=== PATIENT | male | born 1960 | race Caucasian/White ===

== ENCOUNTER 2019-05-31 09:12 | Outpatient (CLI) | payer BC, SELFPAY ==
--- NOTE | ~2019-05-31 | US_ITS ---
EXAMINATION: US renal BI DATE: 05/31/2019 10:48 INDICATION: Abnormal results of renal function study TECHNIQUE: Multiple ultrasound grayscale images of the kidneys were obtained. COMPARISON: CT dated 03/29/2016 and ultrasound dated 03/21/2016 FINDINGS: The right kidney measures 14.6 x 5.4 x 6.8 cm. The left kidney measures 14.5 x 6.1 x 6.2 cm. The kidn eys demonstrate normal echogenicity. Small bilateral anechoic renal cysts measuring up to 1.5 cm at t he right kidney and 1.3 cm the left kidney. There is no hydronephrosis in either kidney. No stones i dentified. The bladder is normal. Prostatomegaly measuring at least 5.4 x 4.2 x 4.2 cm. IMPRESSION: 1. Normal kidneys without hydronephrosis. 2. Prostatomegaly. Reviewed, dictated and finalized at location A. 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
== END 2019-05-31 09:13 | disposition home or self-care (01) ==
PROVIDERS: PCP Internal Medicine; Visit Provider Internal Medicine Nephrology
DX: R94.4 Abnormal results of kidney function studies (principal); N40.0 Benign prostatic hyperplasia without lower urinary tract symptoms
CPT/HCPCS: 76775

== ENCOUNTER 2019-08-01 08:52 | Outpatient (CLI) | payer BC, SELFPAY ==
--- NOTE | ~2019-08-01 | CT_ITS ---
EXAMINATION: CT abdomen pelvis wo/w con DATE: 08/01/2019 10:03 INDICATION: Gross hematuria. TECHNIQUE: Computed tomography (CT) of the abdomen and pelvis was performed without and with intraven ous contrast using a total of 130 mL Omnipaque-350 intravenous contrast with a double-bolus technique for simultaneous opacification of the renal parenchyma and renal collecting system. Automated exposu re control and iterative reconstruction technique were employed. The dose-length product was 2922.35 mGy-cm. COMPARISON: CT abdomen and pelvis 03/29/2016 FINDINGS: The visualized portions of the lung bases demonstrate minimal atelectasis. No pleural effusion. The h eart size is normal. There are coronary artery calcifications. No pericardial effusion. Calcified rig ht hilar lymph nodes are consistent with old granulomatous disease. Calcifications in the liver and s pleen are consistent with old granulomatous disease. There is a gallstone in the gallbladder, which i s normal in size. The pancreas and adrenal glands are normal. There are simple cysts in the kidneys m easuring up to 1.8 cm on the left. There are hemorrhagic cysts in the kidneys measuring up to 2.8 cm on the left. There is no urolithiasis. The bladder is not well-distended. There is diffuse bladder wa ll thickening. The prostate is moderately enlarged. There is diverticulosis of the colon without evid ence of diverticulitis. There are no dilated loops of bowel. The appendix is normal. There are no pat hologically enlarged lymph nodes. There is no free intraperitoneal fluid. There is moderate thoracic spondylosis and severe lumbar spondylosis. IMPRESSION: 1. Chronic diffuse bladder wall thickening, which may secondary to chronic outlet obstruction from th e moderately enlarged prostate. Reviewed, dictated and finalized at location A. IMPRESSION: 1. Chronic diffuse bladder wall thickening, which may secondary to chronic outl et obstruction from the moderately enlarged prostate.
[2019-08-01 09:35] LABS: Estimated Glomerular Filt Rate 48
== END 2019-08-01 08:53 | disposition home or self-care (01) ==
LOC: ANHIMG 09:00
PROVIDERS: PCP Internal Medicine; Visit Provider Urology
DX: R31.0 Gross hematuria (principal); N32.9 Bladder disorder, unspecified
CPT/HCPCS: 36415; 74178; Q9967

== ENCOUNTER 2020-12-30 15:17 | Outpatient (CLI) | payer BC, SELFPAY ==
--- NOTE | ~2020-12-30 | US_ITS ---
EXAMINATION: US soft tissue UE RT DATE: 12/30/2020 15:50 INDICATION: Localized swelling, mass or lump at the palmar aspect of the right second digit TECHNIQUE: Multiple grayscale and Doppler ultrasound images of the region of concern at the palmar as pect of the right second digit were obtained. COMPARISON: None FINDINGS: At the region of concern is a subcutaneous 5 x 5 x 3 mm anechoic fluid collection without evident int ernal flow or surrounding hyperemia on color Doppler. This located superficial to the flexor tendon a nd tendon sheath. On the cine images there appears to be a possible thin neck extending deeper to the underlying proximal interphalangeal joint space. IMPRESSION: 1. Region of concern corresponds to a 5 x 5 x 3 mm ganglion cyst which appears to arise from the righ t second proximal interphalangeal joint. Reviewed, dictated and finalized at location A. IMPRESSION: 1. Region of concern corresponds to a 5 x 5 x 3 mm ganglion cyst which appears to arise from the right second proximal interphalangeal joint.
== END 2020-12-30 15:18 | disposition home or self-care (01) ==
LOC: ANHIMG 15:23
PROVIDERS: PCP Internal Medicine; Visit Provider Nurse Practitioner
DX: R22.9 Localized swelling, mass and lump, unspecified (principal)
CPT/HCPCS: 76882

== ENCOUNTER → 2021-05-26 11:28 | Outpatient (CLI) | payer BC, SELFPAY ==
--- NOTE | ~2021-05-26 | US_ITS ---
EXAMINATION: US renal BI EXAM DATE: 05/26/2021 12:01 INDICATION: Essential primary hypertension. Chronic kidney disease stage III. TECHNIQUE: Multiple grayscale and Doppler images of the kidneys were obtained (by a technologist who performed the scan) and subsequently reviewed. Comparison is made to prior examination from 05/31/2019 . FINDINGS: Right kidney: There is normal contour and echogenicity. It measures 12.9 x 6.1 x 6.6 centimeters. Se veral small hypoechoic regions probably cysts measuring up to 1.6 cm. There is no hydronephrosis. Left kidney: There is normal contour and echogenicity. It measures 14.5 x 5.0 x 5.6 centimeters. Sev eral small cystic areas likely cysts measuring up to 1.8 cm. There is no hydronephrosis. Bladder unremarkable. IMPRESSION: 1. Small liver lesions likely cysts. Reviewed, dictated and finalized at location B. ONARY PHYSICIAN
== END ==
PROVIDERS: PCP Internal Medicine; Visit Provider Internal Medicine Nephrology
DX: E78.5 Hyperlipidemia, unspecified (principal); E55.9 Vitamin D deficiency, unspecified; D63.1 Anemia in chronic kidney disease; I12.9 Hypertensive chronic kidney disease with stage 1 through stage 4 chronic kidney disease, or unspecified chronic kidney disease; N18.31 Chronic kidney disease, stage 3a; K76.89 Other specified diseases of liver
CPT/HCPCS: 76775

== ENCOUNTER 2023-02-28 08:42 | Outpatient (CLI) | payer OTHER, SELFPAY ==
[2023-02-28 09:00] LABS: Hematocrit 44.4 % (42.0-52.0); Hemoglobin 15.6 g/dL (14.0-18.0); Mean Corpuscular HGB Conc 35.1 g/dl (32-36); Mean Corpuscular Hemoglobin 31.2 pg (26-34); Mean Corpuscular Volume 88.8 fl (80-100); Mean Platelet Volume 10.3 fl (7.4-10.4); Platelet Count Result 315 k/mm3 (150-375); Red Cell Distribution Width 12.4 % (11.5-14.5)
[2023-02-28 09:05] LABS: Blood Urea Nitrogen 37 mg/dL (8-26); Carbon Dioxide 24 mmol/L (22-30); Chloride 105 mmol/L (98-109); Estimated Glomerular Filt Rate 56; Glucose 264 mg/dL (70-105); Ionized Calcium (POC) 1.29 mmol/L (1.11-1.31); Potassium 4.2 mmol/L (3.5-4.9); Sodium 140 mmol/L (138-146)
[2023-02-28 09:06] LABS: Band Neutrophils Percent 4 % (0-6); Eosinophils Percent Manual 2 % (0-4); Monocytes Percent Manual 4 % (3-9); Neutrophils Percent Manual 73 % (46-73); Platelet Estimate Adequate (Adequate); Schistocytes None Seen (NORMAL); Total Cells Counted 100
[2023-02-28 11:30] LABS: Appearance Urine Turbid (Clear); Bacteria Urine None Seen /hpf; Bilirubin Urine Negative (Negative); Blood Urine 3+ (Negative); Color Urine Dark Yellow (Yellow); Glucose Urine UA 3+ mg/dL (Negative); Ketones Urine Negative (Negative); Leukocyte Esterase Ur 2+ LEU/UL (NEGATIVE); Nitrate Urine Negative (Negative); Non Pathogenic Casts 0-2; Protein Urine 2+ mg/dL (Negative); RBC Urine >100 /hpf (0-2); Squamous Epithelial Cell Urine Occasional /hpf (Few); Urobilinogen Urine 0.2 mg/dL (<2.0); WBC Urine >100 /hpf (0-3); pH Urine 5.5 (5.0-9.0)
[2023-02-28 11:33] LABS: Alanine Aminotransferase 28 U/L (6-50); Albumin Level 4.8 g/dL (3.5-5.1); Alkaline Phosphatase 86 U/L (38-126); Anion Gap 14 mmol/L (8-16); Aspartate Amino Transferase 26 U/L (17-59); Bilirubin,Total 0.6 mg/dL (0.2-1.3); Blood Urea Nitrogen 36 mg/dL (9-20); CRP 0.8 mg/dL (<1.0); Calcium 10.6 mg/dL (8.4-10.2); Carbon Dioxide 22 mmol/L (22-30); Chloride 104 mmol/L (98-107); Estimated Glomerular Filt Rate > 60; Glucose 261 mg/dL (65-110); Potassium 4.3 mmol/L (3.4-5.0); Sodium 140 mmol/L (137-145)
[2023-02-28 11:42] LABS: Add Urine Microscopic? YES
[2023-02-28 11:52] LABS: Erythrocyte Sedimentation Rate 11 mm/hr (0-20)
== END 2023-02-28 08:43 | disposition home or self-care (01) ==
PROVIDERS: Visit Provider Internal Medicine Hematology & Oncology
DX: N18.31 Chronic kidney disease, stage 3a (principal); D63.1 Anemia in chronic kidney disease; R31.9 Hematuria, unspecified; D72.829 Elevated white blood cell count, unspecified
CPT/HCPCS: 36415; 80047; 80053; 81001; 85025; 85652; 86140; 87086; 88184

== ENCOUNTER 2024-06-05 09:36 | Emergency (ER) | payer OTHER, MEDICARE, SELFPAY ==
--- NOTE | ~2024-06-05 | XR_ITS ---
Right Hand Technique: PA, oblique, and lateral views were obtained. Clinical History: Pain Findings: No acute fracture or dislocation is seen. Osseous alignment is anatomic. Joint spaces are p reserved. Soft tissues are unremarkable. Impression: Unremarkable right hand. Reviewed, dictated and finalized at location M. DING MAINTENANCE ENGINEER Impression: Unremarkable right hand.
--- NOTE | ~2024-06-05 | XR_ITS ---
[XR ribs RT 2V w CXR 2V ] INDICATION: Right rib pain after fall TECHNIQUE: Frontal projection of the upper right ribs, frontal projection of the lower right ribs, ob lique projection of all the right ribs, frontal inspiratory chest x-ray for interpretation. FINDINGS: Comparison to right rib series dated 10/04/2007 There are no displaced rib fractures identif ied. There are no soft tissue abnormality seen. The lungs are clear. There are calcified granuloma s in the lung parenchyma. IMPRESSION: 1:No acute displaced rib fractures. Reviewed, dictated and finalized at location B. RECRUITER
[2024-06-05 09:41] VITALS: BP 173/68; PULSE 67; RESP 16; TEMP 36.6; O2SAT 97
--- OUTSIDE RECORDS SUMMARY | 2024-06-05 09:43 | XMS_ITS | Clinical Summary ---
Author Organization [facility] Address [address] [place] [address] Care Team Providers Care Story Reader Name Role Phone Baldo Fischer MD Primary Care Provider Source Comments [facility],non-owned Affiliates and Associated Physician Practices is amultiple site organization consisting of ambulatory clinics and hospital sitesin [place], [place], [place] and [place]. This disclosure is being madepursuant to the Care Everywhere program and may not contain all information available regarding this patient. Last updated 18.[facility] Allergies No known active allergies Medications * Be aware that medications may not be up to date on this document. Alwaysverify current medications with the patient. Medication Sig Dispensed Refills Start Date End Date Status amLODIPine (Norvasc) 10 MG tablet amlodipine 10 mg tablet 04/27/2021 Active carvedilol (Coreg) 25 MG tablet Take 1 (one) tablet by mouth every 12 hours 07/10/2022 Active Continuous Blood Gluc Sensor (FreeStyle Juve 2 Sensor Systm) MISC USE DIRECTED AND CHANGE SENSOR EVERY 14 DAYS 06/26/2022 Active Farxiga 10 MG tablet Take 1 (one) tablet by mouth every morning 07/09/2022 Active dilTIAZem coated beads 24hr (Cardizem CD) 300 MG capsule 06/19/2022 Active fenofibrate micronized (Lofibra) 134 MG capsule 02/22/2021 Active ferrous sulfate 325 (65 FE) MG tablet every 24 hours Active finasteride (Proscar) 5 MG tablet Take 1 (one) tablet by mouth once daily 04/14/2022 Active glimepiride (Amaryl) 2 MG tablet Take 1 (one) tablet by mouth 2 times daily with morning and evening meal 06/05/2022 Active Basaglar KwikPen (Basaglar) pen ADMINISTER 35 UNITS UNDER THE SKIN IN THE MORNING AND AT BEDTIME 03/26/2022 Active B-D ULTRAFINE III SHORT PEN 31G X 8 MM needle USE TWICE DAILY DIRECTED 07/21/2021 Active losartan (Cozaar) 100 MG tablet 05/31/2022 Active nitroGLYCERIN (Nitrostat) 0.4 MG tablet nitroglycerin 0.4 mg tablet, sublingual 04/12/2021 Active omeprazole (PriLOSEC) 40 MG capsule TAKE 1 CAPSULE BY MOUTH EVERY DAY NEEDED 06/26/2022 Active rosuvastatin (Crestor) 20 MG tablet 04/27/2021 Active Ozempic, 0.25 or 0.5 MG/DOSE, 2 MG/1.5ML pen 1 (one) mg Take saturdays11/01/2021 Active aspirin EC (Ecotrin) 81 MG tablet Take 1 (one) tablet by mouth once daily Active qrmno-4-zwje ethyl esters (Lovaza) 1 g capsule Take 1 (one) capsule by mouth once daily Active Turmeric (QC TUMERIC COMPLEX PO) Active vitamin D3 (Cholecalciferol) 25 MCG (1000 UNITS) tablet Take 2 (two) tablets by mouth once daily Active ascorbic acid (Vitamin C) 500 MG tablet Take 1 (one) tablet by mouth once daily Active NATURAL PSYLLIUM FIBER PO Active HYDROcodone-acetam inophen ([place]) 5-325 MG tabletIndications: Renal mass, left Take 1 (one) tablet by mouth every 6 hours as needed for Pain 3 tablet 10/23/2022 Active Additional Information Patient not taking.Reported on 11/01/2023 nitrofurantoin monohyd macro crystals (Macrobid) 100 MG capsule 02/19/2023 Active metFORMIN ER 24hr (Glucophage XR) 500 MG tablet Take 1 (one) tablet by mouth 2 times daily 09/07/2023 Active vitamin D, ergocalciferol, (Drisdol) 1.25 MG (18981 UT) capsule Take 1 (one) capsule by mouth every 7 days Active Active Problems Problem Noted Date Diagnosed Date Renal mass, left 10/10/2022 Social History Tobacco Use Types Packs/Day Years Used Date Smoking Tobacco: Former Cigarettes Q uit: 1991 Smokeless Tobacco: Never Tobacco Cessation:Counseling Given: Not Answered Alcohol Use Standard Drinks/Week Comments Yes 0 (1 standard drink = 0.6 oz pur e alcohol) socially AUDIT-C Answer Date Recorded Q1: How often do you have a drink containing alc ohol? 2-4 times a month 10/10/2022 Average Number of Drinks Not on file 023 Frequency of Binge Drinking Not on file 09/15 Sex and Gender Information Value Date Recorded Sex Assigned at Not on file Gender Identity Not on file Sexual Orientation Not on file Last Filed Vital Signs Vital Sign Reading Time Taken Comments Blood Pressure 164/80 11/01/2023 11:07 AM CDT Pulse 71 11/01/2023 11:07 AM CDT Temperature 37.2 C (99 F) 11/01/2023 11:07 AM CDT Respiratory Rate 19 11/01/2023 11:07 AM CDT Oxygen Saturation 96% 11/01/2023 11:07 AM CDT Inhaled Oxygen Concentration - - Weight 103.4 kg (228 lb) 11/01/2023 11:07 AM CDT Height 185.4 cm (6' 1 ) 11/01/2023 11:07 AM CDT Body Mass Index 30.08 11/01/2023 11:07 AM CDT Plan of Treatment Upcoming Encounters Date Type Department Care Team (Late st Contact Info) Description 10/30/2024 9:30 AM CDT Appointment [facility] Health Imaging Services - CT Scan [address], [address] [place] [address] 10/30/2024 11:00 AM CDT Office Visit [facility] - Urology [address] [place] [address] Ruby Birch M, DO [address] [place] [address] Health Maintenance Due Date Last Done Comments COLOGUARD (AGES 45-75) - COLON CA SCREENING 1958 COLON MONITORING 1958 COLONOSCOPY - COLON CA SCREENING 1958 CT COLONOGRAPHY - COLON CA SCREENING 1960 Colorectal Cancer Screening 1958 FIT - COLON CA SCREENING 1958 FLEX SIG - COLON CA SCREENING 1958 MEDICARE AWV 12 MONTHS 1958 HIV SCREENING 1973 HEPATITIS C SCREENING 10/03/1976 DTAP/TDAP/TD VACCINES (1 - Tdap) 1977 PNEUMOCOCCAL VACCINE 50+ (1 of 1 - PCV) 2008 ZOSTER VACCINE (1 of 2) 2008 Respiratory Syncytial Virus (RSV) Vaccine Pt: or over 60 yrs (1 - Risk 60-74 years 1-dose series) 2018 AAA SCREENING 10/09/2023 COVID-19 VACCINE (3 - season) 2023 07/25/2020, 06/29/2020 INFLUENZA VACCINE (#1) 2023 1, 01/14/2021, 01/31/2020, Additional history exists DEPRESSION SCREENING 04/16/2024 SCREENING FOR DIABETES 10/31/2026 4, 02/28/2023, 10/11/2022, Additional history exists HEPATITIS B VACCINE Aged Out No longe r eligible based on patient's age to complete this topic HIB VACCINE Aged Out No longer eligi ble based on patient's age to complete this topic HPV VACCINE Aged Out No longer eligi ble based on patient's age to complete this topic MENINGOCOCCAL (Group B) VACCINE Aged Out No longer eligible based on patient's age to complete this topic MENINGOCOCCAL VACCINE Aged Out No elo isabella eligible based on patient's age to complete this topic Procedures Procedure Name Priority Date/Time Associated Diagnosis Comments BASIC METABOLIC PANEL (CALCIUM TOTAL) Routine 11/01/2023 8:50 AM CDT Renal mass, left from Last 3 Months or Most Recently Relevant to Health Maintenance Results * (ABNORMAL) BASIC METABOLIC PANEL (CALCIUM TOTAL) (11/01/2023 8:50 AM CDT) Glucose 203(H) 70 - 105 mg/dL 11/01/2023 9:52 AM CDT [facility] Sodium 139 136 - 145 mmol/L 11/01/2023 9:52 AM CDT [facility] Potassium 4.2 3.5 - 5.1 mmol/L 11/01/2023 9:52 AM CDT [facility] Chloride 108(H) 98 - 107 mmol/L 11/01/2023 9:52 AM CDT [facility] CO2 24 22 - 29 mmol/L 11/01/2023 9:52 AM CDT [facility] Calcium 10.3 8.4 - 10.4 mg/dL 11/01/2023 9:52 AM CDT [facility] Anion Gap 7 6 - 16 mmol/L 11/01/2023 9:52 AM CDT [facility] BUN 29(H) 7 - 26 mg/dL 11/01/2023 9:52 AM CDT [facility] Creatinine 1.17 0.72 - 1.25 mg/dL 11/01/2023 9:52 AM CDT [facility] eGFR by CKD-EPI 69(L) >=90 mL/min/1.7 3 m2 11/01/2023 9:52 AM CDT [facility] Blood BLOOD SPECIMEN / Unknown Lab Venipuncture / Unknown 11/01/2023 8:50 AM CDT 11/01/2023 8:50 AM CDT Ruby Birch DO LAB - CHEMISTRY OR DERABLES Performing Organization Address City/State/[facility] Co de Phone Number [facility] [address] [place] [address] from Last 3 Months or Most Recently Relevant to Health Maintenance Advance Directives * Full Code (Latest Code Status on File) Date Activated Date Inactivated Comments 10/10/2022 6:53 PM 10/11/2022 2:11 PM Care Teams Story Reader Relationship Specialty Start Date End Date Baldo Fischer MD [address] [place] [address] PCP - General 07/04/22
--- OUTSIDE RECORDS SUMMARY | 2024-06-05 09:43 | XMS_ITS | Patient Health Summary ---
Author Organization [facility] Address [address] [place] [address] Care Team Providers Care Wad Lubricator Name Role Phone Baldo Fischer MD Primary Care Provider Note from [facility],non-owned Affiliates and Associated Physician Practices is amultiple site organization consisting of ambulatory clinics and hospital sitesin [place], [place], [place] and [place]. This disclosure is being madepursuant to the Care Everywhere program and may not contain all information available regarding this patient. Last updated 18.[facility] Allergies No known active allergies Medications * Be aware that medications may not be up to date on this document. Alwaysverify current medications with the patient. * amLODIPine (Norvasc) 10 MG tablet(Started 04/27/2021) amlodipine 10 mg tablet * carvedilol (Coreg) 25 MG tablet(Started 07/10/2022) Take 1 (one) tablet by mouth every 12 hours * Continuous Blood Gluc Sensor (FreeStyle Juve 2 Sensor Systm) MIS(Started 06/26/2022) USE DIRECTED AND CHANGE SENSOR EVERY 14 DAYS * Farxiga 10 MG tablet(Started 07/09/2022) Take 1 (one) tablet by mouth every morning * dilTIAZem coated beads 24hr (Cardizem CD) 300 MG capsule(Started 06/19/2022) * fenofibrate micronized (Lofibra) 134 MG capsule(Started 02/22/2021) * ferrous sulfate 325 (65 FE) MG tablet every 24 hours * finasteride (Proscar) 5 MG tablet(Started 04/14/2022) Take 1 (one) tablet by mouth once daily * glimepiride (Amaryl) 2 MG tablet(Started 06/05/2022) Take 1 (one) tablet by mouth 2 times daily with morning and evening meal * Basaglar KwikPen (Basaglar) pen(Started 03/26/2022) ADMINISTER 35 UNITS UNDER THE SKIN IN THE MORNING AND AT BEDTIME * B-D ULTRAFINE III SHORT PEN 31G X 8 MM needle(Started 07/21/2021) USE TWICE DAILY DIRECTED * losartan (Cozaar) 100 MG tablet(Started 05/31/2022) * nitroGLYCERIN (Nitrostat) 0.4 MG tablet(Started 04/12/2021) nitroglycerin 0.4 mg tablet, sublingual * omeprazole (PriLOSEC) 40 MG capsule(Started 06/26/2022) TAKE 1 CAPSULE BY MOUTH EVERY DAY NEEDED * rosuvastatin (Crestor) 20 MG tablet(Started 04/27/2021) * Ozempic, 0.25 or 0.5 MG/DOSE, 2 MG/1.5ML pen(Started 11/01/2021) 1 (one) mg Take son saturdays * aspirin EC (Ecotrin) 81 MG tablet Take 1 (one) tablet by mouth once daily * yfwck-3-hmpd ethyl esters (Lovaza) 1 g capsule Take 1 (one) capsule by mouth once daily * Turmeric (QC TUMERIC COMPLEX PO) * vitamin D3 (Cholecalciferol) 25 MCG (1000 UNITS) tablet Take 2 (two) tablets by mouth once daily * ascorbic acid (Vitamin C) 500 MG tablet Take 1 (one) tablet by mouth once daily * NATURAL PSYLLIUM FIBER PO * HYDROcodone-acetaminophen (Brighton) 5-325 MG tablet(Started 10/23/2022) Take 1 (one) tablet by mouth every 6 hours as needed for Pain * nitrofurantoin monohyd macro crystals (Macrobid) 100 MG capsule(Started 02/19/2023) * metFORMIN ER 24hr (Glucophage XR) 500 MG tablet(Started 09/07/2023) Take 1 (one) tablet by mouth 2 times daily * vitamin D, ergocalciferol, (Drisdol) 1.25 MG (52468 UT) capsule Take 1 (one) capsule by mouth every 7 days Active Problems Problem Noted Date Diagnosed Date [...] Mass Index 30.08 11/01/2023 11:07 AM CDT Procedures * BASIC METABOLIC PANEL (CALCIUM TOTAL)(Performed 11/01/2023) Performed for Renal mass, left * XR CHEST 2VW(Performed 11/01/2023) Performed for Renal cell carcinoma of left kidney (HCC), H/O partial nephrectomy * CT ABDOMEN WWO CONTRAST(Performed 11/01/2023) Performed for Renal cell carcinoma of left kidney (HCC), H/O partial nephrectomy * CREATININE - POCT INTERFACED(Performed 11/01/2023) * CULTURE BLOOD(Performed 02/28/2023) * CULTURE BLOOD(Performed 02/28/2023) * CT ABDOMEN PELVIS WO CONTRAST(Performed 02/28/2023) Performed for Hematuria, unspecified type * LACTIC ACID BLOOD REFLEX TO REPEAT(Performed 02/28/2023) * URINE MICROSCOPIC ONLY REFLEX TO CULTURE(Performed 02/28/2023) * URINALYSIS REFLEX MICROSCOPIC REFLEX CULTURE(Performed 02/28/2023) * CULTURE URINE(Performed 02/28/2023) * COMPREHENSIVE METABOLIC PANEL(Performed 02/28/2023) * CBC W AUTO DIFFERENTIAL(Performed 02/28/2023) * URINALYSIS AUTO - POINT OF CARE (AMB) [facility](Performed 11/24/2022) Performed for Left renal mass * URINALYSIS AUTO - POINT OF CARE (AMB) [facility](Performed 10/26/2022) Performed for Left renal mass * CARDIAC EKG ORDER(Performed 10/13/2022) * GLUCOSE - POINT OF CARE(Performed 10/11/2022) * GLUCOSE - POINT OF CARE(Performed 10/11/2022) * CBC W AUTO DIFFERENTIAL(Performed 10/11/2022) Performed for Renal mass, left * BASIC METABOLIC PANEL (CALCIUM TOTAL)(Performed 10/11/2022) Performed for Renal mass, left * BASIC METABOLIC PANEL (CALCIUM TOTAL)(Performed 10/10/2022) Performed for Renal mass, left * CBC W AUTO DIFFERENTIAL(Performed 10/10/2022) Performed for Renal mass, left * GLUCOSE - POINT OF CARE(Performed 10/10/2022) * GLUCOSE - POINT OF CARE(Performed 10/10/2022) * PATHOLOGY TISSUE(Performed 10/10/2022) Performed for Renal mass * CARDIAC EKG ORDER(Performed 10/10/2022) * ARTERIAL LINE NOTE(Performed 10/10/2022) * ENDOTRACHEAL TUBE NOTE(Performed 10/10/2022) * BLOOD GAS+COOX+LYTES+METAB ARTERIAL POCT(Performed 10/10/2022) * BLOOD GAS ART+LYTES+METAB+COOX POC NOTIF(Performed 10/10/2022) Performed for Renal mass, left * ROBOTIC ASSISTED PARTIAL NEPHRECTOMY(Performed 10/10/2022) Performed for Renal mass * GLUCOSE - POINT OF CARE(Performed 10/10/2022) * TYPE + SCREEN PANEL(Performed 10/10/2022) Performed for Pre-op exam * TYPE + SCREEN PANEL(Performed 09/25/2022) Performed for Pre-op exam * BASIC METABOLIC PANEL (CALCIUM TOTAL)(Performed 09/25/2022) Performed for Left renal mass, Pre-op testing * CBC W AUTO DIFFERENTIAL(Performed 09/25/2022) Performed for Left renal mass, Pre-op testing * CULTURE URINE(Performed 09/25/2022) Performed for Left renal mass, Pre-op testing * EKG 12-LEAD(Performed 09/25/2022) Performed for Pre-op exam * CULTURE URINE(Performed 07/20/2022) Performed for Renal mass * URINALYSIS AUTO - POINT OF CARE (AMB) [facility](Performed 07/20/2022) Performed for Renal mass Results * (ABNORMAL) BASIC METABOLIC PANEL (CALCIUM TOTAL) (11/01/2023 8:50 AM CDT) Only the most recent of4 resultswithin the time period is included. Glucose 203(H) 70 - 105 mg/dL 11/01/2023 9:[address] [facility] Sodium 139 136 - 145 mmol/L 11/01/2023 9:[address] [facility] Potassium 4.2 3.5 - 5.1 mmol/L 11/01/2023 9:[address] [facility] Chloride 108(H) 98 - 107 mmol/L 11/01/2023 9:[address] [facility] CO2 24 22 - 29 mmol/L 11/01/2023 9:[address] [facility] Calcium 10.3 8.4 - 10.4 mg/dL 11/01/2023 9:[address] [facility] Anion Gap 7 6 - 16 mmol/L 11/01/2023 9:[address] [facility] BUN 29(H) 7 - 26 mg/dL 11/01/2023 9:[address] [facility] Creatinine 1.17 0.72 - 1.25 mg/dL 11/01/2023 9:[address] [facility] eGFR by CKD-EPI 69(L) >=90 mL/min/1.7 3 m2 11/01/2023 9:[address] [facility] Blood BLOOD SPECIMEN / Unknown Lab Venipuncture / Unknown 11/01/2023 8:50 AM CDT 11/01/2023 8:50 AM CDT Ruby Birch DO LAB - CHEMISTRY OR DERABLES [facility] [address] [place] [address] * XR CHEST 2VW (11/01/2023 8:34 AM CDT) Anatomical Region Laterality Modality Chest Radiographic Inessa ging 11/01/2023 9:26 AM CDT Impressions 11/01/2023 9:27 AM CDT IMPRESSION: No significant findings > Interpreting Provider: Kari Bartlett MD on 11/01/2023 9:27 AM Narrative 11/01/2023 9:27 AM CDT PROCEDURE: XR CHEST 2VW DATE/TIME OF EXAM: 11/01/2023 8:34 AM CLINICAL INFORMATION: None relevant/not provided if blank. Indication: C64.2: Malignant neoplasm of left kidney, except renal pelvis (HCC) Z90.5: Acquired absence of kidney Additional History: COMPARISON: None. FINDINGS: The lungs are clear and free of effusion. Incidental calcified granuloma in the right upper lobe. The heart size remains normal. There appeared to be either calcified plaques are stents in the coronary arteries. The mediastinum and bony thorax are unremarkable. Procedure Note Kari Bartlett MD - 11/01/2023 PROCEDURE: XR CHEST 2VW DATE/TIME OF EXAM: 11/01/2023 8:34 AM CLINICAL INFORMATION: None relevant/not provided if blank. Indication: C64.2: Malignant neoplasm of left kidney, except renalpelvis (HCC) Z90.5: Acquired absence of kidney Additional History: COMPARISON: None. FINDINGS: The lungs are clear and free of effusion. Incidental calcifiedgranuloma in the right upper lobe. The heart size remains normal. There appearedto be either calcified plaques are stents in the coronary arteries. The mediastinum and bony thorax are unremarkable. IMPRESSION: No significant findings > Interpreting Provider: Kari Bartlett MD on 11/01/2023 9:27 AM Ruby Birch DO DIAGNOSTIC IMAGING ORDERABLES * CT ABDOMEN WWO CONTRAST (11/01/2023 8:02 AM CDT) Anatomical Region Laterality Modality Abdomen Computed Tomogra phy 11/01/2023 9:21 AM CDT Impressions 11/01/2023 9:35 AM CDT IMPRESSION: No recurrent disease or metastatic lesions. There is no acute process. > Interpreting Provider: Marcello Gleason MD on 11/01/2023 9:35 AM Narrative 11/01/2023 9:35 AM CDT PROCEDURE: CT ABDOMEN WWO CONTRAST DATE/TIME OF EXAM: 11/01/2023 8:03 AM CLINICAL INFORMATION: None relevant/not provided if blank. Indication: C64.2: Malignant neoplasm of left kidney, except renal pelvis (HCC) Z90.5: Acquired absence of kidney CONTRAST: IOPAMIDOL 76 % IV SOLN:[address] ABDOMEN WITHOUT AND WITH CONTRAST. HISTORY: Follow-up renal cell carcinoma of left kidney status post partial nephrectomy. COMPARISON: CT abdomen and pelvis without contrast, 02/28/2023. TECHNIQUE: Spiral axial scanning and reconstructed coronal and sagittal imaging of the abdomen are performed before and also in early and delayed phases after intravenous contrast administration following the renal mass protocol. Oral contrast was not used. Total of 100 mL of Isovue-370 contrast was used, intravenously. FINDINGS: The surgical suture line of the nephrectomy is seen in the ventral aspect of the left kidney. There is no evidence of the local recurrence of the mass. There are bilateral well-circumscribed hypoattenuating renal lesions in both kidneys. The exophytic lesions of lateral aspect of the right kidney measuring 21 mm (series 4, image 74 and 68) does not enhance and represent simple cysts. The partially exophytic right renal lesion measuring 2 cm (series 4, image 54) does not enhance and represents a simple cyst. The adjacent cortical similar cystic lesion measuring 11 mm (series 4, image 56) does not enhance and also is a simple cyst. The 2.8 cm simple cyst of the left kidney (series 4, image 64) does not enhance. The exophytic simple cyst of the inferior pole of left kidney (series 4, image 85) measuring 2.5 cm does not enhance. The remaining subcentimeter bilateral cortical renal lesions do not enhance and although they're too small to characterize, apparently represent simple cysts as well. An enhancing solid renal mass is not present on either side. The precontrast images do not demonstrate a calcified urinary stone. The early postcontrast images demonstrate symmetric nephrograms. The delayed images demonstrate symmetric excretion of contrast into normal appearing renal calyces, renal pelves and the imaged portion of the ureters. There is no perirenal fat stranding. The liver, spleen with a few calcified granulomata, adrenal glands, and pancreas are within normal limits, in the 3 phases of this examination The gallbladder contains a single calcified gallstone and otherwise is unremarkable. No biliary or pancreatic ductal dilatation is identified. The aorta appears normal with a scattered atherosclerotic calcifications. There is no evidence of thrombosis in inferior vena cava, the iliac veins, hepatic veins or portal vein. The stomach, duodenum and the imaged portion of the remainder of the small bowel are within normal limits. The appendix is long containing air and is normal. The imaged large bowel is normal in caliber and wall thickness. The volume of stool is average. There is no diverticulosis No ascites, abscess, lymphadenopathy or free air is identified. The imaged body wall is unremarkable. In the imaged portion of the chest, the gastroesophageal junction is normal and the imaged lung bases are aerated and clear. The heart is not enlarged and no pleural effusion is seen. The bone window images demonstrate age-related degenerative changes and straightening of lumbar spine. Procedure Note Marcello Gleason MD - 11/01/2023 PROCEDURE: CT ABDOMEN WWO CONTRAST DATE/TIME OF EXAM: 11/01/2023 8:03 AM CLINICAL INFORMATION: None relevant/not provided if blank. Indication: C64.2: Malignant neoplasm of left kidney, except renalpelvis (HCC) Z90.5: Acquired absence of kidney CONTRAST: IOPAMIDOL 76 % IV SOLN:[address] ABDOMEN WITHOUT AND WITH CONTRAST. HISTORY: Follow-up renal cell carcinoma of left kidney status postpartial nephrectomy. COMPARISON: CT abdomen and pelvis without contrast, 02/28/2023. TECHNIQUE: Spiral axial scanning and reconstructed coronal and sagittal imaging of the abdomen are performed before and also in early anddelayed phases after intravenous contrast administration following the renalmass protocol. Oral contrast was not used. Total of 100 mL of Isovue-370 contrast was used, intravenously. FINDINGS: The surgical suture line of the nephrectomy is seen in the ventralaspect of the left kidney. There is no evidence of the local recurrence of the mass. There are bilateral well-circumscribed hypoattenuating renallesions in both kidneys. The exophytic lesions of lateral aspect of the right kidney measuring 21 mm (series 4, image 74 and 68) does not enhance and represent simple cysts. The partially exophytic right renal lesion measuring 2 cm (series 4, image 54) does not enhance and represents a simple cyst. The adjacent cortical similar cystic lesion measuring 11 mm (series 4, image 56) does not enhance and also is a simple cyst. The 2.8cm simple cyst of the left kidney (series 4, image 64) does not enhance.The exophytic simple cyst of the inferior pole of left kidney (series 4,image 85) measuring 2.5 cm does not enhance. The remaining subcentimeter bilateral cortical renal lesions do not enhance and although they're too small to characterize, apparently represent simple cysts as well. An enhancing solid renal mass is not present on either side. The precontrast images do not demonstrate a calcified urinary stone. The early postcontrast images demonstrate symmetric nephrograms. The delayed images demonstrate symmetric excretion of contrast into normal appearing renal calyces, renal pelves and the imaged portion of the ureters. Thereis no perirenal fat stranding. The liver, spleen with a few calcified granulomata, adrenal glands, and pancreas are within normal limits, in the 3 phases of this examinationThe gallbladder contains a single calcified gallstone and otherwise is unremarkable. No biliary or pancreatic ductal dilatation is identified. The aorta appears normal with a scattered atheroscleroticcalcifications. There is no evidence of thrombosis in inferior vena cava, the iliacveins, hepatic veins or portal vein. The stomach, duodenum and the imaged portion of the remainder of thesmall bowel are within normal limits. The appendix is long containing air andis normal. The imaged large bowel is normal in caliber and wall thickness.The volume of stool is average. There is no diverticulosis No ascites, abscess, lymphadenopathy or free air is identified. The imaged body wall is unremarkable. In the imaged portion of the chest, the gastroesophageal junction isnormal and the imaged lung bases are aerated and clear. The heart is notenlarged and no pleural effusion is seen. The bone window images demonstrate age-related degenerative changes and straightening of lumbar spine. IMPRESSION: No recurrent disease or metastatic lesions. There is no acute process. > Interpreting Provider: Marcello Gleason MD on 11/01/2023 9:35 AM Ruby Velazquez Queta DO CT ORDERABLES * CREATININE - POCT INTERFACED (11/01/2023 7:46 AM CDT) Creatinine POCT 0.80 0.70 - 1.20 mg/dL 11/01/2023 7:[address] [facility] eGFR >90 >=90 mL/min/1.7 3 m2 11/01/2023 7:[address] [facility] Blood BLOOD SPECIMEN / Unknown 11/01/2023 7:46 AM CDT 11/01/2023 7:57 AM CDT [facility]INT OF CAR E ORDERABLES [facility] [address] [place] [address] * CULTURE BLOOD (02/28/2023 5:11 PM COAT CUTTER) Only the most recent of2 resultswithin the time period is included. Culture No growth day 5 DIANE 03/05/2023 9:39 PM COAT CUTTER [facility] Blood PERIPHERAL BLOOD / Unknown Venipuncture / Unknown 02/28/2023 5:11 PM COAT CUTTER 02/28/2023 5:26 PM COAT CUTTER Christine Pelayo ORDER [facility] - MICROBIOLOG Y ORDERABLES [facility] [address] [place] [address], [facility] [phone] * CT ABDOMEN PELVIS WO CONTRAST (02/28/2023 4:18 PM COAT CUTTER) Anatomical Region Laterality Modality Abdomen, Pelvis Computed Tomogra phy 02/28/2023 4:50 PM COAT CUTTER Impressions 02/28/2023 4:59 PM COAT CUTTER Impression: 1.Cholelithiasis without evidence of acute cholecystitis. 2.Multiple exophytic lesions in the kidneys bilaterally measuring greater than simple fluid density. Further evaluation with dedicated renal CT or MRI is recommended. 3.Constipation. 4.Prostatomegaly. > Interpreting Provider: Chris Torres MD on 02/28/2023 4:59 PM Narrative 02/28/2023 4:59 PM COAT CUTTER PROCEDURE: CT ABDOMEN PELVIS WO CONTRAST, DATE/TIME OF EXAM: 02/28/2023 4:19 PM, LOCATION [facility] INDICATION: R31.9: Hematuria, unspecified COMPARISON: None. TECHNIQUE: CT of the abdomen and pelvis was performed without intravenous contrast according to standard protocol. Sagittal and coronal reformats were submitted. Findings: Lower Chest: Normal. Liver: Calcified granulomas are seen in the hepatic parenchyma. Gallbladder and Bile Ducts: Multiple gallstones are seen. No wall thickening or pericholecystic fluid. Spleen: Multiple calcified granulomas are noted in the spleen, likely sequelae of prior granulomatous disease. Pancreas: Normal. Adrenals: Normal. Kidneys: Multiple bilateral exophytic lesions demonstrating greater than simple fluid density are incompletely evaluated on this exam, measuring up to 2.5 cm in the superior pole the right kidney. Postoperative changes of the left kidney are noted. Gastrointestinal: Retained stool in the colon suggesting constipation. The appendix is not seen; however, no inflammatory changes are seen in the right lower quadrant. Bladder: The bladder wall is diffusely thickened, likely due to decompressed state. Reproductive Organs: The prostate is enlarged. Vasculature: Atherosclerotic calcification of the aorta and its branch vessels. Bones: Bone windows demonstrate no suspicious lytic or blastic lesions. The visible osseous structures are intact. Degenerative changes are seen in the spine. Soft tissues: Normal. Procedure Note Chris Torres MD - 02/28/2023 PROCEDURE: CT ABDOMEN PELVIS WO CONTRAST, DATE/TIME OF EXAM:02/28/2023 4:19 PM, LOCATION [facility] INDICATION: R31.9: Hematuria, unspecified COMPARISON: None. TECHNIQUE: CT of the abdomen and pelvis was performed withoutintravenous contrast according to standard protocol. Sagittal and coronal reformats were submitted. Findings: Lower Chest: Normal. Liver: Calcified granulomas are seen in the hepatic parenchyma. Gallbladder and Bile Ducts: Multiple gallstones are seen. No wall thickening or pericholecystic fluid. Spleen: Multiple calcified granulomas are noted in the spleen, likely sequelaeof prior granulomatous disease. Pancreas: Normal. Adrenals: Normal. Kidneys: Multiple bilateral exophytic lesions demonstrating greater than simple fluid density are incompletely evaluated on this exam, measuring up to2.5 cm in the superior pole the right kidney. Postoperative changes of the left kidney are noted. Gastrointestinal: Retained stool in the colon suggesting constipation. The appendix is not seen; however, no inflammatory changes are seen in the right lower quadrant. Bladder: The bladder wall is diffusely thickened, likely due to decompressedstate. Reproductive Organs: The prostate is enlarged. Vasculature: Atherosclerotic calcification of the aorta and its branch vessels. Bones: Bone windows demonstrate no suspicious lytic or blastic lesions. The visible osseous structures are intact. Degenerative changes are seen inthe spine. Soft tissues: Normal. Impression: 1.Cholelithiasis without evidence of acute cholecystitis. 2.Multiple exophytic lesions in the kidneys bilaterally measuringgreater than simple fluid density. Further evaluation with dedicated renal CT or MRI is recommended. 3.Constipation. 4.Prostatomegaly. > Interpreting Provider: Chris Torres MD on 02/28/2023 4:59 PM [facility] ORDER[facility]LES * LACTIC ACID BLOOD REFLEX TO REPEAT (02/28/2023 4:16 PM COAT CUTTER) Lactic Acid 0.8 <=2 mmol/L 02/28/2023 4:39 PM COAT CUTTER [facility] Blood BLOOD SPECIMEN / Unknown Venipuncture / Unknown 02/28/2023 4:16 PM COAT CUTTER 02/28/2023 4:16 PM COAT CUTTER Christine Pelayo [facility] - CHEMISTRY O RDERABLES [facility] [address] [place] [address] * (ABNORMAL) URINE MICROSCOPIC ONLY REFLEX TO CULTURE (02/28/2023 4:10 PM COAT CUTTER) Reflex Status Culture to follow 02/28/2023 4:30 PM COAT CUTTER [facility] RBC UA 11-20(A) 0 - 5 # /hpf 02/28/2023 4:30 PM COAT CUTTER [facility] WBC UA 51-100(A) 0 - 5 # /hpf 02/28/2023 4:30 PM COAT CUTTER [facility] Bacteria UA None Seen None Seen 02/28/2023 4:30 PM COAT CUTTER [facility] Squamous Epithelial Cells 0-2 0 - 5 /hpf 02/28/2023 4:30 PM COAT CUTTER [facility] Budding Yeast Many(A) None seen /hpf 02/28/2023 4:30 PM COAT CUTTER [facility] Urine URINE SPECIMEN OBTAINED BY CLEAN CATCH PROCEDURE / Unknown Collection / Unknown 02/28/2023 4:10 PM COAT CUTTER 02/28/2023 4:16 PM COAT CUTTER Narrative [facility] - 02/28/2023 4:30 PM COAT CUTTER Christine Pelayo [facility] - URINALYSIS ORDERABLES [facility] [address] [place] [address] * (ABNORMAL) URINALYSIS REFLEX MICROSCOPIC REFLEX CULTURE (02/28/2023 4:10 PM COAT CUTTER) Color UA Yellow Straw, Yellow 02/28/2023 4:27 PM COAT CUTTER [facility] Clarity UA Slt Cloudy(A) Clear 02/28/2023 4:27 PM COAT CUTTER [facility] Glucose UA 3+(A) Negative 02/28/2023 4:27 PM COAT CUTTER [facility] Bilirubin UA Negative Negative 02/28/2023 4:27 PM COAT CUTTER [facility] Ketone UA Negative Negative 02/28/2023 4:27 PM COAT CUTTER [facility] Specific [place] UA 1.018 1.005 - 1.030 02/28/2023 4:27 PM COAT CUTTER [facility] Blood UA 1+(A) Negative 02/28/2023 4:27 PM COAT CUTTER [facility] pH UA 6.0 5.0 - 8.0 pH 02/28/2023 4:27 PM COAT CUTTER [facility] Protein UA Negative Negative 02/28/2023 4:27 PM COAT CUTTER [facility] Urobilinogen UA Negative Negative mg/dL 02/28/2023 4:27 PM COAT CUTTER [facility] Nitrite UA Negative Negative 02/28/2023 4:27 PM COAT CUTTER [facility] Leukocyte UA 2+(A) Negative 02/28/2023 4:27 PM COAT CUTTER [facility] Urine Microscopy Urine microscopy to follow 02/28/2023 4:27 PM COAT CUTTER [facility] Reflex Status Culture to follow 02/28/2023 4:27 PM COAT CUTTER [facility] Urine URINE SPECIMEN OBTAINED BY CLEAN CATCH PROCEDURE / Unknown Collection / Unknown 02/28/2023 4:10 PM COAT CUTTER 02/28/2023 4:16 PM COAT CUTTER Narrative [facility] - 02/28/2023 4:27 PM COAT CUTTER Christine Pelayo [facility] - URINALYSIS ORDERABLES Performing Organization Address City/[facility]/ZIP Co de Phone Number [facility] [address] [place] [address] * CULTURE URINE (02/28/2023 4:10 PM COAT CUTTER) Only the most recent of3 resultswithin the time period is included. Culture Urine <10,000 CFU/mL urogenital juan a DIANE 03/02/2023 12:29 AM COAT CUTTER [facility] Urine URINE SPECIMEN OBTAINED BY CLEAN CATCH PROCEDURE / Unknown Collection / Unknown 02/28/2023 4:10 PM COAT CUTTER 02/28/2023 4:16 PM COAT CUTTER Christine Pelayo [facility] - MICROBIOLOG Y ORDERABLES Performing Organization Address City/[facility]/ZIP Co de Phone Number [facility] [address] [place] [address], [facility] [phone] * (ABNORMAL) CBC W AUTO DIFFERENTIAL (02/28/2023 4:06 PM COAT CUTTER) Only the most recent of4 resultswithin the time period is included. WBC 14.4(H) 4.4 - 10.7 x10E9/L 02/28/2023 4:23 PM COAT CUTTER [facility] WBC Corrected 02/28/2023 4:23 PM COAT CUTTER [facility] RBC 4.59 3.80 - 5.40 x10E12/L 02/28/2023 4:23 PM COAT CUTTER [facility] Hemoglobin 14.0 12.0 - 17.6 gm/dL 02/28/2023 4:23 PM COAT CUTTER [facility] Hematocrit 41.2 35.2 - 51.7 % 02/28/2023 4:23 PM COAT CUTTER [facility] MCV 89.8 80.7 - 98.3 fl 02/28/2023 4:23 PM COAT CUTTER [facility] MCH 30.5 26.7 - 34.0 pg 02/28/2023 4:23 PM COAT CUTTER [facility] MCHC 34.0 30.8 - 35.9 gm/dL 02/28/2023 4:23 PM COAT CUTTER [facility] Platelet Count 284 153 - 416 x10E9/L 02/28/2023 4:23 PM COAT CUTTER [facility] RDW-CV 12.5 12.1 - 14.9 % 02/28/2023 4:23 PM COAT CUTTER [facility] MPV 10.3 9.4 - 12.9 fl 02/28/2023 4:23 PM [facility] Neutrophils % 70.5 44.0 - 73.0 % 02/28/2023 4:23 PM COAT CUTTER [facility] Lymphocytes % 19.1(L) 20.0 - 43.0 % 02/28/2023 4:23 PM [facility] Monocytes % 5.9 5.0 - 13.0 % 02/28/2023 4:23 PM COAT CUTTER [facility] Eosinophils % 3.1 0.0 - 6.0 % 02/28/2023 4:23 PM [facility] Basophils % 0.8 0.0 - 2.0 % 02/28/2023 4:23 PM COAT CUTTER [facility] Immature Granulocytes 0.6 0 - 1 % 02/28/2023 4:23 PM COAT CUTTER [facility] Neutrophil Absolute 10.16(H) 2.01 - 7.14 x10E9/L 02/28/2023 4:23 PM COAT CUTTER [facility] Lymphocytes Absolute 2.75 1.07 - 3.94 x10E9/L 02/28/2023 4:23 PM COAT CUTTER [facility] Monocytes Absolute 0.85 0.26 - 1.07 x10E9/L 02/28/2023 4:23 PM [facility] Eosinophils Absolute 0.44 0 - 0.47 x10E9/L 02/28/2023 4:23 PM [facility] Basophils Absolute 0.11(H) 0 - 0.08 x10E9/L 02/28/2023 4:23 PM [facility] Immature Granulocytes Absolute 0.08(H) 0.00 - 0.06 x10E9/L 02/28/2023 4:23 PM [facility] nRBC Auto 0 /100 WBC 02/28/2023 4:23 PM [facility] Blood BLOOD SPECIMEN / Unknown Venipuncture / Unknown 02/28/2023 4:06 PM COAT CUTTER 02/28/2023 4:16 PM [facility] Christine Pelayo ORDER [facility] - HEMATOLOGY ORDERABLES [facility] [address] [place] [address] * (ABNORMAL) COMPREHENSIVE METABOLIC PANEL (02/28/2023 4:06 PM COAT CUTTER) Glucose 278(H) 70 - 105 mg/dL 02/28/2023 4:42 PM [facility] Sodium 140 136 - 145 mmol/L 02/28/2023 4:42 PM [facility] Potassium 4.2 3.5 - 5.1 mmol/L 02/28/2023 4:42 PM [facility] Chloride 106 98 - 107 mmol/L 02/28/2023 4:42 PM [facility] CO2 23 22 - 29 mmol/L 02/28/2023 4:42 PM [facility] Calcium 10.3 8.4 - 10.4 mg/dL 02/28/2023 4:42 PM [facility] Anion Gap 11 6 - 16 mmol/L 02/28/2023 4:42 PM [facility] BUN 36(H) 7 - 26 mg/dL 02/28/2023 4:42 PM [facility] Creatinine 1.38(H) 0.72 - 1.25 mg/dL 02/28/2023 4:42 PM [facility] Alkaline Phosphatase 73 40 - 150 U/L 02/28/2023 4:42 PM [facility] ALT 19 0 - 55 U/L 02/28/2023 4:42 PM [facility] AST 16 5 - 34 U/L 02/28/2023 4:42 PM COAT CUTTER [facility] Protein Total 7.2 6.4 - 8.3 gm/dL 02/28/2023 4:42 PM COAT CUTTER [facility] Albumin 4.0 3.4 - 5.0 gm/dL 02/28/2023 4:42 PM COAT CUTTER [facility] Bilirubin Total 0.5 0.2 - 1.2 mg/dL 02/28/2023 4:42 PM COAT CUTTER [facility] eGFR by CKD-EPI 57(L) >=90 mL/min/1.7 3 m2 02/28/2023 4:42 PM COAT CUTTER [facility] Blood BLOOD SPECIMEN / Unknown Venipuncture / Unknown 02/28/2023 4:06 PM COAT CUTTER 02/28/2023 4:16 PM COAT CUTTER Christine Pelayo [facility] LAB - CHEMISTRY O RDERABLES [facility] [address] [place] [address] * URINALYSIS AUTO - POINT OF CARE (AMB) [facility] (11/24/2022 10:38 AM CDT) Only the most recent of3 resultswithin the time period is included. Glucose UA 60mmol/L [facility] [address] Bilirubin UA POCT neg [facility] [address] Ketones UA POCT neg [facility] [address] Specific [place] UA 1.[address] [facility] [address] Blood Urine POCT neg [facility] [address] pH UA 6.0 [facility] [address] Protein UA neg [facility] [address] Urobilinogen UA 3.5umol/L [facility] [address] Nitrite UA neg [facility] [address] WBC UA neg [facility] [address] Urine URINE / Unknown 11/24/2022 1 0:38 AM CDT Ruby Birch DO LAB - POINT OF CAR E ORDERABLES [facility] [address] [place] [address], [facility] [phone] * CARDIAC EKG ORDER (10/13/2022 4:14 PM CDT) Only the most recent of2 resultswithin the time period is included. Narrative 10/13/2022 4:14 PM CDT Ordered by an unspecified provider. Scanned Document CARDIAC SERVICES ORD ERABLES * (ABNORMAL) GLUCOSE - POINT OF CARE (10/11/2022 11:13 AM CDT) Only the most recent of5 resultswithin the time period is included. Glucose WB/POC 232(H) 70 - 115 mg/dL 10/11/2022 11:17 AM CDT [facility] Specimen Type Cap Fingerstick 2022 11:17 AM CDT [facility] Blood BLOOD SPECIMEN / Unknown 10/11/2022 11:13 AM CDT 10/11/2022 11:17 AM CDT Ruby Birch DO LAB - POINT OF CAR E ORDERABLES [address] [address], [facility] [phone] * PATHOLOGY TISSUE (10/10/2022 3:30 PM CDT) Case Report Surgical Pathology Report Case: [id number] Authorizing Provider: Ruby Birch DO Collected: 10/10/2022 03:30 PM Ordering Location: [facility] OP Received: 10/11/2022 07:17 AM Pathologist: Arcenio Valentin MD Specimen: Kidney Nephrec Part, left renal mass 10/12/2022 2:57 PM CDT [facility] Final Diagnosis Kidney, left mass, partial nephrectomy (A): - Renal cell carcinoma, clear cell type (See synoptic report) 10/12/2022 2:57 PM CDT [facility] Microscopic Description and Comment Microscopic examination substantiates the final diagnosis. 10/12/2022 2:57 PM [facility] Clinical History The patient is a 62 year old male with imaging showing a 16mm partially endophytic left renal mass at that superior to mid pole location where the mass was seen on U/S. 10/12/2022 2:57 PM [facility] Gross Description The requisition and specimen(s) are identified with the patient's name Jared Barrios. Received in formalin, specimen A , is a 2.1 x 2.0 cm renal wedge excised up to 1.3 cm with a bulging capsule. The parenchymal margin is inked blue, the capsule is inked orange, and the specimen is sectioned to reveal a faulkner parenchyma and well-circumscribed 1.5 x 1.4 x 1.4 cm orange-red lesion approaching multiple margins. The specimen is entirely submitted in 4 cassettes. /ml 10/12/2022 2:57 PM [facility] Pathologist Location at [facility] 10/12/2022 2:57 PM [facility] Disclaimer The performance characteristics of all immunohistochemical and indirect immunofluorescence stains (if any) cited in this report were determined by the Histopathology Laboratory of [facility]. Some of these tests were developed by our own laboratory and have not been cleared or approved by the US Food and Drug Administration. The FDA does not require this test to go through premarket FDA review. These tests are used for clinical purposes. They should not be regarded as investigational or for research. This laboratory is certified under the Clinical Laboratory Improvement Amendments (CLIA) as qualified to perform high complexity clinical laboratory testing. This case has been personally reviewed and interpreted by the attending (teaching) pathologist. 10/12/2022 2:57 PM [facility] Synoptic Report KIDNEY: Nephrectomy KIDNEY: NEPHRECTOMY, PARTIAL OR RADICAL - All Specimens 8th Edition - Protocol posted: 10/13/2020 SPECIMEN Procedure: Partial nephrectomy Specimen Laterality: Left TUMOR Tumor Focality: Unifocal Tumor Site: superior to mid pole Tumor Size: Greatest Dimension (Centimeters): 1.5 cm Histologic Type: Clear cell renal cell carcinoma Histologic Grade (WHO / ISUP): G2 (nucleoli conspicuous and eosinophilic at 400x magnification, visible but not prominent at 100x magnification) Tumor Extent: Limited to kidney Sarcomatoid Features: Not identified Rhabdoid Features: Not identified Tumor Necrosis: Not identified Lymphovascular Invasion: Not identified MARGINS Margin Status: All margins negative for invasive carcinoma REGIONAL LYMPH NODES Regional Lymph Node Status: Not applicable (no regional lymph nodes submitted or found) PATHOLOGIC STAGE CLASSIFICATION (pTNM, AJCC 8th Edition) Reporting of pT, pN, and (when applicable) pM categories is based on information available to the pathologist at the time the report is issued. As per the AJCC (Chapter 1, 8th Ed.) it is the managing physician s responsibility to establish the final pathologic stage based upon all pertinent information, including but potentially not limited to this pathology report. Primary Tumor (pT): pT1a Regional Lymph Nodes (pN): pN not assigned (no nodes submitted or found) ADDITIONAL FINDINGS Additional Findings in Nonneoplastic Kidney: None identified 10/12/2022 2:57 PM CDT [facility] Embedded Images 10/12/2022 2:57 PM CDT [facility] Biopsy, Excision EXCISION OF LESION OF KIDNEY WITH PARTIAL NEPHRECTOMY / Unknown 10/10/2022 3:30 PM CDT 10/11/2022 7:17 AM CDT Comment:Pre-op diagnosis: renal mass Ruby Caroline Birch LAB - PATHOLOGY/SAM FELIZ ORDERABLES Performing Organization Address City/State/[facility] Co de Phone Number [facility] [address] [phone] * ARTERIAL LINE PERFORMABLE (10/10/2022 12:49 PM CDT) Narrative Lizzeth Weber Anes Asst - 10/10/2022 12:49 PM CDT Lizzeth Weber Anes Asst 10/10/2022 12:51 PM Arterial Line Placement Procedure Note Patient Location: OR. Procedure: Arterial Line ([id number]). Procedure Section Indications: continuous blood pressure monitoring and blood sampling needed. Skin Prep: Chloraprep. Orientation: Left. Site: radial. Sterile Technique: small sterile fenestrated drape, sterile gloves, mask and cap. Gauge: 20. Number of Attempts: 1. Procedure Tolerance: tolerated well. Events: none. Procedure Start Time: 10/10/2022 11:45 PM. Staff Section Anesthesia Provider: Bart Glass II, MD, Performed the procedure Bart Glass II, MD GENERAL ANESTHESIA ORDERABLES * ETT LINE PERFORMABLE (10/10/2022 12:48 PM CDT) Narrative Lizzeth Weber Anes Asst - 10/10/2022 12:48 PM CDT Lizzeth Weber Anes Asst 10/10/2022 12:49 PM Endotracheal Tube Placement: Patient Location: OR. Intubation Event Date/Time: 10/10/2022 11:36 AM Procedure: intubation ([id number]). Procedure Section: Induction: standard IV Patient Position: sniffing Mask Ventilation: easy with oral airway. Blade Type: Loja Blade Size: 2 Laryngoscopy View: grade 1 (full cords) Intubation Adjuncts: stylet Tube: endotracheal tube Placement: oral Tube type: cuff - inflated Tube Size (MM): 8 Depth of Insertion (CM): 23 Measured From: teeth Cuff Inflated With: air Number of Attempts: 1. Placement Verified By: direct visualization, CO2 detector, bilateral breath sounds and CO2 monitor CXR Findings: ETT in proper place. Tube secured with: adhesive tape. Dentition unchanged? Yes Difficult Airway? No. Procedure Start Time: 10/10/2022 11:36 AM. Staff Section Anesthesia Provider: Lizzeth Weber Anes Asst, Performed the procedure Bart Glass II, MD GENERAL ANESTHESIA ORDERABLES * (ABNORMAL) BLOOD GAS+COOX+LYTES+METAB ARTERIAL POCT (10/10/2022 12:43 PM CDT) pH Arterial 7.36 7.35 - 7.45 pH 10/10/2022 12:43 PM T [facility] pO2 Arterial 146(H) 80 - 100 mmHg 10/10/2022 12:43 PM CDT [facility] pCO2 Arterial 41 35 - 45 mmHg 12:43 PM [facility] HCO3 Arterial 23.2 20.0 - 30.0 mmol/L 10/10/2022 12:43 PM [facility] BE Arterial -2.2(L) -2.0 - 2.0 mmol/L 10/10/2022 12:43 PM [facility] Oxyhemoglobin Arterial 97.0 % 10/10/2022 12:43 PM [facility] Dexoyhemoglobin (HHB) % 2.1 % 10/10/2022 12:43 PM [facility] Methemoglobin <0.8 0.0 - 2.0 % 10/10/2022 12:43 PM [facility] Carboxyhemoglobin 0.6 0.0 - 2.0 % 2022 12:43 PM [facility] Comment:Carboxyhemoglobin No rmal Concentration: Non-smokers: 0-2%; Smokers: 0- 9%; Toxic: >20% O2 Content Arterial 17.2 Interpret within clinical context ml/dL 10/10/2022 12:43 PM [facility] Hemoglobin by COOX 12.4 12.0 - 17.6 g/dL 10/10/2022 12:43 PM [facility] O2 Saturation Arterial 98 90 - 100 % 10/10/2022 12:43 PM [facility] Sodium Whole Blood 137 135 - 145 mmol/L 10/10/2022 12:43 PM [facility] Potassium Whole Blood 3.5 3.5 - 5.5 mmol/L 10/10/2022 12:43 PM [facility] Chloride WB 107 78 - 107 mmol/L 10/10/2022 12:43 PM [facility] Calcium Ionized 1.21 mmol/L 12:43 PM [facility] Ionized Calcium pH Adjusted 1.19 1.19 - 1.34 mmol/L 10/10/2022 12:43 PM [facility] Anion Gap (AG) Arterial 10 8 - 18 mmol/L 10/10/2022 12:43 PM [facility] Glucose WB 120(H) 70 - 115 mg/dL 10/10/2022 12:43 PM [facility] Lactic Acid Whole Blood 0.7 <=2.0 mmol/L 10/10/2022 12:43 PM [facility] Blood, arterial ARTERIAL BLOOD SPECIMEN / Unknown 10/10/2022 12:43 PM CDT 10/10/2022 12:44 PM T Ruby M Queta DO LAB - POINT OF CAR E ORDERABLES Performing Organization Address [facility]/ZIP Co de Phone Number [facility] [address] [place] [address], [place] [phone] * BLOOD GAS ART+LYTES+METAB+COOX POC NOTIF (10/10/2022 12:41 PM CDT) Pathologist [facility] Comment Notification Label Only - See Separate Report 10/10/2022 2:00 PM CDT [facility] Other MISCELLANEOUS SAMPLES / Unknown 10/10/2022 12:41 PM CDT 10/10/2022 12:42 PM CDT Bart Glass II, MD LAB - BLOOD GASES O RDERABLES Performing Organization Address [facility] Co de Phone Number [facility] [address] [place] [phone], [facility] [phone] * TYPE + SCREEN PANEL (10/10/2022 10:10 AM CDT) Only the most recent of2 resultswithin the time period is included. [facility] Antibody Screen NEG 11:07 AM CDT [facility] ABO Rh O POS 10/10/2022 11:07 AM CDT [facility] Blood Bank BLOOD SPECIMEN / Unknown Venipuncture / Unknown 10/10/2022 10:10 AM CDT 10/10/2022 10:12 AM CDT Katie Henry ORDER [facility] [facility] LAB - BLOOD BANK ORDERABLES Performing Organization Address [facility] Co de Phone Number [facility] [address] [place] [address], [place] [phone] * EKG 12-LEAD (09/25/2022 1:51 PM CDT) Pathologist [facility] Ventricular Rate 66 BPM [facility] MUSE Atrial Rate 66 BPM [facility] P-R Interval 168 ms [facility] QRS Duration ms 166 ms [facility] MUSE Q-T Interval ms 446 ms [facility] MUSE QTC Calculation (Bezet) 467 ms [facility] MUSE Calculated P [place] 8 degrees [facility] MUSE Calculated R [place] -55 degrees [facility] MUSE Calculated T [place] 36 degrees [facility] M[facility] Interpretation EKG NORMAL SINUS RHYTHM RIGHT BUNDLE BRANCH BLOCK LEFT ANTERIOR FASCICULAR BLOCK BIFASCICULAR BLOCK MINIMAL VOLTAGE CRITERIA FOR LVH, MAY BE NORMAL VARIANT ( R in aVL ) ABNORMAL ECG NO PREVIOUS ECGS AVAILABLE Confirmed by JYOTSNA DAY, ROBERTO ([id number]) on 09/25/2022 10:31:33 PM [facility] 09/25/2022 1:51 PM CDT 09/25/2022 10:31 PM CDT Katie Henry ORDER [employer] ECG ORDERABLES [facility] Care Teams Wad Lubricator Relationship Specialty Start Date End Date Baldo Fischer MD [address] [address] PCP - General 07/04/22
--- OUTSIDE RECORDS SUMMARY | 2024-06-05 09:43 | XMS_ITS | Clinical Summary ---
Author Organization [facility] Address [address] [place] [id number] Care Team Providers Care Overhead Distribution Engineer Name Role Phone Lorenzo Fischer MD Primary Care Provide r Allergies No known active allergies Medications insulin lispro (HumaLOG, ADMELOG) 100 unit/mL vial for injection Inject 10 Units under the skin 3 (three) times a day before meals Active carvediloL (COREG) 25 mg tablet Take 1 tablet (25 mg total) by mouth 2 (two) times a day with meals Active aspirin 81 mg chewable tablet Take 1 tablet (81 mg total) by mouth daily Active rosuvastatin (CRESTOR) 40 mg tablet Take 1 tablet (40 mg total) by mouth nightly Active fenofibrate micronized (LOFIBRA) 134 mg capsule Take 1 capsule (134 mg total) by mouth daily before breakfast Active dapagliflozin propanediol (FARXIGA) 10 mg tablet Take 1 tablet (10 mg total) by mouth every morning Active terbinafine (LamiSIL) 250 mg tablet Take 1 tablet (250 mg total) by mouth daily Active finasteride (PROSCAR) 5 mg tablet Take 1 tablet (5 mg total) by mouth every morning Active dilTIAZem CD (CARDIZEM CD) 300 mg 24 hr capsule Take 1 capsule (300 mg total) by mouth every morning Active omeprazole (PriLOSEC) 40 mg capsule Take 1 capsule (40 mg total) by mouth nightly Active omega-3 fatty acids-fish oil 300-1,000 mg capsule Take 2 capsules (2 g total) by mouth 2 (two) times a day Active ergocalciferol (VITAMIN D) 50,000 unit capsule Take 1 capsule (50,000 Units total) by mouth once a week Q sunday Active losartan (COZAAR) 100 mg tablet Take 1 tablet (100 mg total) by mouth nightly Active nitroglycerin (NITROSTAT) 0.[address] 1 tablet (0.4 mg total) under the tongue every 5 (five) minutes as needed for chest pain Active insulin glargine 100 unit/mL (3 mL) pen for injection Inject 40 Units under the skin 2 (two) times a day Active Active Problems Problem Noted Date Diagnosed Date CAD (coronary artery disease) 02/07/2024 Stenosis of intervertebral foramina 02/03/2015 Arthropathy of cervical facet joint 02/03/2015 Lesion of ulnar nerve 02/03/2015 Cervicalgia 01/12/2015 Surgical History Surgery Date Site/Laterality Comments SHOULDER SURGERY Shoulder Surgery - (Added by TW Conv) CARDIAC STENT PLACEMENT x7, last one was 2022 KIDNEY SURGERY Left cancerous tumor removed TESTICLE SURGERY Left removed due to cancer - 1995 Medical History Medical History Date Comments Personal history of other en docrine, nutritional and metabolic disease History of diabetes mellitus - (Added by TW Conv) Personal history of other di seases of the circulatory system History of hypertension - (A dded by TW Conv) Hypertension Cancer (CMS/HCC) (HCC) kidney an d testicle Type 2 diabetes mellitus (HCC) Chronic kidney disease history k idney cancer and tumor removal Chronic pain disorder CAD (coronary artery disease) Family History Medical History Relation Name Comments Heart disease Brother Family history of cardiac disorder - (Added by TW Conv) Heart disease Father Family history of cardiac disorder - (Added by TW Conv) Hypertension Father Family history of hypertension - (Added by TW Conv) Heart disease Mother Family history of cardiac disorder - (Added by TW Conv) Coronary artery disease Other Fami ly history of coronary artery disease - (Added by TW Conv) Diabetes Other Family history of diabetes mellitus - (Added by TW Conv) Hypertension Other Family history of hypertension - (Added by TW Conv) Relation Name Status Comments Brother Father Mother Other Social History Tobacco Use Types Packs/Day Years Used Date Smoking Tobacco: Former Smokeless Tobacco: Never Tobacco Cessation:Counseling Given: Not Answered AUDIT-C Answer Date Recorded Q1: How often do you have a drink containing alc ohol? Monthly or less 02/15/2024 Q2: How many drinks containi ng alcohol do you have on a typical day when you are drinking? 1 or 2 02/15/2024 Q3: How often do you have si x or more drinks on one occasion? Never 02/15/2024 Personal Safety Answer Date Recorded Have you ever been in or are you currently in a harmful physical or emotional relationship or is someone making you feel afraid or unsafe? Denies 02/15/2024 Sex and Gender Information Value Date Recorded Sex Assigned at Not on file Legal Sex Male 11:38 AM DIETARY AID Gender Identity Not on file Sexual Orientation Not on file Obstetrics History Last Filed Vital Signs Vital Sign Reading Time Taken Comments Blood Pressure 129/65 02/15/2024 2:20 PM CDT Pulse 63 02/15/2024 2:25 PM CDT Temperature 36.9 C (98.5 F) 02/15/2024 8:24 AM CDT Respiratory Rate 18 02/15/2024 8:24 AM CDT Oxygen Saturation 96% 02/15/2024 2:25 PM CDT Inhaled Oxygen Concentration - - Weight 103.4 kg (228 lb) 02/15/2024 8:24 AM CDT Height 185.4 cm (6' 1 ) 02/15/2024 8:24 AM CDT Body Mass Index 30.08 02/15/2024 8:24 AM CDT Plan of Treatment Health Maintenance Due Date Last Done Comments Colon Cancer Screening-Colonoscopy 1960 Depression Screening 1960 Hepatitis C Screening 1960 Prostate Cancer Screening-PSA 1958 Hepatitis B Screening 1976 Zoster Vaccine (1 of 2) 2008 Pneumococcal vaccine 65+ (2 of 2 - PPSV23 or PCV20) 10/09/2023 05/16/2019 Well Visit 65+ 10/09/2023 Covid-19 Vaccine (4 - 2023-2 5 season) 2023 09/10/2021, 07/25/2020, 06/29/2020 Influenza Vaccine (#1) 2023 , 01/20/2022, 01/28/2021, Additional history exists Fall Risk Assessment 02/14/2025 02/15/2024 DTaP/Tdap/Td Vaccine (2 - Td or Tdap) 06/11/2031 06/11/2021, 12/30/2001 Abdominal Aortic Aneurysm (A AA) Screen Completed 11/01/2023, 02/28/2023, 07/29/2022 Medical Devices Implanted Type Area Principal Administrative Clerk Device Identifier Shelf Expiration Date Model / Serial / Lot [employer] Angio-Seal Vip 6fr Closere Device [id number] - [id number] Implanted:Qty: 1 on 02/15/2024 by Kermit Gonzalez MD at [facility] [employer] [id number] / / Procedures Procedure Name Priority Date/Time Associated Diagnosis Comments CT ABDOMEN PELVIS W CONTRAST ED 07/29/2022 4:04 PM CDT from Last 3 Months or Most Recently Relevant to Health Maintenance Results * CT Abdomen Pelvis W Contrast (07/29/2022 4:04 PM CDT) Anatomical Region Laterality Modality Body N/A Computed Tomogra phy 07/29/2022 3:53 PM CDT Impressions 07/29/2022 11:46 PM CDT 1. No acute abdominal process. 2. Indeterminate 1.4 cm left kidney upper pole renal mass. This may be a small renal cell carcinoma. Consider further evaluation with an abdominal MR without and with contrast. Preliminary results by teleradiologist enterprise integration developer. Electronically signed by: Jeremiah Ayala M.D. Narrative 07/29/2022 11:46 PM CDT EXAMINATION: Computed tomography of the abdomen and pelvis with intravenous contrast HISTORY: Abdominal pain TECHNIQUE: Transaxial computed tomographic images of the abdomen and pelvis were obtained with intravenous contrast according to the standard protocol after the uneventful administration of intravenous contrast. FINDINGS: No comparison Mild atelectasis in the visualized lung bases. No suspicious findings in the liver, adrenals or spleen. Pancreatic tail is dysmorphic with some heterotopic or exophytic pancreatic tissue arising off the tail. In the gastrosplenic ligament. Small gallstone in otherwise normal gallbladder. An upper pole left renal mass measures 1.4 cm. There are cystic renal lesions which have the appearance of indolent simple cysts. No hydronephrosis. Area bladder is thick-walled which is probably chronic remodeling from mild prostate enlargement and chronic outlet obstruction. No colonic inflammation. Normal appendix. No bowel obstruction. Moderate atherosclerosis abdominal aorta extending to its branches. No suspicious osseous lesion Procedure Note Jeremiah Ayala MD - 07/29/2022 EXAMINATION: Computed tomography of the abdomen and pelvis with intravenous contrast HISTORY: Abdominal pain TECHNIQUE: Transaxial computed tomographic images of the abdomen and pelvis were obtained with intravenous contrast according to the standard protocol after the uneventful administration of intravenous contrast. FINDINGS: No comparison Mild atelectasis in the visualized lung bases. No suspicious findings in the liver, adrenals or spleen. Pancreatic tail is dysmorphic with some heterotopic or exophytic pancreatic tissue arising off the tail. In the gastrosplenic ligament. Small gallstone in otherwise normal gallbladder. An upper pole left renal mass measures 1.4 cm. There are cystic renal lesions which have the appearance of indolent simple cysts. No hydronephrosis. Area bladder is thick-walled which is probably chronic remodeling from mild prostate enlargement and chronic outlet obstruction. No colonic inflammation. Normal appendix. No bowel obstruction. Moderate atherosclerosis abdominal aorta extending to its branches. No suspicious osseous lesion IMPRESSION: 1. No acute abdominal process. 2. Indeterminate 1.4 cm left kidney upper pole renal mass. This may be a small renal cell carcinoma. Consider further evaluation with an abdominal MR without and with contrast. Preliminary results by teleradiologist enterprise integration developer. Electronically signed by: Jeremiah Ayala M.D. Joie HAN IMG CT PROCEDURES Final Resul t from Last 3 Months or Most Recently Relevant to Health Maintenance Insurance MEDICARE [employer] [facility] Address: [facility] [address] [place] [address] [facility]/PPO Address: [facility] [address] [place] [address] Care Teams Overhead Distribution Engineer Relationship Specialty Start Date End Date Lorenzo Fischer MD [address] [facility] [address] [place] [address] PCP - General Internal Medicine 07/29/22
--- OUTSIDE RECORDS SUMMARY | 2024-06-05 09:43 | XMS_ITS | Clinical Summary ---
Author Organization [facility] Facility Address [address] [place] [address] Care Team Providers Care Operator Name Role Phone Baldo Fischer MD Primary Care Provider [phone] Medications amLODIPine (NORVASC) 5 MG tablet Take 1 tablet (5 mg total) by mouth every night 90 tablet 1 2 Active Semaglutide, 2 MG/DOSE, (Ozempic, 2 MG/DOSE,) 8 MG/3ML solution pen-injector Inject 2 mg under the skin per week 12 mL 1 4 Active ergocalciferol 1.25 MG (65210 UT) capsule TAKE 1 CAPSULE BY MOUTH 1 TIME EVERY WEEK 12 capsule 1 4 Active metFORMIN (GLUCOPHAGE) 500 MG tablet TAKE 1 TABLET(500 MG) BY MOUTH 1 TIME EACH DAY IN THE MORNING 90 tablet 1 4 Active losartan (COZAAR) 100 MG tablet TAKE 1 TABLET(100 MG) BY MOUTH EVERY NIGHT 90 tablet 1 4 Active ciprofloxacin (CIPRO) 500 MG tablet Take 1 tablet (500 mg total) by mouth 1 (one) time each day 5 tablet 5 Active ciprofloxacin (CIPRO) 500 MG tablet Take 500 mg by mouth in the morning and 500 mg in the evening. 06/03/19 25 Discontinu ed(Reorder (does not appear on AVS)) Encounters Date Type Department Care Team Description 06/03/2024 3:15 PM SHIPS OR BARGES LOADER Office Visit [place] [facility], [facility] [address] [facility] [address] [place] [address] Kan Ball DO Chronic kidney disease, stage 2 (mild) (Primary Dx); Persistent proteinuria; Coronary artery disease due to calcified coronary lesion; Hypertensive chronic kidney disease; Type 2 diabetes mellitus with diabetic chronic kidney disease (HCC); Pure hypercholesterolemi a, not otherwise specified; 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 [address] [place] [address] Kan Ball DO 05/20/[address] [facility] [address] [facility] [address] [place] [address] Kan Ball DO from Last 3 Months Social History Tobacco Use Types Packs/Day Years Used Date Smoking Tobacco: Never Assessed Sex and Gender Information Value Date Recorded Sex Assigned at Not on file Legal Sex Male 9:35 AM EST Gender Identity Not on file Sexual Orientation Not on file Last Filed Vital Signs Vital Sign Reading Time Taken Comments Blood Pressure 130/70 06/03/2024 3:14 PM SHIPS OR BARGES LOADER Pulse 68 06/03/2024 3:14 PM SHIPS OR BARGES LOADER Temperature 36.1 C (97 F) 06/03/2024 3:14 PM SHIPS OR BARGES LOADER Respiratory Rate 18 06/03/2024 3:14 PM SHIPS OR BARGES LOADER Oxygen Saturation 99% 06/03/2024 3:14 PM SHIPS OR BARGES LOADER Inhaled Oxygen Concentration - - Weight 112 kg (247 lb) 06/03/2024 3:14 PM SHIPS OR BARGES LOADER Height 185.4 cm (6' 1 ) 05/30/2022 4:01 PM SHIPS OR BARGES LOADER Body Mass Index 32.59 05/30/2022 4:01 PM SHIPS OR BARGES LOADER Plan of Treatment Upcoming Encounters Date Type Department Care Team (Late st Contact Info) Description 11/04/2024 3:15 PM CDT Office Visit [facility] [address] [facility] [address] [place] [address] Kan Ball DO [address] [facility] [place] [address] Health Maintenance Due Date Last Done Comments Pneumococcal Vaccine: 65+ Years (1 of 2 - PCV) 1966 05/16/2019 Pneumococcal Vaccine: Pediatrics (0 to 5 Years) and At-Risk Patients (6 to 64 Years) (1 of 2 - PCV) 1966 05/16/2019 Colorectal Cancer Screening: Annual FOBT 10/09/2007 Colorectal Cancer Screening: Colonoscopy 10/09/2007 Colorectal Cancer Screening: Sigmoidoscopy 10/09/2007 Diabetes: Ophthalmology Exam 07/29/2021 Diabetes: Pedal Pulse Checked 07/29/2021 Diabetes: Sensory Foot Exam 07/29/2021 Diabetes: Visual Foot Exam 07/29/2021 Influenza Vaccine (#1) 2023 , 01/20/2022, 01/28/2021, Additional history exists Diabetes: Hemoglobin A1C 08/28/2024 05/31/2024, 08/0 08/2023 Hepatitis B Vaccine Aged Out No longe r eligible based on patient's age to complete this topic Procedures Procedure Name Priority Date/Time Associated Diagnosis Comments HEMOGLOBIN A1C Routine 05/31/2024 6:22 AM SHIPS OR BARGES LOADER PROTEIN / CREATININE RATIO, URINE Routine 05/31/2024 6:22 AM SHIPS OR BARGES LOADER VITAMIN D 25 HYDROXY Routine 05/31/2024 6:22 AM SHIPS OR BARGES LOADER CBC AND DIFFERENTIAL Routine 05/31/2024 6:22 AM SHIPS OR BARGES LOADER URINALYSIS WITH MICROSCOPIC Routine 05/31/2024 6:22 AM SHIPS OR BARGES LOADER URINE ALBUMIN / CREATININE RATIO Routine 05/31/2024 6:22 AM SHIPS OR BARGES LOADER RENAL FUNCTION PANEL Routine 05/31/2024 6:22 AM SHIPS OR BARGES LOADER MAGNESIUM Routine 05/31/2024 6:22 AM SHIPS OR BARGES LOADER from Last 3 Months Results * (ABNORMAL) Protein, Total, Random Urine w/Creatinine (Protein/Creat Ratio) (05/31/2024 6:22 AM SHIPS OR BARGES LOADER) Creatinine, Ur 58 20 - 320 mg/dL See order comments Urine Protein/Creati nine Ratio 190(H) 25 - 148 mg/g creat See order comments Protein/Creati nine Ratio, Urine 0.190(H) 0.025 - 0.148 mg/mg creat See order comments Protein Urine Random 11 5 - 25 mg/dL See order comments 05/31/2024 6:22 AM SHIPS OR BARGES LOADER 05/31/2024 6:23 AM SHIPS OR BARGES LOADER Narrative [facility] - 06/03/2024 1:19 AM SHIPS OR BARGES LOADER FASTING:YES FASTING: YES Resulting Agency Comment Performing Organization Information: Site ID: [id number] Name: [facility] Address: [address] [place] [id number] Director: Mark Buchanan MD Kan Ball DO LAB URINE ORDERABLES Final R esult [facility] See order comments [place] [address] * (ABNORMAL) Urine Albumin / Creatinine Ratio (05/31/2024 6:22 AM SHIPS OR BARGES LOADER) Creatinine, Ur 58 20 - 320 mg/dL See order comments Urine Microalbumin 2.2 See Note: mg/dL See order comments Comment: Reference Range: Reference Range Not established Microalb/Creat Ratio 38(H) <30 mg/g creat See order comments Comment: The ADA defines abnormalities in albumin excretion as follows: Albuminuria Category Result (mg/g creatinine) Normal to Mildly increased <30 Moderately increased 30-299 Severely increased > OR = 300 The ADA recommends that at least two of three specimens collected within a 3-6 month period be abnormal before considering a patient to be within a diagnostic category. 05/31/2024 6:22 AM SHIPS OR BARGES LOADER 05/31/2024 6:23 AM SHIPS OR BARGES LOADER Narrative [facility] - 06/03/2024 1:19 AM SHIPS OR BARGES LOADER FASTING:YES FASTING: YES Resulting Agency Comment Performing Organization Information: Site ID: [facility] Name: [facility] Address: [address] [place] [id number] Director: Mark Buchanan MD Kan Ball DO LAB URINE ORDERABLES Final R esult [facility] See order comments [place] [address] * Vitamin D 25 Hydroxy (05/31/2024 6:22 AM SHIPS OR BARGES LOADER) Vitamin D, 25-OH, Total, IA 51 30 - 100 ng/mL See order comments Comment: Vitamin D Status 25-OH Vitamin D: Deficiency: <20 ng/mL Insufficiency: 20 - 29 ng/mL Optimal: > or = 30 ng/mL For 25-OH Vitamin D testing on patients on D2-supplementation and patients for whom quantitation of D2 and D3 fractions is required, the QuestAssureD(TM) 25-OH VIT D, (D2,D3), LC/MS/MS is recommended: order code 66113 (patients >2yrs). See Note 1 Note 1 For additional information, please refer to http://education.dondeEsta™/faq/ABM191 (This link is being provided for informational/ educational purposes only.) 05/31/2024 6:22 AM SHIPS OR BARGES LOADER 05/31/2024 6:23 AM SHIPS OR BARGES LOADER Narrative [facility] - 06/03/2024 1:19 AM SHIPS OR BARGES LOADER FASTING:YES FASTING: YES Resulting Agency Comment Performing Organization Information: Site ID: ID Name: [facility] Address: [address] [place] [address] [place] [address] Director: Mark Buchanan MD Kan Ball DO LAB BLOOD ORDERABLES Final R esult [facility] See order comments [place] [address] * (ABNORMAL) Urinalysis with microscopic (05/31/2024 6:22 AM SHIPS OR BARGES LOADER) Color, Urine YELLOW YELLOW See ord er comments Appearance Urine CLEAR CLEAR See order comments Specific Moyers, UA 1.020 1.001 - 1.035 See order comments pH Urine 6.0 5.0 - 8.0 See order comments Glucose, Ur 3+(A) NEGATIVE See orde r comments Bilirubin, Urine NEGATIVE NEGATIVE See order comments Ketones, Urine NEGATIVE NEGATIVE See o rder comments Hemoglobin Ur Ql Strip TRACE(A) NEGATIVE See order comments Protein, Ur NEGATIVE NEGATIVE See orde r comments Nitrite, Urine POSITIVE(A) NEGATIVE See order comments WBC Esterase Urine 2+(A) NEGATIVE See order comments WBC, Urine > OR = 60(A) < OR = 5 /HPF See order comments RBC, Urine NONE SEEN < OR = 2 /HPF See order comments Epithelial Cells in Urine 0-5 < OR = 5 /HPF See order comments Trans Epithelial, Urine CANCELED < OR = 5 /HPF See order comments Comment:Result canceled by t he ancillary. Renal Epithelial Cells, Urine CANCELED < OR = 3 /HPF See order comments Comment:Result canceled by t he ancillary. Bacteria MANY(A) NONE SEEN /HPF See order comments Calcium Oxalate Crystals, Urine CANCELED NONE OR FEW /HPF See order comments Comment:Result canceled by t he ancillary. Triple Phosphate Crystals, Urine CANCELED NONE OR FEW /HPF See order comments Comment:Result canceled by t he ancillary. Uric Acid Crystals, Urine CANCELED NONE OR FEW /HPF See order comments Comment:Result canceled by t he ancillary. Amorphous Sediments CANCELED NONE OR FEW /HPF See order comments Comment:Result canceled by t he ancillary. Crystals CANCELED NONE SEEN /HPF See order comments Comment:Result canceled by t he ancillary. Hyaline Casts, Urine 0-5(A) NONE SEEN /LPF See order comments Granular Casts, Urine CANCELED NONE SEEN /LPF See order comments Comment:Result canceled by t he ancillary. Casts CANCELED NONE SEEN /LPF See order comments Comment:Result canceled by t he ancillary. Yeast, UA CANCELED NONE SEEN /HPF See order comments Comment:Result canceled by t he ancillary. Comments CANCELED See order comments Comment:Result canceled by t he ancillary. Note: CANCELED See order comments Comment:Result canceled by t he ancillary. 05/31/2024 6:22 AM SHIPS OR BARGES LOADER 05/31/2024 6:23 AM SHIPS OR BARGES LOADER Narrative [facility] - 06/03/2024 1:19 AM SHIPS OR BARGES LOADER FASTING:YES FASTING: YES Resulting Agency Comment Performing Organization Information: Site ID: ID Name: [facility] Address: [address] [address] Director: Mark Buchanan MD us Kan Ball DO LAB URINE ORDERABLES Final R esult [facility] See order comments [place] [address] * CBC and Differential (05/31/2024 6:22 AM SHIPS OR BARGES LOADER) WBC 6.2 3.8 - 10.8 Thousand/ uL See order comments RBC 4.34 4.20 - 5.80 Million/u L See order comments Hemoglobin 13.3 13.2 - 17.1 g/dL See order comments Hematocrit 41.1 38.5 - 50.0 % See order comments MCV 94.7 80.0 - 100.0 fL See order comments MCH 30.6 27.0 - 33.0 pg See order comments MCHC 32.4 32.0 - 36.0 g/dL See order comments Comment: For adults, a slight decrease in the calculated MCHC value (in the range of 30 to 32 g/dL) is most likely not clinically significant; however, it should be interpreted with caution in correlation with other red cell parameters and the patient's clinical condition. RDW 12.5 11.0 - 15.0 % See order comments Platelets 219 140 - 400 Thousand/ uL See order comments MPV 11.0 7.5 - 12.5 fL See order comments Neutrophils Absolute 2,753 1,500 - 7,800 cells/uL See order comments Band Neutrophils Absolute, Manual Count CANCELED 0 - 750 cells/uL See order comments Comment:Result canceled by t he ancillary. Metamyelocytes Absolute CANCELED 0 cells/uL See order comments Comment:Result canceled by t he ancillary. Absolute Myelocytes CANCELED 0 cells/uL See order comments Comment:Result canceled by t he ancillary. Absolute Promyelocytes CANCELED 0 cells/uL See order comments Comment:Result canceled by t he ancillary. Lymphocytes Absolute 2,251 850 - 3,900 cells/uL See order comments Monocytes Absolute 620 200 - 950 cells/uL See order comments Eosinophils Absolute 477 15 - 500 cells/uL See order comments Basophils Absolute 99 0 - 200 cells/uL See order comments Blasts Absolute CANCELED 0 cells/uL See order comments Comment:Result canceled by t he ancillary. NRBC Absolute CANCELED 0 cells/uL See order comments Comment:Result canceled by t he ancillary. Neutrophils Relative 44.4 % See order comments Bands Absolute CANCELED % See o rder comments Comment:Result canceled by t he ancillary. Metamyelocytes Percent CANCELED % See order comments Comment:Result canceled by t he ancillary. Myelocytes Relative CANCELED % See order comments Comment:Result canceled by t he ancillary. Promyelocytes Relative CANCELED % See order comments Comment:Result canceled by t he ancillary. Lymphocytes 36.3 % See orde r comments Variant lymphocytes/100 WBC (Bld) CANCELED 0 - 10 % See order comments Comment:Result canceled by t he ancillary. Monocytes 10.0 % See order comments Eosinophils 7.7 % See orde r comments Basophils Relative 1.6 % S ee order comments Blasts CANCELED % See order comments Comment:Result canceled by t he ancillary. nRBC CANCELED 0 /100 WBC See order comments Comment:Result canceled by t he ancillary. Comment(s) CANCELED See order comments Comment:Result canceled by t he ancillary. 05/31/2024 6:22 AM SHIPS OR BARGES LOADER 05/31/2024 6:23 AM SHIPS OR BARGES LOADER Narrative [facility] - 06/03/2024 1:19 AM SHIPS OR BARGES LOADER FASTING:YES FASTING: YES Resulting Agency Comment Performing Organization Information: Site ID: ID Name: [facility] Address: [address] [address] Director: Mark Buchanan MD us Kan Ball DO LAB BLOOD ORDERABLES Final R esult [facility] See order comments [place] [address] * Magnesium (05/31/2024 6:22 AM SHIPS OR BARGES LOADER) Magnesium 2.0 1.5 - 2.5 mg/dL See order comments 05/31/2024 6:22 AM SHIPS OR BARGES LOADER 05/31/2024 6:23 AM SHIPS OR BARGES LOADER Narrative [facility] - 06/03/2024 1:19 AM SHIPS OR BARGES LOADER FASTING:YES FASTING: YES Resulting Agency Comment Performing Organization Information: Site ID: [id number] Name: [facility] Address: [address] [place] [id number] Director: Mark Buchanan MD us Kan Ball DO LAB BLOOD ORDERABLES Final R esult Performing Organization Address [facility] Co de Phone Number [facility] See order comments [place] [address] * (ABNORMAL) Hemoglobin A1c (05/31/2024 6:22 AM SHIPS OR BARGES LOADER) Hemoglobin A1C 8.1(H) <5.7 % of total Hgb See order comments Comment: For someone without known diabetes, a hemoglobin A1c value of 6.5% or greater indicates that they may have diabetes and this should be confirmed with a follow-up test. For someone with known diabetes, a value <7% indicates that their diabetes is well controlled and a value greater than or equal to 7% indicates suboptimal control. A1c targets should be individualized based on duration of diabetes, age, comorbid conditions, and other considerations. Currently, no consensus exists regarding use of hemoglobin A1c for diagnosis of diabetes for children. 05/31/2024 6:22 AM SHIPS OR BARGES LOADER 05/31/2024 6:23 AM SHIPS OR BARGES LOADER Narrative [facility] - 06/03/2024 1:19 AM SHIPS OR BARGES LOADER FASTING:YES FASTING: YES Resulting Agency Comment Performing Organization Information: Site ID: [id number] Name: [facility] Address: [id number] [place] [address] [place] [address] Director: Mark Buchanan MD us Kan Ball DO LAB BLOOD ORDERABLES Final R esult Performing Organization Address [facility] Co de Phone Number [facility] See order comments [place] [address] * (ABNORMAL) Renal Function Panel (05/31/2024 6:22 AM SHIPS OR BARGES LOADER) Glucose 138(H) 65 - 99 mg/dL See order comments Comment: Fasting reference interval For someone without known diabetes, a glucose value >125 mg/dL indicates that they may have diabetes and this should be confirmed with a follow-up test. BUN 27(H) 7 - 25 mg/dL See order comments Creatinine 1.17 0.70 - 1.35 mg/dL See order comments eGFR CKD-EPI CR 2020 69 > OR = 60 mL/min/1.7 3m2 See order comments BUN/Creatinine Ratio 23(H) 6 - 22 (calc) See order comments Sodium 140 135 - 146 mmol/L See order comments Potassium 4.2 3.5 - 5.3 mmol/L See order comments Chloride 107 98 - 110 mmol/L See order comments Bicarbonate (CO2) 26 20 - 32 mmol/L See order comments Calcium 9.7 8.6 - 10.3 mg/dL See order comments Phosphorus 3.1 2.1 - 4.3 mg/dL See order comments Albumin 4.4 3.6 - 5.1 g/dL See order comments 05/31/2024 6:22 AM SHIPS OR BARGES LOADER 05/31/2024 6:23 AM SHIPS OR BARGES LOADER Narrative [facility] - 06/03/2024 1:19 AM SHIPS OR BARGES LOADER FASTING:YES FASTING: YES Resulting Agency Comment Performing Organization Information: Site ID: [facility] Name: [facility] Address: [address] [address] Director: Mark Buchanan MD us Kan Ball DO LAB BLOOD ORDERABLES Final R esult [facility] See order comments [place] [address] from Last 3 Months Insurance [facility] MEDICARE Care Teams Operator Relationship Specialty Start Date End Date Baldo Fischer MD [address] [facility] [place] [address] PCP - General Internal Medicine 07/25/21
--- OUTSIDE RECORDS SUMMARY | 2024-06-05 09:43 | XMS_ITS | Clinical Summary ---
Author Organization [facility] Address [address] [place] [id number] Phone Care Team Providers Care Employment Clerk Name Role Phone Baldo Fischer MD Primary Care Provider [phone] Allergies No known active allergies Medications Medication Sig Dispensed Refills Start Date End Date Status aspirin (ASPIR) 81 MG EC tablet 1 daily 0 02/14/2016 Active omeprazole (PriLOSEC) [address] capsule 1 capsule (40 mg) orally daily 30 minutes before morning meal 0 02/14/2016 Active fenofibrate micronized (LOFIBRA) 134 MG capsule fenofibrate micronized 134 mg capsule Active dilTIAZem CD (CARDIZEM CD) 300 MG 24 hr capsule TK 1 C PO D 04/13/2019 Active insulin glargine (BASAGLAR KWIKPEN) 100 UNIT/ML injection Basaglar KwikPen U-100 Insulin 100 unit/mL (3 mL) subcutaneous Active nitroglycerin (NITROSTAT) 0.4 MG SL tablet nitroglycerin 0.4 mg sublingual tablet DIS 1 T UNT Q 5 MINUTES FOR 3 TOTAL DOSES PRF CHEST PAIN. IF NO RELIEF AFTER 3RD DOSE GO TO ER. Active triamcinolone (KENALOG) 0.1 % lotion KAREN EXT AA BID PRF RASH 04/04/2019 Active carvedilol (COREG) 25 MG tablet Take 25 mg by mouth 2 (two) times a day with meals Active CONTOUR NEXT TEST test strip TEST TID BEFORE MEALS. 05/13/2019 Active JARDIANCE 25 MG tablet TK 1 T PO QD IN THE MORNING 06/12/2019 Active Lancets Micro Thin 33G misc U TO TEST BS QID 12/17/2019 Active finasteride (PROSCAR) 5 MG tablet TK 1 T PO D 01/27/2020 Active B-D ULTRAFINE III SHORT PEN 31G X 8 MM misc 2 (two) times a day as directed 04/22/2020 Active Ozempic, 1 MG/DOSE, 4 MG/3ML solution pen-injector INJECT 1 MG UNDER THE SKIN IN THE MORNING ONCE WEEKLY 10/14/2020 Active glimepiride (AMARYL) 2 MG tablet Take 4 mg by mouth 1 (one) time each day 10/10/2020 Active Blood Glucose Monitoring Suppl (ONE TOUCH ULTRA 2) w/Device kit USE TO TEST BLOOD SUGAR TWICE DAILY BEFORE MEALS 04/19/2021 Active Icosapent Ethyl (Vascepa) 1 g capsule Vascepa 1 gram capsule Active isosorbide mononitrate (IMDUR) 60 MG 24 hr tablet Take 60 mg by mouth 1 (one) time each day in the evening 04/27/2021 Active rosuvastatin (CRESTOR) 20 MG tablet Take 20 mg by mouth every night 04/27/2021 Active amLODIPine (NORVASC) 10 MG tablet Take 10 mg by mouth 1 (one) time each day Active Active Problems Problem Noted Date Diagnosed Date Anemia 04/26/2021 Stage 3a chronic kidney disease 05/15/2020 Vitamin D deficiency 05/08/2019 Type 2 diabetes mellitus without complication Acquired cyst of kidney 10/22/2014 Overview (06/29/2018): Converted unresolved ICD9, potential mismatch. Essential (primary) hypertension 10/22/2014 Coronary atherosclerosis due to lipid rich plaqu e 10/22/2014 Other and unspecified hyperlipidemia 10/22/2014 Overview (06/29/2018): Converted unresolved ICD9, potential mismatch. Resolved Problems Problem Noted Date Diagnosed Date Resolved Date Nonspecific abnormal results of function study of kidney 05/08/2019 11/12/2020 Immunizations Name Administration Dates Next Due Influenza TIV (IM) 01/28/2021,01/31/2020, 019 Influenza, Injectable, Quadrivalent 01/14/2021 Pfizer Sars-cov-2 Vaccination 07/25/2020, 021 Pneumococcal Conjugate 05/16/2019 Tdap 06/11/2021 Family History Medical History Relation Comments Coronary arteriosclerosis Father Diabetes mellitus Father Coronary arteriosclerosis Mother Diabetes mellitus Mother Kidney disease Relative Relation Status Comments Father Mother Relative Social History Tobacco Use Types Packs/Day Years Used Date Smoking Tobacco: Former Smokeless Tobacco: Never Alcohol Use Standard Drinks/Week Comments Not Currently 0 (1 standard drink = 0.6 oz pur e alcohol) Sex and Gender Information Value Date Recorded Sex Assigned at Not on file Gender Identity Not on file Sexual Orientation Not on file Last Filed Vital Signs Vital Sign Reading Time Taken Comments Blood Pressure 124/70 05/23/2021 9:24 AM BONE GLUE MAKER Pulse 72 05/23/2021 9:24 AM BONE GLUE MAKER Temperature 36.4 C (97.6 F) 05/23/2021 9:24 AM BONE GLUE MAKER Respiratory Rate - - Oxygen Saturation - - Inhaled Oxygen Concentration - - Weight 104 kg (230 lb) 05/23/2021 9:24 AM BONE GLUE MAKER Height 182.9 cm (6') 05/23/2021 9:24 AM BONE GLUE MAKER Body Mass Index 31.19 05/23/2021 9:24 AM BONE GLUE MAKER Plan of Treatment Health Maintenance Due Date Last Done Comments Pneumococcal PPSV23/PCV13 65 + Years / Low and Medium Risk (1 of 4 - PCV) 10/09/2023 COVID-19 Vaccine ( season) 12/16/202302/2021, 06/29/2020 Influenza Vaccine (#1) 2023 , 01/31/2020, 02/28/2019 Care Teams Employment Clerk Relationship Specialty Start Date End Date Baldo Fischer MD [address] [place] [address] [place] [address] PCP - General Family Medicine 2/10/22
--- OUTSIDE RECORDS SUMMARY | 2024-06-05 09:43 | XMS_ITS | Referral Summary ---
Author Organization [facility] Address [address] [place] [address] Care Team Providers Care Heating Equipment Repairer Name Role Phone Baldo Fischer MD Primary Care Provider Source Comments [facility],non-owned Affiliates and Associated Physician Practices is amultiple site organization consisting of ambulatory clinics and hospital sitesin [place], [place], [place] and [place]. This disclosure is being madepursuant to the Care Everywhere program and may not contain all information available regarding this patient. Last updated 18.[facility] [employer] Allergies No known active allergies Medications * [...] (one) tablet by mouth once daily Active xcuna-3-okpl ethyl esters (Lovaza) 1 g capsule Take 1 (one) capsule by mouth once daily Active Turmeric (QC TUMERIC COMPLEX PO) Active vitamin D3 (Cholecalciferol) 25 MCG (1000 UNITS) tablet Take 2 (two) tablets by mouth once daily Active ascorbic acid (Vitamin C) 500 MG tablet Take 1 (one) tablet by mouth once daily Active NATURAL PSYLLIUM FIBER PO Active HYDROcodone-acetam inophen (Cofield) 5-325 MG tabletIndications: Renal mass, left Take [...] Active vitamin D, ergocalciferol, (Drisdol) 1.25 MG (53677 UT) capsule Take 1 (one) capsule by [...] Info) Description 10/30/2024 9:30 AM CDT Appointment [facility] Health Imaging Services - CT Scan [address], [address] [place] [address] 10/30/2024 11:00 AM CDT Office Visit [facility] - Urology [address] [place] [address] Ruby Birch M, DO [address] [place] [address] Procedures Procedure Name Priority Date/Time Associated Diagnosis Comments BASIC METABOLIC PANEL (CALCIUM TOTAL) Routine 11/01/2023 8:50 AM CDT Renal mass, left from Last 3 Months or Most Recently Relevant to Health Maintenance Results * (ABNORMAL) BASIC METABOLIC PANEL (CALCIUM TOTAL) (11/01/2023 8:50 AM CDT) Glucose 203(H) 70 - 105 mg/dL 11/01/2023 9:52 AM CDT [facility] Sodium 139 136 - 145 mmol/L 11/01/2023 9:52 AM CDT [facility] Potassium 4.2 3.5 - 5.1 mmol/L 11/01/2023 9:52 AM CDT [facility] Chloride 108(H) 98 - 107 mmol/L 11/01/2023 9:52 AM CDT [facility] CO2 24 22 - 29 mmol/L 11/01/2023 9:52 AM CDT [facility] Calcium 10.3 8.4 - 10.4 mg/dL 11/01/2023 9:52 AM CDT [facility] Anion Gap 7 6 - 16 mmol/L 11/01/2023 9:52 AM CDT [facility] BUN 29(H) 7 - 26 mg/dL 11/01/2023 9:52 AM CDT [facility] Creatinine 1.17 0.72 - 1.25 mg/dL 11/01/2023 9:52 AM CDT [facility] eGFR by CKD-EPI 69(L) >=90 mL/min/1.7 3 m2 11/01/2023 9:52 AM CDT [facility] Blood BLOOD SPECIMEN / Unknown Lab Venipuncture / Unknown 11/01/2023 8:50 AM CDT 11/01/2023 8:50 AM CDT Ruby Birch DO LAB - CHEMISTRY OR DERABLES [facility] [address] [place] [address] from Last 3 Months or Most Recently Relevant to Health Maintenance Advance Directives * Full Code (Latest Code Status on File) Date Activated Date Inactivated Comments 10/10/2022 6:53 PM 10/11/2022 2:11 PM Care Teams Heating Equipment Repairer Relationship Specialty Start Date End Date Baldo Fischer MD [address] [place] [address] PCP - General 07/04/22
--- OUTSIDE RECORDS SUMMARY | 2024-06-05 09:43 | XMS_ITS | Clinical Summary ---
Author Organization [facility] Address [address] [place] [address] Care Team Providers Care Halal Meat Packer Name Role Phone Baldo Fischer MD Primary Care Provider Allergies No known active allergies Medications No known medications Immunizations Name Administration Dates Next Due Tdap (Adacel) 06/11/2021 Social History Tobacco Use Types Packs/Day Years Used Date Smoking Tobacco: Never Assessed Sex and Gender Information Value Date Recorded Sex Assigned at Not on file Legal Sex Male 7:55 PM CDT Gender Identity Not on file Sexual Orientation Not on file Last Filed Vital Signs Vital Sign Reading Time Taken Comments Blood Pressure 164/80 06/11/2021 3:49 PM SHAFT TENDER Pulse 95 06/11/2021 3:18 PM SHAFT TENDER Temperature 36.4 C (97.6 F) 06/11/2021 1:35 PM SHAFT TENDER Respiratory Rate 18 06/11/2021 3:18 PM SHAFT TENDER Oxygen Saturation 98% 06/11/2021 3:18 PM SHAFT TENDER Inhaled Oxygen Concentration - - Weight 99.8 kg (220 lb) 06/11/2021 1:35 PM SHAFT TENDER Height 185.4 cm (6' 1 ) 06/11/2021 1:35 PM SHAFT TENDER Body Mass Index 29.03 06/11/2021 1:35 PM SHAFT TENDER Plan of Treatment Health Maintenance Due Date Last Done Comments Colorectal Cancer Screening Colonoscopy (10 Years) 1958 Hepatitis C 1976 Zoster Vaccines (1 of 2) 2008 Pneumococcal Vaccine: 65+ Years (1 of 1 - PCV) 10/09/2023 05/16/2019 COVID-19 Vaccine ( season) 2023 07/25/2020, 06/29/2020 Influenza Adult (#1) 2024 01/28/2021, 01/14/2021, 12/31/2020, Additional history exists DTaP, Tdap and Td Vaccines (2 - Td or Tdap) 06/11/2031 06/11/2021, 12/30/2001 RSV Immunization or 60+ Years (1 - 1-dose 75+ series) 2033 Pneumococcal Vaccine: Pediatrics (0 to 5 Years) and At-Risk Patients (6 to 64 Years) Aged Out 05/16/2019 No longer eligible based on patient's age to complete this topic Meningococcal B Vaccine Aged Out No l onger eligible based on patient's age to complete this topic Meningococcal Vaccine Aged Out No elo isabella eligible based on patient's age to complete this topic RSV Immunizations Under 20 Months Aged Out No longer eligible based on patient's age to complete this topic Insurance [place] [address] Care Teams Halal Meat Packer Relationship Specialty Start Date End Date Baldo Fischer MD [address] [facility] [address] [place] [address] PCP - General INTERNAL MEDICINE 06/11/21
--- OUTSIDE RECORDS SUMMARY | 2024-06-05 09:43 | XMS_ITS | Referral Summary ---
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 Preliminary results by teleradiologist consulting systems engineer. Electronically signed by: Jeremiah Ayala M.D. Narrative [...] and with contrast. Preliminary results by teleradiologist consulting systems engineer. Electronically signed by: Jeremiah Ayala M.D. Joie [facility] CT PROCEDURES Final Resul t from Last 3 Months or Most Recently Relevant to Health Maintenance Insurance MEDICARE [facility] CHOICE PLUS Care Teams Temperature Inspector Relationship Specialty Start Date End Date Lorenzo Fischer MD [address] [facility] [address] [place] [address] PCP - General Internal Medicine 07/29/22
--- OUTSIDE RECORDS SUMMARY | 2024-06-05 09:44 | XMS_ITS | Clinical Summary ---
Author Organization [facility] Address [address] [place] [address] Care Team Providers Care Claim Clinician Name Role Phone Baldo Fischer MD Primary Care Provider Allergies No known active allergies Medications amLODIPine (NORVASC) 10 mg tablet amlodipine 10 mg tablet 2 Active aspirin 81 mg Capsule aspirin 81 mg capsule Take by oral route. Active glimepiride (AMARYL) 2 mg tablet glimepiride 2 mg tablet 1 Active empagliflozin (Jardiance) 25 mg tablet Jardiance 25 mg tablet TAKE 1 TABLET BY MOUTH EVERY DAY IN THE MORNING 0 Active omega-3 acid ethyl esters (LOVAZA) 1 gram Capsule TAKE 2 CAPSULES BY MOUTH TWICE DAILY WITH MEALS 2 Active finasteride (PROSCAR) 5 mg tablet finasteride 5 mg tablet TAKE 1 TABLET BY MOUTH DAILY 0 Active omeprazole (PriLOSEC) 40 mg Capsule, Delayed Release(E.C.) 2 Active fenofibrate micronized (LOFIBRA) 134 mg Capsule fenofibrate micronized 134 mg capsule TAKE 1 CAPSULE BY MOUTH EVERY DAY 1 Active isosorbide mononitrate (IMDUR) 60 mg Extended Release 24 hour tablet isosorbide mononitrate ER 60 mg tablet,extended release 24 hr 2 Active rosuvastatin (CRESTOR) 20 mg tablet rosuvastatin 20 mg tablet 2 Active Insulin Volga, Disposable, (BD Ultra-Fine Short Pen Needle) 31 gauge x 5/16 Needle BD Ultra-Fine Short Pen Needle 31 gauge x 5/16 USE TWICE DAILY DIRECTED Active carvediloL (COREG) 25 mg tablet Take 25 mg by mouth. Active diltiaZEM (TIAZAC) 300 mg Extended Release capsule diltiazem CD 300 mg capsule,extended release 24 hr TAKE 1 CAPSULE BY MOUTH DAILY 9 Active ferrous sulfate (FeosoL) 325 mg (65 mg iron) tablet every 24 hours. Acti ve lisinopriL (PRINIVIL) 20 mg tablet lisinopril 20 mg tablet Active losartan (COZAAR) 50 mg tablet Take 50 mg by mouth daily at bedtime. 2 Active nitroglycerin (NITROSTAT) 0.4 mg Tablet, Sublingual nitroglycerin 0.4 mg sublingual tablet DISSOLVE 1 TABLET UNDER THE TONGUE EVERY 5 MINUTES NEEDED FOR CHEST PAIN FOR A TOTAL OF 3 DOSES. GO TO E.RECTAL. IF NO RELIEF AFTER THIRD DOSE 1 Active phenazopyridine 200 mg tablet Take 1 Tablet (200 mg) by mouth 3 times daily. 21 Tablet 3 Active Active Problems Problem Noted Date Diagnosed Date Anemia of chronic renal failure, stage 3 (modera te) 07/28/2021 History of testicular cancer 07/28/2021 Family History Relation Name Status Comments Brother Daughter Alive Father Alive Mother Sister Alive Son Alive Social History Tobacco Use Types Packs/Day Years Used Date Smoking Tobacco: Never Smokeless Tobacco: Never Tobacco Cessation:Counseling Given: Not Answered Alcohol Use Standard Drinks/Week Comments Yes 0 (1 standard drink = 0.6 oz pur e alcohol) occasional Sex and Gender Information Value Date Recorded Sex Assigned at Not on file Legal Sex Male 10:03 AM CHORUS MASTER Gender Identity Not on file Sexual Orientation Not on file Last Filed Vital Signs Vital Sign Reading Time Taken Comments Blood Pressure 143/78 02/28/2023 9:20 AM CHORUS MASTER Pulse 68 02/28/2023 9:17 AM CHORUS MASTER Temperature 36.7 C (98.1 F) 02/28/2023 9:17 AM CHORUS MASTER Respiratory Rate 18 02/28/2023 9:17 AM CHORUS MASTER Oxygen Saturation 97% 02/28/2023 9:17 AM CHORUS MASTER Inhaled Oxygen Concentration - - Weight 102.7 kg (226 lb 6.4 oz) 02/28/2023 9:17 AM CHORUS MASTER Height 185.4 cm (6' 1 ) 08/22/2021 2:08 PM CDT Body Mass Index 29.87 08/22/2021 2:08 PM CDT Plan of Treatment Health Maintenance Due Date Last Done Comments DIABETES ANNUAL FOOT EXAM 1976 DIABETES ANNUAL RETINAL EXAM 1976 DIABETES MICROALBUMIN ANNUAL SCREEN 1976 LDL CHOLESTEROL ANNUAL 1976 PNEUMOCOCCAL VACCINE 65+ YEA RS (1 of 2 - PCV) 1977 05/16/2019 COLORECTAL SCREENING 10/09/2003 Colorectal Cancer Screening 10/09/2003 FIT-DNA Q 3 years 10/09/2003 FIT/FOBT Q 1 year 10/09/2003 Flex Sig/CT Colonography Q 5 years 10/09/2003 ZOSTER VACCINE (1 of 2) 2008 RSV VACCINE (60+ or ) (1 - Risk 60-74 years 1-dose series) 2018 INFLUENZA VACCINE (#1) 2023 , 01/28/2021, 01/14/2021, Additional history exists DIABETES HBA1C Q 6 MONTHS 11/28/2024 05/31/2024, 08/2023 DTAP/TDAP/TD VACCINES (2 - T d or Tdap) 06/11/2031 06/11/2021 Insurance [facility] CHOICE [id number] Care Teams Claim Clinician Relationship Specialty Start Date End Date Baldo Fischer MD PCP - General Internal Medicine 07/28/21
--- OUTSIDE RECORDS SUMMARY | 2024-06-05 09:44 | XMS_ITS | Data Portability ---
Author Organization [facility], Main Office Address [address] [place] [address] Care Team Providers Care High Voltage Electrician Name Role Phone KAN BARNHART [employer] Hrms Developer JOSE ANTONIO IRENE JR [employer] Functional Analyst RALPH FISCHER Primary Care Provider KERMIT GONZALEZ Non Destructive Testing Inspector Assessment Encounter Date Assessment Date Assessment LastModified by Organization Details LastModified Time 02/26/2023 02/26/2023 05/30/2022: A1C 9.7 TSH/FT4: WNL Urine micro alb 16.8 TG 218 CMP: Gluc 198 08/14/2022: A1C 8.3 Urine micro alb <6.0 CMP: Gluc 131, BUN 27, alb 4.7H, TP WNL 11/03/2022: PSA 1.67 A1C 8.4 TG 272 BUN 230, BUN 28 02/19/2023: A1C 8.9 TG 287 Urine micro alb 21.8 Not available 02/26/2023 10:54:45 07/02/2023 07/02/2023 05/30/2022: A1C 9.7 TSH/FT4: WNL Urine micro alb 16.8 TG 218 CMP: Gluc 198 08/14/2022: A1C 8.3 Urine micro alb <6.0 CMP: Gluc 131, BUN 27, alb 4.7H, TP WNL 11/03/2022: PSA 1.67 A1C 8.4 TG 272 BUN 230, BUN 28 02/19/2023: A1C 8.9 TG 287 Urine micro alb 21.8 06/18/2023: A1c 10.2 TSH 0.401L, FT4 1.10 Urine micro alb 47.7 Not available 07/02/2023 10:34:18 10/01/2023 10/01/2023 05/30/2022: A1C 9.7 TSH/FT4: WNL Urine micro alb 16.8 TG 218 CMP: Gluc 198 08/14/2022: A1C 8.3 Urine micro alb <6.0 CMP: Gluc 131, BUN 27, alb 4.7H, TP WNL 11/03/2022: PSA 1.67 A1C 8.4 TG 272 BUN 230, BUN 28 02/19/2023: A1C 8.9 TG 287 Urine micro alb 21.8 06/18/2023: A1c 10.2 TSH 0.401L, FT4 1.10 Urine micro alb 47.7 45 minutes spent with the patient, reviewed labs and his medications, discussed is diabetes care and counselled on diet [email or web address] Not available 10/01/2023 14:40:18 11/05/2023 11/05/2023 05/30/2022: A1C 9.7 TSH/FT4: WNL Urine micro alb 16.8 TG 218 CMP: Gluc 198 08/14/2022: A1C 8.3 Urine micro alb <6.0 CMP: Gluc 131, BUN 27, alb 4.7H, TP WNL 11/03/2022: PSA 1.67 A1C 8.4 TG 272 BUN 230, BUN 28 02/19/2023: A1C 8.9 TG 287 Urine micro alb 21.8 06/18/2023: A1c 10.2 TSH 0.401L, FT4 1.10 Urine micro alb 47.7 10/22/2023: A1C 8.1 TG 185 45 minutes spent with the patient, reviewed labs and his medications, discussed is diabetes care and counselled on diet Not available 11/05/2023 12:04:56 04/28/2024 04/28/2024 05/30/2022: A1C 9.7 TSH/FT4: WNL Urine micro alb 16.8 TG 218 CMP: Gluc 198 08/14/2022: A1C 8.3 Urine micro alb <6.0 CMP: Gluc 131, BUN 27, alb 4.7H, TP WNL 11/03/2022: PSA 1.67 A1C 8.4 TG 272 BUN 230, BUN 28 02/19/2023: A1C 8.9 TG 287 Urine micro alb 21.8 06/18/2023: A1c 10.2 TSH 0.401L, FT4 1.10 Urine micro alb 47.7 10/22/2023: A1C 8.1 TG 185 04/21/2024: A1C 7.9 TG 192 Urine micro alb 49.1 [email or web address] Not available 05/12/2024 14:10:39 Plan of Treatment Reminders Order Date Submit Date Provider Last Modified By Organization Details Last Modified Time Details Appointments Any 15 2024 08:45A Caroline conley MD Not available Not available Not available Lab glycohemo globin, total, blood [address] [place] [address] (Lab), [address] [place], [address], 04/28/2024 18:46:33 microalbu min, urine [address] [place] [address] (Lab), [address] [place], [address], 04/28/2024 18:46:34 lipid panel, serum - Please add to blood draw from 08/14/22[address] [place] [address] (Lab), [address] [place], [address], 04/28/2024 18:46:32 TSH, serum or plasma - Please add to blood draw from 08/14/22[address] [place] [address] (Lab), [address] [place], [address], 04/28/2024 18:46:33 CBC w/ auto diff - Please add to blood draw from 08/14/22[address] [place] [address] (Lab), [address] [place], [address], 04/28/2024 18:46:33 glycohemo globin, total, blood 2023 024 [facility] (Lab), [address] [place], [address], 04/21/2024 14:53:44 microalbu min, urine 2023 024 [facility] (Lab), [address] [place], [address], 04/21/2024 10:32:04 lipid panel, serum - Please add to blood draw from 08/14/222023 024 [facility] (Lab), [address] [place], [address], 04/21/2024 10:46:14 TSH, serum or plasma - Please add to blood draw from 08/14/222023 024 [facility] (Lab), [address] [place], [address], 04/21/2024 11:11:27 CBC w/ auto diff - Please add to blood draw from 08/14/222023 024 [facility] (Lab), [address] [place], [address], 02/12/2024 08:08:37 glycohemo globin, total, blood [address] (Lab), [address] [place], [address], 03/31/2024 10:00:13 microalbu min, urine [address] (Lab), [address] [place], [address], 03/31/2024 10:00:13 lipid panel, serum - Please add to blood draw from 08/14/222023 024 [facility] (Lab), [address] [place], [address], 10/23/2023 12:31:34 TSH, serum or plasma - Please add to blood draw from 08/14/22[address] (Lab), [address] [place], [address], 03/31/2024 10:00:12 CBC w/ auto diff - Please add to blood draw from 08/14/222023 024 [facility] (Lab), [address] [place], [address], 10/23/2023 12:24:16 glycohemo globin, total, blood [address] (Lab), [address] [place], [address], 12/31/2023 10:59:19 microalbu min, urine [address] (Lab), [address] [place], [address], 12/31/2023 10:59:20 lipid panel, serum - Please add to blood draw from 08/14/22[address] (Lab), [address] [place], [address], 12/31/2023 10:59:19 TSH, serum or plasma - Please add to blood draw from 08/14/22[address] (Lab), [address] [place], [address], 12/31/2023 10:59:19 CBC w/ auto diff - Please add to blood draw from 08/14/22[email or web address] [place] [address] (Lab), [address] [place], [address], 12/31/2023 10:59:19 glycohemo globin, total, blood 2022 023 [facility] (Lab), [address] [place], [address], 06/17/2023 14:18:16 microalbu min, urine 2022 023 [facility] (Lab), [address] [place], [address], 06/16/2023 10:56:48 lipid panel, serum - Please add to blood draw from 08/14/222022 023 [facility] (Lab), [address] [place], [address], 06/16/2023 10:43:50 TSH, serum or plasma - Please add to blood draw from 08/14/222022 023 [facility] (Lab), [address] [place], [address], 06/16/2023 11:03:47 CBC w/ auto diff - Please add to blood draw from 08/14/222022 023 [facility] (Lab), [address] [place], [address], 05/06/2023 09:54:54 Referral nephrolog ist referral 2024 025 [place], [address], [address], [place], [address], 04/29/2024 17:20:04 urologist referral 2024 025 Jayme Kay Arce, [address] [facility], [facility] [address], [place], [address], 06/04/2024 15:28:14 podiatris t referral 2024 025 [email or web address] David Munoz DPM, [address] [facility], [address], [place], [address], 04/29/2024 17:20:06 endocrino logy referral 2024 025 [email or web address] Abraham Mckeon MD, [address], [place], [address], 06/04/2024 15:28:14 hematolog ist referral 2024 025 [email or web address] London Person, [address], [place], [address], 06/04/2024 15:28:13 cardiolog ist referral 2024 025 [email or web address] [place], [address], [address], [place], [address], 04/29/2024 17:20:05 nephrolog ist referral 2023 024 [email or web address] [place], [address] [address], [address], [place], [address], 12/05/2023 08:48:25 urologist referral 2023 024 [email or web address] Ruby Birch DO, [address], [address], [place], [address], 12/05/2023 08:48:27 podiatris t referral 2023 024 [email or web address] David Munoz DPM, [address] [facility], [address], [place], [address], 05/05/2024 08:42:40 hematolog ist referral 2023 024 London Person, [address], [place], [address], 04/29/2024 17:20:37 cardiolog ist referral 2023 024 [email or web address] [place], [address], [address], [place], [address], 05/05/2024 08:42:40 nephrolog ist referral 2023 024 [email or web address] [place], [address], [address], [place], [address], 06/02/2024 09:13:57 urologist referral 2023 024 [email or web address] Rubyseymour Birch DO, [address], [address], [place], [address], 06/02/2024 09:13:58 podiatris t referral 2023 024 [email or web address] Jose Antonio Irene Jr DPM, [address], [address], [place], [address], 03/31/2024 12:09:55 endocrino logy referral 2023 024 [email or web address] Abraham Mckeon MD, [address], [place], [address], 03/31/2024 12:09:58 hematolog ist referral 2023 024 [email or web address] London Person, [address], [place], [address], 03/31/2024 12:09:56 cardiolog ist referral 2023 024 [place], [address], [address], [place], [address], 03/31/2024 12:09:54 nephrolog ist referral 2023 024 [email or web address] [place], [address], [address], [place], [address], 07/30/2023 10:24:18 podiatris t referral 2023 024 [email or web address] Jose Antonio Irene Jr DPM, [address], [address], [place], [address], 01/28/2024 09:58:16 endocrino logy referral 2023 024 [email or web address] Abraham Mckeon MD, [address], [place], [address], 12/31/2023 08:40:53 hematolog ist referral 2023 024 [email or web address] London Person, [address], [place], [address], 12/31/2023 08:40:52 cardiolog ist referral 2023 024 [email or web address] [place], [address], [address], [place], [address], 12/31/2023 08:40:35 nephrolog ist referral 2022 023 [email or web address] [place], [address], [address], [place], [address], 05/02/2023 10:09:05 podiatris t referral 2022 023 [email or web address] David Munoz DPM, [address] [facility], [address], [place], [address], 05/02/2023 10:10:53 endocrino logy referral 2022 023 [email or web address] Abraham Mckeon MD, [address], [place], [address], 11/20/2023 09:52:08 hematolog ist referral 2022 023 London Navarrod, [address], [place], [address], 11/01/2023 09:22:04 cardiolog ist referral 2022 023 [email or web address] [place], [address] [address], [address], [address], 11/01/2023 09:22:03 Procedures None recorded. Surgeries None recorded. Imaging None recorded. Medication Orders None recorded. Patient TargetsNo targets recorded. Patient Instructions Encounter Date Encounter Id Patient Instructions Last Modified By Organization Details Last Modified Time 02/26/2023 [id number] diabetic eye exam* [email or web address] Not available 08/27/2023 09:01:04 07/02/2023 [id number] diabetic eye exam* [email or web address] Not available 12/31/2023 10:58:48 04/28/2024 [id number] diabetic eye exam* [email or web address] Not available 04/28/2024 18:46:34 Reason for Referral [employer] Hr[employer] Developer Referral for Ch ronic kidney disease Referring Physician: Ralph [facility], Encounter Date: 02/26/2023 Non Destructive Testing Inspector Referral for Co ronary arteriosclerosis Referring Physician: Ralph Fischer [facility], Encounter Date: 02/26/2023 [employer] Functional Analyst Referral for Type 2 diabetes mellitus without complication Referring Physician: Ralph [facility], Encounter Date: 02/26/2023 Referring Physician: Ralph Fischer [facility], Encounter Date: 02/26/2023 Endocrinology Referral for T ype 2 diabetes mellitus without complication Referring Physician: Sung Tubbs Medicine, Encounter Date: 02/26/2023 Peoplesoft Hrms Developer Referral for Ch ronic kidney disease Referring Physician: Sung Tubbs, Encounter Date: 07/02/2023 Non Destructive Testing Inspector Referral for Co ronary arteriosclerosis Referring Physician: Sung Tubbs Medicine, Encounter Date: 07/02/2023 [employer]oplesoft Functional Analyst Referral for Type 2 diabetes mellitus without complication Referring Physician: Sung Tubbs, Encounter Date: 07/02/2023 Referring Physician: Sung Tubbs, Encounter Date: 07/02/2023 Endocrinology Referral for T ype 2 diabetes mellitus without complication Referring Physician: Sung Tubbs, Encounter Date: 07/02/2023 Peoplesoft Hrms Developer Referral for Ch ronic kidney disease Referring Physician: Sung Tubbs, Encounter Date: 10/01/2023 Non Destructive Testing Inspector Referral for Co ronary arteriosclerosis Referring Physician: Sung Tubbs, Encounter Date: 10/01/2023 [employer]oplesoft Functional Analyst Referral for Type 2 diabetes mellitus without complication Referring Physician: Sung Tubbs, Encounter Date: 10/01/2023 Referring Physician: Sung Tubbs, Encounter Date: 10/01/2023 Endocrinology Referral for T ype 2 diabetes mellitus without complication Referring Physician: Sung Tubbs, Encounter Date: 10/01/2023 Urologist Referral for Kidne y lesion Referring Physician: Sung Tubbs, Encounter Date: 10/01/2023 Peoplesoft Hrms Developer Referral for Ch ronic kidney disease Referring Physician: Ralph [facility], Encounter Date: 11/05/2023 Non Destructive Testing Inspector Referral for Co ronary arteriosclerosis Referring Physician: Ralph [facility], Encounter Date: 11/05/2023 [employer]oplesoft Functional Analyst Referral for Type 2 diabetes mellitus without complication Referring Physician: Ralph [facility], Encounter Date: 11/05/2023 Referring Physician: Ralph Fischer [facility], Encounter Date: 11/05/2023 Urologist Referral for Kidne y lesion Referring Physician: Ralph Fischer [facility], Encounter Date: 11/05/2023 Peoplesoft Hrms Developer Referral for Ch ronic kidney disease Referring Physician: Ralph Fischer [facility], Encounter Date: 04/28/2024 Non Destructive Testing Inspector Referral for Co ronary arteriosclerosis Referring Physician: Ralph [facility], Encounter Date: 04/28/2024 [employer]oplesoft Functional Analyst Referral for Type 2 diabetes mellitus without complication Referring Physician: Ralph [facility], Encounter Date: 04/28/2024 Referring Physician: Ralph [facility], Encounter Date: 04/28/2024 Urologist Referral for Kidne y lesion Referring Physician: Ralph [facility], Encounter Date: 04/28/2024 Endocrinology Referral for T ype 2 diabetes mellitus without complication Referring Physician: Ralph [facility], Encounter Date: 04/28/2024 Results Created Date Observation Date Name Description Value Unit Range Abnormal Flag Note LastModifiedBy Organization Detail LastModifiedTime 02/20/20 23 02/19/2023 CBC/C OMPLE TE BLD COUNT W/DIF F white blood cells 7.5 x10'3 /uL 4.2-10 .8 Not Available [facility] (Lab) [address] [place], [address], 02/19/2023 09:26:03 02/20/2002/19/2023 CBC/C OMPLE TE BLD COUNT W/DIF F red blood cells 4.55 x10'6 /uL 4.10-5 .80 Not Available [facility] (Lab) [address] [place], [address], 02/19/2023 09:26:03 02/20/20 23 02/19/2023 CBC/C OMPLE TE BLD COUNT W/DIF F hemoglobin 14.2 g/dL 13.2-1 7.0 Not Available [facility] (Lab) [address] [place], [address], 02/19/2023 09:26:03 02/20/20 23 02/19/2023 CBC/C OMPLE TE BLD COUNT W/DIF F hematocrit 41.5 % 39.3-5 0.0 Not Available [facility] (Lab) [address] [place], [address], 02/19/2023 09:26:03 02/20/2002/19/2023 CBC/C OMPLE TE BLD COUNT W/DIF F mean red cell volume 91.2 fL 80.0-9 7.0 Not Available [facility] (Lab) [address] [place], [address], 02/19/2023 09:26:03 02/20/20 23 02/19/2023 CBC/C OMPLE TE BLD COUNT W/DIF F mean red cell hemoglobin 31.2 pg 27.0-3 3.0 Not Available [facility] (Lab) [address] [place], [address], 02/19/2023 09:26:03 02/20/20 23 02/19/2023 CBC/C OMPLE TE BLD COUNT W/DIF F mean RBC HGB concentratio n 34.2 g/dL 31.0-3 6.0 Not Available [facility] (Lab) [address] [place], [address], 02/19/2023 09:26:03 02/20/20 23 02/19/2023 CBC/C OMPLE TE BLD COUNT W/DIF F red cell distribution width 12.2 % 11.8-1 5.5 Not Available [facility] (Lab) [address] [place], [address], 02/19/2023 09:26:03 02/20/2002/19/2023 CBC/C OMPLE TE BLD COUNT W/DIF F platelets 233 x10'3 /uL 150-40 0 Not Available [facility] (Lab) [address] [facility] [place], [address], 02/19/2023 09:26:03 02/20/20 23 02/19/2023 CBC/C OMPLE TE BLD COUNT W/DIF F mean platelet volume 10.5 fL 9.0-12 .4 Not Available [facility] (Lab) [address] [place], [address], 02/19/2023 09:26:03 02/20/20 23 02/19/2023 CBC/C OMPLE TE BLD COUNT W/DIF F neutrophils 60.9 % 39.0-7 2.0 Not Available [facility] (Lab) [address] [place], [address], 02/19/2023 09:26:03 02/20/20 23 02/19/2023 CBC/C OMPLE TE BLD COUNT W/DIF F lymphocytes 20.5 % 16.0-4 7.0 Not Available [facility] (Lab) [address] [place], [address], 02/19/2023 09:26:03 02/20/20 23 02/19/2023 CBC/C OMPLE TE BLD COUNT W/DIF F monocytes 10.9 % 5.0-12 .0 Not Available [facility] (Lab) [address] [place], [address], 02/19/2023 09:26:03 02/20/20 23 02/19/2023 CBC/C OMPLE TE BLD COUNT W/DIF F eosinophils 5.0 % 1.0-7. 0 Not Available [facility] (Lab) [address] [place], [address], 02/19/2023 09:26:03 02/20/2002/19/2023 CBC/C OMPLE TE BLD COUNT W/DIF F basophils 1.2 % 0.0-2. 0 Not Available [facility] (Lab) [address] [place], [address], 02/19/2023 09:26:03 02/20/2002/19/2023 CBC/C OMPLE TE BLD COUNT W/DIF F immature granulocytes 1.5 % 0.00-0 .50 high Not Available [facility] (Lab) [address] [place], [address], 02/19/2023 09:26:03 02/20/2002/19/2023 CBC/C OMPLE TE BLD COUNT W/DIF F neutrophils, absolute count 4.54 x10'3 /uL 1.5-8. 0 Not Available [facility] (Lab) [address] [place], [address], 02/19/2023 09:26:03 02/20/2002/19/2023 CBC/C OMPLE TE BLD COUNT W/DIF F lymphocytes, absolute count 1.53 x10'3 /uL 1.07-3 .43 Not Available [facility] (Lab) [address] [place], [address], 02/19/2023 09:26:03 02/20/2002/19/2023 CBC/C OMPLE TE BLD COUNT W/DIF F monocytes, absolute count 0.81 x10'3 /uL 0.29-0 .99 Not Available [facility] (Lab) [address] [place], [address], 02/19/2023 09:26:03 02/20/20 23 02/19/2023 CBC/C OMPLE TE BLD COUNT W/DIF F eosinophils, absolute count 0.37 x10'3 /uL 0.02-0 .53 Not Available [facility] (Lab) [address] [facility] [place], [address], 02/19/2023 09:26:03 02/20/20 23 02/19/2023 CBC/C OMPLE TE BLD COUNT W/DIF F basophils, absolute count 0.09 x10'3 /uL 0.01-0 .08 high Not Available [facility] (Lab) [address] [place], [address], 02/19/2023 09:26:03 02/20/20 23 02/19/2023 CBC/C OMPLE TE BLD COUNT W/DIF F immature granulocytes ,absolute 0.11 x10'3 /uL 0.00-0 .05 high Not Available [facility] (Lab) [address] [place], [address], 02/19/2023 09:26:03 02/20/20 23 02/19/2023 CBC/C OMPLE TE BLD COUNT W/DIF F nucleated red blood cells 0.0 % -0 Not Available [facility] (Lab) [address] [place], [address], 02/19/2023 09:26:03 02/20/20 23 02/19/2023 CBC/C OMPLE TE BLD COUNT W/DIF F NRBC# 0.00 x10'3 /uL Not Available [facility] (Lab) [address] [place], [address], 02/19/2023 09:26:03 02/20/20 23 02/19/2023 MICRO ALBUM IN RANDO M URINE microalbumin , urine 21.8 mg/L 0.0-16 .6 high Not Available [facility] (Lab) [address] [place] [address], [address], 02/19/2023 10:09:36 02/20/20 23 02/19/2023 LIPID PANEL cholesterol 162 mg/dL 140-19 9 NIH SREE NSUS RECOM MENDA TION FOR JACKI STERO L: ADULT CHILD LOW RISK: <200 <170 BORDE RLINE : <200- 239 ----- HIGH RISK: >240 >200 Not Available [facility] (Lab) [address] [place] [address], [address], 02/19/2023 10:34:21 02/20/20 23 02/19/2023 LIPID PANEL triglyceride s 287 mg/dL 0-150 high NIH SREE NSUS REPOR T RECOM MENDA TION FOR TRIGL YCERI VERONICA: ADULT CHILD LOW RISK: <150 ----- BODER LINE: 150-1 99 ----- HIGH RISK: >200 ----- Not Available [facility] (Lab) [address] [place] [address], [address], 02/19/2023 10:34:21 02/20/20 23 02/19/2023 LIPID PANEL HDL cholesterol 30 mg/dL 40- low Not Available [facility] (Lab) [address] [place] [address], [address], 02/19/2023 10:34:21 02/20/20 23 02/19/2023 LIPID PANEL LDL cholesterol, calculated 75 mg/dL 0-130 NIH SREE NSUS REPOR T RECOM MENDA TIONS FOR LDL: ADULT CHILD LOW RISK <130 <110 (OPTI MAL LDL) <100 ----- BORDE RLINE : 130-1 59 ----- HIGH RISK: >160 >130 A TRIGL YCERI DE RESUL T >400 INVAL IDATE S THE CALCU LATIO N FOR LDL FRACT IONAT ION - THE LDL RESUL T WILL NOT BE REPOR RADHA. Not Available [facility] (Lab) [address] [place], [address], 02/19/2023 10:34:21 02/20/20 23 02/19/2023 TSH W/REF DIANE FT4 TSH with reflex free T4 0.471 uIU/m L 0.465- 4.680 Not Available [facility] (Lab) [address] [place], [address], 02/19/2023 11:13:38 02/20/20 23 02/19/2023 HEMOG LOBIN A1C HA1C 8.9 % 4.0-6. 0 high Diabe kristopher Scree gavi Crite di: <5.7% Consi stent with absen ce of diabe kristopher 5.7-6 .4% Consi stent with incre ased risk for diabe kristopher (pred iabet es) >OR=6 .5% Consi stent with diabe kristopher REFER ENCE: Diabe kristopher Care 2016, 39(Matthew ppl.1 ):s13 -s22 Not Available [facility] (Lab) [address] [place], [address], 02/19/2023 14:00:37 06/16/19 24 06/16/2023 CBC/C OMPLE TE BLD COUNT W/DIF F white blood cells 8.7 x10'3 /uL 4.2-10 .8 Not Available [facility] (Lab) [address] [place], [address], 06/16/2023 09:49:42 06/16/19 24 06/16/2023 CBC/C OMPLE TE BLD COUNT W/DIF F red blood cells 4.65 x10'6 /uL 4.10-5 .80 Not Available [facility] (Lab) [address] [place], [address], 06/16/2023 09:49:42 06/16/19 24 06/16/2023 CBC/C OMPLE TE BLD COUNT W/DIF F hemoglobin 14.4 g/dL 13.2-1 7.0 Not Available [facility] (Lab) [address] [place], [address], 06/16/2023 09:49:42 06/16/19 24 06/16/2023 CBC/C OMPLE TE BLD COUNT W/DIF F hematocrit 42.4 % 39.3-[address] [facility] (Lab) [address] [place], [address], 06/16/2023 09:49:42 06/16/19 24 06/16/2023 CBC/C OMPLE TE BLD COUNT W/DIF F mean red cell volume 91.2 fL 80.0-9 7.0 Not Available [facility] (Lab) [address] [place], [address], 06/16/2023 09:49:42 06/16/19 24 06/16/2023 CBC/C OMPLE TE BLD COUNT W/DIF F mean red cell hemoglobin 31.0 pg 27.0-3 3.0 Not Available [facility] (Lab) [address] [place], [address], 06/16/2023 09:49:42 06/16/19 24 06/16/2023 CBC/C OMPLE TE BLD COUNT W/DIF F mean RBC HGB concentratio n 34.0 g/dL 31.0-3 6.0 Not Available [facility] (Lab) [address] [place], [address], 06/16/2023 09:49:42 06/16/19 24 06/16/2023 CBC/C OMPLE TE BLD COUNT W/DIF F red cell distribution width 12.2 % 11.8-1 5.5 Not Available [facility] (Lab) [address] [place], [address], 06/16/2023 09:49:42 06/16/19 24 06/16/2023 CBC/C OMPLE TE BLD COUNT W/DIF F platelets 206 x10'3 /uL 150-[address] [facility] (Lab) [address] [place], [address], 06/16/2023 09:49:42 06/16/19 24 06/16/2023 CBC/C OMPLE TE BLD COUNT W/DIF F mean platelet volume 10.8 fL 9.0-12 .4 Not Available [facility] (Lab) [address] [place], [address], 06/16/2023 09:49:42 06/16/19 24 06/16/2023 CBC/C OMPLE TE BLD COUNT W/DIF F neutrophils 48.0 % 39.0-7 2.0 Not Available [facility] (Lab) [address] [place], [address], 06/16/2023 09:49:42 06/16/19 24 06/16/2023 CBC/C OMPLE TE BLD COUNT W/DIF F lymphocytes 32.5 % 16.0-4 7.0 Not Available [facility] (Lab) [address] [place], [address], 06/16/2023 09:49:42 06/16/19 24 06/16/2023 CBC/C OMPLE TE BLD COUNT W/DIF F monocytes 10.0 % 5.0-12 .0 Not Available [facility] (Lab) [address] [place], [address], 06/16/2023 09:49:42 06/16/19 24 06/16/2023 CBC/C OMPLE TE BLD COUNT W/DIF F eosinophils 7.4 % 1.0-7. 0 high Not Available [facility] (Lab) [address] [place], [address], 06/16/2023 09:49:42 06/16/19 24 06/16/2023 CBC/C OMPLE TE BLD COUNT W/DIF F basophils 1.4 % 0.0-2. 0 Not Available [facility] (Lab) [address] [place], [address], 06/16/2023 09:49:42 06/16/19 24 06/16/2023 CBC/C OMPLE TE BLD COUNT W/DIF F immature granulocytes 0.7 % 0.00-0 .50 high Not Available [facility] (Lab) [address] [place], [address], 06/16/2023 09:49:42 06/16/19 24 06/16/2023 CBC/C OMPLE TE BLD COUNT W/DIF F neutrophils, absolute count 4.16 x10'3 /uL 1.5-8. 0 Not Available [facility] (Lab) [address] [place], [address], 06/16/2023 09:49:42 06/16/19 24 06/16/2023 CBC/C OMPLE TE BLD COUNT W/DIF F lymphocytes, absolute count 2.82 x10'3 /uL 1.07-3 .43 Not Available [facility] (Lab) [address] [place], [address], 06/16/2023 09:49:42 06/16/19 24 06/16/2023 CBC/C OMPLE TE BLD COUNT W/DIF F monocytes, absolute count 0.87 x10'3 /uL 0.29-0 .99 Not Available [facility] (Lab) [address] [place], [address], 06/16/2023 09:49:42 06/16/19 24 06/16/2023 CBC/C OMPLE TE BLD COUNT W/DIF F eosinophils, absolute count 0.64 x10'3 /uL 0.02-0 .53 high Not Available [facility] (Lab) [address] [place], [address], 06/16/2023 09:49:42 06/16/19 24 06/16/2023 CBC/C OMPLE TE BLD COUNT W/DIF F basophils, absolute count 0.12 x10'3 /uL 0.01-0 .08 high Not Available [facility] (Lab) [address] [place], [address], 06/16/2023 09:49:42 06/16/19 24 06/16/2023 CBC/C OMPLE TE BLD COUNT W/DIF F immature granulocytes ,absolute 0.06 x10'3 /uL 0.00-0 .05 high Not Available [facility] (Lab) [address] [place], [address], 06/16/2023 09:49:42 06/16/19 24 06/16/2023 CBC/C OMPLE TE BLD COUNT W/DIF F nucleated red blood cells 0.0 % -0 Not Available [facility] (Lab) [address] [place], [address], 06/16/2023 09:49:42 06/16/19 24 06/16/2023 CBC/C OMPLE TE BLD COUNT W/DIF F NRBC# 0.00 x10'3 /uL Not Available [facility] (Lab) [address] [place], [address], 06/16/2023 09:49:42 06/16/19 24 06/16/2023 LIPID PANEL cholesterol 127 mg/dL 140-19 9 low NIH SREE NSUS RECOM MENDA TION FOR JACKI STERO L: ADULT CHILD LOW RISK: <200 <170 BORDE RLINE : <200- 239 ----- HIGH RISK: >240 >200 Not Available [facility] (Lab) [address] [place], [address], 06/16/2023 10:43:50 06/16/19 24 06/16/2023 LIPID PANEL triglyceride s 144 mg/dL 0-150 NIH SREE NSUS REPOR T RECOM MENDA TION FOR TRIGL YCERI VERONICA: ADULT CHILD LOW RISK: <150 ----- BODER LINE: 150-1 99 ----- HIGH RISK: >200 ----- Not Available [facility] (Lab) [address] [place], [address], 06/16/2023 10:43:50 06/16/19 24 06/16/2023 LIPID PANEL HDL cholesterol 34 mg/dL 40- low Not Available [facility] (Lab) [address] [place], [address], 06/16/2023 10:43:50 06/16/19 24 06/16/2023 LIPID PANEL LDL cholesterol, calculated 64 mg/dL 0-130 NIH SREE NSUS REPOR T RECOM MENDA TIONS FOR LDL: ADULT CHILD LOW RISK <130 <110 (OPTI MAL LDL) <100 ----- JULIA RLINE : 130-1 59 ----- HIGH RISK: >160 >130 A TRIGL YCERI DE RESUL T >400 INVAL IDATE S THE CALCU LATIO N FOR LDL FRACT IONAT ION - THE LDL RESUL T WILL NOT BE REPOR RADHA. Not Available [facility] (Lab) [address] [place], [address], 06/16/2023 10:43:50 06/16/19 24 06/16/2023 MICRO ALBUM IN RANDO M URINE microalbumin , urine 47.7 mg/L 0.0-16 .6 high Not Available [facility] (Lab) [address] [place], [address], 06/16/2023 10:56:48 06/16/19 24 06/16/2023 TSH W/REF DIANE FT4 TSH with reflex free T4 0.401 uIU/m L 0.465- 4.680 low Not Available [facility] (Lab) [address] [place], [address], 06/16/2023 11:03:47 06/16/19 24 06/16/2023 T4 FREE free T4 1.10 NG/dL 0.78-2 .19 Not Available [facility] (Lab) [address] [place], [address], 06/16/2023 11:40:15 06/16/19 24 06/17/2023 HEMOG LOBIN A1C HA1C 10.2 % 4.0-6. 0 high Diabe kristopher Scree gavi Crite di: <5.7% Consi stent with absen ce of diabe kristopher 5.7-6 .4% Consi stent with incre ased risk for diabe kristopher (pred iabet es) >OR=6 .5% Consi stent with diabe kristopher REFER ENCE: Diabe kristopher Care 2016, 39( ppl.1 ):s13 -s22 Not Available [facility] (Lab) [address] [place], [address], 06/17/2023 14:18:16 04/21/19 25 04/21/2024 CBC/C OMPLE TE BLD COUNT W/DIF F white blood cells 9.0 x10'3 /uL 4.2-10 .8 Not Available [facility] (Lab) [address] [place], [address], 04/21/2024 09:48:42 04/21/19 25 04/21/2024 CBC/C OMPLE TE BLD COUNT W/DIF F red blood cells 4.70 x10'6 /uL 4.10-5 .80 Not Available [facility] (Lab) [address] [place], [address], 04/21/2024 09:48:42 04/21/19 25 04/21/2024 CBC/C OMPLE TE BLD COUNT W/DIF F hemoglobin 14.7 g/dL 13.2-1 7.0 Not Available [facility] (Lab) [address] [place], [address], 04/21/2024 09:48:42 04/21/19 25 04/21/2024 CBC/C OMPLE TE BLD COUNT W/DIF F hematocrit 44.1 % 39.3-5 0.0 Not Available [facility] (Lab) [address] [place], [address], 04/21/2024 09:48:42 04/21/19 25 04/21/2024 CBC/C OMPLE TE BLD COUNT W/DIF F mean red cell volume 93.8 fL 80.0-9 7.0 Not Available [facility] (Lab) [address] [place], [address], 04/21/2024 09:48:42 04/21/19 25 04/21/2024 CBC/C OMPLE TE BLD COUNT W/DIF F mean red cell hemoglobin 31.3 pg 27.0-3 3.0 Not Available [facility] (Lab) [address] [place], [address], 04/21/2024 09:48:42 04/21/19 25 04/21/2024 CBC/C OMPLE TE BLD COUNT W/DIF F mean RBC HGB concentratio n 33.3 g/dL 31.0-3 6.0 Not Available [facility] (Lab) [address] [place], [address], 04/21/2024 09:48:42 04/21/19 25 04/21/2024 CBC/C OMPLE TE BLD COUNT W/DIF F red cell distribution width 12.5 % 11.8-1 5.5 Not Available [facility] (Lab) [address] [place], [address], 04/21/2024 09:48:42 04/21/19 25 04/21/2024 CBC/C OMPLE TE BLD COUNT W/DIF F platelets 223 x10'3 /uL 150-40 0 Not Available [facility] (Lab) [address] [place], [address], 04/21/2024 09:48:42 04/21/1904/21/2024 CBC/C OMPLE TE BLD COUNT W/DIF F mean platelet volume 10.6 fL 9.0-12 .4 Not Available [facility] (Lab) [address] [place], [address], 04/21/2024 09:48:42 04/21/1904/21/2024 CBC/C OMPLE TE BLD COUNT W/DIF F neutrophils 54.7 % 39.0-7 2.0 Not Available [facility] (Lab) [address] [place], [address], 04/21/2024 09:48:42 04/21/1904/21/2024 CBC/C OMPLE TE BLD COUNT W/DIF F lymphocytes 26.6 % 16.0-[address] [facility] (Lab) [address] [place], [address], 04/21/2024 09:48:42 04/21/1904/21/2024 CBC/C OMPLE TE BLD COUNT W/DIF F monocytes 9.9 % 5.0-12 .0 Not Available [facility] (Lab) [address] [place], [address], 04/21/2024 09:48:42 04/21/1904/21/2024 CBC/C OMPLE TE BLD COUNT W/DIF F eosinophils 6.8 % 1.0-7. 0 Not Available [facility] (Lab) [address] [place], [address], 04/21/2024 09:48:42 04/21/19 25 04/21/2024 CBC/C OMPLE TE BLD COUNT W/DIF F basophils 1.3 % 0.0-2. 0 Not Available [facility] (Lab) [address] [place], [address], 04/21/2024 09:48:42 04/21/1904/21/2024 CBC/C OMPLE TE BLD COUNT W/DIF F immature granulocytes 0.7 % 0.00-0 .50 high Not Available [facility] (Lab) [address] [place], [address], 04/21/2024 09:48:42 04/21/1904/21/2024 CBC/C OMPLE TE BLD COUNT W/DIF F neutrophils, absolute count 4.90 x10'3 /uL 1.5-8. 0 Not Available [facility] (Lab) [address] [place], [address], 04/21/2024 09:48:42 04/21/1904/21/2024 CBC/C OMPLE TE BLD COUNT W/DIF F lymphocytes, absolute count 2.38 x10'3 /uL 1.07-3 .43 Not Available [facility] (Lab) [address] [place], [address], 04/21/2024 09:48:42 04/21/1904/21/2024 CBC/C OMPLE TE BLD COUNT W/DIF F monocytes, absolute count 0.89 x10'3 /uL 0.29-0 .99 Not Available [facility] (Lab) [address] [place], [address], 04/21/2024 09:48:42 04/21/19 25 04/21/2024 CBC/C OMPLE TE BLD COUNT W/DIF F eosinophils, absolute count 0.61 x10'3 /uL 0.02-0 .53 high Not Available [facility] (Lab) [address] [place], [address], 04/21/2024 09:48:42 04/21/19 25 04/21/2024 CBC/C OMPLE TE BLD COUNT W/DIF F basophils, absolute count 0.12 x10'3 /uL 0.01-0 .08 high Not Available [facility] (Lab) [address] [place], [address], 04/21/2024 09:48:42 04/21/19 25 04/21/2024 CBC/C OMPLE TE BLD COUNT W/DIF F immature granulocytes ,absolute 0.06 x10'3 /uL 0.00-0 .05 high Not Available [facility] (Lab) [address] [place], [address], 04/21/2024 09:48:42 04/21/1904/21/2024 CBC/C OMPLE TE BLD COUNT W/DIF F nucleated red blood cells 0.0 % -0 Not Available [facility] (Lab) [address] [place], [address], 04/21/2024 09:48:42 04/21/1904/21/2024 CBC/C OMPLE TE BLD COUNT W/DIF F NRBC# 0.00 x10'3 /uL Not Available [facility] (Lab) [address] [place], [address], 04/21/2024 09:48:42 04/21/1904/21/2024 MICRO ALBUM IN RANDO M URINE microalbumin , urine 49.1 mg/L 0.0-16 .6 high Not Available [facility] (Lab) [address] [place], [address], 04/21/2024 10:32:04 04/21/1904/21/2024 LIPID PANEL cholesterol 127 mg/dL 140-19 9 low NIH SREE NSUS RECOM MENDA TION FOR JACKI STERO L: ADULT CHILD LOW RISK: <200 <170 BORDE RLINE : <200- 239 ----- HIGH RISK: >240 >200 Not Available [facility] (Lab) [address] [place], [address], 04/21/2024 10:46:14 04/21/19 25 04/21/2024 LIPID PANEL triglyceride s 192 mg/dL 0-150 high NIH SREE NSUS REPOR T RECOM MENDA TION FOR TRIGL YCERI VERONICA: ADULT CHILD LOW RISK: <150 ----- BODER LINE: 150-1 99 ----- HIGH RISK: >200 ----- Not Available [facility] (Lab) [address] [place], [address], 04/21/2024 10:46:14 04/21/19 25 04/21/2024 LIPID PANEL HDL cholesterol 34 mg/dL 40- low Not Available [facility] (Lab) [address] [place], [address], 04/21/2024 10:46:14 04/21/19 25 04/21/2024 LIPID PANEL LDL cholesterol, calculated 55 mg/dL 0-130 NIH SREE NSUS REPOR T RECOM MENDA TIONS FOR LDL: ADULT CHILD LOW RISK <130 <110 (OPTI MAL LDL) <100 ----- BORDE RLINE : 130-1 59 ----- HIGH RISK: >160 >130 A TRIGL YCERI DE RESUL T >400 INVAL IDATE S THE CALCU LATIO N FOR LDL FRACT IONAT ION - THE LDL RESUL T WILL NOT BE REPOR RADHA. Not Available [facility] (Lab) [address] [place], [address], 04/21/2024 10:46:14 04/21/19 25 04/21/2024 TSH W/REF DIANE FT4 TSH with reflex free T4 1.080 uIU/m L 0.465- 4.680 Not Available [facility] (Lab) [address] [place], [address], 04/21/2024 11:11:27 04/21/19 25 04/21/2024 HEMOG LOBIN A1C HA1C 7.9 % 4.0-6. 0 high Diabe kristopher Scree gavi Crite di: <5.7% Consi stent with absen ce of diabe kristopher 5.7-6 .4% Consi stent with incre ased risk for diabe kristopher (pred iabet es) >OR=6 .5% Consi stent with diabe kristopher REFER ENCE: Diabe kristopher Care 2016, 39(Matthew ppl.1 ):s13 -s22 Not Available [facility] (Lab) [address] [place], [address], 04/21/2024 14:53:44 01/31/20 23 01/30/2023 elect rocar diogr am No observ ation record ed. [email or web address] [facility] [address], [place], [address], 02/01/2023 17:07:32 01/31/20 23 01/30/2023 cardi ac stres s test No observ ation record ed. [email or web address] [facility] [address], [place], [address], 04/05/2023 10:13:07 03/15/20 23 03/15/2023 XR, lumba r spine [facility] [address] [place] [address] [phone] Patien t Name: WHIT FAUST RD Access ion #: [id number] Sex: M : 1960 9 Dictat ed By: Jarrod Condon Attend ing Physic naren: JOSE DOW Orderi Physic naren: JOSE DOW Exam Date: Exam Name: XR L SPINE Admitt ing Diagno sis(es ): INDICA TION: Trauma . TECHNI QUE: Fronta l and latera l views of the lumbar spine were obtain ed. COMPAR DILCIA: None. FINDIN GS: . There are no fractu res or sublux ations . Verteb ral body height s and disc spaces are well mainta ined. Parave rtebra l soft tissue s are unrema rkable . IMPRES GEGE: 1. Of the visual ized spine, there is no eviden ce for fractu re or sublux ation. Electr onical ly Signed by: Jarrod Condon at 2022 11:53: 06 AM Page 1 [email or web address] [facility] (Imaging) [address] [place], [address], 03/19/2023 14:48:34 03/15/20 23 03/15/2023 XR, lumbo sacra l spine , 2 or 3 view No observ ation record ed. [email or web address] [facility] [address] [place], [address], 03/19/2023 14:48:34 03/15/20 23 03/15/2023 XR, hip + pelvi s, bilat eral, 3 or 4 view [facility] [address] [place] [address] Patien t Name: WHIT FAUST RD Access ion #: [id number] Sex: M : 1960 9 Dictat ed By: Benny Cerna Attend ing Physic naren: JOSE DOW Orderi Physic naren: JOSE DOW Exam Date: Exam Name: XR HIP/PE LVIS BILAT 3-4V Admitt ing Diagno sis(es ): [facility]INIC [facility] INDICA TION: Low back pain TECHNI QUE: 5 radiog raphic views of the pelvis and bilate ral hip were obtain ed. Compar dilcia: None FINDIN GS/ IMPRES GEGE: Mild degene rative change s of bilate ral hips. There is no eviden ce of acute fractu re or disloc ation. Electr onical ly Signed by: Benny Cerna at 2022 14:29: 34 PM Page 1 [email or web address] [facility] (Imaging) [address] [place], [address], 03/19/2023 14:48:35 04/30/19 24 04/30/2023 arter ial study , upper extre mity, multi ple level No observ ation record ed. [email or web address] [facility] [address], [place], [address], 05/23/2023 11:52:50 04/30/19 24 04/30/2023 arter ial study , upper extre mity, singl e level No observ ation record ed. [email or web address] [facility] [address], [place], [address], 07/18/2023 15:36:42 Result Notes None recorded. Problems Name Problem SNOMED Code Status Onset Date Resolution Date Notes Provider Name and Address Organization Details Recorded Time Acute sinusitis 91792441 Active 2021 Not Available [facility] 3 22:36:11 Mixed hyperlipid emia 217266924 Active 2021 Not Available [facility] 3 22:36:11 Hypertensi ve disorder 84411746 Active 2018 Not Available [facility] 3 22:36:12 Acute urinary tract infection 982849088 Active 2021 Not Available [facility] 3 22:36:12 Uncontroll ed type 2 diabetes mellitus 128061697 Active 2021 Not Available [facility] 3 22:36:12 Hyperlipid emia 32533842 Active 2018 Not Available [facility] 3 22:36:12 Essential hypertensi on 00179001 Active 2021 Not Available [facility] 3 22:36:12 Diabetes mellitus 87819844 Active 2018 Not Available [facility] 3 22:36:12 Hyperglyce azra 88042274 Active 2021 Not Available [facility] 3 22:36:12 COVID-19 623179369 Active 2021 Not Available [facility] 3 22:36:12 Onychomyco sis of toenails 090499560 Active 2022 Not Available [facility] 3 22:36:12 Tinea pedis 8587688 Active 2022 Not Available [facility] 3 22:36:12 Type 2 diabetes mellitus without complicati on 216397644 Active 2022 Not Available [facility] 3 22:36:12 Gastroesop hageal reflux disease without esophagiti s 526993110 Active 2022 Not Available [facility] 3 22:36:11 Malignant tumor of testis 439896889 Active 2022 Not Available [facility] 3 22:36:12 Chronic kidney disease 400981266 Active 2022 Not Available [facility] 3 22:36:12 Coronary arterioscl erosis 20115991 Active 2022 Not Available [facility] 3 22:36:12 Pain of right shoulder joint 2679721399135 9100 Active 2022 Not Available [facility] 3 22:36:11 Anemia 085636113 Active 2022 Not Available [facility] 3 22:36:12 Urinary incontinen ce 104238210 Active 2022 Not Available [facility] 3 22:36:11 Open wound of left lower leg 1306664897429 9106 Active 2022 Not Available [facility] 3 22:36:11 Kidney lesion 1371040479793 0 Active 2022 Not Available [facility] 3 22:36:12 Dyslipidem ia 633335970 Active 2022 Not Available [facility] 3 22:36:12 Open wound of lower leg 366009920 Active 2022 Not Available [facility] 3 22:36:11 Vitamin D deficiency 41222372 Active 2022 Ralph lopez MD [address] [place], [place] [address]rachel, [address], [address] , [facility] 16:46:02 Low back pain 790010446 Active 2022 Marimar purcell, [facility] 15:29:32 Arthritis 3546154 Active 2022 Marimar purclel, [facility] 14:50:08 Problem Notes None recorded. Procedures Surgical History Date Name Laterality Status Provider Name and Address Organization Details Recorded Time 11/09/19 excision of lesion of kidney completed AMINA Pena [facility] 11/16/2022 14:36:33 09/27/19 23 Wound Care-Podiatry completed Margareth Sharp RN [facility] 09/26/2022 17:25:47 09/13/19 23 Wound Care-Podiatry completed Herminia Mcleod RN [facility] 09/12/2022 16:52:31 09/06/19 23 Wound Care-Podiatry completed Margareth Sharp RN [facility] 09/05/2022 17:17:06 08/01/19 23 Nail Debridement completed David Munoz DPM [address], [facility] [address], [place], [address], [facility] 07/31/2022 10:48:11 04/11/20 21 cardiac catheterization completed Not Available [facility] 06/14/2022 09:13:48 Cardiac Stent Placement completed Linda Salomon Vianey [facility] 08/14/2022 16:43:59 Cataract Surgery completed Linda Salomon Vianey [facility] 10/01/2023 10:07:51 Imaging Results Imaging Date Name Status LastModified by Organization Details LastModified Time 01/30/2023 electrocardiogram completed [email or web address] [email or web address] [address], [place], [address], 02/01/2023 17:07:32 01/30/2023 cardiac stress test completed [email or web address] [facility] [address], [place], [address], 04/05/2023 10:13:07 03/15/2023 XR, lumbar spine completed [email or web address] [facility] (Imaging) [address] [place], [address], 03/19/2023 14:48:34 03/15/2023 XR, lumbosacral spine, 2 or 3 view completed [email or web address] [facility] [address] [place], [address], 03/19/2023 14:48:34 03/15/2023 XR, hip + pelvis, bilateral, 3 or 4 view completed [email or web address] [facility] ([facility]) [address] [place], [address], 03/19/2023 14:48:35 04/30/2023 arterial study, upper extremity, multiple level active [email or web address] [facility] [address], [place], [address], 05/23/2023 11:52:50 04/30/2023 arterial study, upper extremity, single level active [email or web address] [facility] [address], [place], [address], 07/18/2023 15:36:42 Procedure Notes None recorded. Medical Equipment None Reported. Allergies Allergen ID Allergen Name Allergen Category Reaction Reaction Severity Criticality Documentation Date Start Date Code Code System Note Provider Name and Address Organization Details Recorded Time 92652 adhesive environme nt,medica tion rash Not available Not available 02/26/2023 10719 AMINA Kinsey, [place] [facility] [place] [facility] 10:00:00 Medications Name Sig Start Date Stop Date Status Note LastModified by Organization Details LastModified Time losartan 50 mg tablet Take 1 tablet every day by oral route for 30 days. 06/05 completed Not Available Not Available Not Available metformin 500 mg tablet TAKE 1 TABLET BY MOUTH TWICE DAILY WITH MEALS active Not Available Not Available No t Available carvedilo l 25 mg tablet TAKE 1 TABLET BY MOUTH TWICE DAILY active Not Available Not Available No t Available carvedilo l 12.5 mg tablet 12/10 completed Not Available Not Available Not Available azithromy moe 250 mg tablet TK 2 TS PO ON DAY 1, THEN TK 1 T PO D FOR 4 DAYS 01/25 completed Not Available Not Available Not Available ibuprofen 800 mg tablet TAKE 1 TABLET BY MOUTH EVERY EIGHT HOURS 09/21 completed Not Available Not Available Not Available fluconazo le 150 mg tablet TAKE 1 TABLET BY MOUTH 1 TIME NOW FOR 1 DOSE AFTER COMPLETI ON OF BY MOUTH ANTIBIOT ICS 09/30 completed Not Available Not Available Not Available cephalexi n 250 mg capsule TAKE 1 CAPSULE BY MOUTH EVERY 6 HOURS FOR 7 DAYS 08/21 completed Not Available Not Available Not Available hydrocodo ne 5 mg-acetam inophen 325 mg tablet TAKE 1 TABLET BY MOUTH EVERY 6 HOURS NEEDED FOR PAIN 11/16 completed Not Available Not Available Not Available senna 8.6 mg tablet TAKE 1 TABLET BY MOUTH ONCE DAILY FOR 10 DAYS 11/16 completed Not Available Not Available Not Available phenazopy ridine 200 mg tablet TAKE 1 TABLET BY MOUTH THREE TIMES DAILY. 07/01 completed Not Available Not Available Not Available lisinopri l 20 mg tablet TAKE 1 TABLET BY MOUTH EVERY DAY 06/05 completed Not Available Not Available Not Available amlodipin e 5 mg tablet TAKE 1 TABLET BY MOUTH EVERY NIGHT 11/16 completed Not Available Not Available Not Available insulin syringe U-100 with needle 1 mL 29 gauge x 10/29 completed Not Available Not Available Not Available ciproflox acin 500 mg tablet Take 1 tablet every 12 hours by oral route for 7 days. active Not Available Not Available No t Available sulfameth oxazole 800 mg-trimet hoprim 160 mg tablet TAKE 1 TABLET BY MOUTH TWICE DAILY FOR 10 DAYS 07/01 completed Not Available Not Available Not Available omeprazol e 40 mg capsule,d elayed release TAKE 1 CAPSULE BY MOUTH DAILY active Not Available Not Available No t Available aspirin 81 mg tablet,de layed release Take 1 tablet every day by oral route. active Not Available Not Available No t Available glimepiri de 2 mg tablet TAKE 1 TABLET BY MOUTH TWICE DAILY WITH MEALS 09/30 completed Not Available Not Available Not Available fenofibra te micronize d 134 mg capsule TAKE 1 CAPSULE BY MOUTH EVERY DAY active Not Available Not Available No t Available glimepiri de 1 mg tablet TAKE 2 TABLETS BY MOUTH TWICE DAILY 09/30 completed Not Available Not Available Not Available isosorbid e mononitra te ER 60 mg tablet,ex tended release 24 hr TAKE 1 TABLET BY MOUTH ONCE DAILY IN THE EVENING active Not Available Not Available No t Available terbinafi ne HCl 250 mg tablet TAKE 1 TABLET BY MOUTH EVERY DAY active Not Available Not Available No t Available amoxicill in 875 mg tablet TAKE 1 TABLET BY MOUTH TWICE DAILY UNTIL ALL TAKEN 01/25 completed Not Available Not Available Not Available tamsulosi n 0.4 mg capsule TK ONE C PO D 01/20 completed Not Available Not Available Not Available OneTouch Ultra Test strips USE TWICE DAILY BEFORE MEALS active Not Available Not Available No t Available Kenalog 10 mg/mL suspensio n for injection In office injectio n administ ered by the provider 05/23 completed NDC: [id number] 4-20 Not Available Not Available Not Available diltiazem CD 300 mg capsule,e xtended release 24 hr TAKE 1 CAPSULE BY MOUTH DAILY active Not Available Not Available No t Available phenazopy ridine 100 mg tablet 10/15 completed Not Available Not Available Not Available amlodipin e 10 mg tablet TAKE 1 TABLET BY MOUTH EVERY DAY 09/30 completed Not Available Not Available Not Available cephalexi n 500 mg capsule TAKE 1 CAPSULE BY MOUTH 2 TIMES A DAY FOR 7 DAYS 08/14 completed Not Available Not Available Not Available simvastat in 20 mg tablet TAKE 1 TABLET BY MOUTH DAILY 01/30 completed Not Available Not Available Not Available metformin 1,000 mg tablet TK 1 T PO BID 10/15 completed Not Available Not Available Not Available glimepiri de 4 mg tablet active Not Available Not Available Not Available nitroglyc art 0.4 mg sublingua l tablet DISSOLVE 1 TABLET UNDER TONGUE EVERY 5 MINUTES NEEDED FOR CHEST PAIN. MAX TOTAL OF 3 DOSES IN 15 MINUTES active Not Available Not Available No t Available bisacodyl 5 mg tablet,de layed release TAKE AT 8AM ON 05/12 DIRECTED 09/21 completed Not Available Not Available Not Available ergocalci ferol (vitamin D2) 1,250 mcg (50,000 unit) capsule TAKE 1 CAPSULE BY MOUTH 1 TIME EVERY WEEK active Not Available Not Available No t Available Novolog U-100 Insulin aspart 100 unit/mL subcutane ous solution 01/20 completed Not Available Not Available Not Available triamcino lone acetonide 0.1 % lotion KAREN EXT AA BID PRF RASH active Not Available Not Available No t Available testoster one cypionate 200 mg/mL intramusc ular oil 05/02 completed Not Available Not Available Not Available ketoconaz ole 2 % topical cream APPLY TOPICALL Y TO AFFECTED TOENAIL EVERY DAY active Not Available Not Available No t Available lisinopri l 40 mg tablet 05/02 completed Not Available Not Available Not Available losartan 100 mg tablet tk one t po qhs active Not Available Not Available No t Available metformin ER 500 mg tablet,ex tended release 24 hr TAKE 1 TABLET BY MOUTH TWICE DAILY 04/28 completed Not Available Not Available Not Available finasteri de 5 mg tablet TAKE 1 TABLET BY MOUTH DAILY active Not Available Not Available No t Available Microlet Lancet USE TO TEST BLOOD GLUCOSE UP TO QID 01/20 completed Not Available Not Available Not Available amoxicill in 500 mg-potass ium clavulana te 125 mg tablet 10/15 completed Not Available Not Available Not Available Pneumovax -23 25 mcg/0.5 mL injection syringe 01/20 completed Not Available Not Available Not Available insulin lispro (U-100) 100 unit/mL subcutane ous pen INJECT 8 UNITS UNDER THE SKIN DIRECTED BEFORE MEALS. MAX 30 UNITS PER DAY active Not Available Not Available No t Available rosuvasta tin 20 mg tablet TAKE 1 TABLET BY MOUTH DAILY 04/28 completed Not Available Not Available Not Available rosuvasta tin 40 mg tablet TAKE 1 TABLET BY MOUTH EVERY DAY active Not Available Not Available No t Available nitrofura ntoin monohydra te/macroc rystals 100 mg capsule 02/26 completed Not Available Not Available Not Available omega-3 acid ethyl esters 1 gram capsule TAKE 2 CAPSULES BY MOUTH TWICE DAILY WITH MEALS 2024 active Not Available Not Available Not Avai lable Feosol 325 mg (65 mg iron) tablet Take 1 tablet every day by oral route. 2021 active Not Available Not Available Not Avai lable ranolazin e ER 500 mg tablet,ex tended release,1 2 hr TAKE 1 TABLET BY MOUTH TWICE DAILY FOR CHRONIC ANGINA active Not Available Not Available No t Available lidocaine (PF) 10 mg/mL (1 %) injection solution In office injectio n administ ered by the provider 05/23 completed [facility]: 0409-427 09-30 Not Available Not Available Not Available BD Ultra-Fin e Original Pen Needle 29 gauge x 1/2 USE UP TO 5 TIMES DAILY active Not Available Not Available No t Available Januvia 100 mg tablet TK 1 T PO QD 06/12 completed Not Available Not Available Not Available peg 3350-elec trolytes 236 gram-22.7 4 gram-6.74 gram-5.86 gram solution MIX AND DRINK 1/2 AT 5PM ON 05/12 AND 1/2 AT 5AM 05/13 DIRECTED 05/23 completed Not Available Not Available Not Available Brilinta 90 mg tablet TAKE 1 TABLET BY MOUTH TWICE DAILY 05/23 completed Not Available Not Available Not Available TRUEplus Lancets 33 gauge USE TO TEST BLOOD SUGAR FOUR TIMES DAILY 06/05 completed Not Available Not Available Not Available Vascepa 1 gram capsule TAKE 2 CAPSULES BY MOUTH TWICE DAILY BEFORE MEALS 01/30 completed Not Available Not Available Not Available aloglipti n 25 mg tablet TK 1 T PO QD 04/[address] Abrams stopped this and started Januvia 100 mg Not Available Not Available Not Available Farxiga 10 mg tablet TAKE 1 TABLET BY MOUTH ONCE DAILY active Not Available Not Available No t Available Jardiance 25 mg tablet Take 1 tablet every day by oral route. 11/16 completed Not Available Not Available Not Available Basaglar KwikPen U-100 Insulin 100 unit/mL (3 mL) subcutane ous ADMINIST ER 38 UNITS UNDER THE SKIN TWICE DAILY active 35 units bid Not Available Not Available Not Available Basaglar KwikPen U-100 Insulin 05/02 completed Not Available Not Available Not Available TRUEplus Pen Needle 31 gauge x 08/29 USE TO INJECT INSULIN DAILY. active Not Available Not Available No t Available TRUEplus Pen Needle 31 gauge x 3/16 01/20 completed Not Available Not Available Not Available Flucelvax Quad 9680-4738 (PF) 60 mcg (15 mcg x 4)/0.5 mL IM syringe ADM 0.5ML IM UTD 01/20 completed Not Available Not Available Not Available Ozempic 1 mg/dose (2 mg/1.5 mL) subcutane ous pen injector INJECT 1 MG UNDER THE SKIN IN THE MORNING ONCE WEEKLY 05/02 completed Not Available Not Available Not Available Ozempic 0.25 mg or 0.5 mg (2 mg/1.5 mL) subcutane ous pen injector INJECT 0.5 MG UNDER THE SKIN EVERY WEEK WITH MEALS 01/30 completed Not Available Not Available Not Available Afluria Quad 6132-0066 60 mcg (15 mcg x 4)/0.5 mL IM suspensio n 01/20 completed Not Available Not Available Not Available BD Heather 2nd Gen Pen Needle 32 gauge x 5/32 USE FIVE TIMES DAILY active Not Available Not Available No t Available OneTouch Ultra2 Meter USE TO TEST BLOOD SUGAR TWICE DAILY BEFORE MEALS 06/05 completed Not Available Not Available Not Available Afluria Qd 2018- (36 mos up)(PF)60 mcg (15 mcg x4)/0.5 mL IM syringe ADM 0.5ML IM UTD 01/20 completed Not Available Not Available Not Available Baqsimi 3 mg/actuat ion nasal spray USE 1 SPRAY IN ONE NOSTRIL ONCE active Not Available Not Available No t Available FreeStyle Juve 2 Sensor kit USE DIRECTED AND CHANGE SENSOR EVERY 14 DAYS active Not Available Not Available No t Available Fluzone Quad (PF) 60 mcg (15 mcg x 4)/0.5 mL IM syringe ADM 0.5ML IM UTD 01/20 completed Not Available Not Available Not Available Ozempic 1 mg/dose (4 mg/3 mL) subcutane ous pen injector active Not Available Not Available Not Available BinaxNOW COVID-19 Ag Self Test kit TEST DIRECTED TODAY 06/05 completed Not Available Not Available Not Available aspirin 81 mg capsule Take by oral route. 06/05 completed Not Available Not Available Not Available Paxlovid 300 mg (150 mg x 2)-100 mg tablets in a dose pack Take 3 tablets twice a day by oral route for 5 days. active Not Available Not Available No t Available Ozempic 2 mg/dose (8 mg/3 mL) subcutane ous pen injector INJECT 2 MG SUBCUTAN EOUS EVERY WEEK AT DINNER active Not Available Not Available No t Available FreeStyle Juve 3 Sensor device CHANGE EVERY 14 DAYS. active Not Available Not Available No t Available Vitals Date Recorded Body height Body mass index (BMI) Body weight Body temperature Heart rate Systolic blood pressure Diastolic blood pressure Provider Name and Address Organization Details Last Updated DateTime 3 185.42 cm 29.8 kg/m2 003137. 88 g 97.2 [degF] 60 /min 118 mm[Hg] 60 mm[Hg] Linda Salomon [facility] [employer] 3 10:07:42 Date Recorded Body height Body mass index (BMI) Body weight Oxygen saturation Oxygen saturation in Arterial blood by Pulse oximetry Heart rate Systolic blood pressure Diastolic blood pressure Provider Name and Address Organization Details Last Updated DateTime 4 185.42 cm 30.6 kg/m2 705255. 43 g 97 % 97 % 74 /min 140 mm[Hg] 80 mm[Hg] Yue Owens [facility] [employer] [facility] [employer] [facility] 4 10:27:54 Date Recorded Body height Body mass index (BMI) Body weight Body temperature Heart rate Systolic blood pressure Diastolic blood pressure Provider Name and Address Organization Details Last Updated DateTime 4 185.42 cm 29.9 kg/m2 105210. 47 g 97.7 [degF] 72 /min 120 mm[Hg] 64 mm[Hg] Linda Salomon [facility] [employer] [facility] [employer] 4 10:09:22 Date Recorded Body height Body mass index (BMI) Body weight Body temperature Heart rate Systolic blood pressure Diastolic blood pressure Provider Name and Address Organization Details Last Updated DateTime 4 185.42 cm 29.8 kg/m2 290314. 88 g 97.9 [degF] 72 /min 132 mm[Hg] 70 mm[Hg] Linda Salomon [facility] [employer] [facility] [employer] [facility] 4 11:45:21 Date Recorded Body height Body mass index (BMI) Body weight Body temperature Heart rate Systolic blood pressure Diastolic blood pressure Provider Name and Address Organization Details Last Updated DateTime 5 185.42 cm 31.1 kg/m2 333694. 8 g 97.7 [degF] 72 /min 136 mm[Hg] 70 mm[Hg] Linda Salomon [facility] [employer] [facility] 5 18:25:46 Social History Question Answer Notes LastModified by Organizat ion Details LastModified Time Tobacco Smoking Status Former Smoker Not Available [employer] 06/14/2022 09:13:31 Do You Have An Advance Directive? Yes [id number].[id number] [id number] Information not available 06/14/2022 What Is Your Level Of Alcohol Consumption? Occasional MIGRATION.87302 [id number] Information not available 06/14/2022 What Is Your Level Of Caffeine Consumption? Moderate MIGRATION.02831 60025 Information not available 06/14/2022 In The 14 Days Before Symptom Onset, Have You Had Close Contact With A Laboratory-confi rmed COVID-19 While That Case Was Ill? No MIGRATION.18718 20712 Information not available 06/14/2022 In The 14 Days Before Symptom Onset, Have You Had Close Contact With A Person Who Is Under Investigation For COVID-19 While That Person Was Ill? No MIGRATION.27286 [id number] Information not available 06/14/2022 Are You Currently Employed? Yes Information not available 08/14/2022 What Type Of Diet Are You Following? REGULAR MIGRATION.28437 77340 Information not available 06/14/2022 What Is The Highest Grade Or Level Of School You Have Completed Or The Highest Degree You Have Received? 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 No MIGRATION.55143 35240 Information not available 06/14/2022 What Is The Fluoride Status Of Your Home? Unknown MIGRATION.18501 30358 Information not available 06/14/2022 When Did You Quit Smoking? 14+yearssincelkiana frausto MIGRATION.85293 80589 Information not available 06/14/2022 Are There Any Guns Present In Your Home? Yes MIGRATION.05183 17806 Information not available 06/14/2022 Do You Use Insect Repellent Routinely? No MIGRATION.85111 34005 Information not available 06/14/2022 Where Do You Live? [place]House MIGRATION.35323 37633 Information not available 06/14/2022 Do You Have A Medical Power Of Reptile Farmer? Yes MIGRATION.28081 63633 Information not available 06/14/2022 What Was The Date Of Your Most Recent Tobacco Screening? 04/28/2024 Information not available 04/28/2024 Do You Have Any Pets? Yes MIGRATION.26587 66189 Information not available 06/14/2022 What Is Your Relationship Status? MIGRATION.33164 33865 Information not available 06/14/2022 Do You Use Your Seat Belt Or Car Seat Routinely? Yes MIGRATION.66256 44096 Information not available 06/14/2022 Do You Have Smoke And Carbon Monoxide Detectors In Your Home? Yes MIGRATION.80135 05120 Information not available 06/14/2022 Are You Passively Exposed To Smoke? No MIGRATION.44675 21850 Information not available 06/14/2022 Are There Any Smokers In Your House? No MIGRATION.71910 23678 Information not available 06/14/2022 Do You Feel Stressed (tense, Restless, Nervous, Or Anxious, Or Unable To Sleep At Night)? [id number] MIGRATION.73718 30059 Information not available 06/14/2022 Do You Use Any Illicit Or Recreational Drugs? No MIGRATION.17792 37891 Information not available 06/14/2022 Do You Use Sunscreen Routinely? Yes MIGRATION.38040 22990 Information not available 06/14/2022 How Many Years Have You Smoked Tobacco? 30 MIGRATION.39394 94439 Information not available 06/14/2022 Have You Recently Traveled Abroad? No MIGRATION.32867 43163 Information not available 06/14/2022 Do You Have Any Dietary Restrictions? No MIGRATION.09514 10924 Information not available 06/14/2022 Do You Or Have You Ever Used Any Other Forms Of Tobacco Or Nicotine? No Information not available 08/14/2022 Sex: Male Functional Status None recorded. Mental Status None recorded. Family History Relationship Description Onset Age of this Age Resolved Age Notes LastModified by Organization Details LastModified Time Father Diabetes mellitus [id number] Not available 06/14/2022 09:13:51 Father Hypertensive disorder MIGRATION.[id number] Not available 06/14/2022 09:13:51 Father Heart disease MIGRATION.[id number] Not available 06/14/2022 09:13:51 Medical History Condition Response BLINDNESS N RHEUMATIC FEVER N MRSA N INFECTIOUS DISEASE N HEART ARRHYTHMIA N LUNG DISEASE/DISORDER N HISTORY OF DRUG ABUSE N INSOMNIA N RADIATION / CHEMOTHERAPY N COPD N HIGH CHOLESTEROL / HYPERLIPIDEMIA Y EYE PROBLEMS N HYPERTHYROIDISM N BLOOD DISEASES N SURGERY N EDEMA N HYPOTHYROIDISM N SHINGLES N DEPRESSION (INCLUDING POST ) N STROKE/TIA N THYROID DISEASE N BENIGN PROSTATIC HYPERPLASIA N OBESITY N EXCESSIVE PERSPIRATION N GERD/NAUSEA N ANEURYSM N OSTEOPOROSIS N ARTHRITIS N USE OF BLOOD THINNERS Y SKIN PROBLEMS N DIABETES, TYPE Y PARATHYROID DISEASE N BLOOD CLOTS N HEPATITIS / LIVER DISEASE N GOUT N ALZHEIMER'S DISEASE N HERPES N RETINOPATHY N SEIZURES/EPILEPSY N HEADACHES/MIGRAINES N GI PROBLEMS N Low Testosterone Y DIZZINESS N KIDNEY DISEASE Y HEART DISEASE/HEART PROBLEMS Y AIDS/HIV N LIVER DISEASE N HYPERTENSION Y CANCER: SPECIFY Y TOURETTE'S N BLOOD TRANSFUSION N ANEMIA/BLOOD DISORDER N ATRIAL FIBRILLATION N AUTOIMMUNE DISEASE N TUBERCULOSIS N GLAUCOMA N Immunizations Vaccine Type Date Status Note Provider Nam e and Address Organization Details Recorded Time zoster recombinant 3 completed Linda Salomon RMVianey purcell, [employer] 02/26/2023 10:03:30 Pneumococcal conjugate PCV20, polysaccharide [id number] conjugate, adjuvant, PF 3 completed Linda Salomon RMVianey purcell, [employer] [facility] 02/26/2023 10:03:48 Influenza, split virus, quadrivalent, PF 3 completed Linda Salomon RMVianey purcell, [employer] 02/26/2023 10:05:08 Tdap 2 completed Not Available [facility] 01/29/2023 22:36:12 Influenza, split virus, quadrivalent, preservative 2 completed Not Available [facility] 01/29/2023 22:36:12 COVID-19, mRNA, LNP-S, PF, 3 mcg/0.2 mL dose, rufus-sucrose 2 completed Not Available [facility] 01/29/2023 22:36:12 Influenza, split virus, quadrivalent, preservative 1 completed Not Available [facility] 01/29/2023 22:36:12 COVID-19, mRNA, LNP-S, PF, 30 mcg/0.3 mL dose 1 completed Not Available [facility] 01/29/2023 22:36:12 COVID-19, mRNA, LNP-S, PF, 30 mcg/0.3 mL dose 1 completed Not Available [facility] 01/29/2023 22:36:12 Past Encounters Encounter ID Performer Location Encounter Start Date Encounter Closed Date Diagnosis/Indication Diagnosis SNOMED-CT Code Diagnosis ICD10 Code Diagnosis Note [id number] [facility] [address] [place] [address] 01/25/2021 00:00:00 01/25/2021 10:05:28 [id number] [facility] [place] [address] [place] [address] 05/02/2021 00:00:00 05/02/2021 15:38:43 [id number] [facility] [place] [address] , [place] [address] 05/23/2021 00:00:00 05/27/2021 12:43:10 [id number] [facility] [place] [address] [place] [address] 05/27/2021 00:00:00 05/27/2021 11:31:20 [id number] [facility] [place] [address] , [place] [address] 06/20/2021 00:00:00 06/20/2021 15:36:02 [id number] [facility] [place] [address] [place] [address] 06/30/2021 00:00:00 07/04/2021 09:01:38 [id number] _ATHENA_M IGRATION_ DEFAULT_1 _1 , 07/28/2021 00:00:00 07/28/2021 13:50:31 [id number] [facility] [place] [address] [place] [address] 08/08/2021 00:00:00 08/08/2021 13:52:50 [id number] [facility] Internal Med [place] [address] , [place] [address] 09/21/2021 00:00:00 10/14/2021 09:51:12 [id number] [facility] Internal [facility] [address] [place] [address] y , [place] [address] 01/30/2022 00:00:00 03/17/2022 11:06:55 [id number] [facility] [address] [place] [address] [place] [address] 06/05/2022 00:00:00 06/05/2022 11:12:15 [id number] David Munoz DPM [facility] Pod[facility] [place] [facility] [address] [place] [address] 07/31/2022 10:04:26 07/31/2022 11:50:38 Uncontrolled type 2 diabetes mellitus [id number] E11.65 Patient educated on neuropathy , diabetes, diabetic diet, and daily foot exams. Patient is to check feet daily for new wounds, blisters, redness to prevent infection and ulceration s to the feet. Patient will return to clinic in 3 months for diabetic foot workup. Onychomyco sis of toenails 153108434 B35.1 left 4th toenailDeb rided without incidentFi le toenail to reduce thickness and allow medication topically to workfollow -up in 3 months Tinea pedis 7143039 B35. 3 bilateral feetRx ketoconazo lefollow-u p in 2 weeks if not resolved [id number] Ralph lopez MD [facility] Internal Med [place] [address] [place] [address] y , [place] [address] 08/14/2022 16:09:01 08/14/2022 17:28:57 Screening - NAD [id number] Z13.9 C-scope: As per Dr Lora nephrologi st 05/23/2021 OV his EGD and C-scope were negative Get yearly flu shotDid get Td from the laceration on the forehead s/p fall on 06[facility]11[facility]2021 [facility] on COVID 19Can do shingrix RTC in 4 monthsDo labsER if worseHe did verbalize his understand ing of the above Essential hypertension 09674461 I10 Not on ASA On amlodipine 10mg dailyOn coreg 25mg bidOn diltiazem CD 300mg dailyOn iso sorbide ER 60mg dailyNot on lisinopril , stopped by Dr Rudd losartan 100mg dailyOn NTG Sees Dr Gonzalez Hyperlipidemia 03954412 E78.5 On rosuvastat in 20mg daily, not take the simvastati nOn fenofibrat e 134mg daily Not on omega 3 2 caps bid not filled since 03/13/2022 , confirmed with his pharmacyGe t labs 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 750404138 E11.9 On basaglarOn farxigaOn glimepirid e renewed 06/05/2022 Not on jardiance 10mg daily, Dr Raquel diaz Sees Dr Cazares 08/21/2022 Dr Munoz 07/31/2022 , next 10/30/2022 As per his history did see Dr Bowie eye Get labs Gastroesop hageal reflux disease without esophagitis 037932782 K21.9 On omeprazole Does Meme had an EGD in [facility] Malignant tumor of testis 121320035 C62.[address] Chapman 07/11/2022 Chronic ki dney disease 327379338 N18.[address] Reeves sees Dr Barnhart, last 11/15/2021 , f/u in 6 months Coronary arteriosclerosis 04038547 I25.10 S/p stents Dr Gonzalez 02/02/2022 F/u in 6 months Pain of ri ght shoulder joint 0181363099 5397226 M25.[address] Dos Santos and Dr Malloy Anemia 501792877 D64.[address] Person 02/20/2022 , f/u yearly Urinary incontinence 165 854129 R32 On finasterid eDoes well Open wound of left lower leg 3185840606 [id number] S81.802A See case 08/14/2022 Get on keflexKeep clean and dry, if not better, will see wound clinic Kidney lesion [id number] 9100 N28.9 Is to get surgery on 09/19/2022 , at [facility] with Dr Payton Birch [id number] Judi Cazares MD [facility] [place] [address] [place] [address] 08/21/2022 09:22:03 08/21/2022 10:25:40 Uncontrolled type 2 diabetes mellitus 283005765 E11.65 A1C of 8.3% up from 6.8%- Patient reminded to split his basaglar at 35 units in morning and 35 units at bedtime and titrate up by 3 units every 4 days until fasting glucose is running 90-120 mg/dL consistent ly. Will uptitrate ozempic to 2 mg once weekly with largest meal. Continue on farxiga 10 mg daily and patient reminded to not take jardiance as these are in the same drug class and can increase risk for mycotic infections in urogenital region. Encouraged patient to test sugars prebreakfa st and predinner and at times before bedtime to maintain log for review at return visit. Recommend he take his glimepirid e on glucose scale according to glucose checks. If sugars are running under 110 mg/dL hold glimepirid e, if 111-15- mg/dL take half tablet, if 151-180 mg/dL take full tablet and if over 200 mg/dL take 2 tablets for the full 4 mg of glimepirid e up to twice daily before meals. Patient recently diagnosed with recurrent kidney cancer- going in September for potential surgery at [facility]. He will reach out to clinic if needs any advise for insulin/me dication changes- he is aware to hold medication s if not eating and take 50% of insulin if NPO. Dyslipidemia 604853226 E 78.5 Continue statin therapy and monitor thyroid function. Spent up to 28 minutes preparing to see the patient (eg, review of tests), obtaining and/or reviewing separately obtained history, performing a medically appropriat e examinatio n and evaluation , counseling and educating the patient, ordering medication s, tests, along with documentin g clinical informatio n in the electronic health record, independen tly interpreti ng results and communicat ing results to the patient. RTC in 4-5 months. Patient was provided a handwritte n lab order which contains our fax number. If he chooses to go outside of the [facility] system to obtain labwork he was advised to provide our fax number and my informatio n to the lab he will be obtaining labwork from in order to have his labs properly forwarded over for me to review so there is no loss of follow up due to use of outside network. He was also advised to contact our clinic informing us that he has completed his labwork so we are aware we will need to reach out to the appropriat e laboratory to request his results be forwarded to us so I might have the ability to review and make further medical decision making in his case. He voiced understand ing. [id number] Ralph lopez MD [facility] Internal [facility] [place] [address] , [facility] [place] [address] 08/21/2022 14:27:07 08/21/2022 15:30:55 Open wound of left lower leg [id number] S81.802A See case 08/14/2022 Get on keflexKeep clean and dry, if not better, will see wound clinic OV 08/21/2022 :Finish the keflex, will now see Dr Fowler tomorrow at 9.45am at [facility] Coronary arteriosclerosis 01295836 I25.10 S/p stents Dr Gonzalez 02/02/2022 F/u in 6 months EKG 08/21/2022 : Sinus with PVCs notedNo symptoms, no chest pain or SOB, no palpitatio ns or presyncope or syncopeWil l see Dr Gonzalez 08/23/2022 at 9.00am, ER if any symptoms, he is agreeable to this plan of care [id number] Jorgito heaton MD [facility] General Surgery [address] [facility] [place] [address] 08/22/2022 10:21:11 08/22/2022 11:19:41 Open wound of left lower leg [id number] [id number] S81.802A [id number] GUILLE [facility] [address] [place] [address] 09/05/2022 16:36:56 09/05/2022 18:58:16 Open wound of left lower leg 4156404081 7056871 S81.802A Open wound of lower leg 512053685 S81.812A L anterior leg wound. Covered with dry eschar. Recommend betadine dressing daily, avoid overlying dressing d/t skin irritation . Will f/u in one week. [id number] GUILLE Sol[facility] [address] [place] [address] 09/12/2022 16:50:12 09/12/2022 17:30:17 Open wound of left lower leg 5854067075 [id number] S81.802A Open wound of lower leg 553260247 S81.802D L anterior leg wound. Covered with dry eschar. Recommend betadine dressing daily, avoid overlying dressing d/t skin irritation . Will f/u in 2weeks, contact the office sooner if concerns arise. [id number] GUILLE Solorio [facility] [address] [place] [address] 09/26/2022 16:45:49 09/27/2022 14:49:48 Open wound of left lower leg [id number] S81.802D Fully healed. Recommend f/u PRN if future concerns arise. [id number] David Munoz DPM [facility] [address] [place] [address] 11/06/2022 12:35:31 11/06/2022 14:09:19 Onychomycosis of toenails 722726895 B35.1 Ketoconazo le apply to affected toenailsDe brided without incidentFi le toenail to reduce thickness and allow medication topically to workfollow -up in 3 months [id number] Ralph lopez MD [facility] [address] [facility], [address] [place] [address] 11/16/2022 14:24:45 11/16/2022 15:03:05 Screening - NAD [id number] Z13.9 C-scope: As per Dr Lora nephrologi st 05/23/2021 OV his EGD and C-scope were negative Get yearly flu shotDid get Td from the laceration on the forehead s/p fall on 06[facility]11[facility]21 [facility] the [facility] on COVID 19Can do shingrix RTC in 4 monthsDo labsER if worseHe did verbalize his understand ing of the above Essential hypertension 30688018 I10 On ASAOn amlodipine 10mg dailyOn coreg 25mg bidOn diltiazem CD 300mg dailyOn iso sorbide ER 60mg dailyNot on lisinopril , stopped by Dr Rudd losartan 100mg dailyOn NTG Sees Dr Gonzalez Hyperlipidemia 78949519 E78.5 On rosuvastat in 20mg daily, not take the simvastati nOn fenofibrat e 134mg daily Not on omega 3 2 caps bid not filled since 03/13/2022 , confirmed with his pharmacyGe t labsS/p surgery for his kidney wants to diet and exercise more 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 483321958 E11.9 On basaglarOn farxigaOn glimepirid e renewed 06/05/2022 Not on jardiance 10mg daily, Dr Raquel diaz Sees Dr Cazares 08/21/2022 Dr Munoz 07/31/2022 , next 10/30/2022 As per his history did see Dr Bowie eye Get labs Gastroesop hageal reflux disease without esophagitis 073586514 K21.9 On omeprazole Does Meme had an EGD in [facility] Malignant tumor of testis 892640184 C62.[address] Chapman 07/11/2022 Chronic ki dney disease 453562115 N18.[address] Reeves sees Dr Barnhart, last 11/15/2021 , f/u in 6 months Coronary arteriosclerosis 01502789 I25.10 S/p stents Dr Gonzalez Pain of ri t shoulder joint [id number] 5269887 M25.[address] Dos Santos and Dr Malloy Anemia 703293609 D64.[address] Person 02/20/2022 , f/u yearly Urinary incontinence 165 083073 R32 On finasterid eDoes well Open wound of left lower leg 4491795131 0297036 S81.802A See case 08/14/2022 Get on keflexKeep clean and dry, if not better, will see wound clinic Kidney lesion 0367438236 9100 N28.9 S/p surgery 09/19/2022 , [facility] Payton Birch, now will see her again, is doing well, did sign TRAVIS to get the reports today 11/16/2022 [id number] Judi Cazares MD [facility] [address] [place] [address] 11/23/2022 14:13:45 11/23/2022 15:11:05 Uncontrolled type 2 diabetes mellitus 188999220 E11.65 A1C of 8.4% up from 8.3%-patie nt reminded to split his basaglar but increase to 38 units in morning and 38 units at bedtime and titrate up by 3 units every 4 days until fasting glucose is running 90-120 mg/dL consistent ly. Continue on ozempic at 2 mg once weekly with largest meal. Continue on farxiga 10 mg daily and patient aware to increase glimepirid e to 4 mg twice daily with meals and to take only half dose if premeal sugar under 150 mg/dL. Discussed carb counting and how to read food labels. Recommende d patient to utilize the diabetesfo [employer] from the ADA website to help with food preparatio n as this presents ideal carb content per meal so this will make carb counting much easier for patient. Recommende d he incorporat e natural insulin manager emergency department s such as pears, apples, cinnamon, saskia and sweet potatoes to help mobilize his endogenous insulin. Recommende d up to 150 minutes of moderate level activity/e xercise weekly. Dyslipidemia 050845060 E 78.5 Continue statin therapy. Spent up to 25 minutes preparing to see the patient (eg, review of tests), obtaining and/or reviewing separately obtained history, performing a medically appropriat e examinatio n and evaluation , counseling and educating the patient, ordering medication s, tests, along with documentin g clinical informatio n in the electronic health record, independen tly interpreti ng results and communicat ing results to the patient. Patient can be followed by PCP - she/he is aware of my resignatio n and last day of January 26. If needed his/her PCP can refer patient to another endocrinol ogist in the area. All questions /concerns answered and refills necessary at visit today. [id number] Ralph lopez MD [facility] [place] [address] [facility] [address] [place] [address] 02/26/2023 09:50:02 02/26/2023 10:48:11 Screening - NAD [id number] Z13.9 C-scope: As per Dr Lora nephrologi st 05/23/2021 OV his EGD and C-scope were negative Get yearly flu shotDid get Td from the laceration on the forehead s/p fall on 06/11/2021 at the [facility] on COVID 19Can do shingrixGe t RSV vaccine RTC in 4 monthsDo labsER if worseHe did verbalize his understand ing of the above Essential hypertension 59354062 I10 On ASAOn amlodipine 10mg dailyOn coreg 25mg bidOn diltiazem CD 300mg dailyOn iso sorbide ER 60mg dailyNot on lisinopril , stopped by Dr Rudd losartan 100mg dailyOn NTG Sees Dr Gonzalez, is to now get LHC as per Dr Gonzalez and his history 02/26/2023 Hyperlipidemia 79721017 E78.5 On rosuvastat in 20mg daily, not take the simvastati nOn fenofibrat e 134mg daily Not on omega 3 2 caps bid not filled since 03/13/2022 , confirmed with his pharmacyGe t labsS/p surgery for his kidney wants to diet and exercise more 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 837881065 E11.9 On basaglarOn farxigaOn glimepirid e renewed 06/05/2022 Not on jardiance 10mg daily, Dr Raquel diaz Sees Dr Cazares 08/21/2022 Dr Munoz 07/31/2022 , next 10/30/2022 As per his history did see Dr Jamir coffey MD Get labs Gastroesop hageal reflux disease without esophagitis 522911617 K21.9 On omeprazole Does lillieKiki had an EGD in [facility] Malignant tumor of testis 812661491 C62.[address] Chapman 07/11/2022 Chronic ki dney disease 182304392 N18.[address] Reeves sees Dr Barnhart, last 11/15/2021 , f/u in [address] Barnhart 01/16/2023 , f/u in 6 months Coronary arteriosclerosis 51339802 I25.10 S/p stents Dr Gonzalez 02/07/2023 Pain of ri ght shoulder joint 3278104610 8767356 M25.[address] Dos Santos and Dr Malloy Anemia 250474900 D64.[address] Person 02/20/2022 , f/u yearly Urinary incontinence 165 922552 R32 On finasterid eDoes well Kidney lesion 5148245538 9100 N28.9 S/p surgery 09/19/2022 , [facility] Payton Birch, now will see her again, is doing well, did sign TRAVIS to get the reports today 11/16/2022 [id number] Ralph lopez MD [facility] [place] [facility] [address] [place] [address] 07/02/2023 10:05:34 07/02/2023 10:55:12 Screening - NAD [id number] Z13.9 C-scope: As per Dr Lora nephrologi st 05/23/2021 OV his EGD and C-scope were negative Get yearly flu shotDid get Td from the laceration on the forehead s/p fall on 06/11/2021 at the [facility] on COVID 19Can do shingrixGe t RSV vaccine RTC in 4 monthsDo labsER if worseHe did verbalize his understand ing of the above Essential hypertension 72367274 I10 On ASAOn amlodipine 10mg dailyOn coreg 25mg bidOn diltiazem CD 300mg dailyOn iso sorbide ER 60mg dailyNot on lisinopril , stopped by Dr Rudd losartan 100mg dailyOn NTG Sees Dr Gonzalez Hyperlipidemia 15974675 E78.5 Should not be on rosuvastat in 20mg daily, but on 40mg daily, given by Dr Gonzalez, not to take the simvastati nOn fenofibrat e 134mg daily Not on omega 3 2 caps bid not filled since 03/13/2022 , confirmed with his pharmacyGe t labsS/p surgery for his kidney wants to diet and exercise more 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 861176935 E11.9 On basaglarOn farxigaOn glimepirid e 2mg bidNot on jardiance 10mg daily, Dr García ozempic 2mg weeklyGet on humolog, refused today 07/02/[address] Mckeon endocrine, will need to be on more insulin, and 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 More diet and exercise is needed Seen Dr Cazares 08/21/2022 Dr Rivas per his history did see Dr Bowie eye MD Get labs Gastroesop hageal reflux disease without esophagitis 420591549 K21.9 On omeprazole Does Meme had an EGD in [facility] Malignant tumor of testis 063283537 C62.[address] Chapman 07/11/2022 Chronic ki dney disease 311902527 N18.[address] Reeves sees Dr Barnhart, last 11/15/2021 , f/u in [address] Barnhart 01/16/2023 , f/u in 6 months Coronary arteriosclerosis 00192688 I25.10 S/p stents Dr Gonzalez 02/07/2023 Pain of ri ght shoulder joint 9493296780 5696834 M25.[address] Dos Santos and Dr Malloy Anemia 976227741 D64.[address] Person 02/20/2022 , f/u yearly Urinary incontinence 165 704230 R32 On finasterid eDoes well Kidney lesion 1932416077 9100 N28.9 S/p surgery 09/19/2022 , at [facility] with Dr Payton Birch, now will see her again, is doing well, did sign TRAVIS to get the reports today 11/16/2022 [id number] Ralph lopez MD [facility] [place] [facility] [address] [facility] [place] [address] 10/01/2023 09:54:07 10/01/2023 10:31:19 Screening - NAD [id number] Z13.9 C-scope: As per Dr Lora nephrologi st 05/23/2021 OV his EGD and C-scope were negative Get yearly flu shotDid get Td from the laceration on the forehead s/p fall on 06/11/2021 at the [facility] on COVID 19Can do shingrixGe t RSV vaccine RTC in 4 monthsDo labsER if worseHe did verbalize his understand ing of the above Essential hypertension 33055133 I10 On ASAOn amlodipine 10mg dailyOn coreg 25mg bidOn diltiazem CD 300mg dailyOn iso sorbide ER 60mg dailyNot on lisinopril , stopped by Dr Rudd losartan 100mg dailyOn NTG Sees Dr Gonzalez Hyperlipidemia 07032341 E78.5 On rosuvastat in 20mg daily, given by Dr Stanton fenofibrat e 134mg daily, given by Dr Gonzalez Not on omega 3 2 caps bid not filled since 03/13/2022 , confirmed with his pharmacyGe t labsS/p surgery for his kidney wants to diet and exercise more 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 062053693 E11.9 On basaglarOn farxigaOn glimepirid e 2mg bidNot on jardiance 10mg daily, Dr García ozempic 2mg weeklyOn metformin ER 500mg bidOn baqsimi (glucagon) Get on humolog, refused today 07/02/[address] Mckeon 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, will need to be on more insulin, and 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 More diet and exercise is needed Seen Dr Cazares 08/21/2022 Dr Rivas per his history did see Dr Bowie eye Get labs Gastroesop hageal reflux disease without esophagitis 867619285 K21.9 On omeprazole Does wellHas had an EGD in [facility] Malignant tumor of testis 110757488 C62.[address] Chapman 07/11/2022 Chronic ki dney disease 835642420 N18.9 On Vit D weekly Has seen Dr Reeves sees Dr Barnhart, last 11/15/2021 , f/u in [address] Barnhart 01/16/2023 , f/u in 6 monthsDr Barnhart 07/24/2023 Coronary arteriosclerosis 05175572 I25.10 S/p stents Dr Gonzalez 02/07/2023 Pain of ri ght shoulder joint 5614883435 3292149 M25.[address] Dos Santos and Dr Malloy Anemia 155896626 D64.[address] Person 02/20/2022 , f/u yearly Urinary incontinence 165 490346 R32 On finasterid eDoes well Kidney lesion 1494055634 9100 N28.9 S/p surgery 09/19/2022 , [facility] Payton Birch, now will see her again, is doing well, did sign TRAVIS to get the reports today 11/16/2022 [id number] Ralph lopez MD [facility] [place] [address] [facility] [place] [address] 11/05/2023 11:36:30 11/05/2023 12:39:30 Essential hypertension 26257103 I10 On ASANot on amlodipine 10mg dailyOn coreg 25mg bidOn diltiazem CD 300mg dailyNot on iso sorbide ER 60mg dailyNot on lisinopril , stopped by Dr Rudd losartan 100mg dailyOn NTG Sees Dr oGnzalez Screening - NAD [id number] 3 Z13.9 C-scope: As per Dr Lora nephrologi st 05/23/2021 OV his EGD and C-scope were negative Get yearly flu shotDid get Td from the laceration on the forehead s/p fall on 06/11/2021 at the [facility] on COVID 19Can do shingrixGe t RSV vaccine RTC in 4 monthsDo labsER if worseHe did verbalize his understand ing of the above Hyperlipidemia 03303533 E78.5 On rosuvastat in 20mg daily, given by Dr NadellaOn fenofibrat e 134mg daily, given by Dr Gonzalez On omega 3 2 caps bidGet labsS/p surgery for his kidney wants to diet and exercise more 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 248171761 E11.9 On basaglarOn farxigaNot on glimepirid e 2mg bidNot on jardiance 10mg daily, Dr García ozempic 2mg weeklyOn metformin ER 500mg bidOn baqsimi (glucagon) Get on humolog, refused today 07/02/[address] Mckeon endocrine More diet and exercise is needed Seen Dr Cazares 08/21/2022 Dr Rivas per his history did see Dr Bowie eye Get labs Gastroesop hageal reflux disease without esophagitis 702278768 K21.9 On omeprazole Does Meme had an EGD in [facility] Malignant tumor of testis 568924743 C62.[address] Chapman 07/11/2022 Chronic ki dney disease 161025727 N18.9 On Vit D weekly Has seen Dr Reeves sees Dr Barnhart, last 11/15/2021 , f/u in [address] Barnhart 01/16/2023 , f/u in 6 monthsDr Barnhart 07/24/2023 Coronary arteriosclerosis 91798014 I25.10 S/p stents Dr Gonzalez 02/07/2023 Pain of ri ght shoulder joint 7479791744 1083538 M25.[address] Dos Santos and Dr Malloy Anemia 960722515 D64.[address] Person 02/20/2022 , f/u yearly Urinary incontinence 165 183359 R32 On finasterid eDoes well Kidney lesion 0887182461 9100 N28.9 S/p surgery 09/19/2022 , at [facility] with Dr Payton Birch, now will see her again, is doing well, did sign TRAVIS to get the reports today 11/16/2022 [id number] Ralph lopez MD [facility] [address] [facility] [address] [place] [address] 04/28/2024 16:50:15 04/28/2024 18:48:47 Essential hypertension 47078219 I10 On ASANot on amlodipine 10mg dailyOn coreg 25mg bidOn diltiazem CD 300mg dailyNot on iso sorbide ER 60mg dailyNot on lisinopril , stopped by Dr Rudd losartan 100mg dailyOn NTG Sees Dr Gonzalez Screening - NAD [id number] 3 Z13.9 C-scope: As per Dr Lora nephrologi st 05/23/2021 OV his EGD and C-scope were negative Get yearly flu shotDid get Td from the laceration on the forehead s/p fall on 06/11/2021 at the [facility] on COVID 19Can do shingrixGe t RSV vaccine RTC in 4 monthsDo labsER if worseHe did verbalize his understand ing of the above Hyperlipidemia 48908061 E78.5 On rosuvastat in 20mg daily, given by Dr Stanton fenofibrat e 134mg daily, given by Dr Gonzalez On omega 3 2 caps bidGet labsS/p surgery for his kidney wants to diet and exercise more 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 420018974 E11.9 On basaglarOn farxigaNot on glimepirid e 2mg bidNot on jardiance 10mg daily, Dr García ozempic 2mg weeklyOn metformin ER 500mg bidOn baqsimi (glucagon) Get on humolog, refused today 07/02/[address] Mckeon endocrine More diet and exercise is needed Seen Dr Cazares 08/21/2022 Dr Rivas per his history did see Dr Bowie eye Get labs Gastroesop hageal reflux disease without esophagitis 478736069 K21.9 On omeprazole Does Meme had an EGD in [facility] Malignant tumor of testis 363952547 C62.[address] Chapman 07/11/2022 Chronic ki dney disease 096408345 N18.9 On Vit D weekly Has seen Dr Reeves sees Dr Barnhart, last 11/15/2021 , f/u in [address] Barnhart 01/16/2023 , f/u in 6 monthsDr Barnhart 07/24/2023 Coronary arteriosclerosis 36254389 I25.10 S/p stents Dr Gonzalez 02/07/2023 Pain of ri ght shoulder joint 7484821116 0320693 M25.[address] Dos Santos and Dr Malloy Anemia 235405272 D64.[address] Person 02/20/2022 , f/u yearly Urinary incontinence 165 572579 R32 On finasterid eDoes well Kidney lesion 8352769328 9100 N28.9 S/p surgery 09/19/2022 , at [facility] with Dr Payton Birch, now will see her again, is doing well, did sign TRAVIS to get the reports today 11/16/2022 Health Concerns Section Related Observation LastModified by Organization Detai ls LastModified Time None Recorded Concern Status LastModified by Organization Details LastModified Time None Recorded Advance Directives Directive Y: Payers Encounter Date Sequence Insurance Name Policy Number Policy Mendez Covered Member ID Mendez Member ID Guarantor Name 02/26/2023 1 [employer] (PPO) [id number] Jared F Barrios [id number] Jared F Barrios 07/02/2023 1 [employer] (PPO) [id number] Jared F Barrios [id number] Jared F Barrios 10/01/2023 1 [employer] (PPO) [id number] Jared F Barrios [id number] Jared F Barrios 11/05/2023 1 [employer] (PPO) [id number] Jared F Barrios [id number] Jared F Barrios 04/28/2024 1 [employer]MR (PPO) [id number] Jared F Barrios [id number] Jared F Barrios 04/28/2024 2 [place] Jared F Barrios [id number] Jared F Barrios Notes Date Note Type Note Provider Name and Address Organization Details Recorded Time 02/26/2023 text/html OV 05/23/2021:Here to establish carePast Hx:HTNDMIIGERDHLD Reviewed social family and surgical historyHe is doing wellNeeds to do labs OV 06/20/2021:Here for his routine aptHe is doing wellHe did do the labs on 05/24/2021He did sustain a fall on 06/11/2021, slipped on ice, now needs the stitches removed OV 09/21/2021:Here for his routine aptHe is doing wellHe did do the labs on 09/19/2021 OV 01/30/2022:Here for his f/u apt, he feels well, he did do the labs on 01/30/2022 OV 06/05/2022:Here for his f/u apt, he feels well, did do the labs, is not sure of his med list today, states that he has been having difficulty with filling his meds with Dr Cazares OV 08/14/2022:Here for an ACV as he has had an open sore on the L leg, see case on 08/14/2022, no fevers or chills, no pain, but is not healing OV 08/21/2022:ACV:Th e wound is not cleared up, paper twister tender, not draining, redness is better, no fevers or chills OV 11/16/2022: Here for his post surgery apt, he is doing well today OV 02/26/2023: Here for his f/u apt, he is doing well today Ralph Fischer MD [address] [place] [address], [facility] [address], [place], [address], [place] [facility] [employer] 02/26/2023 17:59:51 07/02/2023 text/html OV 05/23/2021:Here to establish carePast Hx:HTNDMIIGERDHLD Reviewed social family and surgical historyHe is doing wellNeeds to do labs OV 06/20/2021:Here for his routine aptHe is doing wellHe did do the labs on 05/24/2021He did sustain a fall on 06/11/2021, slipped on ice, now needs the stitches removed OV 09/21/2021:Here for his routine aptHe is doing wellHe did do the labs on 09/19/2021 OV 01/30/2022:Here for his f/u apt, he feels well, he did do the labs on 01/30/2022 OV 06/05/2022:Here for his f/u apt, he feels well, did do the labs, is not sure of his med list today, states that he has been having difficulty with filling his meds with Dr Cazares OV 08/14/2022:Here for an ACV as he has had an open sore on the L leg, see case on 08/14/2022, no fevers or chills, no pain, but is not healing OV 08/21/2022:ACV:Th e wound is not cleared up, paper twister tender, not draining, redness is better, no fevers or chills OV 11/16/2022: Here for his post surgery apt, he is doing well today OV 02/26/2023: Here for his f/u apt, he is doing well today OV 07/02/2023: Here for his routine apt, he did do the labs and wants his DOT paperwork filled but his A1C is high and he has to see endocrine MD Ralph Fischer MD [address] [place] [address], [facility] [address], [place], [address], [facility] 07/03/2023 15:27:49 10/01/2023 text/html OV 05/23/2021:Here to establish carePast Hx:HTNDMIIGERDHLD Reviewed social family and surgical historyHe is doing wellNeeds to do labs OV 06/20/2021:Here for his routine aptHe is doing wellHe did do the labs on 05/24/2021He did sustain a fall on 06/11/2021, slipped on ice, now needs the stitches removed OV 09/21/2021:Here for his routine aptHe is doing wellHe did do the labs on 09/19/2021 OV 01/30/2022:Here for his f/u apt, he feels well, he did do the labs on 01/30/2022 OV 06/05/2022:Here for his f/u apt, he feels well, did do the labs, is not sure of his med list today, states that he has been having difficulty with filling his meds with Dr Cazares OV 08/14/2022:Here for an ACV as he has had an open sore on the L leg, see case on 08/14/2022, no fevers or chills, no pain, but is not healing OV 08/21/2022:ACV:Th e wound is not cleared up, paper twister tender, not draining, redness is better, no fevers or chills OV 11/16/2022: Here for his post surgery apt, he is doing well today OV 02/26/2023: Here for his f/u apt, he is doing well today OV 07/02/2023: Here for his routine apt, he did do the labs and wants his DOT paperwork filled but his A1C is high and he has to see endocrine OV 10/01/2023: Here for his f/u apt, he is doing well today, he has seen Dr Quinn Fischer MD [address] [facility], [place], [address], [facility] [employer] 10/01/2023 14:40:31 11/05/2023 text/html OV 05/23/2021:Here to establish carePast Hx:HTNDMIIGERDHLD Reviewed social family and surgical historyHe is doing wellNeeds to do labs OV 06/20/2021:Here for his routine aptHe is doing wellHe did do the labs on 05/24/2021He did sustain a fall on 06/11/2021, slipped on ice, now needs the stitches removed OV 09/21/2021:Here for his routine aptHe is doing wellHe did do the labs on 09/19/2021 OV 01/30/2022:Here for his f/u apt, he feels well, he did do the labs on 01/30/2022 OV 06/05/2022:Here for his f/u apt, he feels well, did do the labs, is not sure of his med list today, states that he has been having difficulty with filling his meds with Dr Cazares OV 08/14/2022:Here for an ACV as he has had an open sore on the L leg, see case on 08/14/2022, no fevers or chills, no pain, but is not healing OV 08/21/2022:ACV:Th e wound is not cleared up, paper twister tender, not draining, redness is better, no fevers or chills OV 11/16/2022: Here for his post surgery apt, he is doing well today OV 02/26/2023: Here for his f/u apt, he is doing well today OV 07/02/2023: Here for his routine apt, he did do the labs and wants his DOT paperwork filled but his A1C is high and he has to see endocrine MD OV 10/01/2023: Here for his f/u apt, he is doing well today, he has seen Dr Barnhart OV 11/05/2023: Here for his routine apt, he feels well, he did do the labs on 10/22/2023 Ralph Fischer MD [address] [facility], [place], [address], [facility] 11/05/2023 12:43:40 04/28/2024 text/html OV 05/23/2021:Here to establish carePast Hx:HTNDMIIGERDHLD Reviewed social family and surgical historyHe is doing wellNeeds to do labs OV 06/20/2021:Here for his routine aptHe is doing wellHe did do the labs on 05/24/2021He did sustain a fall on 06/11/2021, slipped on ice, now needs the stitches removed OV 09/21/2021:Here for his routine aptHe is doing wellHe did do the labs on 09/19/2021 OV 01/30/2022:Here for his f/u apt, he feels well, he did do the labs on 01/30/2022 OV 06/05/2022:Here for his f/u apt, he feels well, did do the labs, is not sure of his med list today, states that he has been having difficulty with filling his meds with Dr Cazares OV 08/14/2022:Here for an ACV as he has had an open sore on the L leg, see case on 08/14/2022, no fevers or chills, no pain, but is not healing OV 08/21/2022:ACV:Th e wound is not cleared up, paper twister tender, not draining, redness is better, no fevers or chills OV 11/16/2022: Here for his post surgery apt, he is doing well today OV 02/26/2023: Here for his f/u apt, he is doing well today OV 07/02/2023: Here for his routine apt, he did do the labs and wants his DOT paperwork filled but his A1C is high and he has to see endocrine MD OV 10/01/2023: Here for his f/u apt, he is doing well today, he has seen Dr Barnhart OV 11/05/2023: Here for his routine apt, he feels well, he did do the labs on 10/22/2023 04/28/2024: Here for his f/u apt, he is doing well today Ralph Fischer MD [address] [facility], [address], [place], [address], [place] [facility] 05/12/2024 14:10:45
--- OUTSIDE RECORDS SUMMARY | 2024-06-05 09:44 | XMS_ITS | Encounter Summary ---
Author Organization [facility] Health Address [address] [place] [address] Care Team Providers Care Inspector And Unloader Name Role Phone Baldo Fischer MD Primary Care Provider Encounter Details Date Type Department Care Team (Late Contact Info) Description 07/13/2022 Telephone [facility] [address] [place] [address] Ruby Birch M, DO [address] [place] [id number] Social History Tobacco Use Types Packs/Day Years Used Date Smoking Tobacco: Never Assessed Sex and Gender Information Value Date Recorded Sex Assigned at Not on file Gender Identity Not on file Sexual Orientation Not on file documented as of this encounter Miscellaneous Notes * Telephone Encounter - Virginie Recinos - 07/13/2022 2:39 PM CDT SPOKE TO PT ABOUT BRING PT CT DISC PRIOR FOR 07/20/22 documented in this encounter Plan of Treatment Upcoming Encounters Date Type Department Care Team (Late st Contact Info) Description 10/30/2024 9:30 AM CDT Appointment [facility] Health Imaging Services - CT Scan [address] [facility], [address] [place] [address] 10/30/2024 11:00 AM CDT Office Visit [facility] - Urology [address] [place] [address] Rd [address] [place] [address] Ruby Birch M, DO [address] [place] [address] documented as of this encounter Visit Diagnoses Not on filedocumented in this encounter Care Teams Inspector And Unloader Relationship Specialty Start Date End Date Baldo Fischer MD [address] [id number] PCP - General 07/04/22 documented as of this encounter
--- NOTE | 2024-06-05 10:00 | ED_ITS ---
HPI - Fall General Chief Complaint: Fall Stated Complaint: fall Time Seen by Provider: 06/05/24 09:42 Source: patient Mode of arrival: ambulatory Limitations: no limitations History of Present Illness HPI Narrative: This is a 63 year old male that presents to the ER after a fall today for evaluation. Reports he slipped and fell onto his right side. Reports right rib pain as well as hand pain. He did hit his lip, but denies any pain. Denies vision changes, vomiting, loss of consciousness, numbness, weakness. Related Data Home Medications ?Medication ?Instructions ?Recorded ?Confirmed ?Last Taken ?Type aspirin 81 mg chewable tablet 81 mg PO DAILY 04/04/19 03/26/24 Unknown History blood-glucose meter (True Metrix #1 ea 04/04/19 03/26/24 Unknown History Glucose Meter) diltiazem HCl 300 mg 300 mg PO DAILY 04/04/19 03/26/24 Unknown History capsule,extended release 24 hr (Cartia XT) finasteride 5 mg tablet 5 mg PO DAILY 05/13/20 03/26/24 Unknown History ergocalciferol (vitamin D2) 1,250 1,250 mcg PO WEEKLY 07/25/23 03/26/24 Unknown History mcg (50,000 unit) capsule (Vitamin D2) icosapent ethyl 1 gram capsule 2 g PO BID 07/25/23 03/26/24 Unknown History (Vascepa) losartan 100 mg tablet 100 mg PO DAILY 07/25/23 03/26/24 Unknown History nitroglycerin 0.4 mg sublingual 0.4 mg sublingual Q5M PRN 07/25/23 03/26/24 Unknown History tablet Allergies Allergy/AdvReac Type Severity Reaction Status Date / Time No Known Allergies Allergy Verified 06/05/24 09:51 Review of Systems Review of Systems: CONSTITUTIONAL: Denies fever EYES: Denies visual changes GASTROINTESTINAL: Denies vomiting MUSCULOSKELETAL: Reports joint pain and myalgia. Denies back pain NEUROLOGIC: Denies headache, numbness, or weakness. All systems reviewed & are unremarkable except as noted in HPI and below PMFSH Past Medical History Medical History BPH (benign prostatic hyperplasia) Type 2 diabetes mellitus with hyperglycemia, with long-term current use of insulin Anemia Stomach ulcer Sexual dysfunction History of pneumonia CAD (coronary artery disease) HTN (hypertension) HLD (hyperlipidemia) Surgical History Surgical History History of coronary angioplasty History of shoulder surgery Family History Family History Father Cardiovascular disease Diabetes mellitus Mother Cardiovascular disease Diabetes mellitus Father Diabetes mellitus Family history of cardiovascular disease Family history of diabetes mellitus in first degree relative Family history of heart disease in male family member before age 55 Mother Diabetes mellitus Family history of cardiovascular disease Family history of diabetes mellitus in first degree relative Family history of heart disease in male family member before age 55 Social History Social History Smoking packs per day: 1.5 Smoking cigarettes per day: 30.0 Years smoked: 16 Smoking pack-years: 24.00 Smoking status: Former smoker Tobacco type: cigarettes Smoking end date: 04/16/91 Alcohol intake: current Alcohol use details: rarely Do You Feel Safe in your Home?: Yes Lack of Transportation: No Lack of Food: Never True Current Housing: I Have Housing Concerned About Future Housing: No Difficulty Paying Gas/Electric Bills: No Difficulty Paying for Meds: No Currently Unemployed: No Education: High School Diploma/GED Difficulty w/ Childcare or Family Care: No Spiritual care concerns: No Exam Narrative: GENERAL: Well-appearing, well-nourished, and in no acute distress. HEAD: Normocephalic. Very small, superficial abrasions to the lip EYES: PERRLA. Exotropia of the right eye ENT: Nares clear, no rhinorrhea or epistaxis. Mucous membranes moist. Oropharynx without tonsillar hypertrophy exudate or other lesions. Bilateral TMs pearly garcia non-bulging NECK: Supple. No adenopathy or masses. No midline spinal tenderness CHEST: Clear to auscultation. No respiratory distress. No wheezes rales or rhonchi HEART: Regular rate and rhythm. No murmur heard. Normal peripheral pulses. ABDOMEN: Soft, nontender, nondistended, normal active bowel sounds. BACK: No midline spinal tenderness EXTREMITIES: Normal range of motion. No edema. Strength equal in bilateral upper and lower extremities (5/5) SKIN: Warm, dry, no rash. NEURO: No focal deficits. Alert and oriented x3. CN II-XII grossly intact. Normal gait PSYCH: Normal mood and affect Course Course Emergency Course: patient updated on his workup and agrees with plan of care Vital Signs Vital signs: Vital Signs Temperature 97.8 F 06/05/24 09:41 Pulse Rate 67 06/05/24 09:41 Respiratory Rate 16 06/05/24 09:41 Blood Pressure 173/68 H 06/05/24 09:41 Pulse Oximetry 97 06/05/24 09:41 Oxygen Delivery Room Air 06/05/24 09:41 Temperature 97.8 F 06/05/24 11:01 Pulse Rate 67 06/05/24 11:01 Respiratory Rate 16 06/05/24 11:01 Blood Pressure 129/65 06/05/24 11:01 Pulse Oximetry 97 06/05/24 11:01 Oxygen Delivery Room Air 06/05/24 09:41 MDM - Fall MDM Narrative Medical decision making narrative: Patient presents to the emergency department after a fall today with right-sided rib pain and hand pain. It is he is neurologically intact. Right rib/chest x- rays as well as right hand x-rays are without acute osseous abnormalities or cardiopulmonary abnormality. Patient was updated on his workup. Instructed to rest, ice and take [id number] pain medications as needed. He is to follow up with primary provider. He was given warnings to return to the ER Differential Diagnosis Differential diagnosis: Likely other (rib fracture, rib contusion, hand fracture, hand contusion) Imaging Data Radiologist's impression: ITS Impressions Hand X-Ray 06/05/24 10:36 Impression: Unremarkable right hand. Ribs w/Chest X-Ray 06/05/24 11:29 IMPRESSION: 1:No acute displaced rib fractures. Critical Care Time Critical Care Time Critical Care Time: No Discharge Plan Discharge Clinical Impression: Hand pain, right Contusion of rib on right side Qualifiers: Encounter type: initial encounter Qualified Code(s): S20.211A - Contusion of right front wall of thorax, initial encounter Patient Disposition: Home, Self-Care Condition: Stable Instructions: Rib Contusion (ED) Additional Instructions: Return to the emergency department if you experience fever, chest pain, shortness of breath, abdominal pain with nausea and vomiting, weakness, numbness, or any other symptoms that are concerning to you. Rest. Ice to the area. Over the counter pain medication as needed Follow up with your primary care doctor Patient Language: Ukrainian Prescriptions: No Action aspirin 81 mg tablet,chewable 81 mg PO DAILY diltiazem HCl [Cartia XT] 300 mg capsule,extended release 24hr 300 mg PO DAILY (DME) blood-glucose meter [True Metrix Glucose Meter] [facility] See Rx Instructions .ROUTE .MEDSUPPLY Qty: 1 Rx Instructions: As directed finasteride 5 mg tablet 5 mg PO DAILY Baqsimi 3 mg/actuation spray,non-aerosol 3 mg intranasal ONCE Qty: 2 0RF Rx Instructions: as a single dose icosapent ethyl [Vascepa] 1 gram capsule 2 g PO BID losartan 100 mg tablet 100 mg PO DAILY nitroglycerin 0.4 mg tablet, sublingual 0.4 mg sublingual Q5M PRN Rx Instructions: do not exceed 3 doses per episode ergocalciferol (vitamin D2) [Vitamin D2] 1,250 mcg (50,000 unit) capsule 1,250 mcg PO WEEKLY (DME) FreeStyle Juve 3 Sensor Device See Rx Instructions .Route Qty: 6 3RF Rx Instructions: change every 14 days (DME) FreeStyle Juve 3 Plus Sensor Device See Rx Instructions .Route Qty: 6 12RF Rx Instructions: change every 15 ays (DME) pen needle, diabetic [Comfort EZ Pen [place]] 29 gauge x 1/2 needle See Rx Instructions .Route Qty: 300 12RF Rx Instructions: 4 times a day Ozempic 2 mg/dose (8 mg/3 mL) pen injector 2 mg subcut WEEKLY Qty: 9 3RF rosuvastatin 20 mg tablet 20 mg PO DAILY Qty: 90 3RF metformin 500 mg tablet extended release 24 hr 500 mg PO BID Qty: 180 3RF insulin lispro [Humalog KwikPen Insulin] 100 unit/mL insulin pen 12 unit subcut .before meals MDD 60 Qty: 45 2RF Rx Instructions: no meal then no shot Baqsimi 3 mg/actuation spray,non-aerosol 3 mg intranasal ONCE Qty: 2 3RF Rx Instructions: as a single dose dapagliflozin propanediol [Farxiga] 10 mg tablet 10 mg PO DAILY Qty: 90 3RF dexamethasone 1 mg tablet 1 mg PO ONCE Qty: 1 0RF Rx Instructions: Please take the pill around 11 pm and go for blood test next day morning arou nd 8 am (DME) lancets [TRUEplus Lancets] 33 gauge misc See Rx Instructions .ROUTE .MEDSUPPLY Qty: 100 2RF Rx Instructions: Use to test bs qid carvedilol 25 mg tablet 25 mg PO Q12H Qty: 60 0RF Rx Instructions: LAST REFILL UNTIL SEEN omeprazole 40 mg capsule,delayed release(DR/EC) 40 mg PO DAILY Qty: 30 0RF Rx Instructions: LAST REFILL UNTIL SEEN (DME) Assure ID Pen Needle 31 gauge x 3/16 needle See Rx Instructions .ROUTE .MEDSUPPLY Qty: 100 2RF Rx Instructions: use 1 a day for insulin insulin glargine [Basaglar KwikPen U-100 Insulin] 100 unit/mL (3 mL) insulin pen 42 unit SUB-Q BID Qty: 80 3RF Rx Instructions: 42 units in the morning and 42 units at night Follow-up/Referrals: Amado,MD Baldo [Primary Care Provider] -
[2024-06-05 10:07] VITALS: BP 145/70; PULSE 68; RESP 16; TEMP 36.6; O2SAT 96
[2024-06-05 10:31] VITALS: BP 123/69; PULSE 68; RESP 16; TEMP 36.6; O2SAT 98
[2024-06-05 11:01] VITALS: BP 129/65; PULSE 67; RESP 16; TEMP 36.6; O2SAT 97
--- OUTSIDE RECORDS SUMMARY | 2024-06-05 11:02 | XMS_ITS | Clinical Summary ---
Author Organization [facility] Address [address] [place] [address] Care Team Providers Care Ball Ender Name Role Phone Baldo Fischer MD Primary Care Provider [phone] Medications amLODIPine (NORVASC) 5 MG tablet Take 1 tablet (5 mg total) by mouth every night 90 tablet 1 2 Active Semaglutide, 2 MG/DOSE, (Ozempic, 2 MG/DOSE,) 8 MG/3ML solution pen-injector Inject 2 mg under the skin per week 12 mL 1 4 Active ergocalciferol 1.25 MG (84368 UT) capsule TAKE 1 CAPSULE BY MOUTH [...] Department Care Team Description 06/03/2024 3:15 PM ROUGHER OPERATOR Office Visit [place] [facility], 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 [address] [place] [address] Soraya Dangelo CMA 05/31/[address] [facility] [address] [place] [address] Kan Ball DO 05/20/[address] [facility] [address] [facility] [address] [place] [address] Kan Ball DO from Last [...] Comments Blood Pressure 130/70 06/03/2024 3:14 PM ROUGHER OPERATOR Pulse 68 06/03/2024 3:14 PM ROUGHER OPERATOR Temperature 36.1 C (97 F) 06/03/2024 3:14 PM ROUGHER OPERATOR Respiratory Rate 18 06/03/2024 3:14 PM ROUGHER OPERATOR Oxygen Saturation 99% 06/03/2024 3:14 PM ROUGHER OPERATOR Inhaled Oxygen Concentration - - Weight 112 kg (247 lb) 06/03/2024 3:14 PM ROUGHER OPERATOR Height 185.4 cm (6' 1 ) 05/30/2022 4:01 PM ROUGHER OPERATOR Body Mass Index 32.59 05/30/2022 4:01 PM ROUGHER OPERATOR Plan of Treatment Upcoming Encounters Date Type Department Care Team (Late st Contact Info) Description 11/04/2024 3:15 PM CDT Office Visit [facility] [address] [place] [address] Kan Ball DO [address] [facility] [place] [address] Health Maintenance Due Date Last Done [...] Comments HEMOGLOBIN A1C Routine 05/31/2024 6:22 AM ROUGHER OPERATOR PROTEIN / CREATININE RATIO, URINE Routine 05/31/2024 6:22 AM ROUGHER OPERATOR VITAMIN D 25 HYDROXY Routine 05/31/2024 6:22 AM ROUGHER OPERATOR CBC AND DIFFERENTIAL Routine 05/31/2024 6:22 AM ROUGHER OPERATOR URINALYSIS WITH MICROSCOPIC Routine 05/31/2024 6:22 AM ROUGHER OPERATOR URINE ALBUMIN / CREATININE RATIO Routine 05/31/2024 6:22 AM ROUGHER OPERATOR RENAL FUNCTION PANEL Routine 05/31/2024 6:22 AM ROUGHER OPERATOR MAGNESIUM Routine 05/31/2024 6:22 AM ROUGHER OPERATOR from Last 3 Months Results * (ABNORMAL) Protein, Total, Random Urine w/Creatinine (Protein/Creat Ratio) (05/31/2024 6:22 AM ROUGHER OPERATOR) Creatinine, Ur 58 20 - 320 mg/dL See order comments Urine Protein/Creati nine Ratio 190(H) 25 - 148 mg/g creat See order comments Protein/Creati nine Ratio, Urine 0.190(H) 0.025 - 0.148 mg/mg creat See order comments Protein Urine Random 11 5 - 25 mg/dL See order comments 05/31/2024 6:22 AM ROUGHER OPERATOR 05/31/2024 6:23 AM ROUGHER OPERATOR Narrative [facility] - 06/03/2024 1:19 AM ROUGHER OPERATOR FASTING:YES FASTING: YES Resulting Agency Comment Performing Organization Information: Site ID: [facility] Name: [facility] Address: [address] [place] [address] Director: Mark Buchanan MD Kan Ball DO LAB URINE ORDERABLES Final R esult [facility] See order comments [place] [address] * (ABNORMAL) Urine Albumin / Creatinine Ratio (05/31/2024 6:22 AM ROUGHER OPERATOR) Creatinine, Ur 58 20 - 320 mg/dL [...] within a diagnostic category. 05/31/2024 6:22 AM ROUGHER OPERATOR 05/31/2024 6:23 AM ROUGHER OPERATOR Narrative [facility] - 06/03/2024 1:19 AM ROUGHER OPERATOR FASTING:YES FASTING: YES Resulting Agency Comment Performing Organization Information: Site ID: [facility] Name: [facility] Address: [address] [place] [address] Director: Mark Buchanan MD Kan Ball DO LAB URINE ORDERABLES Final R esult [facility] See order comments [place] [address] * Vitamin D 25 Hydroxy (05/31/2024 6:22 AM ROUGHER OPERATOR) Vitamin D, 25-OH, Total, IA 51 30 [...] D, (D2,D3), LC/MS/MS is recommended: order code 38489 (patients >2yrs). See Note 1 Note 1 For additional information, please refer to http://education.Synata/faq/VXD419 (This link is being provided for informational/ educational purposes only.) 05/31/2024 6:22 AM ROUGHER OPERATOR 05/31/2024 6:23 AM ROUGHER OPERATOR Narrative [facility] - 06/03/2024 1:19 AM ROUGHER OPERATOR FASTING:YES FASTING: YES Resulting Agency Comment Performing Organization Information: Site ID: [place] Name: [facility] Address: [address] [place] [address] [place] [address] Director: Mark Buchanan MD Kan Ball DO LAB BLOOD ORDERABLES Final R esult [facility] See order comments [place] [address] * (ABNORMAL) Urinalysis with microscopic (05/31/2024 6:22 AM ROUGHER OPERATOR) Color, Urine YELLOW YELLOW See ord er comments Appearance Urine CLEAR CLEAR See order comments Specific [place], UA 1.020 1.001 - 1.035 See order [...] by t he ancillary. 05/31/2024 6:22 AM ROUGHER OPERATOR 05/31/2024 6:23 AM ROUGHER OPERATOR Narrative [facility] - 06/03/2024 1:19 AM ROUGHER OPERATOR FASTING:YES FASTING: YES Resulting Agency Comment Performing Organization Information: Site ID: [place] Name: [facility] Address: [address] [address] Director: Mark Buchanan MD us Kan Ball DO LAB URINE ORDERABLES Final R esult [facility] See order comments [place] [address] * CBC and Differential (05/31/2024 6:22 AM ROUGHER OPERATOR) WBC 6.2 3.8 - 10.8 Thousand/ uL [...] by t he ancillary. 05/31/2024 6:22 AM ROUGHER OPERATOR 05/31/2024 6:23 AM ROUGHER OPERATOR Narrative [facility] - 06/03/2024 1:19 AM ROUGHER OPERATOR FASTING:YES FASTING: YES Resulting Agency Comment Performing Organization Information: Site ID: [place] Name: [facility] Address: [address] [address] Director: Mark Buchanan MD us Kan Ball DO LAB BLOOD ORDERABLES Final R esult [facility] See order comments [place] [address] * Magnesium (05/31/2024 6:22 AM ROUGHER OPERATOR) Magnesium 2.0 1.5 - 2.5 mg/dL See order comments 05/31/2024 6:22 AM ROUGHER OPERATOR 05/31/2024 6:23 AM ROUGHER OPERATOR Narrative [facility] - 06/03/2024 1:19 AM ROUGHER OPERATOR FASTING:YES FASTING: YES Resulting Agency Comment Performing Organization Information: Site ID: [facility] Name: [facility] Address: [address] [place] [address] Director: Mark Buchanan MD us Kan Ball DO LAB BLOOD ORDERABLES Final R esult Performing Organization Address [facility] Co de Phone Number [facility] See order comments [place] [address] * (ABNORMAL) Hemoglobin A1c (05/31/2024 6:22 AM ROUGHER OPERATOR) Hemoglobin A1C 8.1(H) <5.7 % of total [...] of diabetes for children. 05/31/2024 6:22 AM ROUGHER OPERATOR 05/31/2024 6:23 AM ROUGHER OPERATOR Narrative [facility] - 06/03/2024 1:19 AM ROUGHER OPERATOR FASTING:YES FASTING: YES Resulting Agency Comment Performing Organization Information: Site ID: [facility] Name: [facility] Address: [id number] [place] [address] [place] [address] Director: Mark Buchanan MD us Kan Ball DO LAB BLOOD ORDERABLES Final R esult Performing Organization Address [facility] Co de Phone Number [facility] See order comments [place] [address] * (ABNORMAL) Renal Function Panel (05/31/2024 6:22 AM ROUGHER OPERATOR) Glucose 138(H) 65 - 99 mg/dL See [...] g/dL See order comments 05/31/2024 6:22 AM ROUGHER OPERATOR 05/31/2024 6:23 AM ROUGHER OPERATOR Narrative [facility] - 06/03/2024 1:19 AM ROUGHER OPERATOR FASTING:YES FASTING: YES Resulting Agency Comment Performing Organization Information: Site ID: [facility] Name: [facility] Address: [address] [address] Director: Mark Buchanan MD us Kan Ball DO LAB BLOOD ORDERABLES Final R esult [facility] See order comments [place] [address] from Last 3 Months Insurance [facility] MEDICARE Care Teams Ball Ender Relationship Specialty Start Date End Date Baldo Fischer MD [address] [facility] [place] [address] PCP - General Internal Medicine 07/25/21
--- OUTSIDE RECORDS SUMMARY | 2024-06-05 11:03 | XMS_ITS | Clinical Summary ---
Author Organization [facility] Address [address] [place] [address] Care Team Providers Care Chief Of Pediatric Urology Name Role Phone Baldo Fischer MD Primary [...] Comments Blood Pressure 164/80 06/11/2021 3:49 PM PUBLIC AID ELIGIBILITY ASSISTANT Pulse 95 06/11/2021 3:18 PM PUBLIC AID ELIGIBILITY ASSISTANT Temperature 36.4 C (97.6 F) 06/11/2021 1:35 PM PUBLIC AID ELIGIBILITY ASSISTANT Respiratory Rate 18 06/11/2021 3:18 PM PUBLIC AID ELIGIBILITY ASSISTANT Oxygen Saturation 98% 06/11/2021 3:18 PM PUBLIC AID ELIGIBILITY ASSISTANT Inhaled Oxygen Concentration - - Weight 99.8 kg (220 lb) 06/11/2021 1:35 PM PUBLIC AID ELIGIBILITY ASSISTANT Height 185.4 cm (6' 1 ) 06/11/2021 1:35 PM PUBLIC AID ELIGIBILITY ASSISTANT Body Mass Index 29.03 06/11/2021 1:35 PM PUBLIC AID ELIGIBILITY ASSISTANT Plan of Treatment Health Maintenance Due Date [...] patient's age to complete this topic [place] [address] [place] [id number] Care Teams Chief Of Pediatric Urology Relationship Specialty Start Date End Date Baldo Fischer MD [address] [facility] [address] [place] [address] PCP - General INTERNAL MEDICINE 06/11/21
--- OUTSIDE RECORDS SUMMARY | 2024-06-05 11:03 | XMS_ITS | Clinical Summary ---
Author Organization [facility] Address [address] [place] [address] Care Team Providers Care Search Engine Optimization Analyst Name Role Phone Lorenzo Fischer MD Primary [...] on file Legal Sex Male 11:38 AM APPLICATION SUPPORT Gender Identity Not on file Sexual Orientation [...] 02/28/2023, 07/29/2022 Medical Devices Implanted Type Area Associate Merchant Device Identifier Shelf Expiration Date Model / Serial / Lot Easy-Point Angio-Seal Vip 6fr Closere Device [id number] - [id number] Implanted:Qty: 1 on 02/15/2024 by Kermit Gonzalez MD at [facility] Easy-Point [id number] / / Procedures Procedure Name Priority Date/Time [...] and with contrast. Preliminary results by teleradiologist division road supervisor. Electronically signed by: Jeremiah Ayala M.D. Narrative [...] and with contrast. Preliminary results by teleradiologist division road supervisor. Electronically signed by: Jeremiah Ayala M.D. Joie HAN IMG CT PROCEDURES Final Resul t from Last 3 Months or Most Recently Relevant to Health Maintenance Insurance MEDICARE [facility]MR [facility] CHOICE PLUS Care Teams Search Engine Optimization Analyst Relationship Specialty Start Date End Date Lorenzo Fischer MD [address] [facility] [address] [place] [address] PCP - General Internal Medicine 07/29/22
--- OUTSIDE RECORDS SUMMARY | 2024-06-05 11:03 | XMS_ITS | Referral Summary ---
Author Organization [facility] Address [address] [place] [address] Care Team Providers Care Reimbursement Rep Name Role Phone Baldo Fischer MD Primary Care Provider Source Comments [facility],non-owned Affiliates and Associated Physician Practices is amultiple site organization consisting of ambulatory clinics and hospital sitesin [place], [place], [place] and [place]. This disclosure is being madepursuant to the Care Everywhere program and may not contain all information available regarding this patient. Last updated 18.[facility] [employer] Allergies No known active allergies Medications * [...] (one) tablet by mouth once daily Active ihept-3-irex ethyl esters (Lovaza) 1 g capsule Take 1 (one) capsule by mouth once daily Active Turmeric (QC TUMERIC COMPLEX PO) Active vitamin D3 (Cholecalciferol) 25 MCG (1000 UNITS) tablet Take 2 (two) tablets by mouth once daily Active ascorbic acid (Vitamin C) 500 MG tablet Take 1 (one) tablet by mouth once daily Active NATURAL PSYLLIUM FIBER PO Active HYDROcodone-acetam inophen ([place]) 5-325 MG tabletIndications: Renal mass, left Take [...] Active vitamin D, ergocalciferol, (Drisdol) 1.25 MG (11424 UT) capsule Take 1 (one) capsule by [...] Info) Description 10/30/2024 9:30 AM CDT Appointment [facility] Imaging Services - CT Scan [address], [address] [place] [address] 10/30/2024 11:00 AM CDT Office Visit [facility] - Urology [address] [place] [address] Ruby Birch M, DO [address] [place] [address] Procedures Procedure Name Priority Date/Time Associated Diagnosis Comments BASIC METABOLIC PANEL (CALCIUM TOTAL) Routine 11/01/2023 8:50 AM CDT Renal mass, left from Last 3 Months or Most Recently Relevant to Health Maintenance Results * (ABNORMAL) BASIC METABOLIC PANEL (CALCIUM TOTAL) (11/01/2023 8:50 AM CDT) Glucose 203(H) 70 - 105 mg/dL 11/01/2023 9:52 AM CDT [facility] Sodium 139 136 - 145 mmol/L 11/01/2023 9:52 AM CDT [facility] Potassium 4.2 3.5 - 5.1 mmol/L 11/01/2023 9:52 AM CDT [facility] Chloride 108(H) 98 - 107 mmol/L 11/01/2023 9:52 AM CDT [facility] CO2 24 22 - 29 mmol/L 11/01/2023 9:52 AM CDT [facility] Calcium 10.3 8.4 - 10.4 mg/dL 11/01/2023 9:52 AM CDT [facility] Anion Gap 7 6 - 16 mmol/L 11/01/2023 9:52 AM CDT [facility] BUN 29(H) 7 - 26 mg/dL 11/01/2023 9:52 AM CDT [facility] Creatinine 1.17 0.72 - 1.25 mg/dL 11/01/2023 9:52 AM CDT [facility] eGFR by CKD-EPI 69(L) >=90 mL/min/1.7 3 m2 11/01/2023 9:52 AM CDT [facility] Blood BLOOD SPECIMEN / Unknown Lab Venipuncture / Unknown 11/01/2023 8:50 AM CDT 11/01/2023 8:50 AM CDT Ruby Birch DO LAB - CHEMISTRY OR DERABLES [facility] [address] [place] [address] from Last 3 Months or Most Recently Relevant to Health Maintenance Advance Directives * Full Code (Latest Code Status on File) Date Activated Date Inactivated Comments 10/10/2022 6:53 PM 10/11/2022 2:11 PM Care Teams Reimbursement Rep Relationship Specialty Start Date End Date Baldo Fischer MD [address] [place] [address] PCP - General 07/04/22
--- OUTSIDE RECORDS SUMMARY | 2024-06-05 11:03 | XMS_ITS | Patient Health Summary ---
Author Organization [facility] Address [address] [place] [address] Care Team Providers Care Marketing Compliance Manager Name Role Phone Baldo Fischer MD Primary Care Provider Note from [facility],non-owned Affiliates and Associated Physician Practices is amultiple site organization consisting of ambulatory clinics and hospital sitesin [place], [place], [place] and [place]. This disclosure is being madepursuant to the Care Everywhere program and may not contain all information available regarding this patient. Last updated 18.[facility] Allergies No known active [...] (one) tablet by mouth once daily * durwu-9-vqvo ethyl esters (Lovaza) 1 g capsule Take 1 (one) capsule by mouth once daily * Turmeric (QC TUMERIC COMPLEX PO) * vitamin D3 (Cholecalciferol) 25 MCG (1000 UNITS) tablet Take 2 (two) tablets by mouth once daily * ascorbic acid (Vitamin C) 500 MG tablet Take 1 (one) tablet by mouth once daily * NATURAL PSYLLIUM FIBER PO * HYDROcodone-acetaminophen (Racine) 5-325 MG tablet(Started 10/23/2022) Take 1 (one) tablet by mouth every 6 hours as needed for Pain * nitrofurantoin monohyd macro crystals (Macrobid) 100 MG capsule(Started 02/19/2023) * metFORMIN ER 24hr (Glucophage XR) 500 MG tablet(Started 09/07/2023) Take 1 (one) tablet by mouth 2 times daily * vitamin D, ergocalciferol, (Drisdol) 1.25 MG (68131 UT) capsule Take 1 (one) capsule by [...] - 105 mg/dL 11/01/2023 9:52 AM CDT [facility] Sodium 139 136 - 145 mmol/L 11/01/2023 9:52 AM CDT [facility] Potassium 4.2 3.5 - 5.1 mmol/L 11/01/2023 9:52 AM CDT [facility] Chloride 108(H) 98 - 107 mmol/L 11/01/2023 9:52 AM CDT [facility] CO2 24 22 - 29 mmol/L 11/01/2023 9:52 AM CDT [facility] Calcium 10.3 8.4 - 10.4 mg/dL 11/01/2023 9:52 AM CDT [facility] Anion Gap 7 6 - 16 mmol/L 11/01/2023 9:52 AM CDT [facility] BUN 29(H) 7 - 26 mg/dL 11/01/2023 9:52 AM CDT [facility] Creatinine 1.17 0.72 - 1.25 mg/dL 11/01/2023 9:52 AM CDT [facility] eGFR by CKD-EPI 69(L) >=90 mL/min/1.7 3 m2 11/01/2023 9:52 AM T [facility] Blood BLOOD SPECIMEN / Unknown Lab Venipuncture / Unknown 11/01/2023 8:50 AM CDT 11/01/2023 8:50 AM CDT Ruby Birch DO LAB - CHEMISTRY OR DERABLES [facility] [address] [place] [address] * XR CHEST 2VW (11/01/2023 8:34 AM [...] - 1.20 mg/dL 11/01/2023 7:57 AM CDT [facility] eGFR >90 >=90 mL/min/1.7 3 m2 11/01/2023 7:57 AM CDT [facility] Blood BLOOD SPECIMEN / Unknown 11/01/2023 7:46 AM CDT 11/01/2023 7:57 AM CDT [facility] LAB - POINT OF CAR E ORDERABLES [facility] [address] [place] [address] * CULTURE BLOOD (02/28/2023 5:11 PM COMMERCIAL LOAN ANALYST) Only the most recent of2 resultswithin the time period is included. Culture No growth day 5 DIANE 03/05/2023 9:39 PM COMMERCIAL LOAN ANALYST [facility] Blood PERIPHERAL BLOOD / Unknown Venipuncture / Unknown 02/28/2023 5:11 PM COMMERCIAL LOAN ANALYST 02/28/2023 5:26 PM COMMERCIAL LOAN ANALYST Christine Pelayo RN FIRST ASSISTANT-BUCK SWAMPER LAB - MICROBIOLOG Y ORDERABLES [facility] [address] [place] [address], [facility] [phone] * CT ABDOMEN PELVIS WO CONTRAST (02/28/2023 4:18 PM COMMERCIAL LOAN ANALYST) Anatomical Region Laterality Modality Abdomen, Pelvis Computed Tomogra phy 02/28/2023 4:50 PM COMMERCIAL LOAN ANALYST Impressions 02/28/2023 4:59 PM COMMERCIAL LOAN ANALYST Impression: 1.Cholelithiasis without evidence of acute cholecystitis. 2.Multiple exophytic lesions in the kidneys bilaterally measuring greater than simple fluid density. Further evaluation with dedicated renal CT or MRI is recommended. 3.Constipation. 4.Prostatomegaly. > Interpreting Provider: Chris Torres MD on 02/28/2023 4:59 PM Narrative 02/28/2023 4:59 PM COMMERCIAL LOAN ANALYST PROCEDURE: CT ABDOMEN PELVIS WO CONTRAST, DATE/TIME OF EXAM: 02/28/2023 4:19 PM, LOCATION [facility] INDICATION: R31.9: Hematuria, unspecified COMPARISON: None. TECHNIQUE: [...] CONTRAST, DATE/TIME OF EXAM:02/28/2023 4:19 PM, LOCATION [facility] INDICATION: R31.9: Hematuria, unspecified COMPARISON: None. TECHNIQUE: [...] MD on 02/28/2023 4:59 PM [facility] ORDERABLES * LACTIC ACID BLOOD REFLEX TO REPEAT (02/28/2023 4:16 PM COMMERCIAL LOAN ANALYST) Lactic Acid 0.8 <=2 mmol/L 02/28/2023 4:39 PM COMMERCIAL LOAN ANALYST [facility] Blood BLOOD SPECIMEN / Unknown Venipuncture / Unknown 02/28/2023 4:16 PM COMMERCIAL LOAN ANALYST 02/28/2023 4:16 PM COMMERCIAL LOAN ANALYST Christine Pelayo RN [facility] LAB - CHEMISTRY O RDERABLES [facility] [address] [place] [address] * (ABNORMAL) URINE MICROSCOPIC ONLY REFLEX TO CULTURE (02/28/2023 4:10 PM COMMERCIAL LOAN ANALYST) Reflex Status Culture to follow 02/28/2023 4:30 PM COMMERCIAL LOAN ANALYST [facility] RBC UA 11-20(A) 0 - 5 # /hpf 02/28/2023 4:30 PM COMMERCIAL LOAN ANALYST [facility] WBC UA 51-100(A) 0 - 5 # /hpf 02/28/2023 4:30 PM COMMERCIAL LOAN ANALYST [facility] Bacteria UA None Seen None Seen 02/28/2023 4:30 PM COMMERCIAL LOAN ANALYST [facility] Squamous Epithelial Cells 0-2 0 - 5 /hpf 02/28/2023 4:30 PM COMMERCIAL LOAN ANALYST [facility] Budding Yeast Many(A) None seen /hpf 02/28/2023 4:30 PM COMMERCIAL LOAN ANALYST [facility] Urine URINE SPECIMEN OBTAINED BY CLEAN CATCH PROCEDURE / Unknown Collection / Unknown 02/28/2023 4:10 PM COMMERCIAL LOAN ANALYST 02/28/2023 4:16 PM COMMERCIAL LOAN ANALYST Narrative [facility] - 02/28/2023 4:30 PM COMMERCIAL LOAN ANALYST Christine Pelayo APRN-BUCK SWAMPER LAB - URINALYSIS ORDERABLES [facility] [address] [place] [address] * (ABNORMAL) URINALYSIS REFLEX MICROSCOPIC REFLEX CULTURE (02/28/2023 4:10 PM COMMERCIAL LOAN ANALYST) Color UA Yellow Straw, Yellow 02/28/2023 4:27 PM COMMERCIAL LOAN ANALYST [facility] Clarity UA Slt Cloudy(A) Clear 02/28/2023 4:27 PM COMMERCIAL LOAN ANALYST [facility] Glucose UA 3+(A) Negative 02/28/2023 4:27 PM COMMERCIAL LOAN ANALYST [facility] Bilirubin UA Negative Negative 02/28/2023 4:27 PM COMMERCIAL LOAN ANALYST [facility] Ketone UA Negative Negative 02/28/2023 4:27 PM COMMERCIAL LOAN ANALYST [facility] Specific [place] UA 1.018 1.005 - 1.030 02/28/2023 4:27 PM COMMERCIAL LOAN ANALYST [facility] Blood UA 1+(A) Negative 02/28/2023 4:27 PM COMMERCIAL LOAN ANALYST [facility] pH UA 6.0 5.0 - 8.0 pH 02/28/2023 4:27 PM COMMERCIAL LOAN ANALYST [facility] Protein UA Negative Negative 02/28/2023 4:27 PM COMMERCIAL LOAN ANALYST [facility] Urobilinogen UA Negative Negative mg/dL 02/28/2023 4:27 PM COMMERCIAL LOAN ANALYST [facility] Nitrite UA Negative Negative 02/28/2023 4:27 PM COMMERCIAL LOAN ANALYST [facility] Leukocyte UA 2+(A) Negative 02/28/2023 4:27 PM COMMERCIAL LOAN ANALYST [facility] Urine Microscopy Urine microscopy to follow 02/28/2023 4:27 PM COMMERCIAL LOAN ANALYST [facility] Reflex Status Culture to follow 02/28/2023 4:27 PM COMMERCIAL LOAN ANALYST [facility] Urine URINE SPECIMEN OBTAINED BY CLEAN CATCH PROCEDURE / Unknown Collection / Unknown 02/28/2023 4:10 PM COMMERCIAL LOAN ANALYST 02/28/2023 4:16 PM COMMERCIAL LOAN ANALYST Narrative [facility] - 02/28/2023 4:27 PM COMMERCIAL LOAN ANALYST Christine Pelayo [facility] LAB - URINALYSIS ORDERABLES Performing Organization Address City/[facility]/ZIP Co de Phone Number [facility] [address] [place] [address] * CULTURE URINE (02/28/2023 4:10 PM COMMERCIAL LOAN ANALYST) Only the most recent of3 resultswithin the time period is included. Culture Urine <10,000 CFU/mL urogenital juan a DIANE 03/02/2023 12:29 AM COMMERCIAL LOAN ANALYST [facility] Urine URINE SPECIMEN OBTAINED BY CLEAN CATCH PROCEDURE / Unknown Collection / Unknown 02/28/2023 4:10 PM COMMERCIAL LOAN ANALYST 02/28/2023 4:16 PM COMMERCIAL LOAN ANALYST Christine Pelayo [facility] LAB - MICROBIOLOG Y ORDERABLES Performing Organization Address City/[facility]/ZIP Co de Phone Number [facility] [address] [place] [address], [facility] [phone] * (ABNORMAL) CBC W AUTO DIFFERENTIAL (02/28/2023 4:06 PM COMMERCIAL LOAN ANALYST) Only the most recent of4 resultswithin the time period is included. WBC 14.4(H) 4.4 - 10.7 x10E9/L 02/28/2023 4:23 PM COMMERCIAL LOAN ANALYST [facility] WBC Corrected 02/28/2023 4:23 PM COMMERCIAL LOAN ANALYST [facility] RBC 4.59 3.80 - 5.40 x10E12/L 02/28/2023 4:23 PM COMMERCIAL LOAN ANALYST [facility] Hemoglobin 14.0 12.0 - 17.6 gm/dL 02/28/2023 4:23 PM COMMERCIAL LOAN ANALYST [facility] Hematocrit 41.2 35.2 - 51.7 % 02/28/2023 4:23 PM COMMERCIAL LOAN ANALYST [facility] MCV 89.8 80.7 - 98.3 fl 02/28/2023 4:23 PM COMMERCIAL LOAN ANALYST [facility] MCH 30.5 26.7 - 34.0 pg 02/28/2023 4:23 PM COMMERCIAL LOAN ANALYST [facility] MCHC 34.0 30.8 - 35.9 gm/dL 02/28/2023 4:23 PM COMMERCIAL LOAN ANALYST [facility] Platelet Count 284 153 - 416 x10E9/L 02/28/2023 4:23 PM COMMERCIAL LOAN ANALYST [facility] RDW-CV 12.5 12.1 - 14.9 % 02/28/2023 4:23 PM COMMERCIAL LOAN ANALYST [facility] MPV 10.3 9.4 - 12.9 fl 02/28/2023 4:23 PM [facility] Neutrophils % 70.5 44.0 - 73.0 % 02/28/2023 4:23 PM COMMERCIAL LOAN ANALYST [facility] Lymphocytes % 19.1(L) 20.0 - 43.0 % 02/28/2023 4:23 PM [facility] Monocytes % 5.9 5.0 - 13.0 % 02/28/2023 4:23 PM COMMERCIAL LOAN ANALYST [facility] Eosinophils % 3.1 0.0 - 6.0 % 02/28/2023 4:23 PM [facility] Basophils % 0.8 0.0 - 2.0 % 02/28/2023 4:23 PM COMMERCIAL LOAN ANALYST [facility] Immature Granulocytes 0.6 0 - 1 % 02/28/2023 4:23 PM COMMERCIAL LOAN ANALYST [facility] Neutrophil Absolute 10.16(H) 2.01 - 7.14 x10E9/L 02/28/2023 4:23 PM COMMERCIAL LOAN ANALYST [facility] Lymphocytes Absolute 2.75 1.07 - 3.94 x10E9/L 02/28/2023 4:23 PM COMMERCIAL LOAN ANALYST [facility] Monocytes Absolute 0.85 0.26 - 1.07 x10E9/L 02/28/2023 4:23 PM [facility] Eosinophils Absolute 0.44 0 - 0.47 x10E9/L 02/28/2023 4:23 PM [facility] Basophils Absolute 0.11(H) 0 - 0.08 x10E9/L 02/28/2023 4:23 PM [facility] Immature Granulocytes Absolute 0.08(H) 0.00 - 0.06 x10E9/L 02/28/2023 4:23 PM [facility] nRBC Auto 0 /100 WBC 02/28/2023 4:23 PM [facility] Blood BLOOD SPECIMEN / Unknown Venipuncture / Unknown 02/28/2023 4:06 PM COMMERCIAL LOAN ANALYST 02/28/2023 4:16 PM [facility] Christine Pelayo RN FIRST ASSISTANT-BUCK SWAMPER LAB - HEMATOLOGY ORDERABLES [facility] [address] [place] [address] * (ABNORMAL) COMPREHENSIVE METABOLIC PANEL (02/28/2023 4:06 PM COMMERCIAL LOAN ANALYST) Glucose 278(H) 70 - 105 mg/dL 02/28/2023 4:42 PM [facility] Sodium 140 136 - 145 mmol/L 02/28/2023 4:42 PM [facility] Potassium 4.2 3.5 - 5.1 mmol/L 02/28/2023 4:42 PM [facility] Chloride 106 98 - 107 mmol/L 02/28/2023 4:42 PM [facility] CO2 23 22 - 29 mmol/L 02/28/2023 4:42 PM [facility] Calcium 10.3 8.4 - 10.4 mg/dL 02/28/2023 4:42 PM [facility] Anion Gap 11 6 - 16 mmol/L 02/28/2023 4:42 PM [facility] BUN 36(H) 7 - 26 mg/dL 02/28/2023 4:42 PM [facility] Creatinine 1.38(H) 0.72 - 1.25 mg/dL 02/28/2023 4:42 PM [facility] Alkaline Phosphatase 73 40 - 150 U/L 02/28/2023 4:42 PM [facility] ALT 19 0 - 55 U/L 02/28/2023 4:42 PM [facility] AST 16 5 - 34 U/L 02/28/2023 4:42 PM COMMERCIAL LOAN ANALYST [facility] Protein Total 7.2 6.4 - 8.3 gm/dL 02/28/2023 4:42 PM COMMERCIAL LOAN ANALYST [facility] Albumin 4.0 3.4 - 5.0 gm/dL 02/28/2023 4:42 PM COMMERCIAL LOAN ANALYST [facility] Bilirubin Total 0.5 0.2 - 1.2 mg/dL 02/28/2023 4:42 PM COMMERCIAL LOAN ANALYST [facility] eGFR by CKD-EPI 57(L) >=90 mL/min/1.7 3 m2 02/28/2023 4:42 PM COMMERCIAL LOAN ANALYST [facility] Blood BLOOD SPECIMEN / Unknown Venipuncture / Unknown 02/28/2023 4:06 PM COMMERCIAL LOAN ANALYST 02/28/2023 4:16 PM COMMERCIAL LOAN ANALYST Christine Pelayo APRN-BUCK SWAMPER LAB - CHEMISTRY O RDERABLES [facility] [address] [place] [address] * URINALYSIS AUTO - POINT OF CARE (AMB) [facility] (11/24/2022 10:38 AM CDT) Only the most recent of3 resultswithin the time period is included. Glucose UA 60mmol/L [facility] [address] Bilirubin UA POCT neg [facility] [address] Ketones UA POCT neg [facility] [address] Specific [place] UA 1.[address] [facility] [address] Blood Urine POCT neg [facility] [address] pH UA 6.0 [facility] [address] Protein UA neg [facility] [address] Urobilinogen UA 3.5umol/L [facility] [address] Nitrite UA neg [facility] [address] WBC UA neg [facility] [address] Urine URINE / Unknown 11/24/2022 1 0:38 AM CDT Ruby Birch DO LAB - POINT OF CAR E ORDERABLES [facility] [address] [place] [address], [facility] [phone] * CARDIAC EKG ORDER (10/13/2022 4:14 PM [...] - 115 mg/dL 10/11/2022 11:17 AM CDT [facility] Specimen Type Cap Fingerstick 2022 11:17 AM CDT [facility] Blood BLOOD SPECIMEN / Unknown 10/11/2022 11:13 AM CDT 10/11/2022 11:17 AM CDT Ruby Birch DO LAB - POINT OF CAR E ORDERABLES [address] [address], [facility] [phone] * PATHOLOGY TISSUE (10/10/2022 3:30 PM CDT) Case Report Surgical Pathology Report Case: [id number] Authorizing Provider: Ruby Birch DO Collected: 10/10/2022 03:30 PM Ordering Location: [facility] Received: 10/11/2022 07:17 AM Pathologist: Arcenio Valentin MD Specimen: Kidney Nephrec Part, left renal mass 10/12/2022 2:57 PM CDT [facility] Final Diagnosis Kidney, left mass, partial nephrectomy (A): - Renal cell carcinoma, clear cell type (See synoptic report) 10/12/2022 2:57 PM CDT [facility] Microscopic Description and Comment Microscopic examination substantiates the final diagnosis. 10/12/2022 2:57 PM [facility] Clinical History The patient is a 62 year old male with imaging showing a 16mm partially endophytic left renal mass at that superior to mid pole location where the mass was seen on U/S. 10/12/2022 2:57 PM [facility] Gross Description The requisition and [...] 2:57 PM [facility] Pathologist Location at [facility] 10/12/2022 2:57 PM [facility] Disclaimer The performance characteristics of all immunohistochemical and indirect immunofluorescence stains (if any) cited in this report were determined by the Histopathology Laboratory of [facility]. Some of these tests were developed by [...] 2:57 PM [facility] Synoptic Report KIDNEY: Nephrectomy KIDNEY: [...] Kidney: None identified 10/12/2022 2:57 PM CDT [facility] Embedded Images 10/12/2022 2:57 PM CDT [facility] Biopsy, Excision EXCISION OF LESION OF KIDNEY WITH PARTIAL NEPHRECTOMY / Unknown 10/10/2022 3:30 PM CDT 10/11/2022 7:17 AM CDT Comment:Pre-op diagnosis: renal mass Ruby Caroline Birch LAB - PATHOLOGY/SAM FELIZ ORDERABLES Performing Organization Address City/State/[facility] Co de Phone Number [facility] [address] [phone] * ARTERIAL LINE PERFORMABLE (10/10/2022 12:49 PM CDT) Narrative Lizzeth Weber Anes Asst - 10/10/2022 12:49 PM CDT Lizzeth Weber Anes Asst 10/10/2022 12:51 PM Arterial Line Placement Procedure Note Patient Location: OR. Procedure: Arterial Line ([id number]). Procedure Section Indications: continuous blood pressure monitoring [...] Event Date/Time: 10/10/2022 11:36 AM Procedure: intubation (51529). Procedure Section: Induction: standard IV Patient Position: [...] - 7.45 pH 10/10/2022 12:43 PM T [facility] pO2 Arterial 146(H) 80 - 100 mmHg 10/10/2022 12:43 PM CDT [facility] pCO2 Arterial 41 35 - 45 mmHg 12:43 PM [facility] HCO3 Arterial 23.2 20.0 - 30.0 mmol/L 10/10/2022 12:43 PM [facility] BE Arterial -2.2(L) -2.0 - 2.0 mmol/L 10/10/2022 12:43 PM [facility] Oxyhemoglobin Arterial 97.0 % 10/10/2022 12:43 PM [facility] Dexoyhemoglobin (HHB) % 2.1 % 10/10/2022 12:43 PM [facility] Methemoglobin <0.8 0.0 - 2.0 % 10/10/2022 12:43 PM [facility] Carboxyhemoglobin 0.6 0.0 - 2.0 % 2022 12:43 PM [facility] Comment:Carboxyhemoglobin No rmal Concentration: Non-smokers: 0-2%; Smokers: 0- 9%; Toxic: >20% O2 Content Arterial 17.2 Interpret within clinical context ml/dL 10/10/2022 12:43 PM [facility] Hemoglobin by COOX 12.4 12.0 - 17.6 g/dL 10/10/2022 12:43 PM [facility] O2 Saturation Arterial 98 90 - 100 % 10/10/2022 12:43 PM [facility] Sodium Whole Blood 137 135 - 145 mmol/L 10/10/2022 12:43 PM [facility] Potassium Whole Blood 3.5 3.5 - 5.5 mmol/L 10/10/2022 12:43 PM [facility] Chloride WB 107 78 - 107 mmol/L 10/10/2022 12:43 PM [facility] Calcium Ionized 1.21 mmol/L 12:43 PM [facility] Ionized Calcium pH Adjusted 1.19 1.19 - 1.34 mmol/L 10/10/2022 12:43 PM [facility] Anion Gap (AG) Arterial 10 8 - 18 mmol/L 10/10/2022 12:43 PM [facility] Glucose WB 120(H) 70 - 115 mg/dL 10/10/2022 12:43 PM [facility] Lactic Acid Whole Blood 0.7 <=2.0 mmol/L 10/10/2022 12:43 PM [facility] Blood, arterial ARTERIAL BLOOD SPECIMEN / Unknown 10/10/2022 12:43 PM CDT 10/10/2022 12:44 PM T Ruby M Queta DO LAB - POINT OF CAR E ORDERABLES Performing Organization Address [facility]/ZIP Co de Phone Number [facility] [address] [place] [address], [place] [phone] * BLOOD GAS ART+LYTES+METAB+COOX POC NOTIF (10/10/2022 12:41 PM CDT) Pathologist [facility] Comment Notification Label Only - See Separate Report 10/10/2022 2:00 PM CDT [facility] Other MISCELLANEOUS SAMPLES / Unknown 10/10/2022 12:41 PM CDT 10/10/2022 12:42 PM CDT Bart Glass II, MD LAB - BLOOD GASES O RDERABLES Performing Organization Address [facility] Co de Phone Number [facility] [address] [place] [id number], [facility] [phone] * TYPE + SCREEN PANEL (10/10/2022 10:10 AM CDT) Only the most recent of2 resultswithin the time period is included. [facility] Antibody Screen NEG 11:07 AM CDT [facility] ABO Rh O POS 10/10/2022 11:07 AM CDT [facility] Blood Bank BLOOD SPECIMEN / Unknown Venipuncture / Unknown 10/10/2022 10:10 AM CDT 10/10/2022 10:12 AM CDT Katie Henry RN FIRST ASSISTANT-BUCK SWAMPER LAB - BLOOD BANK ORDERABLES Performing Organization Address [facility] Co de Phone Number [facility] [address] [place] [address], [place] [phone] * EKG 12-LEAD (09/25/2022 1:51 PM CDT) Pathologist [facility] Ventricular Rate 66 BPM [facility] Atrial Rate 66 BPM [facility] P-R Interval 168 ms [facility] QRS Duration ms 166 ms [facility] Q-T Interval ms 446 ms [facility] QTC Calculation (Bezet) 467 ms [facility] Calculated P [place] 8 degrees [facility] Calculated R [place] -55 degrees [facility] Calculated T [place] 36 degrees [facility] Interpretation EKG NORMAL SINUS RHYTHM RIGHT BUNDLE BRANCH BLOCK LEFT ANTERIOR FASCICULAR BLOCK BIFASCICULAR BLOCK MINIMAL VOLTAGE CRITERIA FOR LVH, MAY BE NORMAL VARIANT ( R in aVL ) ABNORMAL ECG NO PREVIOUS ECGS AVAILABLE Confirmed by JYOTSNA DAY, ROBERTO ([id number]) on 09/25/2022 10:31:33 PM [facility] 09/25/2022 1:51 PM CDT 09/25/2022 10:31 PM CDT Katie Henry RN FIRST ASSISTANT-BUCK SWAMPER ECG ORDERABLES [facility] Care Teams Marketing Compliance Manager Relationship Specialty Start Date End Date Baldo Fischer MD [address] [address] PCP - General 07/04/22
--- OUTSIDE RECORDS SUMMARY | 2024-06-05 11:03 | XMS_ITS | Clinical Summary ---
Author Organization [facility] [employer] Address [address] [place] [address] Care Team Providers Care Color Room Attendant Name Role Phone Baldo Fischer MD Primary Care Provider Source Comments [facility],non-owned Affiliates and Associated Physician Practices is amultiple site organization consisting of ambulatory clinics and hospital sitesin [place], [place], [place] and [place]. This disclosure is being madepursuant to the Care Everywhere program and may not contain all information available regarding this patient. Last updated 18.[facility] [employer] Allergies No known active allergies Medications * [...] (one) tablet by mouth once daily Active hovuu-9-bxfl ethyl esters (Lovaza) 1 g capsule Take 1 (one) capsule by mouth once daily Active Turmeric (QC TUMERIC COMPLEX PO) Active vitamin D3 (Cholecalciferol) 25 MCG (1000 UNITS) tablet Take 2 (two) tablets by mouth once daily Active ascorbic acid (Vitamin C) 500 MG tablet Take 1 (one) tablet by mouth once daily Active NATURAL PSYLLIUM FIBER PO Active HYDROcodone-acetam inophen ([place]) 5-325 MG tabletIndications: Renal mass, left Take [...] Active vitamin D, ergocalciferol, (Drisdol) 1.25 MG (90184 UT) capsule Take 1 (one) capsule by [...] Info) Description 10/30/2024 9:30 AM CDT Appointment [facility] Health Imaging Services - CT Scan [address], [address] [place] [address] 10/30/2024 11:00 AM CDT Office Visit [facility] [address] [place] [address] Ruby Birch M, DO [address] [place] [address] Health Maintenance Due Date Last Done Comments [...] - 105 mg/dL 11/01/2023 9:52 AM CDT [facility] Sodium 139 136 - 145 mmol/L 11/01/2023 9:52 AM CDT [facility] Potassium 4.2 3.5 - 5.1 mmol/L 11/01/2023 9:52 AM CDT [facility] Chloride 108(H) 98 - 107 mmol/L 11/01/2023 9:52 AM CDT [facility] CO2 24 22 - 29 mmol/L 11/01/2023 9:52 AM CDT [facility] Calcium 10.3 8.4 - 10.4 mg/dL 11/01/2023 9:52 AM CDT [facility] Anion Gap 7 6 - 16 mmol/L 11/01/2023 9:52 AM CDT [facility] BUN 29(H) 7 - 26 mg/dL 11/01/2023 9:52 AM CDT [facility] Creatinine 1.17 0.72 - 1.25 mg/dL 11/01/2023 9:52 AM CDT [facility] eGFR by CKD-EPI 69(L) >=90 mL/min/1.7 3 m2 11/01/2023 9:52 AM CDT [facility] Blood BLOOD SPECIMEN / Unknown Lab Venipuncture / Unknown 11/01/2023 8:50 AM CDT 11/01/2023 8:50 AM CDT Ruby Birch DO LAB - CHEMISTRY OR DERABLES Performing Organization Address City/State/[facility] Co de Phone Number [facility] [address] [place] [address] from Last 3 Months or Most Recently Relevant to Health Maintenance Advance Directives * Full Code (Latest Code Status on File) Date Activated Date Inactivated Comments 10/10/2022 6:53 PM 10/11/2022 2:11 PM Care Teams Color Room Attendant Relationship Specialty Start Date End Date Baldo Fischer MD [address] [facility] [address] [place] [address] PCP - General 07/04/22
--- OUTSIDE RECORDS SUMMARY | 2024-06-05 11:03 | XMS_ITS | Clinical Summary ---
Author Organization [facility] Address [address] [place] [address] Phone Care Team Providers Care Mohs Surgeon Name Role Phone Baldo Fischer MD Primary Care Provider [phone] Allergies No known active allergies Medications Medication [...] Comments Blood Pressure 124/70 05/23/2021 9:24 AM BLACKTOP SPREADER Pulse 72 05/23/2021 9:24 AM BLACKTOP SPREADER Temperature 36.4 C (97.6 F) 05/23/2021 9:24 AM BLACKTOP SPREADER Respiratory Rate - - Oxygen Saturation - - Inhaled Oxygen Concentration - - Weight 104 kg (230 lb) 05/23/2021 9:24 AM BLACKTOP SPREADER Height 182.9 cm (6') 05/23/2021 9:24 AM BLACKTOP SPREADER Body Mass Index 31.19 05/23/2021 9:24 AM BLACKTOP SPREADER Plan of Treatment Health Maintenance Due Date Last Done Comments Pneumococcal PPSV23/PCV13 65 + Years / Low and Medium Risk (1 of 4 - PCV) 10/09/2023 COVID-19 Vaccine ( season) 12/16/202302/2021, 06/29/2020 Influenza Vaccine (#1) 2023 , 01/31/2020, 02/28/2019 Care Teams Mohs Surgeon Relationship Specialty Start Date End Date Baldo Fischer MD [address] [place] [address] [place] [address] PCP - General Family Medicine 2/10/22
--- OUTSIDE RECORDS SUMMARY | 2024-06-05 11:03 | XMS_ITS | Encounter Summary ---
Author Organization [facility] Health Address [address] [place] [address] Care Team Providers Care Assembler Handbags Name Role Phone Baldo Fischer MD Primary Care Provider Encounter Details Date Type Department Care Team (Late Contact Info) Description 07/13/2022 Telephone [facility] [address] [place] [place] [address] Ruby Birch M, DO [address] [place] [address] Social History Tobacco Use Types Packs/Day Years [...] Info) Description 10/30/2024 9:30 AM CDT Appointment [facility] Health Imaging Services - CT Scan [address], [address] [place] [address] 10/30/2024 11:00 AM CDT Office Visit [facility]rology [address] [place] [address] Rd [address] [place] [address] Ruby Birch M, DO [address] [place] [address] documented as of this encounter Visit Diagnoses Not on filedocumented in this encounter Care Teams Assembler Handbags Relationship Specialty Start Date End Date Baldo Fischer MD [address] [id number] PCP - General 07/04/22 documented as of this encounter
--- OUTSIDE RECORDS SUMMARY | 2024-06-05 11:03 | XMS_ITS | Referral Summary ---
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 Preliminary results by teleradiologist consumer educator. Electronically signed by: Jeremiah Ayala M.D. Narrative [...] and with contrast. Preliminary results by teleradiologist consumer educator. Electronically signed by: Jeremiah Ayala M.D. Joie [facility] CT PROCEDURES Final Resul t from Last 3 Months or Most Recently Relevant to Health Maintenance Insurance [facility] CHOICE PLUS Care Teams Underground Bolting Machine Operator Relationship Specialty Start Date End Date Lorenzo Fischer MD [address] [facility] [address] [place] [address] PCP - General Internal Medicine 07/29/22
--- OUTSIDE RECORDS SUMMARY | 2024-06-05 11:03 | XMS_ITS | Clinical Summary ---
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 Male 10:03 AM FLARER Gender Identity Not on file Sexual Orientation Not on file Last Filed Vital Signs Vital Sign Reading Time Taken Comments Blood Pressure 143/78 02/28/2023 9:20 AM FLARER Pulse 68 02/28/2023 9:17 AM FLARER Temperature 36.7 C (98.1 F) 02/28/2023 9:17 AM FLARER Respiratory Rate 18 02/28/2023 9:17 AM FLARER Oxygen Saturation 97% 02/28/2023 9:17 AM FLARER Inhaled Oxygen Concentration - - Weight 102.7 kg (226 lb 6.4 oz) 02/28/2023 9:17 AM FLARER Height 185.4 cm (6' 1 ) 08/22/2021 [...] T d or Tdap) 06/11/2031 06/11/2021 Insurance [facility] CHOICE [id number] Care Teams Gum Sprayer Relationship Specialty Start Date End Date Baldo Fischer MD PCP - General Internal Medicine 07/28/21
[2024-06-05 11:31] VITALS: BP 149/73; PULSE 68; RESP 16; TEMP 36.6; O2SAT 96
== END 2024-06-05 12:19 | disposition home or self-care (01) ==
PROVIDERS: Emergency Provider Physician Assistant; PCP Internal Medicine
DX: S20.211A Contusion of right front wall of thorax, initial encounter (principal); M79.641 Pain in right hand; W19.XXXA Unspecified fall, initial encounter; Z79.82 Long term (current) use of aspirin; E11.9 Type 2 diabetes mellitus without complications; Z79.4 Long term (current) use of insulin; I25.10 Atherosclerotic heart disease of native coronary artery without angina pectoris; I10 Essential (primary) hypertension; E78.5 Hyperlipidemia, unspecified; Z87.891 Personal history of nicotine dependence
CPT/HCPCS: 71046; 71100; 73130; 99284

== ENCOUNTER 2024-06-10 13:21 | Outpatient (CLI) | payer OTHER, MEDICARE, SELFPAY ==
--- NOTE | ~2024-06-10 | XR_ITS ---
EXAMINATION: XR hand RT min 3V DATE: 06/10/2024 14:10 INDICATION: Right hand pain. Fall. TECHNIQUE: 4 views of right hand were obtained. COMPARISON: None. FINDINGS: Alignment is normal. No fracture. There is mild osteoarthritis of first carpometacarpal harry nt, first and second metacarpophalangeal joints, and some of the interphalangeal joints. IMPRESSION: 1. Mild polyarticular osteoarthritis. Reviewed, dictated and finalized at location A. TELY [employer]HICLE CONTROLLER
--- NOTE | ~2024-06-10 | XR_ITS ---
EXAMINATION: XR_RIBSBICXR1_CR DATE: 06/10/2024 14:10 INDICATION: Right chest pain. Fall. TECHNIQUE: An anteroposterior view of the chest, 2 views on 3 radiographs of the right ribs and 2 vie ws on 3 radiographs of the left ribs were obtained. COMPARISON: Chest 2 views 06/05/24 FINDINGS: A calcified right lung nodule and calcified right hilar lymph nodes are consistent with old granulomatous disease. No pleural effusion or pneumothorax. The heart size is normal. No pleural eff usion or pneumothorax. The heart size is normal. IMPRESSION: 1. No rib fracture. Reviewed, dictated and finalized at location A. CHIPPER IMPRESSION: 1. No rib fracture.
--- NOTE | ~2024-06-10 | XR_ITS ---
EXAMINATION: XR wrist RT min 3V DATE: 06/10/2024 14:09 INDICATION: Right wrist pain. Fall. TECHNIQUE: 4 views of right wrist were obtained. COMPARISON: None. FINDINGS: Alignment is normal. No fracture. There is mild osteoarthritis of first carpometacarpal harry nt. IMPRESSION: 1. No fracture. Reviewed, dictated and finalized at location A. CTOR OF ARCHIVES IMPRESSION: 1. No fracture.
--- OUTSIDE RECORDS SUMMARY | 2024-06-10 15:25 | XMS_ITS | Clinical Summary ---
Author Organization [facility] [employer] Address [address] [place] [address] Care Team Providers Care Entry Level Truck Driver Name Role Phone Baldo Fischer MD Primary Care Provider Source Comments [facility],non-owned Affiliates and Associated Physician Practices is amultiple site organization consisting of ambulatory clinics and hospital sitesin [place], [place], [place] and [place]. This disclosure is being madepursuant to the Care Everywhere program and may not contain all information available regarding this patient. Last updated 18.[facility] [employer] Allergies No known active allergies Medications * [...] (one) tablet by mouth once daily Active kfbsj-9-utdr ethyl esters (Lovaza) 1 g capsule Take 1 (one) capsule by mouth once daily Active Turmeric (QC TUMERIC COMPLEX PO) Active vitamin D3 (Cholecalciferol) 25 MCG (1000 UNITS) tablet Take 2 (two) tablets by mouth once daily Active ascorbic acid (Vitamin C) 500 MG tablet Take 1 (one) tablet by mouth once daily Active NATURAL PSYLLIUM FIBER PO Active HYDROcodone-acetam inophen ([place]) 5-325 MG tabletIndications: Renal mass, left Take [...] Active vitamin D, ergocalciferol, (Drisdol) 1.25 MG (19340 UT) capsule Take 1 (one) capsule by [...] Info) Description 10/30/2024 9:30 AM CDT Appointment [facility] Health Imaging Services - CT Scan [address], [address] [place] [address] 10/30/2024 11:00 AM CDT Office Visit [facility] [address] [facility] [place] [address] Ruby Birch M, DO [address] [place] [address] Health Maintenance Due Date Last Done Comments [...] - 105 mg/dL 11/01/2023 9:52 AM CDT [facility] Sodium 139 136 - 145 mmol/L 11/01/2023 9:52 AM CDT [facility] Potassium 4.2 3.5 - 5.1 mmol/L 11/01/2023 9:52 AM CDT [facility] Chloride 108(H) 98 - 107 mmol/L 11/01/2023 9:52 AM CDT [facility] CO2 24 22 - 29 mmol/L 11/01/2023 9:52 AM CDT [facility] Calcium 10.3 8.4 - 10.4 mg/dL 11/01/2023 9:52 AM CDT [facility] Anion Gap 7 6 - 16 mmol/L 11/01/2023 9:52 AM CDT [facility] BUN 29(H) 7 - 26 mg/dL 11/01/2023 9:52 AM CDT [facility] Creatinine 1.17 0.72 - 1.25 mg/dL 11/01/2023 9:52 AM CDT [facility] eGFR by CKD-EPI 69(L) >=90 mL/min/1.7 3 m2 11/01/2023 9:52 AM CDT [facility] Blood BLOOD SPECIMEN / Unknown Lab Venipuncture / Unknown 11/01/2023 8:50 AM CDT 11/01/2023 8:50 AM CDT Ruby Birch DO LAB - CHEMISTRY OR DERABLES Performing Organization Address City/State/[facility] Co de Phone Number [facility] [address] [place] [address] from Last 3 Months or Most Recently Relevant to Health Maintenance Advance Directives * Full Code (Latest Code Status on File) Date Activated Date Inactivated Comments 10/10/2022 6:53 PM 10/11/2022 2:11 PM Care Teams Entry Level Truck Driver Relationship Specialty Start Date End Date Baldo Fischer MD [address] [facility] [address] [place] [address] PCP - General 07/04/22
--- OUTSIDE RECORDS SUMMARY | 2024-06-10 15:25 | XMS_ITS | Referral Summary ---
Author Organization 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 [employer] [id number] / / Procedures Procedure Name Priority Date/Time [...] and with contrast. Preliminary results by teleradiologist client solutions director. Electronically signed by: Jeremiah Ayala M.D. Narrative [...] and with contrast. Preliminary results by teleradiologist client solutions director. Electronically signed by: Jeremiah Ayala M.D. Joie [facility] CT PROCEDURES Final Resul t from Last 3 Months or Most Recently Relevant to Health Maintenance Insurance [facility]IC[facility] CHOICE PLUS Care Teams Sewer Inspector Relationship Specialty Start Date End Date Lorenzo Fischer MD [address] [facility] [address] [place] [address] PCP - General Internal Medicine 07/29/22
--- OUTSIDE RECORDS SUMMARY | 2024-06-10 15:25 | XMS_ITS | Referral Summary ---
Author Organization [facility] Address [address] [place] [address] Care Team Providers Care Developer Advocate Name Role Phone Baldo Fischer MD Primary Care Provider Source Comments [facility],non-owned Affiliates and Associated Physician Practices is amultiple site organization consisting of ambulatory clinics and hospital sitesin [place], [place], [place] and [place]. This disclosure is being madepursuant to the Care Everywhere program and may not contain all information available regarding this patient. Last updated 18.[facility] [employer] Allergies No known active allergies Medications * [...] (one) tablet by mouth once daily Active ogvqd-4-moqj ethyl esters (Lovaza) 1 g capsule Take 1 (one) capsule by mouth once daily Active Turmeric (QC TUMERIC COMPLEX PO) Active vitamin D3 (Cholecalciferol) 25 MCG (1000 UNITS) tablet Take 2 (two) tablets by mouth once daily Active ascorbic acid (Vitamin C) 500 MG tablet Take 1 (one) tablet by mouth once daily Active NATURAL PSYLLIUM FIBER PO Active HYDROcodone-acetam inophen ([place]) 5-325 MG tabletIndications: Renal mass, left Take [...] Active vitamin D, ergocalciferol, (Drisdol) 1.25 MG (65593 UT) capsule Take 1 (one) capsule by [...] Info) Description 10/30/2024 9:30 AM CDT Appointment [facility] Health Imaging Services - CT Scan [address], [address] [place] [address] 10/30/2024 11:00 AM CDT Office Visit [facility] [address] [facility] [address] [place] [address] Ruby Birch M, DO [address] [place] [address] Procedures Procedure Name Priority Date/Time Associated Diagnosis Comments BASIC METABOLIC PANEL (CALCIUM TOTAL) Routine 11/01/2023 8:50 AM CDT Renal mass, left from Last 3 Months or Most Recently Relevant to Health Maintenance Results * (ABNORMAL) BASIC METABOLIC PANEL (CALCIUM TOTAL) (11/01/2023 8:50 AM CDT) Glucose 203(H) 70 - 105 mg/dL 11/01/2023 9:52 AM CDT [facility] Sodium 139 136 - 145 mmol/L 11/01/2023 9:52 AM CDT [facility] Potassium 4.2 3.5 - 5.1 mmol/L 11/01/2023 9:52 AM CDT [facility] Chloride 108(H) 98 - 107 mmol/L 11/01/2023 9:52 AM CDT [facility] CO2 24 22 - 29 mmol/L 11/01/2023 9:52 AM CDT [facility] Calcium 10.3 8.4 - 10.4 mg/dL 11/01/2023 9:52 AM CDT [facility] Anion Gap 7 6 - 16 mmol/L 11/01/2023 9:52 AM CDT [facility] BUN 29(H) 7 - 26 mg/dL 11/01/2023 9:52 AM CDT [facility] Creatinine 1.17 0.72 - 1.25 mg/dL 11/01/2023 9:52 AM CDT [facility] eGFR by CKD-EPI 69(L) >=90 mL/min/1.7 3 m2 11/01/2023 9:52 AM CDT [facility] Blood BLOOD SPECIMEN / Unknown Lab Venipuncture / Unknown 11/01/2023 8:50 AM CDT 11/01/2023 8:50 AM CDT Ruby Birch DO LAB - CHEMISTRY OR DERABLES [facility] [address] [place] [address] from Last 3 Months or Most Recently Relevant to Health Maintenance Advance Directives * Full Code (Latest Code Status on File) Date Activated Date Inactivated Comments 10/10/2022 6:53 PM 10/11/2022 2:11 PM Care Teams Developer Advocate Relationship Specialty Start Date End Date Baldo Fischer MD [address] [facility] [address] [place] [address] PCP - General 07/04/22
--- OUTSIDE RECORDS SUMMARY | 2024-06-10 15:25 | XMS_ITS | Clinical Summary ---
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 Gender Identity Not on file Sexual Orientation Not on file Last Filed Vital Signs Vital Sign Reading Time Taken Comments Blood Pressure 143/78 02/28/2023 9:20 AM AUTO HAULAWAY DRIVER Pulse 68 02/28/2023 9:17 AM AUTO HAULAWAY DRIVER Temperature 36.7 C (98.1 F) 02/28/2023 9:17 AM AUTO HAULAWAY DRIVER Respiratory Rate 18 02/28/2023 9:17 AM AUTO HAULAWAY DRIVER Oxygen Saturation 97% 02/28/2023 9:17 AM AUTO HAULAWAY DRIVER Inhaled Oxygen Concentration - - Weight 102.7 kg (226 lb 6.4 oz) 02/28/2023 9:17 AM AUTO HAULAWAY DRIVER Height 185.4 cm (6' 1 ) 08/22/2021 [...] 2023 , 01/28/2021, 01/14/2021, Additional history exists Preventative Visit- Commercial 04/16/2024 DIABETES HBA1C Q 6 MONTHS 11/28/2024 05/31/2024, 08/2023 DTAP/TDAP/TD VACCINES (2 - T d or Tdap) 06/11/2031 06/11/2021 Insurance [facility] CHOICE [id number] Care Teams Credit And Collections Representative Relationship Specialty Start Date End Date Baldo Fischer MD PCP - General Internal Medicine 07/28/21
--- OUTSIDE RECORDS SUMMARY | 2024-06-10 15:25 | XMS_ITS | Patient Health Summary ---
Author Organization [facility] Address [address] [place] [address] Care Team Providers Care Director Equipment Name Role Phone Baldo Fischer MD Primary Care Provider Note from [facility],non-owned Affiliates and Associated Physician Practices is amultiple site organization consisting of ambulatory clinics and hospital sitesin [place], [place], [place] and [place]. This disclosure is being madepursuant to the Care Everywhere program and may not contain all information available regarding this patient. Last updated 18.[facility] Allergies No known active allergies Medications * [...] (one) tablet by mouth once daily * ioqgj-[id number] ethyl esters (Lovaza) 1 g capsule Take 1 (one) capsule by mouth once daily * Turmeric (QC TUMERIC COMPLEX PO) * vitamin D3 (Cholecalciferol) 25 MCG (1000 UNITS) tablet Take 2 (two) tablets by mouth once daily * ascorbic acid (Vitamin C) 500 MG tablet Take 1 (one) tablet by mouth once daily * NATURAL PSYLLIUM FIBER PO * HYDROcodone-acetaminophen ([place]arshall) 5-325 MG tablet(Started 10/23/2022) Take 1 (one) tablet by mouth every 6 hours as needed for Pain * nitrofurantoin monohyd macro crystals (Macrobid) 100 MG capsule(Started 02/19/2023) * metFORMIN ER 24hr (Glucophage XR) 500 MG tablet(Started 09/07/2023) Take 1 (one) tablet by mouth 2 times daily * vitamin D, ergocalciferol, (Drisdol) 1.25 MG (40563 UT) capsule Take 1 (one) capsule by [...] - 105 mg/dL 11/01/2023 9:52 AM CDT [facility] Sodium 139 136 - 145 mmol/L 11/01/2023 9:52 AM CDT [facility] Potassium 4.2 3.5 - 5.1 mmol/L 11/01/2023 9:52 AM CDT [facility] Chloride 108(H) 98 - 107 mmol/L 11/01/2023 9:52 AM CDT [facility] CO2 24 22 - 29 mmol/L 11/01/2023 9:52 AM CDT [facility] Calcium 10.3 8.4 - 10.4 mg/dL 11/01/2023 9:52 AM CDT [facility] Anion Gap 7 6 - 16 mmol/L 11/01/2023 9:52 AM CDT [facility] BUN 29(H) 7 - 26 mg/dL 11/01/2023 9:52 AM CDT [facility] Creatinine 1.17 0.72 - 1.25 mg/dL 11/01/2023 9:52 AM CDT [facility] eGFR by CKD-EPI 69(L) >=90 mL/min/1.7 3 m2 11/01/2023 9:52 AM T [facility] Blood BLOOD SPECIMEN / Unknown Lab Venipuncture / Unknown 11/01/2023 8:50 AM CDT 11/01/2023 8:50 AM CDT Ruby Birch DO LAB - CHEMISTRY OR DERABLES [facility] [address] [place] [address] * XR CHEST 2VW (11/01/2023 8:34 AM [...] - 1.20 mg/dL 11/01/2023 7:57 AM CDT [facility] eGFR >90 >=90 mL/min/1.7 3 m2 11/01/2023 7:57 AM CDT [facility] Blood BLOOD SPECIMEN / Unknown 11/01/2023 7:46 AM CDT 11/01/2023 7:57 AM CDT [facility] - POINT OF CAR E ORDERABLES [facility] [address] [place] [address] * CULTURE BLOOD (02/28/2023 5:11 PM SERVICE ATTENDANT) Only the most recent of2 resultswithin the time period is included. Culture No growth day 5 DIANE 03/05/2023 9:39 PM SERVICE ATTENDANT [facility] Blood PERIPHERAL BLOOD / Unknown Venipuncture / Unknown 02/28/2023 5:11 PM SERVICE ATTENDANT 02/28/2023 5:26 PM SERVICE ATTENDANT Christine Pelayo ROUTE SALES PERSON-COMPUTER PROGRAMMING SUPERVISOR LAB - MICROBIOLOG Y ORDERABLES [facility] [address] [place] [address], [facility] [phone] * CT ABDOMEN PELVIS WO CONTRAST (02/28/2023 4:18 PM SERVICE ATTENDANT) Anatomical Region Laterality Modality Abdomen, Pelvis Computed Tomogra phy 02/28/2023 4:50 PM SERVICE ATTENDANT Impressions 02/28/2023 4:59 PM SERVICE ATTENDANT Impression: 1.Cholelithiasis without evidence of acute cholecystitis. 2.Multiple exophytic lesions in the kidneys bilaterally measuring greater than simple fluid density. Further evaluation with dedicated renal CT or MRI is recommended. 3.Constipation. 4.Prostatomegaly. > Interpreting Provider: Chris Torres MD on 02/28/2023 4:59 PM Narrative 02/28/2023 4:59 PM SERVICE ATTENDANT PROCEDURE: CT ABDOMEN PELVIS WO CONTRAST, DATE/TIME OF EXAM: 02/28/2023 4:19 PM, LOCATION [facility] INDICATION: R31.9: Hematuria, unspecified COMPARISON: None. [...] CONTRAST, DATE/TIME OF EXAM:02/28/2023 4:19 PM, LOCATION [facility] INDICATION: R31.9: Hematuria, unspecified COMPARISON: None. [...] MD on 02/28/2023 4:59 PM [facility] ORDERABLES * LACTIC ACID BLOOD REFLEX TO REPEAT (02/28/2023 4:16 PM SERVICE ATTENDANT) Lactic Acid 0.8 <=2 mmol/L 02/28/2023 4:39 PM SERVICE ATTENDANT [facility] Blood BLOOD SPECIMEN / Unknown Venipuncture / Unknown 02/28/2023 4:16 PM SERVICE ATTENDANT 02/28/2023 4:16 PM SERVICE ATTENDANT Christine Pelayo ROUTE SALES [facility] LAB - CHEMISTRY O RDERABLES [facility] [address] [place] [address] * (ABNORMAL) URINE MICROSCOPIC ONLY REFLEX TO CULTURE (02/28/2023 4:10 PM SERVICE ATTENDANT) Reflex Status Culture to follow 02/28/2023 4:30 PM SERVICE ATTENDANT [facility] RBC UA 11-20(A) 0 - 5 # /hpf 02/28/2023 4:30 PM SERVICE ATTENDANT [facility] WBC UA 51-100(A) 0 - 5 # /hpf 02/28/2023 4:30 PM SERVICE ATTENDANT [facility] Bacteria UA None Seen None Seen 02/28/2023 4:30 PM SERVICE ATTENDANT [facility] Squamous Epithelial Cells 0-2 0 - 5 /hpf 02/28/2023 4:30 PM SERVICE ATTENDANT [facility] Budding Yeast Many(A) None seen /hpf 02/28/2023 4:30 PM SERVICE ATTENDANT [facility] Urine URINE SPECIMEN OBTAINED BY CLEAN CATCH PROCEDURE / Unknown Collection / Unknown 02/28/2023 4:10 PM SERVICE ATTENDANT 02/28/2023 4:16 PM SERVICE ATTENDANT Narrative [facility] - 02/28/2023 4:30 PM SERVICE ATTENDANT Christine Pelayo APRN-COMPUTER PROGRAMMING SUPERVISOR LAB - URINALYSIS ORDERABLES [facility] [address] [place] [address] * (ABNORMAL) URINALYSIS REFLEX MICROSCOPIC REFLEX CULTURE (02/28/2023 4:10 PM SERVICE ATTENDANT) Color UA Yellow Straw, Yellow 02/28/2023 4:27 PM SERVICE ATTENDANT [facility] Clarity UA Slt Cloudy(A) Clear 02/28/2023 4:27 PM SERVICE ATTENDANT [facility] Glucose UA 3+(A) Negative 02/28/2023 4:27 PM SERVICE ATTENDANT [facility] Bilirubin UA Negative Negative 02/28/2023 4:27 PM SERVICE ATTENDANT [facility] Ketone UA Negative Negative 02/28/2023 4:27 PM SERVICE ATTENDANT [facility] Specific [place] UA 1.018 1.005 - 1.030 02/28/2023 4:27 PM SERVICE ATTENDANT [facility] Blood UA 1+(A) Negative 02/28/2023 4:27 PM SERVICE ATTENDANT [facility] pH UA 6.0 5.0 - 8.0 pH 02/28/2023 4:27 PM SERVICE ATTENDANT [facility] Protein UA Negative Negative 02/28/2023 4:27 PM SERVICE ATTENDANT [facility] Urobilinogen UA Negative Negative mg/dL 02/28/2023 4:27 PM SERVICE ATTENDANT [facility] Nitrite UA Negative Negative 02/28/2023 4:27 PM SERVICE ATTENDANT [facility] Leukocyte UA 2+(A) Negative 02/28/2023 4:27 PM SERVICE ATTENDANT [facility] Urine Microscopy Urine microscopy to follow 02/28/2023 4:27 PM SERVICE ATTENDANT [facility] Reflex Status Culture to follow 02/28/2023 4:27 PM SERVICE ATTENDANT [facility] Urine URINE SPECIMEN OBTAINED BY CLEAN CATCH PROCEDURE / Unknown Collection / Unknown 02/28/2023 4:10 PM SERVICE ATTENDANT 02/28/2023 4:16 PM SERVICE ATTENDANT Narrative [facility] - 02/28/2023 4:27 PM SERVICE ATTENDANT Christine [facility]ay[facility] LAB - URINALYSIS ORDERABLES Performing Organization Address City/[facility]/ZIP Co de Phone Number [facility] [address] [place] [address] * CULTURE URINE (02/28/2023 4:10 PM SERVICE ATTENDANT) Only the most recent of3 resultswithin the time period is included. Culture Urine <10,000 CFU/mL urogenital juan a DIANE 03/02/2023 12:29 AM SERVICE ATTENDANT [facility] Urine URINE SPECIMEN OBTAINED BY CLEAN CATCH PROCEDURE / Unknown Collection / Unknown 02/28/2023 4:10 PM SERVICE ATTENDANT 02/28/2023 4:16 PM SERVICE ATTENDANT Christine Pelayo [facility] LAB - MICROBIOLOG Y ORDERABLES Performing Organization Address City/[facility]/ZIP Co de Phone Number [facility] [address] [place] [address], [facility] [phone] * (ABNORMAL) CBC W AUTO DIFFERENTIAL (02/28/2023 4:06 PM SERVICE ATTENDANT) Only the most recent of4 resultswithin the time period is included. WBC 14.4(H) 4.4 - 10.7 x10E9/L 02/28/2023 4:23 PM SERVICE ATTENDANT [facility] WBC Corrected 02/28/2023 4:23 PM SERVICE ATTENDANT [facility] RBC 4.59 3.80 - 5.40 x10E12/L 02/28/2023 4:23 PM SERVICE ATTENDANT [facility] Hemoglobin 14.0 12.0 - 17.6 gm/dL 02/28/2023 4:23 PM SERVICE ATTENDANT [facility] Hematocrit 41.2 35.2 - 51.7 % 02/28/2023 4:23 PM SERVICE ATTENDANT [facility] MCV 89.8 80.7 - 98.3 fl 02/28/2023 4:23 PM SERVICE ATTENDANT [facility] MCH 30.5 26.7 - 34.0 pg 02/28/2023 4:23 PM SERVICE ATTENDANT [facility] MCHC 34.0 30.8 - 35.9 gm/dL 02/28/2023 4:23 PM SERVICE ATTENDANT [facility] Platelet Count 284 153 - 416 x10E9/L 02/28/2023 4:23 PM SERVICE ATTENDANT [facility] RDW-CV 12.5 12.1 - 14.9 % 02/28/2023 4:23 PM SERVICE ATTENDANT [facility] MPV 10.3 9.4 - 12.9 fl 02/28/2023 4:23 PM [facility] Neutrophils % 70.5 44.0 - 73.0 % 02/28/2023 4:23 PM SERVICE ATTENDANT [facility] Lymphocytes % 19.1(L) 20.0 - 43.0 % 02/28/2023 4:23 PM [facility] Monocytes % 5.9 5.0 - 13.0 % 02/28/2023 4:23 PM SERVICE ATTENDANT [facility] Eosinophils % 3.1 0.0 - 6.0 % 02/28/2023 4:23 PM [facility] Basophils % 0.8 0.0 - 2.0 % 02/28/2023 4:23 PM SERVICE ATTENDANT [facility] Immature Granulocytes 0.6 0 - 1 % 02/28/2023 4:23 PM SERVICE ATTENDANT [facility] Neutrophil Absolute 10.16(H) 2.01 - 7.14 x10E9/L 02/28/2023 4:23 PM SERVICE ATTENDANT [facility] Lymphocytes Absolute 2.75 1.07 - 3.94 x10E9/L 02/28/2023 4:23 PM SERVICE ATTENDANT [facility] Monocytes Absolute 0.85 0.26 - 1.07 x10E9/L 02/28/2023 4:23 PM [facility] Eosinophils Absolute 0.44 0 - 0.47 x10E9/L 02/28/2023 4:23 PM [facility] Basophils Absolute 0.11(H) 0 - 0.08 x10E9/L 02/28/2023 4:23 PM [facility] Immature Granulocytes Absolute 0.08(H) 0.00 - 0.06 x10E9/L 02/28/2023 4:23 PM [facility] nRBC Auto 0 /100 WBC 02/28/2023 4:23 PM [facility] Blood BLOOD SPECIMEN / Unknown Venipuncture / Unknown 02/28/2023 4:06 PM SERVICE ATTENDANT 02/28/2023 4:16 PM [facility] Christine Pelayo ROUTE SALES PERSON-COMPUTER PROGRAMMING SUPERVISOR LAB - HEMATOLOGY ORDERABLES [facility] [address] [place] [address] * (ABNORMAL) COMPREHENSIVE METABOLIC PANEL (02/28/2023 4:06 PM SERVICE ATTENDANT) Glucose 278(H) 70 - 105 mg/dL 02/28/2023 4:42 PM [facility] Sodium 140 136 - 145 mmol/L 02/28/2023 4:42 PM [facility] Potassium 4.2 3.5 - 5.1 mmol/L 02/28/2023 4:42 PM [facility] Chloride 106 98 - 107 mmol/L 02/28/2023 4:42 PM [facility] CO2 23 22 - 29 mmol/L 02/28/2023 4:42 PM [facility] Calcium 10.3 8.4 - 10.4 mg/dL 02/28/2023 4:42 PM [facility] Anion Gap 11 6 - 16 mmol/L 02/28/2023 4:42 PM [facility] BUN 36(H) 7 - 26 mg/dL 02/28/2023 4:42 PM [facility] Creatinine 1.38(H) 0.72 - 1.25 mg/dL 02/28/2023 4:42 PM [facility] Alkaline Phosphatase 73 40 - 150 U/L 02/28/2023 4:42 PM [facility] ALT 19 0 - 55 U/L 02/28/2023 4:42 PM [facility] AST 16 5 - 34 U/L 02/28/2023 4:42 PM SERVICE ATTENDANT [facility] Protein Total 7.2 6.4 - 8.3 gm/dL 02/28/2023 4:42 PM SERVICE ATTENDANT [facility] Albumin 4.0 3.4 - 5.0 gm/dL 02/28/2023 4:42 PM SERVICE ATTENDANT [facility] Bilirubin Total 0.5 0.2 - 1.2 mg/dL 02/28/2023 4:42 PM SERVICE ATTENDANT [facility] eGFR by CKD-EPI 57(L) >=90 mL/min/1.7 3 m2 02/28/2023 4:42 PM SERVICE ATTENDANT [facility] Blood BLOOD SPECIMEN / Unknown Venipuncture / Unknown 02/28/2023 4:06 PM SERVICE ATTENDANT 02/28/2023 4:16 PM SERVICE ATTENDANT Christine Pelayo APRN-COMPUTER PROGRAMMING SUPERVISOR LAB - CHEMISTRY O RDERABLES [facility] [address] [place] [address] * URINALYSIS AUTO - POINT OF CARE (AMB) [facility] (11/24/2022 10:38 AM CDT) Only the most recent of3 resultswithin the time period is included. Glucose UA 60mmol/L [facility] [address] Bilirubin UA POCT neg [facility] [address] Ketones UA POCT neg [facility] [address] Specific [place] UA 1.[address] [facility] [address] Blood [...] [facility] [address] [place] [address], [facility] [phone] * CARDIAC EKG ORDER (10/13/2022 4:14 PM [...] - 115 mg/dL 10/11/2022 11:17 AM CDT [facility]PITAL Specimen Type Cap Fingerstick 2022 11:17 AM CDT [facility] Blood BLOOD SPECIMEN / Unknown 10/11/2022 11:13 AM CDT 10/11/2022 11:17 AM CDT Ruby Birch DO LAB - POINT OF CAR E ORDERABLES [address] [address], [facility] [phone] * PATHOLOGY TISSUE (10/10/2022 3:30 PM CDT) Case Report Surgical Pathology Report Case: [id number] Authorizing Provider: Ruby Birch DO Collected: 10/10/2022 03:30 PM Ordering Location: [facility] OP Received: 10/11/2022 07:17 AM [...] substantiates the final diagnosis. 10/12/2022 2:57 PM [facility] Clinical History The patient is a 62 year old male with imaging showing a 16mm partially endophytic left renal mass at that superior to mid pole location where the mass was seen on U/S. 10/12/2022 2:57 PM [facility] Gross Description The requisition and specimen(s) are identified with the patient's name Jared Barrios. Received in formalin, specimen A , is a 2.1 x 2.0 cm renal wedge excised up to 1.3 cm with a bulging capsule. The parenchymal margin is inked blue, the capsule is inked orange, and the specimen is sectioned to reveal a fauklner parenchyma and well-circumscribed 1.5 x 1.4 x 1.4 cm orange-red lesion approaching multiple margins. The specimen is entirely submitted in 4 cassettes. /ml 10/12/2022 2:57 PM [facility] Pathologist Location at [facility] 10/12/2022 2:57 PM [facility] Disclaimer The performance characteristics of all immunohistochemical and indirect immunofluorescence stains (if any) cited in this report were determined by the Histopathology Laboratory of [facility]. Some of these tests were developed by [...] the attending (teaching) pathologist. 10/12/2022 2:57 PM [facility] Synoptic Report KIDNEY: Nephrectomy KIDNEY: [...] - PATHOLOGY/SAM FELIZ ORDERABLES Performing Organization Address City/State/[facility] Co de Phone Number [facility] [address] [phone] * ARTERIAL LINE PERFORMABLE (10/10/2022 12:49 PM CDT) Narrative Lizzeth Weber Anes Asst - 10/10/2022 12:49 PM CDT Lizzeth Weber Anes Asst 10/10/2022 12:51 PM Arterial Line Placement Procedure Note Patient Location: OR. Procedure: Arterial Line ([id number]). Procedure Section Indications: continuous blood pressure monitoring [...] Event Date/Time: 10/10/2022 11:36 AM Procedure: intubation ([id number]). Procedure Section: Induction: standard IV Patient Position: [...] - 7.45 pH 10/10/2022 12:43 PM T [facility] pO2 Arterial 146(H) 80 - 100 mmHg 10/10/2022 12:43 PM CDT [facility] pCO2 Arterial 41 35 - 45 mmHg 12:43 PM [facility] HCO3 Arterial 23.2 20.0 - 30.0 mmol/L 10/10/2022 12:43 PM [facility] BE Arterial -2.2(L) -2.0 - 2.0 mmol/L 10/10/2022 12:43 PM [facility] Oxyhemoglobin Arterial 97.0 % 10/10/2022 12:43 PM [facility] Dexoyhemoglobin (HHB) % 2.1 % 10/10/2022 12:43 PM [facility] Methemoglobin <0.8 0.0 - 2.0 % 10/10/2022 12:43 PM [facility] Carboxyhemoglobin 0.6 0.0 - 2.0 % 2022 12:43 PM [facility] Comment:Carboxyhemoglobin No rmal Concentration: Non-smokers: 0-2%; Smokers: 0- 9%; Toxic: >20% O2 Content Arterial 17.2 Interpret within clinical context ml/dL 10/10/2022 12:43 PM [facility] Hemoglobin by COOX 12.4 12.0 - 17.6 g/dL 10/10/2022 12:43 PM [facility] O2 Saturation Arterial 98 90 - 100 % 10/10/2022 12:43 PM [facility] Sodium Whole Blood 137 135 - 145 mmol/L 10/10/2022 12:43 PM [facility] Potassium Whole Blood 3.5 3.5 - 5.5 mmol/L 10/10/2022 12:43 PM [facility] Chloride WB 107 78 - 107 mmol/L 10/10/2022 12:43 PM [facility] Calcium Ionized 1.21 mmol/L 12:43 PM [facility] Ionized Calcium pH Adjusted 1.19 1.19 - 1.34 mmol/L 10/10/2022 12:43 PM [facility] Anion Gap (AG) Arterial 10 8 - 18 mmol/L 10/10/2022 12:43 PM [facility] Glucose WB 120(H) 70 - 115 mg/dL 10/10/2022 12:43 PM [facility] Lactic Acid Whole Blood 0.7 <=2.0 mmol/L 10/10/2022 12:43 PM [facility] Blood, arterial ARTERIAL BLOOD SPECIMEN / Unknown 10/10/2022 12:43 PM CDT 10/10/2022 12:44 PM T Ruby M Queta DO LAB - POINT OF CAR E ORDERABLES Performing Organization Address [facility]/ZIP Co de Phone Number [facility] [address] [place] [address], [place] [phone] * BLOOD GAS ART+LYTES+METAB+COOX POC NOTIF (10/10/2022 12:41 PM CDT) Pathologist [facility] Comment Notification Label Only - See Separate Report 10/10/2022 2:00 PM CDT [facility] Other MISCELLANEOUS SAMPLES / Unknown 10/10/2022 12:41 PM CDT 10/10/2022 12:42 PM CDT Bart Glass II, MD LAB - BLOOD GASES O RDERABLES Performing Organization Address [facility] Co de Phone Number [facility] [address] [place] [phone], [facility] [phone] * TYPE + SCREEN PANEL (10/10/2022 10:10 AM CDT) Only the most recent of2 resultswithin the time period is included. [facility] Antibody Screen NEG 11:07 AM CDT [facility] ABO Rh O POS 10/10/2022 11:07 AM CDT [facility] Blood Bank BLOOD SPECIMEN / Unknown Venipuncture / Unknown 10/10/2022 10:10 AM CDT 10/10/2022 10:12 AM CDT Katie Henry ROUTE SALES PERSON-COMPUTER PROGRAMMING SUPERVISOR LAB - BLOOD BANK ORDERABLES Performing Organization Address [facility] Co de Phone Number [facility] [address] [place] [address], [place] [phone] * EKG 12-LEAD (09/25/2022 1:51 PM CDT) Pathologist [facility] Ventricular Rate 66 BPM [facility] Atrial Rate 66 BPM [facility] P-R Interval 168 ms [facility] QRS Duration ms 166 ms [facility] Q-T Interval ms 446 ms [facility] QTC Calculation (Bezet) 467 ms [facility]USE Calculated P [place] 8 degrees [facility] Calculated R [place] -55 degrees [facility] Calculated T [place] 36 degrees [facility] Interpretation EKG NORMAL SINUS RHYTHM RIGHT BUNDLE BRANCH BLOCK LEFT ANTERIOR FASCICULAR BLOCK BIFASCICULAR BLOCK MINIMAL VOLTAGE CRITERIA FOR LVH, MAY BE NORMAL VARIANT ( R in aVL ) ABNORMAL ECG NO PREVIOUS ECGS AVAILABLE Confirmed by JYOTSNA DAY, ROBERTO ([id number]) on 09/25/2022 10:31:33 PM [facility] 09/25/2022 1:51 PM CDT 09/25/2022 10:31 PM CDT Katie Henry ROUTE SALES PERSON-COMPUTER PROGRAMMING SUPERVISOR ECG ORDERABLES [facility] Care Teams Director Equipment Relationship Specialty Start Date End Date Baldo Fischer MD [address] [phone] PCP - General 07/04/22
--- OUTSIDE RECORDS SUMMARY | 2024-06-10 15:25 | XMS_ITS | Clinical Summary ---
Author Organization [facility] Address [address] [place] [phone] Phone Care Team Providers Care Draughtsman Name Role Phone Baldo Fischer MD Primary Care Provider [phone] Allergies No known active allergies Medications Medication [...] Comments Blood Pressure 124/70 05/23/2021 9:24 AM SUBASSEMBLY SUPERVISOR Pulse 72 05/23/2021 9:24 AM SUBASSEMBLY SUPERVISOR Temperature 36.4 C (97.6 F) 05/23/2021 9:24 AM SUBASSEMBLY SUPERVISOR Respiratory Rate - - Oxygen Saturation - - Inhaled Oxygen Concentration - - Weight 104 kg (230 lb) 05/23/2021 9:24 AM SUBASSEMBLY SUPERVISOR Height 182.9 cm (6') 05/23/2021 9:24 AM SUBASSEMBLY SUPERVISOR Body Mass Index 31.19 05/23/2021 9:24 AM SUBASSEMBLY SUPERVISOR Plan of Treatment Health Maintenance Due Date Last Done Comments Pneumococcal PPSV23/PCV13 65 + Years / Low and Medium Risk (1 of 4 - PCV) 10/09/2023 COVID-19 Vaccine ( season) 12/16/202302/2021, 06/29/2020 Influenza Vaccine (#1) 2023 , 01/31/2020, 02/28/2019 Care Teams Draughtsman Relationship Specialty Start Date End Date Baldo Fischer MD [address] [place] [address] [place] [address] PCP - General Family Medicine 2/10/22
--- OUTSIDE RECORDS SUMMARY | 2024-06-10 15:25 | XMS_ITS | Clinical Summary ---
Author Organization 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 Gender Identity Not on file Sexual Orientation [...] Pneumococcal vaccine 65+ (2 of 2 - PPSV23) 05/16/2020 05/16/2019 Well Visit 65+ 10/09/2023 Covid-19 Vaccine (4 - 2023-2 5 season) 2023 09/10/2021, 07/25/2020, 06/29/2020 Influenza Vaccine (#1) 2023 , 01/20/2022, 01/28/2021, Additional history exists Fall Risk Assessment 02/14/2025 02/15/2024 DTaP/Tdap/Td Vaccine (2 - Td or Tdap) 06/11/2031 06/11/2021, 12/30/2001 Abdominal Aortic Aneurysm (A AA) Screen Completed 11/01/2023, 02/28/2023, 07/29/2022 Medical Devices Implanted Type Area Pre Planning Advisor Device Identifier Shelf Expiration Date Model / Serial / Lot [employer] Angio-Seal Vip 6fr Closere Device [id number] - [id number] Implanted:Qty: 1 on 02/15/2024 by Kermit Gonzalez MD at [facility] [employer] [id number] / / Procedures Procedure Name Priority Date/Time [...] and with contrast. Preliminary results by teleradiologist teacher vocational training. Electronically signed by: Jeremiah Ayala M.D. Narrative [...] and with contrast. Preliminary results by teleradiologist teacher vocational training. Electronically signed by: Jeremiah Ayala M.D. Joie HAN IMG CT PROCEDURES Final Resul t from Last 3 Months or Most Recently Relevant to Health Maintenance Insurance MEDICARE UMR [facility] Address: [address] [address] [place] [address] [facility] H[facility]/PPO Address: [facility] [address] [place] [address] Care Teams Loading Machine Operator Helper Relationship Specialty Start Date End Date Lorenzo Fischer MD [address] [facility] [address] [place] [address] PCP - General Internal Medicine 07/29/22
--- OUTSIDE RECORDS SUMMARY | 2024-06-10 15:25 | XMS_ITS | Clinical Summary ---
Author Organization [facility] Facility Address [address] [place] [address] Care Team Providers Care Racing Driver Name Role Phone Baldo Fischer MD Primary Care Provider [phone] Medications amLODIPine (NORVASC) 5 MG tablet Take 1 tablet (5 mg total) by mouth every night 90 tablet 1 2 Active Semaglutide, 2 MG/DOSE, (Ozempic, 2 MG/DOSE,) 8 MG/3ML solution pen-injector Inject 2 mg under the skin per week 12 mL 1 4 Active ergocalciferol 1.25 MG (66586 UT) capsule TAKE 1 CAPSULE BY MOUTH [...] Department Care Team Description 06/03/2024 3:15 PM AUDITING SPECIALIST Office Visit [place] [facility], [facility] [address] [facility] [address] [place] [address] Kan Ball DO Chronic kidney disease, stage 2 (mild) (Primary Dx); Persistent proteinuria; Coronary artery disease due to calcified coronary lesion; Hypertensive chronic kidney disease; Type 2 diabetes mellitus with diabetic chronic kidney disease (HCC); Pure hypercholesterolemi a, not otherwise specified; 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) 06/03/2024 Refill [facility], [facility] [address] [facility] [address] [place] [address] Soraya Dangelo CMA 05/31/2024 Orders Only [facility] [address] [place] [address] Kan Ball DO 05/20/2024 Documentation Only [facility] 2 [facility] [address] [place] [address] Kan Ball DO from Last [...] Comments Blood Pressure 130/70 06/03/2024 3:14 PM AUDITING SPECIALIST Pulse 68 06/03/2024 3:14 PM AUDITING SPECIALIST Temperature 36.1 C (97 F) 06/03/2024 3:14 PM AUDITING SPECIALIST Respiratory Rate 18 06/03/2024 3:14 PM AUDITING SPECIALIST Oxygen Saturation 99% 06/03/2024 3:14 PM AUDITING SPECIALIST Inhaled Oxygen Concentration - - Weight 112 kg (247 lb) 06/03/2024 3:14 PM AUDITING SPECIALIST Height 185.4 cm (6' 1 ) 05/30/2022 4:01 PM AUDITING SPECIALIST Body Mass Index 32.59 05/30/2022 4:01 PM AUDITING SPECIALIST Plan of Treatment Upcoming Encounters Date Type Department Care Team (Late st Contact Info) Description 11/04/2024 3:15 PM CDT Office Visit [facility] [address] [facility] [address] [place] [address] Kan Ball DO [address] [place] [address] Health Maintenance Due Date Last Done [...] Comments HEMOGLOBIN A1C Routine 05/31/2024 6:22 AM AUDITING SPECIALIST PROTEIN / CREATININE RATIO, URINE Routine 05/31/2024 6:22 AM AUDITING SPECIALIST VITAMIN D 25 HYDROXY Routine 05/31/2024 6:22 AM AUDITING SPECIALIST CBC AND DIFFERENTIAL Routine 05/31/2024 6:22 AM AUDITING SPECIALIST URINALYSIS WITH MICROSCOPIC Routine 05/31/2024 6:22 AM AUDITING SPECIALIST URINE ALBUMIN / CREATININE RATIO Routine 05/31/2024 6:22 AM AUDITING SPECIALIST RENAL FUNCTION PANEL Routine 05/31/2024 6:22 AM AUDITING SPECIALIST MAGNESIUM Routine 05/31/2024 6:22 AM AUDITING SPECIALIST from Last 3 Months Results * (ABNORMAL) Protein, Total, Random Urine w/Creatinine (Protein/Creat Ratio) (05/31/2024 6:22 AM AUDITING SPECIALIST) Creatinine, Ur 58 20 - 320 mg/dL See order comments Urine Protein/Creati nine Ratio 190(H) 25 - 148 mg/g creat See order comments Protein/Creati nine Ratio, Urine 0.190(H) 0.025 - 0.148 mg/mg creat See order comments Protein Urine Random 11 5 - 25 mg/dL See order comments 05/31/2024 6:22 AM AUDITING SPECIALIST 05/31/2024 6:23 AM AUDITING SPECIALIST Narrative [facility] - 06/03/2024 1:19 AM AUDITING SPECIALIST FASTING:YES FASTING: YES Resulting Agency Comment Performing Organization Information: Site ID: [id number] Name: [facility] Address: [address] [place] [address] Director: Mark Buchanan MD Kan Ball DO LAB URINE ORDERABLES Final R esult [facility] See order comments [place] [address] * (ABNORMAL) Urine Albumin / Creatinine Ratio (05/31/2024 6:22 AM AUDITING SPECIALIST) Creatinine, Ur 58 20 - 320 mg/dL [...] within a diagnostic category. 05/31/2024 6:22 AM AUDITING SPECIALIST 05/31/2024 6:23 AM AUDITING SPECIALIST Narrative [facility] - 06/03/2024 1:19 AM AUDITING SPECIALIST FASTING:YES FASTING: YES Resulting Agency Comment Performing Organization Information: Site ID: [id number] Name: [facility] Address: [address] [place] [address] Director: Mark Buchanan MD Kan Ball DO LAB URINE ORDERABLES Final R esult [facility] See order comments [place] [address] * Vitamin D 25 Hydroxy (05/31/2024 6:22 AM AUDITING SPECIALIST) Vitamin D, 25-OH, Total, IA 51 30 [...] D, (D2,D3), LC/MS/MS is recommended: order code 00404 (patients >2yrs). See Note 1 Note 1 For additional information, please refer to http://education.Iencuentra/faq/TKI639 (This link is being provided for informational/ educational purposes only.) 05/31/2024 6:22 AM AUDITING SPECIALIST 05/31/2024 6:23 AM AUDITING SPECIALIST Narrative [facility] - 06/03/2024 1:19 AM AUDITING SPECIALIST FASTING:YES FASTING: YES Resulting Agency Comment Performing Organization Information: Site ID: [id number] Name: [facility] Address: [address] [place] [address] [place] [address] Director: Mark Buchanan MD Kan Ball DO LAB BLOOD ORDERABLES Final R esult [facility] See order comments [place] [address] * (ABNORMAL) Urinalysis with microscopic (05/31/2024 6:22 AM AUDITING SPECIALIST) Color, Urine YELLOW YELLOW See ord er comments Appearance Urine CLEAR CLEAR See order comments Specific [place], UA 1.020 1.001 - 1.035 See order [...] by t he ancillary. 05/31/2024 6:22 AM AUDITING SPECIALIST 05/31/2024 6:23 AM AUDITING SPECIALIST Narrative [facility] - 06/03/2024 1:19 AM AUDITING SPECIALIST FASTING:YES FASTING: YES Resulting Agency Comment Performing Organization Information: Site ID: [id number] Name: [facility] Address: [address] [place] [address] Director: Mark Buchanan MD us Kan Ball DO LAB URINE ORDERABLES Final R esult [facility] See order comments [place] [address] * CBC and Differential (05/31/2024 6:22 AM AUDITING SPECIALIST) WBC 6.2 3.8 - 10.8 Thousand/ uL [...] by t he ancillary. 05/31/2024 6:22 AM AUDITING SPECIALIST 05/31/2024 6:23 AM AUDITING SPECIALIST Narrative [facility] - 06/03/2024 1:19 AM AUDITING SPECIALIST FASTING:YES FASTING: YES Resulting Agency Comment Performing Organization Information: Site ID: [id number] Name: [facility] Address: [address] [address] Director: Mark Buchanan MD us Kan Ball DO LAB BLOOD ORDERABLES Final R esult [facility] See order comments [place] [address] * Magnesium (05/31/2024 6:22 AM AUDITING SPECIALIST) Magnesium 2.0 1.5 - 2.5 mg/dL See order comments 05/31/2024 6:22 AM AUDITING SPECIALIST 05/31/2024 6:23 AM AUDITING SPECIALIST Narrative [facility] - 06/03/2024 1:19 AM AUDITING SPECIALIST FASTING:YES FASTING: YES Resulting Agency Comment Performing Organization Information: Site ID: [id number] Name: [facility] Address: [address] [place] [address] Director: Mark Buchanan MD us Kan Ball DO LAB BLOOD ORDERABLES Final R esult Performing Organization Address [facility] Co de Phone Number [facility] See order comments [place] [address] * (ABNORMAL) Hemoglobin A1c (05/31/2024 6:22 AM AUDITING SPECIALIST) Hemoglobin A1C 8.1(H) <5.7 % of total [...] of diabetes for children. 05/31/2024 6:22 AM AUDITING SPECIALIST 05/31/2024 6:23 AM AUDITING SPECIALIST Narrative [facility] - 06/03/2024 1:19 AM AUDITING SPECIALIST FASTING:YES FASTING: YES Resulting Agency Comment Performing Organization Information: Site ID: [id number] Name: [facility] Address: [address] [place] [address] [place] [address] Director: Mark Buchanan MD us Kan Ball DO LAB BLOOD ORDERABLES Final R esult Performing Organization Address [facility] Co de Phone Number [facility] See order comments [place] [address] * (ABNORMAL) Renal Function Panel (05/31/2024 6:22 AM AUDITING SPECIALIST) Glucose 138(H) 65 - 99 mg/dL See [...] g/dL See order comments 05/31/2024 6:22 AM AUDITING SPECIALIST 05/31/2024 6:23 AM AUDITING SPECIALIST Narrative [facility] - 06/03/2024 1:19 AM AUDITING SPECIALIST FASTING:YES FASTING: YES Resulting Agency Comment Performing Organization Information: Site ID: [id number] Name: [facility] Address: [address] [address] Director: Mark Buchanan MD us Kan Ball DO LAB BLOOD ORDERABLES Final R esult [facility] See order comments [place] [address] from Last 3 Months Insurance [facility] MEDICARE Care Teams Racing Driver Relationship Specialty Start Date End Date Baldo Fischer MD [address] [facility] [place] [address] PCP - General Internal Medicine 07/25/21
--- OUTSIDE RECORDS SUMMARY | 2024-06-10 15:25 | XMS_ITS | Clinical Summary ---
Author Organization [facility] Address [address] [place] [address] Care Team Providers Care Inspector Production [employer]astic Parts Name Role Phone Baldo Fischer MD Primary [...] Comments Blood Pressure 164/80 06/11/2021 3:49 PM SANITATION MANAGER Pulse 95 06/11/2021 3:18 PM SANITATION MANAGER Temperature 36.4 C (97.6 F) 06/11/2021 1:35 PM SANITATION MANAGER Respiratory Rate 18 06/11/2021 3:18 PM SANITATION MANAGER Oxygen Saturation 98% 06/11/2021 3:18 PM SANITATION MANAGER Inhaled Oxygen Concentration - - Weight 99.8 kg (220 lb) 06/11/2021 1:35 PM SANITATION MANAGER Height 185.4 cm (6' 1 ) 06/11/2021 1:35 PM SANITATION MANAGER Body Mass Index 29.03 06/11/2021 1:35 PM SANITATION MANAGER Plan of Treatment Health Maintenance Due Date [...] patient's age to complete this topic [place] [address] [place] [id number] Care Teams Inspector Production Plastic Parts Relationship Specialty Start Date End Date Baldo Fischer MD [address] [facility] [address] [place] [address] PCP - General INTERNAL MEDICINE 06/11/21
--- OUTSIDE RECORDS SUMMARY | 2024-06-10 15:25 | XMS_ITS | Encounter Summary ---
Author Organization [facility] Health Address [address] [place] [address] Care Team Providers Care Third Rigger Name Role Phone Baldo Fischer MD Primary Care Provider Encounter Details Date Type Department Care Team (Late Contact Info) Description 07/13/2022 Telephone [facility] [address] [place] [address] Ruby Birch M, DO [address] [place] [phone] Social History Tobacco Use Types Packs/Day Years [...] Info) Description 10/30/2024 9:30 AM CDT Appointment [facility] Health Imaging Services - CT Scan [address] [facility] [place] [address] 10/30/2024 11:00 AM CDT Office Visit [facility] - Urology [address] [place] [address] Rd [address] [place] [address] Ruby Birch M, DO [address] [address] documented as of this encounter Visit Diagnoses Not on filedocumented in this encounter Care Teams Third Rigger Relationship Specialty Start Date End Date Baldo Fischer MD [address] [phone] PCP - General 07/04/22 documented as of this encounter
--- OUTSIDE RECORDS SUMMARY | 2024-06-10 15:25 | XMS_ITS | Continuity of Care Document ---
Author Organization [place] - [facility] [employer] [facility], [facility] [address] Address [address] [facility], [address] [place] [address] Care Team Providers Care Battery Assembler Name Role Phone KAN BARNHART Sap Mobility Architect MIKE SAMS JR Cable Weaver [phone] BALDO FISCHER Primary Care Provider KERMIT GONZALEZ Substation Mechanic Assessment Encounter Date Assessment Date Assessment LastModified by Organization Details LastModified Time 06/10/2024 06/10/2024 05/30/2022: A1C 9.7 TSH/FT4: WNL Urine micro [...] 7.9 TG 192 Urine micro alb 49.1 [email or web address] Not available 06/10/2024 10:41:15 Plan of Treatment Reminders Order Date Submit Date Provider Last Modified By Organization Details Last Modified Time Details Appointments Any 15 2024 09:15A Caroline conley MD Not available Not available Not available Any 2024 01:00P Caroline conley MD Not available Not available Not available Any 15 2024 08:45A Caroline conley MD Not available Not available Not available Lab glycohemo globin, total, blood [address] (Lab), [address] [place], [address], 06/10/2024 10:45:50 microalbu min, urine [address] (Lab), [address] [place], [address], 06/10/2024 10:45:50 lipid panel, serum - Please add to blood draw from 08/14/22[address] (Lab), [address] [place], [address], 06/10/2024 10:45:49 TSH, serum or plasma - Please add to blood draw from 08/14/22[address] [place] [address] (Lab), [address] [place], [address], 06/10/2024 10:45:49 CBC w/ auto diff - Please add to blood draw from 08/14/22[address] [place] [address] (Lab), [address] [place], [address], 06/10/2024 10:45:49 Referral nephrolog ist referral [address] [place] [address] [place], [address], [place] [address], [place], [address], 06/10/2024 10:47:31 urologist referral [address] [place] [address] Ruby Birch DO, [address], [address], [place], [address], 06/10/2024 10:47:31 podiatris t referral 2024 025 [email or web address] David Munoz DPM, [address], [address], [place], [address], 06/10/2024 10:47:31 hematolog ist referral - Please call patient to schedule an appointme nt. Thank you. 2024 025 London Person MD, [address], [place], [address], 06/10/2024 10:47:31 cardiolog ist referral 2024 025 [email or web address] [place], [address], [address], [place], [address], 06/10/2024 10:47:31 Procedures None recorded. Surgeries None recorded. Imaging XR, wrist + hand 2024 025 [facility] ([facility]), [address] [place], [address], 06/10/2024 15:20:02 XR, ribs, bilateral , w/ PA chest 2024 025 [facility] ([facility]), [address] [place], [address], 06/10/2024 15:21:27 Medication Orders None recorded. Patient TargetsNo targets recorded. Patient Instructions Encounter Date Encounter Id Patient Instructions Last Modified By Organization Details Last Modified Time 06/10/2024 [id number] diabetic eye exam* [email or web address] Not available 06/10/2024 10:46:10 Reason for Referral Sap Mobility Architect Referral for Ch ronic kidney disease Referring Physician: Baldo Fischer, Internal Medicine, Encounter Date: 06/10/2024 Substation Mechanic Referral for Co ronary arteriosclerosis Referring Physician: Baldo Fischer Internal Medicine, Encounter Date: 06/10/2024 Cable Weaver Referral for Type 2 diabetes mellitus without complication Referring Physician: Baldo Fischer Internal Medicine, Encounter Date: 06/10/2024 Please call patient to sched ule an appointment. Thank you. Referring Physician: Baldo Fischer Internal Medicine, Encounter Date: 06/10/2024 Urologist Referral for Kidne y lesion Referring Physician: Baldo Fischer Internal Medicine, Encounter Date: 06/10/2024 Results Created Date Observation Date Name Description Value Unit Range Abnormal Flag Note LastModifiedBy Organization Detail LastModifiedTime 06/05/19 25 06/05/2024 imagi ng/di agnos tic resul t No observ ation record ed. [address], [address], 06/05/2024 11:47:34 06/05/19 25 06/05/2024 imagi ng/di agnos tic resul t No observ ation record ed. [address] [address], [place], [address], 06/05/2024 12:48:23 06/10/19 25 06/10/2024 XR, wrist + hand No observ ation record ed. [address], [address], 06/10/2024 15:20:02 06/10/19 25 06/10/2024 XR, ribs, bilat eral, w/ PA chest No observ ation record ed. [address], [address], 06/10/2024 15:21:27 06/10/19 25 06/10/2024 XR, wrist + hand No observ ation record ed. [address], [address], 06/10/2024 15:37:20 Result Notes None recorded. Problems Name Problem SNOMED Code Status Onset Date Resolution Date Notes Provider Name and Address Organization Details Recorded Time Acute sinusitis 65142789 Active 2021 Not Available [facility] 3 22:36:11 Mixed hyperlipid emia 882797413 Active 2021 Not Available [facility] 3 22:36:11 Hypertensi ve disorder 29167136 Active 2018 Not Available [facility] 3 22:36:12 Acute urinary tract infection 086278356 Active 2021 Not Available [facility] 3 22:36:12 Uncontroll ed type 2 diabetes mellitus 964203688 Active 2021 Not Available [facility] 3 22:36:12 Hyperlipid emia 38660584 Active 2018 Not Available [facility] 3 22:36:12 Essential hypertensi on 58961084 Active 2021 Not Available [facility] 3 22:36:12 Diabetes mellitus 44463371 Active 2018 Not Available [facility] 3 22:36:12 Hyperglyce azra 43823626 Active 2021 Not Available [facility] 3 22:36:12 COVID-19 497825601 Active 2021 Not Available [facility] 3 22:36:12 Onychomyco sis of toenails 255812151 Active 2022 Not Available [facility] 3 22:36:12 Tinea pedis 2697721 Active 2022 Not Available [facility] 3 22:36:12 Type 2 diabetes mellitus without complicati on 023733241 Active 2022 Not Available [facility] 3 22:36:12 Gastroesop hageal reflux disease without esophagiti s 023342060 Active 2022 Not Available [facility] 3 22:36:11 Malignant tumor of testis 397572536 Active 2022 Not Available [facility] 3 22:36:12 Chronic kidney disease 075617382 Active 2022 Not Available [facility] 3 22:36:12 Coronary arterioscl erosis 32243568 Active 2022 Not Available [facility] 3 22:36:12 Pain of right shoulder joint 0694052465543 9100 Active 2022 Not Available [facility] 3 22:36:11 Anemia 157339610 Active 2022 Not Available [facility] 3 22:36:12 Urinary incontinen ce 039778699 Active 2022 Not Available [facility] 3 22:36:11 Open wound of left lower leg 3839008106840 9106 Active 2022 Not Available [facility] 3 22:36:11 Kidney lesion 4141455590048 0 Active 2022 Not Available [facility] 3 22:36:12 Dyslipidem ia 834303660 Active 2022 Not Available [facility] 3 22:36:12 Open wound of lower leg 760000126 Active 2022 Not Available [facility] 3 22:36:11 Vitamin D deficiency 59781692 Active 2022 Baldo lopez MD [address] [place] [address], [address] , [place] [facility] 3 16:46:02 Low back pain 535738898 Active 2022 Marimar purcell [place] [facility] 3 15:29:32 Arthritis 9660796 Active 2022 Marimar purcell [place] [facility] 3 14:50:08 Problem Notes None recorded. Procedures Surgical History Date Name Laterality Status Provider Name and Address Organization Details Recorded Time 11/09/19 excision of lesion of kidney completed AMINA Pena [place] [facility] 11/16/2022 14:36:33 09/27/19 23 Wound Care-Podiatry completed Margareth Sharp RN [facility] 09/26/2022 17:25:47 09/13/19 23 Wound Care-Podiatry completed Herminia Mcleod RN [facility] 09/12/2022 16:52:31 09/06/19 23 Wound Care-Podiatry completed Margareth Sharp RN [facility] 09/05/2022 17:17:06 08/01/19 23 Nail Debridement completed David Munoz DPM [address] [facility] [address], [place], [address], [facility] 07/31/2022 10:48:11 04/11/20 21 cardiac catheterization completed Not Available [facility] 06/14/2022 09:13:48 Cardiac Stent Placement completed AMINA Pena [facility] 08/14/2022 16:43:59 Cataract Surgery completed AMINA Pena [facility] 10/01/2023 10:07:51 Imaging Results None recorded. Procedure Notes None recorded. Medical Equipment None Reported. Allergies Allergen ID Allergen Name Allergen Category Reaction Reaction Severity Criticality Documentation Date Start Date Code Code System Note Provider Name and Address Organization Details Recorded Time 73207 adhesive environme nt,medica tion rash Not available Not available 02/26/2023 78499 UNK AMINA Pena null, [facility] 10:00:00 Medications Name Sig Start Date Stop [...] completed Not Available Not Available Not Available Cartia XT 300 mg capsule,e xtended release TAKE 1 CAPSULE BY MOUTH ONCE DAILY active Not Available Not Available No t Available ibuprofen 800 mg tablet TAKE 1 [...] completed Not Available Not Available Not Available OneToIXI-Play Ultra Test strips USE TWICE DAILY BEFORE MEALS active Not Available Not Available No t Available Kenalog 10 mg/mL suspensio n for injection In office injectio n administ ered by the provider 05/23 completed [facility]: [id number] 4-20 Not Available Not Available Not Available dexametha sone 1 mg tablet TAKE 1 TABLET BY MOUTH FOR TESTING PURPOSE ONLY. PLEASE TAKE AROUND 11PM AND GO FOR BLOOD TEST NEXT DAY AROUND 8AM. active Not Available Not Available No t [...] Not Available Not Available No t Available finasteri de 5 mg tablet TAKE [...] (U-100) 100 unit/mL subcutane ous pen INJECT 12 UNITS SUB-Q BEFORE MEALS. MAX DAILY DOSE OF 60 UNITS, NO MEAL THEN NO SHOT active Not Available Not Available No t Available rosuvasta tin 20 mg tablet TAKE 1 TABLET BY MOUTH ONCE DAILY active Not Available Not Available No t Available rosuvasta tin 40 mg tablet TAKE 1 TABLET BY MOUTH EVERY DAY active Not Available Not Available No t Available nitrofura ntoin monohydra te/macroc rystals 100 mg capsule 02/26 completed Not Available Not Available Not Available omega-3 acid ethyl esters 1 gram capsule TAKE 2 CAPSULES BY MOUTH TWICE DAILY WITH MEALS active Not Available Not Available No t Available Feosol 325 mg (65 mg iron) tablet [...] administ ered by the provider 05/23 completed [facility]: [id number] 09-30 Not Available Not Available Not [...] Insulin 100 unit/mL (3 mL) subcutane ous INJECT 42 UNITS TWICE DAILY IN THE MORNING AND THE EVENING active Not Available Not Available No t Available Basaglar KwikPen U-100 Insulin 05/02 completed Not Available Not Available Not Available TRUEplus Pen Needle 31 gauge x 5/16 USE 4 TIMES DAILY active Not Available Not Available No t Available TRUEplus Pen Needle 31 gauge x 3/16 01/20 completed Not Available Not Available Not Available Flucelvax Quad 6702-3748 (PF) 60 mcg (15 mcg x 4)/0.5 [...] Available Not Available Not Available Afluria Quad 60 mcg (15 mcg x 4)/0.5 mL IM suspensio n 01/20 completed Not Available Not Available Not Available BD Heather 2nd Gen Pen Needle 32 gauge x /32 USE FIVE TIMES DAILY active Not Available Not Available No t Available DomoTouch Ultra2 Meter USE TO TEST BLOOD SUGAR TWICE DAILY BEFORE MEALS 06/05 completed Not Available Not Available Not Available Afluria Qd (36 mos up)(PF)60 mcg (15 mcg x4)/0.5 mL IM syringe ADM 0.5ML IM UTD 01/20 completed Not Available Not Available Not Available Baqsimi 3 mg/actuat ion nasal spray USE 1 SPRAY INRANASA LLY ONCE A SINGLE DOSE active Not Available Not Available No t [...] mg/3 mL) subcutane ous pen injector INJECT 2MG SUB-Q ONCE A WEEK active Not Available Not Available No t Available FreeStyle Juve 3 Plus Sensor device CHANGE EVERY 15 DAYS active Not Available Not Available No t Available Vitals Date Recorded Body height Body mass index (BMI) Body weight Body temperature Heart rate Systolic blood pressure Diastolic blood pressure Provider Name and Address Organization Details Last Updated DateTime 5 185.42 cm 32.2 kg/m2 836918. 54 g 97.5 [degF] 78 /min 140 mm[Hg] 64 mm[Hg] AMINA Pena [place] [facility] 5 10:21:41 Social History Question Answer Notes LastModified by Organizat ion Details LastModified Time Tobacco Smoking Status Former Smoker Not Available [facility] 06/14/2022 09:13:31 Do You Have An Advance Directive? Yes MIGRATION.84497 [id number] Information not available 06/14/2022 What Is Your Level Of Alcohol Consumption? Occasional MIGRATION.99958 79586 Information not available 06/14/2022 What Is Your Level Of Caffeine Consumption? Moderate MIGRATION.38697 14154 Information not available 06/14/2022 In The 14 Days Before Symptom Onset, Have You Had Close Contact With A Laboratory-confi rmed COVID-19 While That Case Was Ill? No MIGRATION.72267 85537 Information not available 06/14/2022 In The 14 Days Before Symptom Onset, Have You Had Close Contact With A Person Who Is Under Investigation For COVID-19 While That Person Was Ill? No MIGRATION.48794 90231 Information not available 06/14/2022 Are You Currently Employed? Yes Information not available 08/14/2022 What Type Of Diet Are You Following? REGULAR MIGRATION. 84390 Information not available 06/14/2022 What Is The Highest Grade Or Level Of School You Have Completed Or The Highest Degree You Have Received? SL40035-2 MIGRATION. 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 54425 Information not available 06/14/2022 Have There Been Any Changes To Your Family Or Social Situation? No MIGRATION.65761 80989 Information not available 06/14/2022 What Is The Fluoride Status Of Your Home? Unknown MIGRATION. 09148 Information not available 06/14/2022 When Did You Quit Smoking? 16+yearssincelastci jett MIGRATION.94776 48079 Information not available 06/14/2022 Are There Any Guns Present In Your Home? Yes MIGRATION.45432 83551 Information not available 06/14/2022 Do You Use Insect Repellent Routinely? No MIGRATION.42914 20920 Information not available 06/14/2022 Where Do You Live? [place]House MIGRATION.43142 88862 Information not available 06/14/2022 Do You Have A Medical Power Of Electrical Technology Instructor? Yes MIGRATION.17596 07004 Information not available 06/14/2022 What Was The Date Of Your Most Recent Tobacco Screening? 06/10/2024 Information not available 06/10/2024 Do You Have Any Pets? Yes MIGRATION.43423 72883 Information not available 06/14/2022 What Is Your Relationship Status? MIGRATION.31049 82021 Information not available 06/14/2022 Do You Use Your Seat Belt Or Car Seat Routinely? Yes MIGRATION.43346 22010 Information not available 06/14/2022 Do You Have Smoke And Carbon Monoxide Detectors In Your Home? Yes MIGRATION.06160 85638 Information not available 06/14/2022 Are You Passively Exposed To Smoke? No MIGRATION.96612 60064 Information not available 06/14/2022 Are There Any Smokers In Your House? No MIGRATION.74723 14499 Information not available 06/14/2022 Do You Feel Stressed (tense, Restless, Nervous, Or Anxious, Or Unable To Sleep At Night)? [id number] MIGRATION.32847 83236 Information not available 06/14/2022 Do You Use Any Illicit Or Recreational Drugs? No MIGRATION.95996 92741 Information not available 06/14/2022 Do You Use Sunscreen Routinely? Yes MIGRATION.67186 56305 Information not available 06/14/2022 How Many Years Have You Smoked Tobacco? 30 MIGRATION.96941 55567 Information not available 06/14/2022 Have You Recently Traveled Abroad? No MIGRATION.90917 97802 Information not available 06/14/2022 Do You Have Any Dietary Restrictions? No MIGRATION.49670 68035 Information not available 06/14/2022 Do You Or Have You Ever Used Any Other Forms Of Tobacco Or Nicotine? No Information not available 08/14/2022 Sex: Male Functional Status None recorded. Mental Status None recorded. Family History Relationship Description Onset Age of this Age Resolved Age Notes LastModified by Organization Details LastModified Time Father Diabetes mellitus MIGRATION.289 [id number] Not available 06/14/2022 09:13:51 Father Hypertensive disorder MIGRATION.318 [id number] Not available 06/14/2022 09:13:51 Father Heart disease MIGRATION.179 [id number] Not available 06/14/2022 09:13:51 Medical History Condition Response BLINDNESS N RHEUMATIC FEVER N MRSA N INFECTIOUS DISEASE N LUNG DISEASE/DISORDER N HEART ARRHYTHMIA N HISTORY OF DRUG ABUSE N INSOMNIA N COPD N RADIATION / CHEMOTHERAPY N HIGH CHOLESTEROL / HYPERLIPIDEMIA Y EYE [...] ALZHEIMER'S DISEASE N HERPES N RETINOPATHY N HEADACHES/MIGRAINES N SEIZURES/EPILEPSY N GI PROBLEMS N Low Testosterone Y DIZZINESS N HEART DISEASE/HEART PROBLEMS Y AIDS/HIV N KIDNEY DISEASE Y LIVER DISEASE N HYPERTENSION Y CANCER: SPECIFY Y TOURETTE'S N BLOOD TRANSFUSION N ANEMIA/BLOOD DISORDER N ATRIAL FIBRILLATION N AUTOIMMUNE DISEASE N TUBERCULOSIS N GLAUCOMA N Immunizations Vaccine Type Date Status Note Provider Nam e and Address Organization Details Recorded Time zoster recombinant 3 completed AMINA Pena, [employer] [facility] 02/26/2023 10:03:30 Pneumococcal conjugate PCV20, polysaccharide PTV851 conjugate, adjuvant, PF 3 completed AMINA Pena, [facility] [email or web address] [facility] 02/26/2023 10:03:48 Influenza, split virus, quadrivalent, PF 3 completed AMINA Pena, [facility] [employer] [facility] 02/26/2023 10:05:08 Tdap 2 completed Not Available [facility] 01/29/2023 22:36:12 Influenza, split virus, quadrivalent, preservative 2 completed Not Available [facility] 01/29/2023 22:36:12 COVID-19, mRNA, LNP-S, PF, 3 mcg/0.2 mL dose, rufus-sucrose 2 completed Not Available [facility] 01/29/2023 22:36:12 Influenza, split virus, quadrivalent, preservative 1 completed Not Available [facility] 01/29/2023 22:36:12 COVID-19, mRNA, LNP-S, PF, 30 mcg/0.3 mL dose 1 completed Not Available [facility] 01/29/2023 22:36:12 COVID-19, mRNA, LNP-S, PF, 30 mcg/0.3 mL dose 1 completed Not Available [facility] 01/29/2023 22:36:12 Past Encounters Encounter ID Performer Location Encounter Start Date Encounter Closed Date Diagnosis/Indication Diagnosis SNOMED-CT Code Diagnosis ICD10 Code Diagnosis Note [id number] Baldo lopez MD [facility] [address] [facility], [facility] [address] [place] [address] 06/10/2024 10:09:01 06/10/2024 10:47:30 Essential hypertension 67523511 I10 On ASANot on amlodipine 10mg dailyOn coreg 25mg bidOn diltiazem CD 300mg dailyNot on iso sorbide ER 60mg dailyNot on lisinopril , stopped by Dr Rudd losartan 100mg dailyOn NTG Sees Dr Gonzalez Screening - NAD 13816497 3 Z13.9 C-scope: As per Dr Lora nephrologi st 05/23/2021 OV his EGD and C-scope were negative Get yearly flu shotDid get Td from the laceration on the forehead s/p fall on 06/11/2021 [facility] the [facility] on COVID 19Can do shingrixGe t RSV vaccine RTC in 2 weeks to see if he can RTW full dutyDo labsER if worseHe did verbalize his understand ing of the above Hyperlipidemia 10413690 E78.5 On rosuvastat in 20mg daily, given by Dr Stanton fenofibrat e 134mg daily, given by Dr Gonzalez On omega 3 2 caps bidGet labsS/p surgery for his kidney wants to diet and exercise more 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 399326079 E11.9 On basaglarOn farxigaNot on glimepirid e 2mg bidNot on jardiance 10mg dailyOn ozempic 2mg weekly filled Dr Mckeon 05/17/2024 On metformin ER 500mg bidOn baqsimi (glucagon) Get on humolog, refused today 07/02/[address] Mckeon endocrine More diet and exercise is needed Seen Dr Cazares 08/21/2022 Dr Rivas per his history did see Dr Bowie eye MD Get labs Gastroesop hageal reflux disease without esophagitis 659347226 K21.9 On omeprazole Does Meme had an EGD in [facility] Malignant tumor of testis 390145361 C62.[address] Chapman 07/11/2022 Chronic ki dney disease 732838053 N18.9 On Vit D weekly Has seen Dr Reeves sees Dr Barnhart, last 11/15/2021 , f/u in [address] Barnhart 01/16/2023 , f/u in 6 monthsDr Barnhart 07/24/2023 Coronary arteriosclerosis 74348680 I25.10 S/p stents Dr Gonzalez 02/07/2023 Pain of ri ght shoulder joint 7179677957 7293369 M25.[address] Dos Santos and Dr Malloy Anemia 851745595 D64.[address] Person 02/20/2022 , f/u yearlyRefe rred 06/10/2024 Urinary incontinence 165 717950 R32 On finasterid eDoes well Kidney lesion 1441820657 9100 N28.9 S/p surgery 09/19/2022 , [facility] with [facility] Payton Birch, now will see her again, is doing well, did sign TRAVIS to get the reports today 11/16/2022 Dr Birch 11/01/2023 , f/u in one year Fall W19.XXXA [facility] 06/05/2024 Xray R hand/Chest /ribStill has R wrist pain and R lower rib cage painWill get xraysNote for work provided, RTC in 2 weeks to RTWER if any symptoms worsen Health Concerns Section Related Observation LastModified by Organization Detai ls LastModified Time None Recorded Concern Status LastModified by Organization Details LastModified Time None Recorded Payers Encounter Date Sequence Insurance Name Policy Number Policy Mendez Covered Member ID Mendez Member ID Guarantor Name 06/10/2024 1 U[employer] (O) [id number] Jared Barrios [id number] Jared Barrios 06/10/2024 2 MEDICARE-DC (MEDICARE) Jared Barrios [id number] Jared Barrios Notes Date Note Type Note Provider Name and Address Organization Details Recorded Time 06/10/2024 text/html OV 05/23/2021:Here to establish carePast Hx:[id number] [...] 08/21/2022:ACV:Th e wound is not cleared up, 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
== END 2024-06-10 13:22 | disposition home or self-care (01) ==
LOC: ANHIMG 13:28
PROVIDERS: PCP Internal Medicine; Visit Provider Internal Medicine
DX: M19.041 Primary osteoarthritis, right hand (principal); R07.89 Other chest pain
CPT/HCPCS: 71111; 73110; 73130

== ENCOUNTER 2024-08-02 12:10 | Outpatient (CLI) | payer OTHER, MEDICARE, SELFPAY ==
--- NOTE | ~2024-08-02 | MR_ITS ---
MRI of the right hand CLINICAL HISTORY: Pain TECHNIQUE: Coronal T1-weighted and T2 fat-sat images, sagittal T1-weighted and T2 fat-sat images, and axial T1-weighted and T2 fat-sat images were acquired. FINDINGS: No marrow edema or other suspicious marrow signal abnormality seen. No evidence for fractur e or osteomyelitis. There is mild degenerative change at the second MCP joint. There are scattered mi nimal degenerative changes of the interphalangeal joints of the fingers. There is minimal degenerativ e change at the first CMC joint. No evidence for erosive/inflammatory arthropathy. Visualized flexor and extensor tendons are intact. Intrinsic musculature of the hand is unremarkable. No soft tissue mass or fluid collection seen. No joint effusion identified. IMPRESSION: Minimal polyarticular osteoarthritic change, as above. No acute abnormality seen. Reviewed, dictated and finalized at [facility].
--- OUTSIDE RECORDS SUMMARY | 2024-08-02 12:15 | XMS_ITS | Clinical Summary ---
Author Organization [facility] Facility Address [address] [place] [address] Care Team Providers Care Cooking Instructor Name Role Phone Baldo Fischer MD Primary Care Provider [phone] Medications amLODIPine (NORVASC) 5 MG tablet Take 1 tablet (5 mg total) by mouth every night 90 tablet 1 2 Active Semaglutide, 2 MG/DOSE, (Ozempic, 2 MG/DOSE,) 8 MG/3ML solution pen-injector Inject 2 mg under the skin per week 12 mL 1 4 Active losartan (COZAAR) 100 MG tablet TAKE 1 TABLET(100 MG) BY MOUTH EVERY NIGHT 90 tablet 1 4 Active ciprofloxacin (CIPRO) 500 MG tablet Take 1 tablet (500 mg total) by mouth 1 (one) time each day 5 tablet 5 Active ergocalciferol 1.25 MG (53947 UT) capsule TAKE 1 CAPSULE BY MOUTH 1 TIME EVERY WEEK 12 capsule 1 5 Active metFORMIN (GLUCOPHAGE) 500 MG tablet TAKE 1 TABLET(500 MG) BY MOUTH 1 TIME EACH DAY IN THE MORNING 90 tablet 1 5 Active metFORMIN (GLUCOPHAGE) 500 MG tablet TAKE 1 TABLET(500 MG) BY MOUTH 1 TIME EACH DAY IN THE MORNING 90 tablet 1 4 07/14/19 25 Discontinued Encounters Date Type Department Care Team Description 07/13/2024 Refill [facility], [facility] [address] [facility] [address] [place] [address] Kan Ball DO 06/29/2024 Refill [facility], [facility] [address] [facility] [address] [place] [phone] Kan Ball, 06/23/2024 Documentation Only [facility], [address] [address] Kan Ball, 06/18/2024 Documentation Only [facility], [address] [address] Kan Ball, 06/03/2024 3:15 PM TRUCKING MANAGER Office Visit [facility], [facility] [address] [phone] Kan Ball DO Chronic kidney disease, stage 2 (mild) (Primary Dx); Persistent proteinuria; Coronary artery disease due to calcified coronary lesion; Hypertensive chronic kidney disease; Type 2 diabetes mellitus with diabetic chronic kidney disease (HCC); Pure hypercholesterolemi a, not otherwise specified; 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) 06/03/2024 Refill [facility], [facility] [address] [phone] Soraya Dangelo CMA 05/31/2024 Orders Only [facility], [address] [address] Kan Ball DO 05/20/2024 Documentation Only [facility], [address] [phone] Kan Ball DO from Last 3 Months [...] Comments Blood Pressure 130/70 06/03/2024 3:14 PM TRUCKING MANAGER Pulse 68 06/03/2024 3:14 PM TRUCKING MANAGER Temperature 36.1 C (97 F) 06/03/2024 3:14 PM TRUCKING MANAGER Respiratory Rate 18 06/03/2024 3:14 PM TRUCKING MANAGER Oxygen Saturation 99% 06/03/2024 3:14 PM TRUCKING MANAGER Inhaled Oxygen Concentration - - Weight 112 kg (247 lb) 06/03/2024 3:14 PM TRUCKING MANAGER Height 185.4 cm (6' 1 ) 05/30/2022 4:01 PM TRUCKING MANAGER Body Mass Index 32.59 05/30/2022 4:01 PM TRUCKING MANAGER Plan of Treatment Upcoming Encounters Date Type Department Care Team (Late st Contact Info) Description 11/04/2024 3:15 PM CDT Office Visit [facility], [facility] [address] [facility] [address] [place] [address] Kan Ball DO [address] [place] [address] Health Maintenance Due Date Last Done Comments Pneumococcal Vaccine: 50+ Years (1 of 2 - PCV) 1977 05/16/2019 Colorectal Cancer Screening: Annual FOBT 10/09/2007 Colorectal Cancer Screening: Colonoscopy 10/09/2007 Colorectal Cancer Screening: Sigmoidoscopy 10/09/2007 Diabetes: Ophthalmology Exam 07/29/2021 Diabetes: Pedal Pulse Checked 07/29/2021 Diabetes: Sensory Foot Exam 07/29/2021 Diabetes: Visual Foot Exam 07/29/2021 Diabetes: Hemoglobin A1C 08/28/2024 05/31/2024, 08/0 08/2023 Influenza Vaccine (Season Ended) 2024 01/22/2023, 01/20/2022, 01/28/2021, Additional history exists Pneumococcal Vaccine: Peds (0 to 5 Years) and At-Risk Patients (6 to 49 Years) Discontinued 05/16/2019 Hepatitis B Vaccine Aged Out No longe r eligible based on patient's age to complete this topic Procedures Procedure Name Priority Date/Time Associated Diagnosis Comments HEMOGLOBIN A1C Routine 05/31/2024 6:22 AM TRUCKING MANAGER PROTEIN / CREATININE RATIO, URINE Routine 05/31/2024 6:22 AM TRUCKING MANAGER VITAMIN D 25 HYDROXY Routine 05/31/2024 6:22 AM TRUCKING MANAGER CBC AND DIFFERENTIAL Routine 05/31/2024 6:22 AM TRUCKING MANAGER URINALYSIS WITH MICROSCOPIC Routine 05/31/2024 6:22 AM TRUCKING MANAGER URINE ALBUMIN / CREATININE RATIO Routine 05/31/2024 6:22 AM TRUCKING MANAGER RENAL FUNCTION PANEL Routine 05/31/2024 6:22 AM TRUCKING MANAGER MAGNESIUM Routine 05/31/2024 6:22 AM TRUCKING MANAGER from Last 3 Months Results * (ABNORMAL) Protein, Total, Random Urine w/Creatinine (Protein/Creat Ratio) (05/31/2024 6:22 AM TRUCKING MANAGER) Creatinine, Ur 58 20 - 320 mg/dL See order comments Urine Protein/Creati nine Ratio 190(H) 25 - 148 mg/g creat See order comments Protein/Creati nine Ratio, Urine 0.190(H) 0.025 - 0.148 mg/mg creat See order comments Protein Urine Random 11 5 - 25 mg/dL See order comments 05/31/2024 6:22 AM TRUCKING MANAGER 05/31/2024 6:23 AM TRUCKING MANAGER Narrative [facility] - 06/03/2024 1:19 AM TRUCKING MANAGER FASTING:YES FASTING: YES Resulting Agency Comment Performing Organization Information: Site ID: [id number] [facility] Address: [address] [place] [address] [place] [address] Director: Mark Buchanan MD us Kan Ball DO LAB URINE ORDERABLES Final R esult [facility] See order comments [place] [address] * (ABNORMAL) Urine Albumin / Creatinine Ratio (05/31/2024 6:22 AM TRUCKING MANAGER) Creatinine, Ur 58 20 - 320 mg/dL [...] within a diagnostic category. 05/31/2024 6:22 AM TRUCKING MANAGER 05/31/2024 6:23 AM TRUCKING MANAGER Narrative [facility] - 06/03/2024 1:19 AM TRUCKING MANAGER FASTING:YES FASTING: YES Resulting Agency Comment Performing Organization Information: Site ID: [id number] Name: [id number] Address: [address] [address] Director: Mark Buchanan MD us Kan Ball DO LAB URINE ORDERABLES Final R esult [facility] See order comments [place] [address] * Vitamin D 25 Hydroxy (05/31/2024 6:22 AM TRUCKING MANAGER) Vitamin D, 25-OH, Total, IA 51 30 - 100 ng/mL See order comments Comment: Vitamin D Status 25-OH Vitamin D: Deficiency: <20 ng/mL Insufficiency: 20 - 29 ng/mL Optimal: > or = 30 ng/mL For 25-OH Vitamin D testing on patients on D2-supplementation and patients for whom quantitation of D2 and D3 fractions is required, the QuestAssureD() 25-OH VIT D, (D2,D3), LC/MS/MS is recommended: order code 40859 (patients >2yrs). See Note 1 Note 1 For additional information, please refer to http://education.ContextWeb.rateGenius/faq/NWB155 (This link is being provided for informational/ educational purposes only.) 05/31/2024 6:22 AM TRUCKING MANAGER 05/31/2024 6:23 AM TRUCKING MANAGER Narrative [facility] - 06/03/2024 1:19 AM TRUCKING MANAGER FASTING:YES FASTING: YES Resulting Agency Comment Performing Organization Information: Site ID: [place] Name: [facility] Address: [address] [address] Director: Mark Buchanan MD us Kan Ball DO LAB BLOOD ORDERABLES Final R esult [facility] See order comments [place] [address] * (ABNORMAL) Urinalysis with microscopic (05/31/2024 6:22 AM TRUCKING MANAGER) Color, Urine YELLOW YELLOW See ord er comments Appearance Urine CLEAR CLEAR See order comments Specific [place], UA 1.020 1.001 - 1.035 See order [...] by t he ancillary. 05/31/2024 6:22 AM TRUCKING MANAGER 05/31/2024 6:23 AM TRUCKING MANAGER Narrative [facility] - 06/03/2024 1:19 AM TRUCKING MANAGER FASTING:YES FASTING: YES Resulting Agency Comment Performing Organization Information: Site ID: [id number] Name: [id number] Address: [address] [place] [address] [place] [address] Director: Mark Buchanan MD us Kan Ball DO LAB URINE ORDERABLES Final R esult [facility] See order comments [place] [address] * CBC and Differential (05/31/2024 6:22 AM TRUCKING MANAGER) WBC 6.2 3.8 - 10.8 Thousand/ uL [...] by t he ancillary. 05/31/2024 6:22 AM TRUCKING MANAGER 05/31/2024 6:23 AM TRUCKING MANAGER Narrative [facility] - 06/03/2024 1:19 AM TRUCKING MANAGER FASTING:YES FASTING: YES Resulting Agency Comment Performing Organization Information: Site ID: [facility] Name: [facility] Address: [address] [place] [address] Director: Mark Buchanan MD Kan Ball DO LAB BLOOD ORDERABLES Final R esult Performing Organization Address [facility] de Phone Number [facility] See order comments [place] [address] * Magnesium (05/31/2024 6:22 AM TRUCKING MANAGER) Magnesium 2.0 1.5 - 2.5 mg/dL See order comments 05/31/2024 6:22 AM TRUCKING MANAGER 05/31/2024 6:23 AM TRUCKING MANAGER Narrative [facility] - 06/03/2024 1:19 AM TRUCKING MANAGER FASTING:YES FASTING: YES Resulting Agency Comment Performing Organization Information: Site ID: [facility] Name: [facility] Address: [address] [place] [address] Director: Mark Buchanan MD Kan Ball DO LAB BLOOD [facility]ABLES [facility] Performing Organization Address [facility] de Phone Number [facility] See order comments [place] [address] * (ABNORMAL) Hemoglobin A1c (05/31/2024 6:22 AM TRUCKING MANAGER) Hemoglobin A1C 8.1(H) <5.7 % of total [...] of diabetes for children. 05/31/2024 6:22 AM TRUCKING MANAGER 05/31/2024 6:23 AM TRUCKING MANAGER Narrative [facility] - 06/03/2024 1:19 AM TRUCKING MANAGER FASTING:YES FASTING: YES Resulting Agency Comment Performing Organization Information: Site ID: [facility] Name: [facility] Address: [address] [place] [address] Director: Mark Buchanan MD Kan Ball DO LAB BLOOD ORDERABLES Final R esult [facility] See order comments [place] [address] * (ABNORMAL) Renal Function Panel (05/31/2024 6:22 AM TRUCKING MANAGER) Glucose 138(H) 65 - 99 mg/dL See [...] g/dL See order comments 05/31/2024 6:22 AM TRUCKING MANAGER 05/31/2024 6:23 AM TRUCKING MANAGER Narrative [facility] - 06/03/2024 1:19 AM TRUCKING MANAGER FASTING:YES FASTING: YES Resulting Agency Comment Performing Organization Information: Site ID: [facility] Name: [facility] Address: [address] [place] [address] Director: Mark Buchanan MD us Kan Ball DO LAB BLOOD ORDERABLES Final R esult [facility] See order comments [place] [address] from Last 3 Months Insurance [facility] Care Teams Cooking Instructor Relationship Specialty Start Date End Date Baldo Fischer MD [address] [facility], [address] [place] [address] PCP - General Internal Medicine 07/25/21
--- OUTSIDE RECORDS SUMMARY | 2024-08-02 12:15 | XMS_ITS | Clinical Summary ---
Author Organization [facility] Address [address] [place] [phone] Care Team Providers Care Fire Investigator Name Role Phone Lorenzo Fischer MD Primary [...] (A dded by TW Conv) Hypertension Cancer (HCC) kidney and testi matthew Type 2 diabetes mellitus (HCC) Chronic kidney [...] on file Legal Sex Male 11:38 AM FORGE HAND Gender Identity Not on file Sexual Orientation [...] season) 2023 09/10/2021, 07/25/2020, 06/29/2020 Influenza Vaccine (Season Ended) 2024 01/25/2022, 01/20/2022, 01/28/2021, Additional history exists Fall Risk Assessment 02/14/2025 02/15/2024 DTaP/Tdap/Td Vaccine (2 - Td or Tdap) 06/11/2031 06/11/2021, 12/30/2001 Abdominal Aortic Aneurysm (A AA) Screen Completed 11/01/2023, 02/28/2023, 07/29/2022 Medical Devices Implanted Type Area Manager Code Device Identifier Shelf Expiration Date Model / Serial / Lot [employer] Angio-Seal Vip 6fr Closere Device [id number] - [id number] Implanted:Qty: 1 on 02/15/2024 by Kermit Gonzalez MD at [facility] [employer] [id number] / / Procedures Procedure Name Priority Date/Time [...] and with contrast. Preliminary results by teleradiologist surgeon chief. Electronically signed by: Jeremiah Ayala M.D. Narrative [...] and with contrast. Preliminary results by teleradiologist surgeon chief. Electronically signed by: Jeremiah Ayala M.D. Joie HAN IM CT PROCEDURES Final Resul t from Last 3 Months or Most Recently Relevant to Health Maintenance Insurance MEDICARE [facility] HMO/PPO Address: [address] [address] [place] [address] [facility] CHOICE PLUS [facility] HMO/PPO Address: [facility] [address] [place] [address] Care Teams Fire Investigator Relationship Specialty Start Date End Date Lorenzo Fischer MD [address] [place] [address] PCP - General Internal Medicine 07/29/22
--- OUTSIDE RECORDS SUMMARY | 2024-08-02 12:15 | XMS_ITS | Clinical Summary ---
Author Organization [facility] Address [address] [place] [address] Care Team Providers Care Punch Finisher Name Role Phone Baldo Fischer MD Primary Care Provider Source Comments [facility],non-owned Affiliates and Associated Physician Practices is amultiple site organization consisting of ambulatory clinics and hospital sitesin [place], [place] and [place]. This disclosure is being madepursuant to the Care Everywhere program and may not contain all information available regarding this patient. Last updated 18.[facility] Allergies No known active allergies Medications * Be aware that medications may not be up to date on this document. Alwaysverify current medications with the patient. amLODIPine (Norvasc) 10 MG tablet amlodipine 10 mg tablet 2 Active carvedilol (Coreg) 25 MG tablet Take 1 (one) tablet by mouth every 12 hours 3 Active Continuous Blood Gluc Sensor (FreeStyle Juve 2 Sensor Systm) MISC USE DIRECTED AND CHANGE SENSOR EVERY 14 DAYS 3 Active Farxiga 10 MG tablet Take 1 (one) tablet by mouth every morning 3 Active dilTIAZem coated beads 24hr (Cardizem CD) 300 MG capsule 3 Active fenofibrate micronized (Lofibra) 134 MG capsule 1 Active ferrous sulfate 325 (65 FE) MG tablet every 24 hours Activ e finasteride (Proscar) 5 MG tablet Take 1 (one) tablet by mouth once daily 2 Active glimepiride (Amaryl) 2 MG tablet Take 1 (one) tablet by mouth 2 times daily with morning and evening meal 3 Active Basaglar KwikPen (Basaglar) pen ADMINISTER 35 UNITS UNDER THE SKIN IN THE MORNING AND AT BEDTIME 2 Active B-D ULTRAFINE III SHORT PEN 31G X 8 MM needle USE TWICE DAILY DIRECTED 2 Active losartan (Cozaar) 100 MG tablet 3 Active nitroGLYCERIN (Nitrostat) 0.4 MG tablet nitroglycerin 0.4 mg tablet, sublingual 1 Active omeprazole (PriLOSEC) 40 MG capsule TAKE 1 CAPSULE BY MOUTH EVERY DAY NEEDED 3 Active rosuvastatin (Crestor) 20 MG tablet 2 Active Ozempic, 0.25 or 0.5 MG/DOSE, 2 MG/1.5ML pen 1 (one) mg Take saturdays 2 Active aspirin EC (Ecotrin) 81 MG tablet Take 1 (one) tablet by mouth once daily Active [id number]-9-[id number] ethyl esters (Lovaza) 1 g capsule Take 1 (one) capsule by mouth once daily Active Turmeric (QC TUMERIC COMPLEX PO) Active vitamin D3 (Cholecalcifer ol) 25 MCG (1000 UNITS) tablet Take 2 (two) tablets by mouth once daily Active ascorbic acid (Vitamin C) 500 MG tablet Take 1 (one) tablet by mouth once daily Active NATURAL PSYLLIUM FIBER PO Active HYDROcodone-ac etaminophen (Cordova) 5-325 MG tabletIndicati ons:Renal mass, left Take 1 (one) tablet by mouth every 6 hours as needed for Pain 3 tablet 3 Active Additional Information Patient not taking.Reported on 11/01/2023 nitrofurantoin monohyd macro crystals (Macrobid) 100 MG capsule 3 Active metFORMIN ER 24hr (Glucophage XR) 500 MG tablet Take 1 (one) tablet by mouth 2 times daily 4 Active vitamin D, ergocalciferol , (Drisdol) 1.25 MG (81285 UT) capsule Take 1 (one) capsule by [...] at Not on file Legal Sex Male 6:57 AM INSURANCE COLLECTOR Gender Identity Not on file Sexual Orientation [...] Info) Description 10/30/2024 9:30 AM CDT Appointment [facility] Health Imaging Services - CT Scan [address], [address] [place] [address] 10/30/2024 11:00 AM CDT Office Visit [facility]rology [address] [place] [address] Ruby Birch M, DO [address] [place] [address] Health Maintenance Due Date Last Done Comments [...] VACCINE (3 - season) 2023 07/25/2020, 06/29/2020 DEPRESSION SCREENING 04/16/2024 INFLUENZA VACCINE (Season Ended) 2024 01/28/2021, 01/14/2021, 01/31/2020, Additional history exists SCREENING FOR DIABETES 10/31/2026 , 02/28/2023, 10/11/2022, Additional history exists HEPATITIS B VACCINE Aged Out No longe r eligible based on patient's age to complete this topic HIB VACCINE Aged Out No longer eligi ble based on patient's age to complete this topic HPV VACCINE Aged Out No longer eligi ble based on patient's age to complete this topic MENINGOCOCCAL (Group B) VACCINE SHARED DECISION-MAKING Aged Out No longer eligible based on patient's age to complete this topic MENINGOCOCCAL GROUPS A/C/Y/W VACCINE Aged Out No longer eligible based [...] - 105 mg/dL 11/01/2023 9:52 AM CDT [facility] Sodium 139 136 - 145 mmol/L 11/01/2023 9:52 AM CDT [facility] Potassium 4.2 3.5 - 5.1 mmol/L 11/01/2023 9:52 AM CDT [facility] Chloride 108(H) 98 - 107 mmol/L 11/01/2023 9:52 AM CDT [facility] CO2 24 22 - 29 mmol/L 11/01/2023 9:52 AM CDT [facility] Calcium 10.3 8.4 - 10.4 mg/dL 11/01/2023 9:52 AM CDT [facility] Anion Gap 7 6 - 16 mmol/L 11/01/2023 9:52 AM CDT [facility] BUN 29(H) 7 - 26 mg/dL 11/01/2023 9:52 AM CDT [facility] Creatinine 1.17 0.72 - 1.25 mg/dL 11/01/2023 9:52 AM CDT [facility] eGFR by CKD-EPI 69(L) >=90 mL/min/1.7 3 m2 11/01/2023 9:52 AM CDT [facility] Blood BLOOD SPECIMEN / Unknown Lab Venipuncture / Unknown 11/01/2023 8:50 AM CDT 11/01/2023 8:50 AM CDT Ruby Birch DO LAB - CHEMISTRY ORDERABLES Final Result Performing Organization Address City/State/[facility] Co de Phone Number [facility] [address] [place] [address] from Last 3 Months or Most Recently Relevant to Health Maintenance Insurance [facility] MEDIC[facility] Advance Directives * Full Code (Latest Code Status on File) Date Activated Date Inactivated Comments 10/10/2022 6:53 PM 10/11/2022 2:11 PM Care Teams Punch Finisher Relationship Specialty Start Date End Date Baldo Fischer MD [address] [address] PCP - General 07/04/22
--- OUTSIDE RECORDS SUMMARY | 2024-08-02 12:15 | XMS_ITS | Clinical Summary ---
Author Organization [facility] Address [address] [place] [address] Phone Care Team Providers Care Work Adjustment Instructor Name Role Phone Baldo Fischer MD Primary Care Provider [phone] Allergies No known active allergies Medications aspirin (ASPIR) 81 MG EC tablet 1 daily 0 6 Active omeprazole (PriLOSEC) [address] capsule 1 capsule (40 mg) orally daily 30 minutes before morning meal 0 6 Active fenofibrate micronized (LOFIBRA) 134 MG capsule fenofibrate micronized 134 mg capsule Active dilTIAZem CD (CARDIZEM CD) 300 MG 24 hr capsule TK 1 C PO D 9 Active insulin glargine (BASAGLAR KWIKPEN) 100 UNIT/ML [...] lotion KAREN EXT AA BID PRF RASH 9 Active carvedilol (COREG) 25 MG tablet Take 25 mg by mouth 2 (two) times a day with meals Active CONTOUR NEXT TEST test strip TEST TID BEFORE MEALS. 0 Active JARDIANCE 25 MG tablet TK 1 T PO QD IN THE MORNING 0 Active Lancets Micro Thin 33G misc U TO TEST BS QID 0 Active finasteride (PROSCAR) 5 MG tablet TK 1 T PO D 0 Active B-D ULTRAFINE III SHORT PEN 31G X 8 MM misc 2 (two) times a day as directed 1 Active Ozempic, 1 MG/DOSE, 4 MG/3ML solution pen-injector INJECT 1 MG UNDER THE SKIN IN THE MORNING ONCE WEEKLY 1 Active glimepiride (AMARYL) 2 MG tablet Take 4 mg by mouth 1 (one) time each day 1 Active Blood Glucose Monitoring Suppl (ONE TOUCH ULTRA 2) w/Device kit USE TO TEST BLOOD SUGAR TWICE DAILY BEFORE MEALS 2 Active Icosapent Ethyl (Vascepa) 1 g capsule Vascepa 1 gram capsule Active isosorbide mononitrate (IMDUR) 60 MG 24 hr tablet Take 60 mg by mouth 1 (one) time each day in the evening 2 Active rosuvastatin (CRESTOR) 20 MG tablet Take 20 mg by mouth every night 2 Active amLODIPine (NORVASC) 10 MG tablet Take [...] function study of kidney 05/08/2019 11/12/2020 Immunizations Immunization Administration Dates Next Due Influenza TIV (IM) [...] at Not on file Legal Sex Male 9:04 AM MST Gender Identity Not on file Sexual Orientation Not on file Last Filed Vital Signs Vital Sign Reading Time Taken Comments Blood Pressure 124/70 05/23/2021 9:24 AM INSTRUMENT ROOM TECHNICIAN Pulse 72 05/23/2021 9:24 AM INSTRUMENT ROOM TECHNICIAN Temperature 36.4 C (97.6 F) 05/23/2021 9:24 AM INSTRUMENT ROOM TECHNICIAN Respiratory Rate - - Oxygen Saturation - - Inhaled Oxygen Concentration - - Weight 104 kg (230 lb) 05/23/2021 9:24 AM INSTRUMENT ROOM TECHNICIAN Height 182.9 cm (6') 05/23/2021 9:24 AM INSTRUMENT ROOM TECHNICIAN Body Mass Index 31.19 05/23/2021 9:24 AM INSTRUMENT ROOM TECHNICIAN Plan of Treatment Health Maintenance Due Date Last Done Comments Pneumococcal PPSV23/PCV13 65 + Years / Low and Medium Risk (1 of 4 - PCV) 2008 COVID-19 Vaccine ( season) 12/16/202302/2021, 06/29/2020 Influenza Vaccine (Season Ended) 2024 01/28/2021, 01/31/2020, 02/28/2019 Insurance [facility] Care Teams Work Adjustment Instructor Relationship Specialty Start Date End Date Baldo Fischer MD [facility] [place] [phone] PCP - General Family Medicine 05/26/21
--- OUTSIDE RECORDS SUMMARY | 2024-08-02 12:15 | XMS_ITS | Clinical Summary ---
Author Organization [facility] Address [address] [place] [address] Care Team Providers Care German Tutor Name Role Phone Baldo Fischer MD Primary Care Provider Allergies No known active allergies Medications No known medications Immunizations Immunization Administration Dates Next Due Tdap (Adacel) 06/11/2021 [...] Comments Blood Pressure 164/80 06/11/2021 3:49 PM [employer] Pulse 95 06/11/2021 3:18 PM [employer] Temperature 36.4 C (97.6 F) 06/11/2021 1:35 PM [employer] Respiratory Rate 18 06/11/2021 3:18 PM [employer] Oxygen Saturation 98% 06/11/2021 3:18 PM [employer] Inhaled Oxygen Concentration - - Weight 99.8 kg (220 lb) 06/11/2021 1:35 PM [employer] Height 185.4 cm (6' 1 ) 06/11/2021 1:35 PM [employer] Body Mass Index 29.03 06/11/2021 1:35 PM [employer] Plan of Treatment Health Maintenance Due Date Last Done Comments Colorectal Cancer Screening Colonoscopy (10 Years) 1960 Hepatitis C 1976 Pneumococcal Vaccine: 50+ Years (1 of 1 - PCV) 2008 05/16/2019 Zoster Vaccines (1 of 2) 2008 COVID-19 Vaccine (2023-2 5 season) 2023 07/25/2020, 06/29/2020 DTaP, Tdap and Td Vaccines ( 2 - Td or Tdap) 06/11/2031 06/11/2021, 12/30/2001 RSV Immunization or 60+ Years (1 - 1-dose 75+ series) 2033 Meningococcal B Vaccine Aged Out No l onger eligible based on patient's age to complete this topic Meningococcal Vaccine Aged Out No elo isabella eligible based on patient's age to complete this topic RSV Immunizations Under 20 Months Aged Out No longer eligible b ased on patient's age to complete this topic Insurance [employer] Care Teams German Tutor Relationship Specialty Start Date End Date Baldo Fischer MD [address] [address] PCP - General INTERNAL MEDICINE 06/11/21
--- OUTSIDE RECORDS SUMMARY | 2024-08-02 12:15 | XMS_ITS | Referral Summary ---
Author Organization [facility] Address [address] [place] [id number] Care Team Providers Care Crystal Growing Technician Name Role Phone Lorenzo Fischer MD Primary [...] on file Legal Sex Male 11:38 AM PICK UP WORKER Gender Identity Not on file Sexual [...] on file Medical Devices Implanted Type Area Submarine Cable Equipment Technician Device Identifier Shelf Expiration Date Model / Serial / Lot Aframe Angio-Seal Vip 6fr Closere Device [id number] - [id number] Implanted:Qty: 1 on 02/15/2024 by Kermit Gonzalez MD at [facility] Aframe [id number] / / Procedures Procedure Name Priority Date/Time [...] and with contrast. Preliminary results by teleradiologist c consultant. Electronically signed by: Jeremiah Ayala M.D. Narrative [...] and with contrast. Preliminary results by teleradiologist c consultant. Electronically signed by: Jeremiah Ayala M.D. [facility] [place]ED[place] Final Resul t from Last 3 Months or Most Recently Relevant to Health Maintenance Insurance MEDICARE [facility] CHOICE PLUS Care Teams Crystal Growing Technician Relationship Specialty Start Date End Date Lorenzo Fischer MD [address] [facility] [address] [place] [address] PCP - General Internal Medicine 07/29/22
--- OUTSIDE RECORDS SUMMARY | 2024-08-02 12:15 | XMS_ITS | CONTINUITY OF CARE DOCUMENT ---
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 Name Role Phone Kermit Gonzalez MD Unavailable [phone] ELIZABETH LORA MD Unavailable [phone] RALPH GONZALES MD Unavailable [phone] PROBLEMS Condition Status Date Provider Notes Angina pectoris active Kermit Gonzalez MD CAD active Kermit Gonzalez MD HTN active Kermit Gonzalez MD DIABETES MELLITUS active Kermit Gonzalez MD CAROTID--04/27 CAROTID NEG -06/19 NEG completed - Kermit Gonzalez MD CHEST PAIN - 02/2017 NUC FX DEF INF active Kermit Gonzalez MD SHORTNESS OF BREATH completed - Reji Mckinley SUDDEN VISUAL LOSS active Michelle Wagner MD Tobacco use quit active Kermit Gonzalez MD Dizziness completed - Reji Mckinley Obesity active Reji Mckinley Dyslipidemia active Reji Mckinley Anemia active Jennifer Chen Leg pain, right active Kermit Gonzalez MD ENCOUNTERS Date Type Provider Location Encounter Diag nosis - In-person encounter Office Visit Kermit Gonzalez MD [place] [facility] - In-person encounter Office Visit Kermit Gonzalez MD [facility] - In-person encounter Office Visit Kermit Gonzalez MD [facility] - In-person encounter Office Visit Kermit Gonzalez MD [facility] - In-person encounter Office Visit Kermit Gonzalez MD [place] [facility] - In-person encounter Office Visit Kermit Gonzalez MD [facility] - In-person encounter Office Visit Kermit Gonzalez MD [facility] - In-person encounter Office Visit Kermit Gonzalez MD [facility] - In-person encounter Office Visit Kermit Gonzalez MD [place] [facility] - In-person encounter Office Visit Kermit Gonzalez MD [place] [facility] Leg pain, right - In-person encounter Office Visit Kermit Gonzalez MD [place] [facility] - In-person encounter Office Visit Kermit Gonzalez MD [place] [facility] - In-person encounter Office Visit Kermit Gonzalez MD [place] [facility] Anemia - In-person encounter Office Visit Kermit Gonzalez MD [place] [facility] - In-person encounter Office Visit Kermit Gonzalez MD [facility] - In-person encounter Office Visit Kermit Gonzalez MD [place] [facility] [place] [facility] Dyslipidemia - In-person encounter Office Visit Kermit Gonzalez MD [place] [facility] SHORTNESS OF BREATHDizziness - In-person encounter Office Visit Kermit Gonzalez MD [place] [facility] - In-person encounter Office Visit Kermit Gonzalez MD [place] [facility] - In-person encounter Office Visit Kermit Gonzalez MD [place] [facility] - In-person encounter Office Visit Kermit Gonzalez MD [place] [facility] CHEST PAIN - 02/2017 NUC FX DEF INF - In-person encounter Office Visit Kermit Gonzalez MD [facility] Obesity - In-person encounter Office Visit Kermit Gonzalez MD [place] [facility] - In-person encounter Office Visit Kermit Gonzalez MD [facility] - In-person encounter Office Visit Kermit Gonzalez MD [place] [facility] Angina pectorisCADHTN - In-person encounter Office Visit Kermit Gonzalez MD [place] [facility] Angina pectorisCADHTNCAROTID--04/27 CAROTID NEG -06/19 NEGTobacco use quit - In-person encounter Office Visit Kermit Gonzalez MD [place] [facility] [place] [facility] - In-person encounter Office Visit Kermit Gonzalez MD [place] [facility] - In-person encounter Office Visit Kermit Gonzalez MD [place] [facility] - In-person encounter Office Visit Kermit Gonzalez MD [place] [facility] - In-person encounter Office Visit Kermit Gonzalez MD [place] [facility] - In-person encounter Office Visit Kermit Gonzalez MD [place] [facility] - In-person encounter Office Visit Kermit Gonzalez MD [facility] - In-person encounter Office Visit Kermit Gonzalez MD [place] [facility] - In-person encounter Office Visit Michelle Wagner MD [facility] SUDDEN VISUAL LOSS - In-person encounter Office Visit Kermit Gonzalez MD [facility] - In-person encounter Office Visit Kermit Gonzalez MD [place] [facility] - In-person encounter Office Visit Kermit Gonzalez MD [place] [facility] - In-person encounter Office Visit Kermit Gonzalez MD [place] [facility] CHEST PAIN - 02/2017 NUC FX DEF INF - In-person encounter Office Visit Kermit Gonzalez MD [place] [facility] Angina pectorisCADHTNDIABETES MELLITUS VITAL SIGNS Date Observation Value Provider Body Mass Index (Ratio) 34.03 kg/m2 Kermit Gonzalez MD blood pressure, diastolic 79 mm[Hg] Teresa brownshadcharlotte Aleman blood pressure, systolic 143 mm[Hg] Seble lopez Aleman oxygen saturation, oximetry 96 % [facility] pulse [facility] 71 /min [facility] respiratory rate E&M 14 /min [facility] weight E&M 244 [lb_av] [facility] height E&M 71.0 [in_i] [facility] blood pressure, cuff size regular An sonja Aleman Body Mass Index (Ratio) 33.19 kg/m2 Sebastian as Nelda blood pressure, diastolic 72 mm[Hg] Ke rri Jaclyn blood pressure, systolic 137 mm[Hg] Windy ri Jaclyn oxygen saturation, oximetry 95 % Melida Jaclyn pulse rate 70 /min Melida Maritza bentley weight E&M 238 [lb_av] Melida Maritza bentley height E&M 71.0 [in_i] Melida Maritza bentley Body Mass Index (Ratio) 33.19 kg/m2 Sebastian as Nelda blood pressure, cuff size regular Ke rri Grueneelaina blood pressure, diastolic 80 mm[Hg] Ke david [facility] blood pressure, systolic 170 mm[Hg] Windy [facility] oxygen saturation, oximetry 97 % Melida [facility] pulse rate 82 /min Melida Salas [facility] weight E&M 238 [lb_av] Melida Salas [facility] height E&M 71.0 [in_i] Melida Salas [facility] blood pressure, diastolic 81 mm[Hg] [facility], systolic 135 mm[Hg] [facility] blood pressure, diastolic 81 mm[Hg] [facility] blood pressure, systolic 135 mm[Hg] [facility] Body Mass Index (Ratio) 32.21 kg/m2 Adam Gunter oxygen saturation, oximetry 96 % Camille [place] pulse rate 71 /min [facility], cuff size regular [facility], diastolic 88 mm[Hg] Sherwin [facility] blood pressure, systolic 148 mm[Hg] Tab [facility] [place] weight E&M 231 [lb_av] Camille [place] respiratory rate E&M 12 /min [facility] height E&M 71.0 [in_i] Camille [place] Body Mass Index (Ratio) 31.94 kg/m2 José Luis Montelongo blood pressure, cuff size regular Abdifatah rret blood pressure, diastolic 84 mm[Hg] Abdifatah rret blood pressure, systolic 138 mm[Hg] Judith ret pulse rate 70 /min Fernando seymour oxygen saturation, oximetry 98 % Fernando 02/19 respiratory rate E&M 12 /min weight E&M 229 [lb_av] height E&M 71.0 [in_i] Fernando Body Mass Index (Ratio) 32.07 kg/m2 [facility] pulse rate 78 /min Desirae blood pressure, diastolic 94 mm[Hg] An shad blood pressure, systolic 156 mm[Hg] Any a oxygen saturation, oximetry 96 % Desirae weight E&M 230 [lb_av] Desirae blood pressure, cuff size large An shad height E&M 71.0 [in_i] Desirae Body Mass Index (Ratio) 32.35 kg/m2 [facility] blood pressure, diastolic 85 mm[Hg] An blood pressure, systolic 146 mm[Hg] Any a pulse rate 72 /min Desirae oxygen saturation, oximetry 94 % Desirae weight E&M 232 [lb_av] Desirae blood pressure, cuff size large An height E&M 71.0 [in_i] Desirae Body Mass Index (Ratio) 32.49 kg/m2 [facility] blood pressure, diastolic 80 mm[Hg] An blood pressure, systolic 164 mm[Hg] Any a oxygen saturation, oximetry 93 % Desirae pulse rate 70 /min Desirae weight E&M 233 [lb_av] Desirae height E&M 71.0 [in_i] Desirae Body Mass Index (Ratio) 31.94 kg/m2 Alejandro Brandzakevin blood pressure, cuff size large Ke rri Gruenenfelder blood pressure, diastolic 80 mm[Hg] Ke rri Gruenenfelder blood pressure, systolic 132 mm[Hg] Windy ri Gruenenfelder oxygen saturation, oximetry 95 % Melida Gruenenfelder respiratory rate E&M 14 /min Melida G ruenenfelder pulse rate 64 /min Melida Grtednenfe er weight E&M 229 [lb_av] Melida Gruenenfe [facility] height E&M 71.0 [in_i] Melida Alinanenfe [facility] Body Mass Index (Ratio) 30.96 kg/m2 Asya ameena Chen blood pressure, diastolic 79 mm[Hg] Bella ridleyle Calvo blood pressure, systolic 142 mm[Hg] [facility] oxygen saturation, oximetry 96 % Palmira Calvo pulse rate 69 /min Palmira vazquez weight E&M 222 [lb_av] Palmira vazquez respiratory rate E&M 16 /min Iraida Palominoand blood pressure, cuff size large Bella francis Umesh height E&M 71.0 [in_i] Palmira vazquez Body Mass Index (Ratio) 31.94 kg/m2 Asya faulknerseymour Chen blood pressure, diastolic 73 mm[Hg] Ch astity Cash blood pressure, systolic 139 mm[Hg] Idalia stity Cash oxygen saturation, oximetry 97 % Chastity Cash weight E&M 229 [lb_av] Chastity Cash pulse rate 69 /min Chastity Cash respiratory rate E&M 16 /min Chastit y Cash height E&M 71.0 [in_i] Chastity Cash Body Mass Index (Ratio) 32.35 kg/m2 Asya lindquist Gustavo blood pressure, diastolic 89 mm[Hg] Ca therine [place] blood pressure, systolic 161 mm[Hg] Cat herine [place] oxygen saturation, oximetry 98 % Jamia Federico respiratory rate E&M 16 /min Catheri ne Federico pulse rate 78 /min Jamia Federico weight E&M 232 [lb_av] Jamia Federico blood pressure, cuff size regular Ca therine [place] height E&M 71.0 [in_i] Jamia Federico Body Mass Index (Ratio) 31.80 kg/m2 Asya lindquist Gustavo blood pressure, diastolic 67 mm[Hg] Sa ra Merino blood pressure, systolic 147 mm[Hg] Praful a Merino blood pressure, cuff size regular Sa ra Merino oxygen saturation, oximetry 98 % Darlene Merino pulse rate 77 /min Darlene Merino respiratory rate E&M 17 /min Darlene Si ms weight E&M 228 [lb_av] Darlene Merino height E&M 71.0 [in_i] Darlene Merino Body Mass Index (Ratio) 31.24 kg/m2 Asya ameena Chen blood pressure, cuff size regular Abdifatah Villa RN blood pressure, diastolic 77 mm[Hg] Abdifatah Villa RN blood pressure, systolic 172 mm[Hg] Joey Villa RN respiratory rate E&M 22 /min Joey arenas RN oxygen saturation, oximetry 98 % Joey Villa RN pulse rate 72 /min Joey Charlessenia TURNER weight E&M 224 [lb_av] Joey Villa YUE Body Mass Index (Ratio) 31.38 kg/m2 Asya lindquist Gustavo blood pressure, diastolic 70 mm[Hg] Rh onda Lindsey blood pressure, systolic 148 mm[Hg] Rho nda Lindsey oxygen saturation, oximetry 98 % Saritha Lindsey pulse rate 75 /min Saritha Lindsey weight E&M 225 [lb_av] Saritha Lindsey respiratory rate E&M 18 /min Saritha Lindsey blood pressure, resting Yes Dianen tonny Portillo blood pressure, cuff size regular Rh onda Lindsey height E&M 71.0 [in_i] Sarithajessica Portillo Body Mass Index (Ratio) 32.91 kg/m2 Audi Mckinley blood pressure, diastolic 71 mm[Hg] Cy nthia Ulloa blood pressure, systolic 131 mm[Hg] Darlene richellea Ulloa blood pressure, cuff size regular Cy nthia Ulloa pulse rate 77 /min Didi Marcosbel l respiratory rate E&M 16 /min Didi Ulloa oxygen saturation, oximetry 97 % Didi Ulloa weight E&M 236 [lb_av] Didi Campbel l height E&M 71.0 [in_i] Didi Campbel l Body Mass Index (Ratio) 32.35 kg/m2 Kermit Gonzalez MD pulse rate 78 /min Saritha Lindsey blood pressure, diastolic 70 mm[Hg] Rh onda Lindsey blood pressure, systolic 128 mm[Hg] Rho nda Lindsey weight E&M 232 [lb_av] Saritha Lindsey blood pressure, cuff size regular Rh onda Lindsey respiratory rate E&M 16 /min Saritha Lindsey height E&M 71.0 [in_i] Saritha Portillo temperature site temporal Ankitadi matamoros temperature E&M 97.7 [degF] Ankitadi antunez Body Mass Index (Ratio) 35.00 kg/m2 Audi Mckinley blood pressure, diastolic, standing 60 mm [Hg] Bouchra Royce blood pressure, systolic, standing 120 mm [Hg] Bouchra Crane blood pressure, diastolic, sitting 60 mm[ Hg] Bouchra Royce blood pressure, systolic, sitting 119 mm[ Hg] Bouchra Royce blood pressure, cuff size large Cr jimbo Crane blood pressure, diastolic 60 mm[Hg] Cr farooq Crane blood pressure, systolic 119 mm[Hg] Cry stauriel Crane oxygen saturation, oximetry 98 % Bouchra Royce respiratory rate E&M 17 /min Bouchra Royce pulse rate 63 /min Bouchra conn weight E&M 251 [lb_av] Bouchra Orlando s height E&M 71.0 [in_i] Bouchra Orlando s Body Mass Index (Ratio) 34.03 kg/m2 Kermit Gonzalez MD blood pressure, cuff size large Ke david Anaya blood pressure, diastolic 70 mm[Hg] Daniel rri Jaclyn blood pressure, systolic 110 mm[Hg] Windy Anaya oxygen saturation, oximetry 98 % Melida Anaya respiratory rate E&M 20 /min Melida drake pulse rate 71 /min Melida bowman weight E&M 244 [lb_av] Melida bowman height E&M 71.0 [in_i] Melida bowman Body Mass Index (Ratio) 35.00 kg/m2 Audi Mckinley blood pressure, diastolic 79 mm[Hg] Joelle Olson blood pressure, systolic 155 mm[Hg] Sonia Olson oxygen saturation, oximetry 97 % Nirali Olson respiratory rate E&M 18 /min Darius Olson pulse rate 65 /min Nirali martin weight E&M 251 [lb_av] Nirali martin height E&M 71.0 [in_i] Nirali martin Body Mass Index (Ratio) 35.12 kg/m2 Audi Mckinley blood pressure, diastolic 75 mm[Hg] Joelle Olson blood pressure, systolic 160 mm[Hg] Sonia Olson oxygen saturation, oximetry 97 % Nirali Olson respiratory rate E&M 18 /min Darius Olson pulse rate 77 /min Nirali martin weight E&M 251.8 [lb_av] Nirali cuevas height E&M 71.0 [in_i] Nirali martin Body Mass Index (Ratio) 33.55 kg/m2 Audi Mckinley blood pressure, diastolic 78 mm[Hg] Joelle Olson blood pressure, systolic 149 mm[Hg] Sonia Olson oxygen saturation, oximetry 97 % Nirali Olson respiratory rate E&M 18 /min Darius Olson pulse rate 74 /min Nirali martin weight E&M 240.6 [lb_av] Nirali cuevas height E&M 71.0 [in_i] Nirali martin Body Mass Index (Ratio) 33.05 kg/m2 [facility] blood pressure, cuff size regular Jaskaran Fink blood pressure, diastolic 70 mm[Hg] Virgen Fink blood pressure, systolic 130 mm[Hg] Sharlene Fink oxygen saturation, oximetry 98 % Kelly Fink respiratory rate E&M 16 /min Kelly Fink pulse rate 80 /min Kelly Fink weight E&M 237 [lb_av] Kelly Fink height E&M 71.0 [in_i] Kelly Fink Body Mass Index (Ratio) 33.69 kg/m2 Audi Mckinley blood pressure, diastolic 78 mm[Hg] Joelle Olson blood pressure, systolic 148 mm[Hg] Sonia Olson oxygen saturation, oximetry 98 % Nirali Olson respiratory rate E&M 18 /min Darius Olson pulse rate 88 /min Nirali Layton veronica weight E&M 241.6 [lb_av] Nirali Tanvir ariaswendi height E&M 71.0 [in_i] Nirali Layton veronica Body Mass Index (Ratio) 34.31 kg/m2 Audi bruce Arlen blood pressure, resting Yes Kermit Gonzalez MD blood pressure, diastolic 79 mm[Hg] Joelle Olson blood pressure, systolic 156 mm[Hg] Sonia Olson oxygen saturation, oximetry 95 % Nirali Olson respiratory rate E&M 18 /min Darius Olson pulse rate 77 /min Nirali Layton abhijeetwendi weight E&M 246 [lb_av] Nirali Traylor abhijeetwendi height E&M 71.0 [in_i] Nirali Layton abhijeetwendi blood pressure, diastolic, left arm 76 mm [Hg] Bethany Espinoza blood pressure, systolic, left arm 133 mm [Hg] Bethany Espinoza blood pressure, diastolic, right arm 84 m m[Hg] Bethany Espinoza blood pressure, systolic, right arm 137 m m[Hg] Bethany Espinoza blood pressure, diastolic 769 mm[Hg] Me nicole Espinoza blood pressure, systolic 133 mm[Hg] Garima puente Espinoza pulse rate 80 /min Bethany Espinoza oxygen saturation, oximetry 97 % Bethany sEpinoza respiratory rate E&M 15 /min Bethany Espinoza Body Mass Index (Ratio) 33.19 kg/m2 Tatianna ssa [facility] weight E&M 238 [lb_av] Bethany [facility] Body Mass Index (Ratio) 31.24 kg/m2 Anea [facility] blood pressure, diastolic, left arm 60 mm [Hg] Aneat[facility] blood pressure, systolic, left arm 120 mm [Hg] [facility]ne[facility]ris [facility] blood pressure, diastolic, right arm 60 m m[Hg] [facility] blood pressure, systolic, right arm 118 m m[Hg] [facility] blood pressure, diastolic 60 mm[Hg] An [facility] blood pressure, systolic 120 mm[Hg] Ane at[facility] pulse rate 86 /min [facility] oxygen saturation, oximetry 98 % [facility] respiratory rate E&M 18 /min [facility]neatri s [facility] weight E&M 224 [lb_av] [facility] Body Mass Index (Ratio) 31.10 kg/m2 Anea [facility] blood pressure, diastolic, left arm 72 mm [Hg] Aneatris Brown blood pressure, systolic, left arm 132 mm [Hg] Aneatris Brown blood pressure, diastolic, right arm 74 m m[Hg] [facility] blood pressure, systolic, right arm 135 m m[Hg] Aneatris Brown blood pressure, diastolic 72 mm[Hg] An [facility] blood pressure, systolic 132 mm[Hg] Ane atris [facility] pulse rate 89 /min [facility] oxygen saturation, oximetry 97 % [facility] respiratory rate E&M 17 /min [facility]atri s [facility] weight E&M 223 [lb_av] [facility] Body Mass Index (Ratio) 30.82 kg/m2 Anea [facility] blood pressure, diastolic 95 mm[Hg] An [facility] blood pressure, systolic 144 mm[Hg] Ane atris [facility] pulse rate 99 /min [facility] oxygen saturation, oximetry 98 % [facility] respiratory rate E&M 18 /min [facility] weight E&M 221 [lb_av] [facility] Body Mass Index (Ratio) 31.24 kg/m2 Diaa [facility] blood pressure, diastolic 77 mm[Hg] An j[facility] blood pressure, systolic 139 mm[Hg] Ane atris [facility] pulse rate 88 /min [facility]neatris [facility] oxygen saturation, oximetry 98 % [facility] respiratory rate E&M 16 /min [facility]atri s [facility] weight E&M 224 [lb_av] [facility] Body Mass Index (Ratio) 30.79 kg/m2 Tatianna ssa Espinoza blood pressure, diastolic, left arm 70 mm [Hg] Bethany Espinoza blood pressure, systolic, left arm 132 mm [Hg] Betahny Espinoza blood pressure, diastolic, right arm 83 m m[Hg] Bethany Espinoza blood pressure, systolic, right arm 139 m m[Hg] Bethany Espinoza blood pressure, diastolic 70 mm[Hg] Ia corey Espinoza blood pressure, systolic 132 mm[Hg] Garima cindi Espinoza pulse rate 90 /min Bethany Espinoza oxygen saturation, oximetry 98 % Bethany Espinoza respiratory rate E&M 14 /min Bethany Espinoza weight E&M 220 [lb_av] Bethany Espinoza blood pressure, diastolic, left arm 79 mm [Hg] Joey Villa RN blood pressure, systolic, left arm 125 mm [Hg] Joey Villa RN blood pressure, diastolic, right arm 87 m m[Hg] Joey Villa RN blood pressure, systolic, right arm 142 m m[Hg] Joey Villa RN blood pressure, diastolic 79 mm[Hg] Abdifatah angely Villa RN blood pressure, systolic 125 mm[Hg] Joey Charless RN pulse rate 90 /min Joey Villa RN oxygen saturation, oximetry 98 % Joey Charless RN respiratory rate E&M 17 /min Joey kaplansenia RN Body Mass Index (Ratio) 34.29 kg/m2 Joey Villa RN weight E&M 245 [lb_av] Joey Villa RN Body Mass Index (Ratio) 36.95 kg/m2 Karan Plascencia blood pressure, diastolic, left arm 88 mm [Hg] Jordin Tyacop blood pressure, systolic, left arm 144 mm [Hg] Jordin Tyacop blood pressure, diastolic, right arm 72 m m[Hg] Jordin Manacop blood pressure, systolic, right arm 136 m m[Hg] Jordin [place] blood pressure, diastolic 72 mm[Hg] Lucretia Tyacop blood pressure, systolic 136 mm[Hg] Abram Tyacotoi pulse rate 87 /min Jordin Tyacop oxygen saturation, oximetry 99 % Jordin Tyacop respiratory rate E&M 16 /min Jordin Man[place]op weight E&M 264 [lb_av] Jordin Tyacop height E&M 71.0 [in_i] [facility], [facility], left [facility] 88 mm [Hg] [facility], systolic, left arm 148 mm [Hg] [facility], diastolic, right arm 78 m m[Hg] [facility], systolic, right arm 142 m m[Hg] [facility], diastolic 78 mm[Hg] Lucretia resendez [facility] blood pressure, systolic 142 mm[Hg] Abram [facility] pulse rate 98 /min [facility] oxygen saturation, oximetry 99 % [facility] respiratory rate E&M 16 /min [facility] weight E&M 270 [lb_av] [facility] blood pressure, diastolic 73 mm[Hg] Abdifatah Villa RN blood pressure, systolic 123 mm[Hg] Joey Villa RN pulse rate 72 /min Joey Villa RN oxygen saturation, oximetry 98 % Joey Villa RN respiratory rate E&M 18 /min Joey arenas RN weight E&M 260 [lb_av] Joey Villa RN blood pressure, diastolic 70 mm[Hg] Abdifatah Villa RN blood pressure, systolic 135 mm[Hg] Joey Villa RN pulse rate 87 /min Joey Villa RN oxygen saturation, oximetry 97 % Joey Villa RN respiratory rate E&M 18 /min Joey arenas RN weight E&M 268 [lb_av] Joey Villa RN blood pressure, diastolic, left arm 78 mm [Hg] Joey Villa RN blood pressure, systolic, left arm 143 mm [Hg] Joey Villa RN blood pressure, diastolic, right arm 89 m m[Hg] Joey Villa RN blood pressure, systolic, right arm 152 m m[Hg] Joey Villa RN blood pressure, diastolic 89 mm[Hg] Abdifatah Villa RN blood pressure, systolic 152 mm[Hg] Joey Villa RN pulse rate 96 /min Joey Villa RN oxygen saturation, oximetry 98 % Joey Villa RN respiratory rate E&M 18 /min Joey arenas RN weight E&M 270 [lb_av] Joey Villa RN blood pressure, diastolic, left arm 80 mm [Hg] Joey Villa RN blood pressure, systolic, left arm 141 mm [Hg] Joey Villa RN blood pressure, diastolic, right arm 83 m m[Hg] Joey Villa RN blood pressure, systolic, right arm 142 m m[Hg] Joey Villa RN blood pressure, diastolic 83 mm[Hg] Abdifatah Villa RN blood pressure, systolic 142 mm[Hg] Joey Villa RN pulse rate 75 /min Joey Villa RN oxygen saturation, oximetry 97 % Joey Villa RN respiratory rate E&M 16 /min Joey kaplans RN weight E&M 268 [lb_av] Joey Villa RN blood pressure, diastolic 86 mm[Hg] Lucretia seph Man[place]op blood pressure, systolic 151 mm[Hg] Abram eph [place] pulse rate 92 /min Jordin [place] oxygen saturation, oximetry 96 % Jordin [place] respiratory rate E&M 16 /min Jordin [place] weight E&M 267 [lb_av] Jordin Man[place]op blood pressure, diastolic, left arm 81 mm [Hg] Joey Villa RN blood pressure, systolic, left arm 140 mm [Hg] Joey Villa RN blood pressure, diastolic, right arm 101 mm[Hg] Joey Villa RN blood pressure, systolic, right arm 160 m m[Hg] Joey Villa RN pulse rate 74 /min Joey Villa RN oxygen saturation, oximetry 94 % Joey Villa RN respiratory rate E&M 16 /min Joey arenas RN weight E&M 268 [lb_av] Joey Villa RN ALLERGIES No Known Drug Allergies RESULTS Date Observation Value Provider Reference Range Interpretation Location prothrombin time (patient) 11.3 s [facility] 9.1-12.0 international normalized ratio (INR) 1.0 [facility] 0.9-1.2 lipoprotein, beta, serum, point, quantitative, calculated 44 mg/dL [facility] 0-99 HDL cholesterol, serum 30 mg/dL [facility] >39 Low triglyceride, serum, random 183 mg/dL [facility] 0-149 High cholesterol, serum 104 mg/dL [facility] [id number]/10 /29 calcium, serum 10.0 mg/dL [facility] 8.6-10.2 carbon dioxide, venous blood 23 mmol/L [facility] 20-29 chloride, serum 105 mmol/L [facility] 96-106 potassium, serum 4.7 mmol/L [facility] 3.5-5.2 sodium, serum 141 mmol/L [facility] [phone]/10 /29 urea nitrogen/creatinine ratio, serum 28 [facility] 10-24 High creatinine, serum 1.14 mg/dL [facility] 0.76-1.27 urea nitrogen, blood 32 mg/dL [facility] 8-27 High blood glucose, random 158 mg/dL [facility] 70-99 High basophil count, absolute 0.1 x10E3/uL [facility] 0.0-0.2 Eosinophil Absolute Count 0.5 X10E3/UL [facility] 0.0-0.4 High monocyte count, blood, automated 0.9 X10E3/UL [facility]Log[facility] 0.1-0.9 lymphocyte count, blood, automated 2.2 X10E3/UL [facility] 0.7-3.1 Absolute Neutrophils 6.6 X10E3/UL [facility] 1.4-7.0 basophils as percent of blood leukocytes 1 % [facility] Not Estab. eosinophils as percent of blood leukocytes 5 % [facility] Not Estab. monocytes as percent of blood leukocytes 9 % [facility] Not Estab. lymphocytes as percent of blood leukocytes 21 % [facility] Not Estab. neutrophils as percent of blood leukocytes 64 % [facility] Not Estab. platelet count 208 X10E3/UL [facility] 032-587 7291/10 /29 red blood cell distribution width 12.5 % [facility] 11.6-15.4 mean corpuscular hemoglobin concentration, RBC 32.8 G/DL [facility] 31.5-35.7 mean corpuscular hemoglobin, RBC 30.9 pg [facility] 26.6-33.0 mean corpuscular volume, RBC 94 fL [facility] 79-97 hematocrit, blood 41.5 % [facility] 37.5-51.0 hemoglobin, blood 13.6 g/dL [facility] 13.0-17.7 erythrocyte (RBC) count 4.40 X10E6/UL [facility] 4.14-5.80 leukocyte count, blood 10.3 X10E3/UL [facility] 3.4-10.8 prothrombin time (patient) 10.9 s [facility] 9.1-12.0 international normalized ratio (INR) 1.0 [facility] 0.9-1.2 lipoprotein, beta, serum, point, quantitative, calculated 92 mg/dL [facility] 0-99 HDL cholesterol, serum 31 mg/dL [facility] >39 Low triglyceride, serum, random 354 mg/dL [facility] 0-149 High cholesterol, serum 182 mg/dL [facility] 232-978 4745/01 /21 calcium, serum 10.1 mg/dL [facility] 8.6-10.2 carbon dioxide, venous blood 22 mmol/L [facility] 20-29 chloride, serum 101 mmol/L [facility] 96-106 potassium, serum 4.7 mmol/L [facility] 3.5-5.2 sodium, serum 140 mmol/L [facility] 374-492 6216/01 /21 urea nitrogen/creatinine ratio, serum 23 [facility] 10-24 creatinine, serum 1.28 mg/dL [facility] 0.76-1.27 High urea nitrogen, blood 29 mg/dL [facility] 8-27 High blood glucose, random 308 mg/dL [facility] 70-99 High basophil count, absolute 0.1 x10E3/uL [facility] 0.0-0.2 Eosinophil Absolute Count 0.4 X10E3/UL [facility] 0.0-0.4 monocyte count, blood, automated 0.7 X10E3/UL [facility] 0.1-0.9 lymphocyte count, blood, automated 2.3 X10E3/UL [facility] 0.7-3.1 Absolute Neutrophils 5.2 X10E3/UL [facility] 1.4-7.0 basophils as percent of blood leukocytes 1 % [facility] Not Estab. eosinophils as percent of blood leukocytes 5 % [facility] Not Estab. monocytes as percent of blood leukocytes 8 % [facility] Not Estab. lymphocytes as percent of blood leukocytes 26 % [facility] Not Estab. neutrophils as percent of blood leukocytes 60 % [facility] Not Estab. platelet count 240 X10E3/UL [facility] 806-710 7110/01 /21 red blood cell distribution width 12.5 % [facility] 11.6-15.4 mean corpuscular hemoglobin concentration, RBC 33.0 G/DL [facility] 31.5-35.7 mean corpuscular hemoglobin, RBC 30.7 pg [facility] 26.6-33.0 mean corpuscular volume, RBC 93 fL [facility] 79-97 hematocrit, blood 44.2 % [facility] 37.5-51.0 hemoglobin, blood 14.6 g/dL [facility] 13.0-17.7 erythrocyte (RBC) count 4.76 X10E6/UL [facility] 4.14-5.80 leukocyte count, blood 8.8 X10E3/UL [facility] 3.4-10.8 prothrombin time (patient) 10.1 s [facility] 9.1-12.0 international normalized ratio (INR) 0.9 [facility] 0.9-1.2 lipoprotein, beta, serum, point, quantitative, calculated 96 mg/dL [facility] 0-99 HDL cholesterol, serum 33 mg/dL [facility] >39 Low triglyceride, serum, random 349 mg/dL [facility] 0-149 High cholesterol, serum 188 mg/dL [facility] 591-186 6339/12 /16 calcium, serum 10.0 mg/dL [facility] 8.6-10.2 carbon dioxide, venous blood 18 mmol/L [facility] 20-29 Low chloride, serum 103 mmol/L [facility] 96-106 potassium, serum 5.7 mmol/L [facility] 3.5-5.2 High sodium, serum 137 mmol/L [facility] 814-395 8499/12 /16 urea nitrogen/creatinine ratio, serum 27 [facility] 10-24 High eGFR if 53 mL/min/{1.73_ m2} [facility] >59 Low eGFR if not 46 mL/min/{1.73_ m2} [facility] >59 Low creatinine, serum 1.58 mg/dL [facility] 0.76-1.27 High urea nitrogen, blood 43 mg/dL [facility] 8-27 High blood glucose, random 297 mg/dL [facility] 65-99 High basophil count, absolute 0.2 x10E3/uL [facility] 0.0-0.2 Eosinophil Absolute Count 0.3 X10E3/UL [facility] 0.0-0.4 monocyte count, blood, automated 0.6 X10E3/UL [facility] 0.1-0.9 lymphocyte count, blood, automated 2.1 X10E3/UL [facility] 0.7-3.1 Absolute Neutrophils 3.4 X10E3/UL [facility] 1.4-7.0 basophils as percent of blood leukocytes 2 % [facility] Not Estab. eosinophils as percent of blood leukocytes 4 % [facility] Not Estab. monocytes as percent of blood leukocytes 9 % [facility] Not Estab. lymphocytes as percent of blood leukocytes 32 % [facility] Not Estab. neutrophils as percent of blood leukocytes 52 % [facility] Not Estab. platelet count 360 X10E3/UL [facility] 128-346 3287/12 /16 red blood cell distribution width 17.6 % [facility] 11.6-15.4 High mean corpuscular hemoglobin concentration, RBC 27.9 G/DL [facility] 31.5-35.7 Low mean corpuscular hemoglobin, RBC 19.4 pg [facility] 26.6-33.0 Low mean corpuscular volume, RBC 70 fL [facility] 79-97 Low hematocrit, blood 28.0 % [facility] 37.5-51.0 Low hemoglobin, blood 7.8 g/dL [facility] 13.0-17.7 Low erythrocyte (RBC) count 4.02 X10E6/UL [facility] 4.14-5.80 Low leukocyte count, blood 6.5 X10E3/UL [facility] 3.4-10.8 LDL cholesterol, serum 66 mg/dL Reji Sosaberg microalbumin/creati nine ratio, urine <8.8 mg/g creat [facility] 0.0-30.0 microalbumin, random, urine <3.0 ug/mL [facility] Not Estab. creatinine, random, urine 34.2 mg/dL [facility] Not Estab. international normalized ratio (INR) 1.0 [facility] 0.9-1.1 prothrombin time (patient) 9.9 s [facility] 9.0-11.5 platelet count 245 THOUSAND/UL [facility] 678-001 7113/11 /15 Absolute Basophils 0.1 CELLS/UL [facility] 0.0-0.2 Absolute Monocytes 0.7 CELLS/UL [facility] 0.2-1.0 Absolute Lymphocytes 2.71 CELLS/UL [facility] 0.85-3.90 Absolute Neutrophils 2.7 CELLS/UL [facility] 1.5-7.8 mean corpuscular volume, RBC 91 fL [facility] 75-100 mean corpuscular hemoglobin concentration, RBC 32 G/DL [facility] 31-38 mean corpuscular hemoglobin, RBC 29 pg [facility] 25-35 hematocrit, blood 34 % [facility] 35-55 Low hemoglobin, blood 11.0 g/dL [facility] 11.5-16.5 Low erythrocyte count, whole blood 3.8 MILLION/UL [facility] 3.5-5.5 very low density lipoproteins 45.6 mg/dL [facility] 5.0-40.0 High LDL/HDL (low-density lipoprotein/high-de nsity lipoprotein) ratio 2 mg/dL [facility] 0-5 lipoprotein, beta, serum, point, quantitative, calculated 66 mg/dL [facility] 0-100 HDL cholesterol, serum 32 mg/dL [facility] 35-55 Low cholesterol, serum 144 mg/dL [facility] 0-200 triglyceride, serum, fasting 228 mg/dL [facility] 0-150 High Estimated Glomerular Filtration Rate (calc) 70 (?) [facility] >59 chloride, serum 105 mmol/L [facility] 98-107 potassium, serum 4.6 mmol/L [facility] 3.5-5.1 sodium, serum 144 mmol/L [facility] 225-370 0580/11 /15 creatinine, serum 1.1 mg/dL [facility] 0.7-1.2 carbon dioxide, venous blood 23 mmol/L [facility] 22-29 calcium, serum 10.0 mg/dL [facility] 8.6-10.2 urea nitrogen, blood 28 mg/dL [facility] 6-20 High blood glucose, random 152 mg/dL [facility] 74-99 High platelet count 239 10*3/mm3 Alondra Carvalho hematocrit, blood 37.9 % Alondra Carvalho international normalized ratio (INR) 1.0 Alondra Carvalho creatinine, serum 1.06 mg/dL [facility] potassium, serum 4.9 mmol/L [facility] sodium, serum 141 mmol/L Alondra Carvalho triglyceride, serum, fasting 218 mg/dL Kristi Newton RN HDL cholesterol, serum 36 mg/dL Kristi Newton RN LDL cholesterol, serum 82 mg/dL Kristi Newton RN alanine aminotransferase (SGPT), serum 30 1/L Kristi Newton RN aspartate aminotransferase (SGOT), serum 18 1/L Kristi Newton RN blood glucose, fasting 137 mg/dL Kristi Newton RN creatinine, serum 1.19 mg/dL Kristi Newton RN urea nitrogen, blood 36 mg/dL Kristi Newton RN potassium, serum 5.3 mmol/L Kristi Newton RN sodium, serum 140 mmol/L Kristi Newton RN platelet count 300 10*3/uL Kristi Newton RN hematocrit, blood 40.6 % Kristi Newton RN hemoglobin, blood 12.8 g/dL Kristi Newton RN leukocyte count, blood 8.1 10*3/mm3 Kristi Newton RN prothrombin time (patient) 10.7 s Alondra Carvalho international normalized ratio (INR) 1.0 Alondra Carvalho anion gap, serum [facility].9 [facility] glomerular filtration rate >60 [facility] calcium, serum 10.2 mg/dL Alondra Carvalho blood glucose, fasting 110 mg/dL [facility] creatinine, serum 1.29 mg/dL [facility] urea nitrogen, blood 18.0 mg/dL [facility] carbon dioxide, serum, total 29 mmol/L abel Carvalho chloride, serum 103 mmol/L [facility] potassium, serum 3.9 mmol/L [facility] sodium, serum 141 mmol/L [facility] platelet count 270 10*3/uL Alondra Carvalho red blood cell distribution width 12.4 % Alondra Carvalho mean corpuscular hemoglobin concentration, RBC 34.9 g/dL Alondra Carvalho mean corpuscular hemoglobin, RBC 31.7 pg Alondra Carvalho mean corpuscular volume, RBC 90.7 fL [facility] hematocrit, blood 36.1 % [facility] hemoglobin, blood 12.6 g/dL Alondra Carvalho erythrocyte (RBC) count 3.98 10*6/mm3 Alondra Carvalho monocytes as percent of blood leukocytes 11.1 % Alondra Carvalho lymphocytes as percent of blood leukocytes 47.1 % Alondra Carvalho leukocyte count, blood 7.5 10*3/mm3 Alondra Carvalho coagulation managed by Sadaf Aguilar RN international normalized ratio (INR) 1.0 Sadaf Aguilar RN prothrombin time (patient) 10.7 s Sadaf Aguilar RN triglyceride, serum, fasting 308 mg/[facility] HDL cholesterol, serum 33 mg/dL [facility] LDL cholesterol, serum 113 mg/dL Caren Anabelafl YUE cholesterol, serum 211 mg/dL [facility] platelet count 234 10*3/uL [facility] hematocrit, blood 38.4 % [facility] hemoglobin, blood 13.4 g/dL [facility] erythrocyte (RBC) count 4.16 10*6/mm3 [facility] leukocyte count, blood 6.9 10*3/mm3 [facility] platelet count 240 THOUSAND/UL [facility] 140-400 Normal red blood cell distribution width 13.6 % [facility] 11.0-15.0 Normal mean corpuscular hemoglobin concentration, RBC 33.7 G/DL [facility] 32.0-36.0 Normal mean corpuscular hemoglobin, RBC 32.1 pg [facility] 27.0-33.0 Normal mean corpuscular volume, RBC 95.4 fL [facility] 80.0-100.0 Normal hematocrit, blood 40.5 % [facility] 38.5-50.0 Normal hemoglobin electrophoresis, blood 13.7 [facility] 13.2-17.1 Normal erythrocyte (RBC) count 4.25 MILLION/UL [facility] 4.20-5.80 Normal leukocyte (white blood cells) count, blood 7.8 THOUSAND/UL [facility] 3.8-10.8 Normal calcium, serum 10.3 mg/dL [facility] 8.6-10.2 High carbon dioxide, venous blood 24 mmol/L [facility] 21-33 Normal chloride, serum 103 mmol/L [facility] 98-110 Normal potassium, serum 4.3 mmol/L [facility] 3.5-5.3 Normal sodium, serum 139 mmol/L [facility] 135-146 Normal urea nitrogen/creatinine ratio, serum NOT APPLICABLE (calc) [facility] 6- creatinine, serum 1.01 mg/dL [facility] 0.50-1.30 Normal urea nitrogen, blood 15 mg/dL [facility] 7-25 Normal blood glucose, random 95 mg/dL [facility] 65-99 Normal HISTORY OF MEDICATION USE Medication Status Instructions Dates Provider Indications Com ments rosuvastatin 40 mg tablet active TAKE 1 TABLET BY MOUTH EVERY DAY Tammy Rushing fenofibrate micronized 134 mg capsule active TAKE 1 CAPSULE BY MOUTH EVERY DAY Tammy Rushicassidy nitroglycerin 0.4 mg tablet, sublingual active DISSOLVE 1 TABLET UNDER THE TONGUE EVERY 5 MINUTES NEEDED FOR CHEST PAIN, MAX OF 3 DOSES IN 15 MINUTES Ginna Crane RN insulin lispro 100 unit/mL insulin pen active sliding scale Mer Valentino NP ergocalciferol (vitamin D2) 1,250 mcg (50,000 unit) capsule active weekly on saturdays Mer Valentino NP omeprazole 40 mg capsule,delayed release(DR/EC) active Take 1 capsule by mouth once a day Mer Valentino NP omega-3 acid ethyl esters 1 gram capsule active twice a day Mer Valentino NP losartan 100 mg tablet active TAKE 1 TABLET BY MOUTH ONCE DAILY Mer Valentino NP metformin (Glucophage XR) 500 mg tablet extended release 24 hr active TAKE 1 PILL TWICE A DAY Melida Anaya Crestor 40 mg tablet completed Take 1 tablet by mouth once a day - Tammy Rushing fenofibrate micronized 134 mg capsule completed TAKE 1 CAPSULE BY MOUTH ONCE EVERY DAY - Tammy Rushing diltiazem HCl (Cardizem CD) 300 mg capsule,extended release 24hr active TAKE 1 CAPSULE BY MOUTH DAILY Melida Anaya nitroglycerin 0.4 mg tablet, sublingual completed DISSOLVE 1 TAB UNDER TONGUE EVERY 5 MINS NEEDED FOR CHEST PAIN. MAX TOTAL OF 3 DOSES IN 15 MINS - Ginna Crane RN Farxiga 10 mg tablet active Take 1 tablet by mouth once a day Mer Valentino NP nitroglycerin 0.4 mg tablet, sublingual completed DISSOLVE 1 TABLET UNDER THE TONGUE EVERY 5 MINUTES NEEDED FOR CHEST PAIN FOR A TOTAL OF 3 DOSES. GO TO E.R. IF NO RELIEF AFTER THIRD DOSE - Halley Hensley NP amlodipine 10 mg tablet completed Take 1 tablet by mouth once a day - Mer Valentino NP diltiazem HCl 300 mg capsule,extended release 24hr completed Take 1 capsule by mouth once a day - Ginna Crane RN rosuvastatin 20 mg tablet completed Take 1 tablet by mouth every night - Kermit Gonzalez MD rosuvastatin 20 mg tablet completed TAKE 1 TABLET BY MOUTH EVERY NIGHT - Ginna Crane RN fenofibrate micronized 134 mg capsule completed Take 1 capsule by mouth once a day TAKE 1 CAPSULE BY MOUTH EVERY DAY - Fernando Flaherty amlodipine 10 mg tablet completed TAKE 1 TABLET BY MOUTH EVERY DAY - Ginna Crane RN Ozempic 2 mg/dose (8 mg/3 mL) pen injector active Inject 1 mg subcutaneously once a week Melida Anaya CartMomouch Ultra2 Meter completed USE TO TEST BLOOD SUGAR TWICE DAILY BEFORE MEALS - Melida Anaya TRUEplus Lancets 33 gauge 33 gauge completed - Melida Anaya omega-3 acid ethyl esters 1 gram capsule completed - Melida Anaya OneTouch Ultra Test strip completed - Melida Anaya simvastatin 20 mg tablet completed TAKE 1 TABLET BY MOUTH DAILY - Melida Anaya isosorbide mononitrate 60 mg tablet extended release 24 hr active TAKE 1 TABLET BY MOUTH EVERY EVENING Mer Valentino NP Crestor 20 mg tablet completed Take 1 tablet by mouth every night - Kermit Gonzalez MD Norvasc 10 mg tablet completed Take 1 tablet by mouth once a day - Tammy Ordonez nitroglycerin 0.4 mg tablet, sublingual completed DISSOLVE 1 TABLET UNDER THE TONGUE EVERY 5 MINUTES FOR 3 TOTAL DOSES NEEDED FOR CHEST PAIN. IF NO RELIEF AFTER 3RD DOSE, GO TO ER. - Palmira Calvo Nitrostat 0.4 mg tablet, sublingual completed APPLY ONE TAB UNDER TONGUE EVERY 5 MINUTES FOR 3 TOTAL DOSES NEEDED FOR CHEST PAIN. IF NO RELIEF AFTER 3RD DOSE, GO TO ER - Jorge Obrien RN fenofibrate micronized 134 mg capsule completed TAKE 1 CAPSULE BY MOUTH EVERY DAY - Eboni Will diltiazem HCl 300 mg capsule,extended release 24hr completed TAKE 1 CAPSULE BY MOUTH DAILY - Melida Anaya ranolazine 500 mg tablet extended release 12 hr completed 1 tablet twice a day - Kermit Gonzalez MD isosorbide mononitrate 60 mg tablet extended release 24 hr completed Take 1 tablet every night - Kermit Gonzalez MD finasteride 5 mg tablet active Take 1 tablet once a day Didi Ulloa Jardiance 25 mg tablet completed 1 tablet once a day - Halley Hensley NP glimepiride 4 mg tablet completed Take 1 tablet by mouth once a day - Mer Valentino NP Basaglotto SuzetteHilda U-100 Insulin 100 unit/mL (3 mL) insulin pen active 65 unit 40 units in am and pm Mer Valentino NP Brilinta 90 mg tablet completed Take 1 tablet by mouth twice a day - Mike Martinez PLAVIX 75 MG ORAL TABLET completed ONE TAB. DAILY - Bouchra Crane CIPROFLOXACIN HCL 500 MG ORAL TABLET completed take one pill twice a day for 7 days - Bouchra Crane #14, 7 days supply, Filled 8 tamsulosin 0.4 mg capsule completed once a day - Mer Valentino NP alogliptin 25 mg tablet completed once a day - Nirali Olson diltiazem HCl 300 mg capsule,extended release 24hr completed Take 1 capsule by mouth once a day - David Nacht Coreg 25 mg tablet active 1 tablet twice a day Mer Valentino NP HARMONY / ALBIGLUTIDE / PLACEBO completed 1 injection weekly 30mg - Karolina Figueroa PRILOSEC 40 MG ORAL CAPSULE DELAYED RELEASE completed once a day - Mer Valentino NP LEVEMIR FLEXTOUCH 100 UNIT/ML SUBCUTANEOUS SOLUTION PEN-INJECTOR completed 55 units daily - Bouchra Crane NOVOLOG FLEXPEN 100 UNIT/ML SUBCUTANEOUS SOLUTION PEN-INJECTOR completed per sliding scale - Reji Mckinley TRADJENTA 5 MG ORAL TABLET completed 1 tab daily - Nirali Olson lisinopril 20 mg tablet completed Take 1 tablet by mouth once a day - Melida Anaya RANEXA 500 MG ORAL TABLET EXTENDED RELEASE 12 HOUR completed ONE TAB. TWICE DAILY for chronic angina - Nirali Olson Nitrostat 0.4 mg tablet, sublingual completed tablet under tongue as needed - Kermit Gonzalez MD simvastatin 20 mg tablet completed Take 1 tablet by mouth once a day - Kermit Gonzalez MD VICTOZA SOLUTION PEN-INJECTOR completed once daily - Bethany Espinoza metformin 500 mg tablet completed twice a day - Sophia Matias WelChol 3.75 gram powder in packet completed once a day - Joey Villa RN ACTOS 45 MG ORAL TABLET completed 1 tablet by mouth daily - Bethany Espinoza fenofibrate micronized 134 mg capsule completed Take 1 capsule by mouth once a day - Sawyer Atkins BRILINTA 90 MG ORAL TABLET completed take one tablet by mouth twice daily - Ruby Kidd RN ASPIRIN 81 MG ORAL TABLET active 1 tablet once a day Sophia Salcedo ZETIA 10 MG ORAL TABLET completed ONE TAB. DAILY - Bethany Espinoza TRILIPIX 135 MG ORAL CAPSULE DELAYED RELEASE completed one tab. daily - Dispense as written - Joey Villa RN ACTOS 45 MG ORAL TABLET completed ONE TAB. DAILY - Joey Villa RN JANUVIA 100 MG ORAL TABLET completed daily - Bethany Espinoza OMEPRAZOLE 20 MG ORAL CAPSULE DELAYED RELEASE completed 1 table by mouth twice daily - Bethany Espinoza CIPRO 500 MG ORAL TABLET completed 1 tablet by mouth twice daily - Joey Villa RN NIASPAN 1000 MG ORAL TABLET EXTENDED RELEASE completed ONE TAB. AT BEDTIME - Jordin Plascencia IMDUR 60 MG ORAL TABLET EXTENDED RELEASE 24 HOUR completed ONE TAB. DAILY - Kermit Gonzalez MD FOLBIC 2.5-25-2 MG ORAL TABLET completed TAKE ONE TABLET DAILY - Joey Villa RN CARTIA XT 300 MG ORAL CAPSULE EXTENDED RELEASE 24 HOUR completed ONE TAB. DAILY - Kermit Gonzalez MD PREVACID CPDR completed 1 capsule by mouth daily - Joey Villa RN PLAVIX 75 MG ORAL TABLET completed ONE TAB. DAILY - Kermit Gonzalez MD ASPIRIN 325 MG ORAL TABLET completed 1 tablet by mouth once daily - Jordin Manaleksey JANUVIA 100 MG ORAL TABLET completed TAKE ONE TABLET DAILY - Jordin Manacotoi AVANDIA 4 MG ORAL TABLET completed one tab. daily - Jordin Plascencia ZOCOR 40 MG ORAL TABLET completed ONE TAB. AT BEDTIME - Jordin Plascencia GLYBURIDE-METFOR MIN 5-500 MG ORAL TABLET completed TAKE 2 TABLETS DAILY - Bethany Espinoza ANTARA 130 MG ORAL CAPSULE completed TAKE ONE TABLET DAILY - Kermit Gonzalez MD RANEXA 500 MG ORAL TABLET EXTENDED RELEASE 12 HOUR completed ONE TAB. TWICE DAILY - Jordin Plascencia COREG 25 MG ORAL TABLET completed 1 tablet by mouth twice daily - Joey Villa RN LISINOPRIL 40 MG ORAL TABLET completed ONE TAB. DAILY - Bethany Espinoza SOCIAL HISTORY Date Observation Value Provider drug use none Kermit Gonzalez MD alcohol use no Kermit Gonzalez MD passive cigarette sm perla exposure no Kermit Gonzalez MD smoking, year quit 1991 Kermit mojica MD smoking history, tot al pack/year 30 Kermit Gonzalez MD cigarette use yes Kermit Gonzalez MD smoking status Former smoker Kermit Gonzalez MD drug use none Mike Lutz alcohol use no Mike Lutz passive cigarette sm perla exposure no Mike Lutz smoking, year quit 1991 Mike Vieira attseymour smoking history, tot al pack/year 30 Mike Lutz cigarette use yes Mike Lutz smoking status Former smoker Mike ahuja Exercise counseling Yes Mer Valentino NP drug use none Kermit Gonzalez MD alcohol use no Kermit Gonzalez MD passive cigarette sm perla exposure no Kermit Gonzalez MD smoking, year quit 1991 Kermit mojica MD smoking history, tot al pack/year 32 Kermit Gonzalez MD cigarette use yes Kermit Gonzalez MD smoking status Former smoker Kermit Gonzalez MD drug use none Kermit Gonzalez MD alcohol use no Kermit Gonzalez MD passive cigarette sm perla exposure no Kermit Caroline Carlos DAY smoking, year quit 1991 Kermit mojica MD smoking history, tot al pack/year 32 Kermit Gonzalez MD cigarette use yes Kermit Gonzalez MD smoking status Former smoker Kermit Gonzalez MD drug use none Desirae Crane alcohol use no Desirae Crane passive cigarette sm perla exposure no Desirae Crane smoking, year quit 1991 Desirae Will iafl smoking history, tot al pack/year 30 Desirae Crane cigarette use yes Desirae Crane smoking status Former smoker Desirae conn social history reviewed E&M revi ewed - no changes required Mohan Montelongo exercise type Walking Desirae Crane physical exercise, f requency, days per week 1 /wk Desirae Crane caffeine use, averag e drinks per day 1 /d Desirae Crane passive cigarette sm perla exposure no Desirae Crane smoking, year quit 1991 Desirae Will iafl smoking history, tot al pack/year 30 Desirae Crane cigarette use yes Desirae Crane smoking status Former smoker Desirae conn exercise type Walking Desirae Royce physical exercise, f requency, days per week 1 /wk Desirae Royce caffeine use, averag e drinks per day 1 /d Desirae Crane passive cigarette sm perla exposure no Desirae Crane smoking, year quit 1991 Desirae Austni reid smoking history, tot al pack/year 30 Desirae Crane cigarette use yes Desirae Crane smoking status Former smoker Desirae conn social history E&M Marital Statu s: L maren with family/friends E thnicity: Smoking History: P mariya is a former smoker. Kermit Gonzalez MD social history reviewed E&M revi ewed - no changes required Kermit Gonzalez MD exercise type Walking Melida cardenas physical exercise, f requency, days per week 1 /wk Melida Anaya caffeine use, averag e drinks per day 1 /d Melida Anaya passive cigarette sm perla exposure no Melida Anaya smoking, year quit 1991 Melida patel smoking history, tot al pack/year 30 Melida Anaya cigarette use yes Melida cardenas smoking status Former smoker Melida Deelayla delaney social history E&M Marital Statu s: L maren with family/friends E thnicity: Smoking History: P mariya is a former smoker. Kermit Gonzalez MD social history reviewed E&M revi ewed - no changes required Kermit Gonzalez MD exercise type Walking Palmira Glass nd physical exercise, f requency, days per week 1 /wk Palmira Calvo caffeine use, averag e drinks per day 1 /d Palmira Calvo passive cigarette sm perla exposure no Palmira Calvo smoking, year quit 1991 Palmira Calvo smoking history, tot al pack/year 30 Palmira Calvo cigarette use yes Palmira Glass nd smoking status Former smoker Palmira hogue social history E&M Marital Statu s: L maren with family/friends E thnicity: Smoking History: Toi meraz is a former smoker. Jennifer Chen social history reviewed E&M revi ewed - no changes required Jennifer Chen exercise type Walking Chastity Cash physical exercise, f requency, days per week 1 /wk Chastity Cash caffeine use, averag e drinks per day 1 /d Chastity Cash passive cigarette sm perla exposure no Chastity Cash smoking, year quit 1991 Chastity Cash smoking history, tot al pack/year 30 Chastity Cash cigarette use yes Chastity Cash smoking status Former smoker Idaliastsivakumar Rosen ue social history E&M Marital Statu s: L maren with family/friends E thnicity: Smoking History: Toi meraz is a former smoker. Kermit Gonzalez MD social history reviewed E&M revi ewed - no changes required Kermit Gonzalez MD exercise type Walking Jamia Federico physical exercise, f requency, days per week 1 /wk Jamia Federico caffeine use, averag e drinks per day 1 /d Jamia Adirondack passive cigarette sm perla exposure no Jamia Federico smoking, year quit 1991 Jamia Adirondack smoking history, tot al pack/year 30 Jamia Federico cigarette use yes Jamia Federico smoking status Former smoker Jamia Ot is social history E&M Marital Statu s: L maren with family/friends E thnicity: Smoking History: Toi meraz is a former smoker. Kermit Gonzalez MD social history reviewed E&M revi ewed - no changes required Kermit Gonzalez MD smoking, year quit 1991 Darlene Merino cigarette use yes Darlene Merino smoking status Former smoker Darlene Szymanskis social history reviewed E&M revi ewed - no changes required Jennifer Chen social history E&M Marital Statu s: L maren with family/friends E thnicity: Smoking History: Toi meraz is a former smoker. Kermit Gonzalez MD social history reviewed E&M revi ewed - no changes required Kermit Gonzalez MD smoking status Former smoker Saritha Portillo social history reviewed E&M revi ewed - no changes required Reji Mckinley social history E&M Marital Statu s: L maren with family/friends E thnicity: Smoking History: Toi meraz is a former smoker. Reji Mckinley exercise type Walking Didi houston physical exercise, f requency, days per week 1 /wk Didi Ulloa caffeine use, averag e drinks per day 1 /d Didi Ulloa passive cigarette sm perla exposure no Didi Ulloa smoking, year quit 1990 Didi brown smoking history, tot al pack/year 30 Didi Ulloa cigarette use yes Didi houston smoking status Former smoker Didi Marcos restrepo number of grandchildren Kermit Heredia exercise type Walking Kan levine physical exercise, f requency, days per week 1 /wk Kan Heredia caffeine use, averag e drinks per day 1 /d Kansalvador Chaviraro passive cigarette sm perla exposure no Kan Chaviraro smoking, year quit 1990 Kan Chaviraro smoking history, tot al pack/year 30 Kan Chaviraro cigarette use yes Kan Chaviraangelina levine smoking status Former smoker Kan Mcneal demetria social history E&M Marital Statu s: Uriel engel with family/friends E thnicity: Smoking History: Toi meraz is a former smoker. Kan Yan social history reviewed E&M revi ewed - no changes required Kan Heredia physical exercise, f requency, days per week 1 /wk Reji [facility] caffeine use, averag e drinks per day 1 /d [facility] passive cigarette sm perla exposure no [facility] smoking, year quit 1990 [facility] smoking history, tot al pack/year 32 [facility] smoking status Former smoker [facility] social history reviewed E&M revi ewed - no changes required [facility] cigarette use yes Bouchra Watters ms social history reviewed E&M revi ewed - no changes required Kermit Gonzalez MD exercise type Walking Melida cardenas alcohol use, average drinks per day none Melida Anaya alcohol use no Melida bentley caffeine use, averag e drinks per day 1 /d Melida Anaya drug use none Melida bowman passive cigarette sm perla exposure no Melida Anaya smoking, year quit 1990 Melida patel smoking history, tot al pack/year 30 Melida Anaya cigarette use yes Melida cardenas smoking status Former smoker Melida gilmoreestelalilia smoking, year quit 1991 Reji Mckinley cigarette use yes Reji rothman smoking status Former smoker Reji mock social history reviewed E&M revi ewed - no changes required Kermit Gonzalez MD exercise type Walking Nirali Tanvir enson alcohol use, average drinks per day none Nirali Olson alcohol use no Nirali Layton nson caffeine use, averag e drinks per day 1 /d Nirali Olson drug use none Nirali Layton nson passive cigarette sm perla exposure no Nirali Olson social history reviewed E&M revi ewed - no changes required Kermit Gonzalez MD exercise type Walking Nirali Ramey enson alcohol use, average drinks per day none Nirali Olson alcohol use no Nirali Layton nson caffeine use, averag e drinks per day 1 /d Nirali Olson drug use none Nirali Layton nson passive cigarette sm perla exposure no Nirali Olson smoking status Former smoker Nirali Durbin quit smoking, stage quit Kermit abraham MD social history reviewed E&M revi ewed - no changes required Kermit Gonzalez MD exercise type Walking Nirlai Ramey enson alcohol use, average drinks per day none Nirali Olson alcohol use no Nirali Layton nson caffeine use, averag e drinks per day 1 /d Nirali Olson drug use none Nirali Layton nson passive cigarette sm perla exposure no Nirali Olson smoking status Former smoker Nirali Durbin social history reviewed E&M revi ewed - no changes required Kermit Gonzalez MD exercise type Walking Kelly Fink physical exercise, f requency, days per week no Kelly Fink alcohol use, average drinks per day none Kelly Fink alcohol use no Kelly Fink caffeine use, averag e drinks per day 1 /d Kelly Fink drug use none Kelly Fink passive cigarette sm perla exposure no Kelly Fink smoking status Former smoker Kelly Fink social history reviewed E&M revi ewed - no changes required Reji Mckinley exercise type Walking Nirali Ramey mason physical exercise, f requency, days per week no Nirali Olson alcohol use, average drinks per day none Nirali Olson alcohol use no NiraliJaylin mratin caffeine use, averag e drinks per day 1 /d Nirali Olson drug use none NiraliJaylin martin passive cigarette sm perla exposure no NiraliJaylin Olson smoking status Former smoker Niraliangely Durbin social history reviewed E&M revi ewed - no changes required Kermit Gonzalez MD social history E&M Marital Statu s: Uriel engel with family/friends E thnicity: Smoking History: Toi meraz is a former smoker. Kermit Gonzalez MD exercise type Walking Nirali cuevas physical exercise, f requency, days per week no Nirali Olson alcohol use, average drinks per day none Nirali Olson alcohol use no NiraliJaylin martin caffeine use, averag e drinks per day 1 /d Nirali Olson drug use none Nirali martin passive cigarette sm perla exposure no NiraliJaylin Olson smoking status Former smoker NiraliJaylin Durbin social history E&M Marital Statu s: L maren with family/friends E thnicity: Smoking History: Toi meraz is a former smoker. Kermit Gonzalez MD social history reviewed E&M revi ewed - no changes required Kermit Gonzalez MD exercise type Walking Bethany Espinoza physical exercise, f requency, days per week no Bethany Espinoza alcohol use, average drinks per day none Bethany Espinoza alcohol use no Bethany Espinoza caffeine use, averag e drinks per day 1 /d Bethany Espinoza drug use none Bethany Espinoza passive cigarette sm perla exposure no Bethany Espinoza smoking status Former smoker Bethany Crowell dimas smoking/tobacco cess ation, patient education and counseling yes Kermit Gonzalez MD social history reviewed E&M revi ewed - no changes required Kermit Gonzalez MD smoking status Former smoker Liz ch social history reviewed E&M revi ewed - no changes required Kenna Blunt exercise type Walking Kenna Blunt physical exercise, f requency, days per week no Kenna Blunt alcohol use, average drinks per day none Kenna Blunt caffeine use, averag e drinks per day 1 /d Kenna Blunt drug use none Kenna Blunt passive cigarette sm perla exposure no Kenna Blunt smoking/tobacco cess ation, patient education and counseling yes Kenna Blunt smoking status Former smoker Kenna Jacinda t social history reviewed E&M revi ewed - no changes required Kenna Blunt social history reviewed E&M revi ewed - no changes required Kenna Blunt smoking/tobacco cess ation, patient education and counseling yes Lucretia Naranjo smoking status Former smoker Lucretia Naranjo social history reviewed E&M reviewed Kermit Gonzalez MD smoking history, tot al pack/year 30 Joey Villa RN social history reviewed E&M reviewed Joey Villa RN social history reviewed E&M reviewed Joey Villa RN exercise type Walking [facility] caffeine use, averag e drinks per day 1 /d [facility] drug use none Kermit Gonzalez MD passive cigarette sm perla exposure no [facility] smoking history, tot al pack/year [id number] [facility] smoking, year quit 1990 Jordin Lai nacisabela smoking status former smoker [facility] social history reviewed E&M reviewed Kermit Gonzalez MD social history reviewed E&M reviewed Joey Villa RN social history reviewed E&M reviewed Joey Villa RN social history reviewed E&M reviewed Joey Villa RN social history reviewed E&M reviewed Joey Villa RN social history E&M Marital Statu s: L maren with family/friends E thnicity: Joey Villa RN social history reviewed E&M reviewed Joey Villa RN physical exercise, f requency, days per week no [employer] caffeine use, averag e drinks per day no [employer] alcohol use, average drinks per day none [employer] smoking status Non-smoker [employer] smoking/tobacco cess ation, patient education and counseling yes Kermit Gonzalez MD smoking status current Kermit Vazquez physical exercise, f requency, days per week no [employer] caffeine use, averag e drinks per day no [employer] alcohol use, average drinks per day none [employer] smoking status Non-smoker [employer] FUNCTIONAL STATUS Date Observation Value Provider HRA, CV Assess/Plan, Angina (inactive) Management Plan continue current therapy Kermit Gonzalez MD HRA, CV Assess/Plan, Angina (inactive) Management Plan continue current therapy Mer Valentino NP HRA, CV Assess/Plan, Angina (inactive) Management Plan continue current therapy Mike Lutz HRA, CV Assess/Plan, Angina (inactive) Management Plan continue current therapy Kermit Gonzalez MD HRA, CV Assess/Plan, Angina (inactive) Management Plan continue current therapy Mohan Jayda HRA, CV Assess/Plan, Angina (inactive) Management Plan continue current therapy Mohan Jayda HRA, CV Assess/Plan, Angina (inactive) Management Plan continue current therapy Mohan Jayda HRA, CV Assess/Plan, Angina (inactive) Management Plan continue current therapy Mohan Jayda HRA, CV Assess/Plan, Angina (inactive) Management Plan continue current therapy Kermit Gonzalez MD HRA, CV Assess/Plan, Angina (inactive) Management Plan continue current therapy Kermit Gonzalez MD HRA, CV Assess/Plan, Angina (inactive) Management Plan continue current therapy Jennifer Chen HRA, CV Assess/Plan, Angina (inactive) Management Plan continue current therapy Kermit Gonzalez MD HRA, CV Assess/Plan, Angina (inactive) Management Plan continue current therapy, antianginal therapy Jennifer Chen HRA, CV Assess/Plan, Angina (inactive) Management Plan continue current therapy Jennifer Chen HRA, CV Assess/Plan, Angina (inactive) Management Plan continue current therapy Jenniferameena Chen HRA, CV Assess/Plan, Angina (inactive) Management Plan antianginal therapy Reji Mckinley HRA, CV Assess/Plan, Angina (inactive) Management Plan continue current therapy Kan Heredia HRA, CV Assess/Plan, Angina (inactive) Management Plan continue current therapy Kermit Gonzalez MD HRA, CV Assess/Plan, Angina (inactive) Management Plan continue current therapy Kermit Gonzalez MD HRA, CV Assess/Plan, Angina (inactive) Management Plan antianginal therapy Kermit Gonzalez MD HRA, CV Assess/Plan, Angina (inactive) Management Plan continue current therapy Kermit Gonzalez MD HRA, CV Assess/Plan, Angina (inactive) Management Plan continue current therapy Kermit Gonzalez MD HRA, CV Assess/Plan, Angina (inactive) Management Plan continue current therapy Kermit Gonzalez MD HRA, CV Assess/Plan, Angina (inactive) Management Plan schedule PCI Kermit Gonzalez MD HRA, CV Assess/Plan, Angina (inactive) Management Plan continue current therapy Kermit Gonzalez MD MENTAL STATUS Date Observation Value Provider assessment of judgme nt and insight E&M Alert and oriented to time, place and person. Mood and affect are normal. Kermit Gonzalez MD assessment of judgme nt and insight E&M Alert and oriented to time, place and person. Mood and affect are normal. Joey Villa RN assessment of judgme nt and insight E&M Alert and oriented to time, place and person. Mood and affect are normal. Joey Villa RN assessment of judgme nt and insight E&M Alert and oriented to time, place and person. Mood and affect are normal. Kermit Gonzalez MD assessment of judgme nt and insight E&M Alert and oriented to time, place and person. Mood and affect are normal. Joey Villa RN assessment of judgme nt and insight E&M Alert and oriented to time, place and person. Mood and affect are normal. Joey Villa RN assessment of judgme nt and insight E&M Alert and oriented to time, place and person. Mood and affect are normal. Joey Villa RN assessment of judgme nt and insight E&M Alert and oriented to time, place and person. Mood and affect are normal. Joey Villa RN assessment of judgme nt and insight E&M Alert and oriented to time, place and person. Mood and affect are normal. Joey Villa RN assessment of judgme nt and insight E&M Alert and oriented to time, place and person. Mood and affect are normal. Joey Villa WHEEL TUNER HISTORY Family Member Condition Mother Family History of Di abetes: Mother Family History of Co ronary Artery Disease: Father Family History of Hy pertension: Father Family History of Co ronary Artery Disease: Father Family History of CV A or Stroke: INSURANCE PROVIDERS Payer name Policy type / Coverage type Jagjit red libertarian ID [place] MEDIC[employer] Medicare [facility] [employer] Commercial insurance co alok [id number] ADVANCE DIRECTIVES Name Date DISCUSSED - NO DECISION MADE TREATMENT PLAN Date Name Performer [id number],S, H is updated medication list for this problem includes: Rosuvastatin 20 Mg Tablet (Rosuvastatin) ..... Take 1 tablet by mouth every night Fenofibrate Micronized 134 Mg Capsule (Fenofibrate micronized) ..... Take 1 capsule by mouth once a day take 1 capsule by mouth every day Berlin-3 Acid Ethyl Esters 1 Gram Capsule (Berlin-3 acid ethyl esters) Simvastatin 20 Mg Tablet (Simvastatin) ..... Take 1 tablet by mouth daily Mohan Montelongo [id number],S, B P today: 146/85 P rior BP: 164/80 (01/12/2023) Labs Reviewed: C reat: 1.58 (03/31/2021) C hol: 188 (03/31/2021) HDL: 33 (03/31/2021) His updated medication list for this problem includes: Amlodipine 10 Mg Tablet (Amlodipine) ..... Take 1 tablet by mouth once a day take 1 tablet by mouth every day Diltiazem Hcl 300 Mg Capsule,extended Release 24hr (Diltiazem hcl) ..... Take 1 capsule by mouth once a day Coreg 25 Mg Tablet (Carvedilol) ..... 1 tablet twice a day Mohan Jayda [id number],S,P t had another episode of chest discomfort lasting about 4 minutes that resolved spontaneously. 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 In view of his continued sx, we will schedule him for a left heart cath H is updated medication list for this problem includes: Nitroglycerin 0.4 Mg Tablet, Sublingual (Nitroglycerin) ..... Dissolve 1 tab under tongue every 5 mins as needed for chest pain. max total of 3 doses in 15 mins Amlodipine 10 Mg Tablet (Amlodipine) ..... Take 1 tablet by mouth once a day take 1 tablet by mouth every day Diltiazem Hcl 300 Mg Capsule,extended Release 24hr (Diltiazem hcl) ..... Take 1 capsule by mouth once a day Isosorbide Mononitrate 60 Mg Tablet Extended Release 24 Hr (Isosorbide mononitrate) ..... Take 1 tablet by mouth every evening Coreg 25 Mg Tablet (Carvedilol) ..... 1 tablet twice a day Mohan Montelongo [id number],S,P t had another episode of chest discomfort lasting about 4 minutes that resolved spontaneously. 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 In view of his continued sx, we will schedule him for a left heart cath Mohan Montelongo [id number],C, H is updated medication list for this problem includes: Rosuvastatin 20 Mg Tablet (Rosuvastatin) ..... Take 1 tablet by mouth every night Fenofibrate Micronized 134 Mg Capsule (Fenofibrate micronized) ..... Take 1 capsule by mouth once a day take 1 capsule by mouth every day Berlin-3 Acid Ethyl Esters 1 Gram Capsule (Berlin-3 acid ethyl esters) Simvastatin 20 Mg Tablet (Simvastatin) ..... Take 1 tablet by mouth daily Halley Hensley NP [id number],C,C omplain of an episode of chest pain associated with headache. No recurrence. had cath in 2020 shows the left main coronary artery is normal. There is 20% stenosis of the proximal LAD. The stents in the LAD are patent. The left circumflex is a large dominant vessel. The stent in the OM is patent. There is no significant stenosis. Halley Hensley NP [id number],C, His updated medication list for this problem includes: Farxiga 10 Mg Tablet (Dapagliflozin propanediol) Ozempic 1 Mg/dose (4 Mg/3 Ml) Pen Injector (Semaglutide) Basaglar Kwikpen U-100 Insulin 100 Unit/ml (3 Ml) Insulin Pen (Insulin glargine) ..... 65 unit Glimepiride 2 Mg Tablet (Glimepiride) ..... Take 1 tablet by mouth once a day Metformin 500 Mg Tablet (Metformin) ..... Twice a day Ozempic 1 Mg/dose (2 Mg/1.5 Ml) Pen Injector (Semaglutide) Halleyfabien [place]angi VALLE [id number],C, B P today: 164/80 P rior BP: 132/80 (08/23/2022) Doesn't check BP at home. Encouraged to check BP at home an dmonitor Halley Hensley NP [id number],C,h ad an epiose of chets pain associted with headache 2 weeks ago. No recurrence. had cath in 2020 shows the left main coronary artery is normal. There is 20% stenosis of the proximal LAD. The stents in the LAD are patent. The left circumflex is a large dominant vessel. The stent in the OM is patent. There is no significant stenosis. Stopped taking isosorbide mononitrate, stopped by telephonic nurse case manager. will repeat stress test and echo Halleyfabien [place] VALLE [id number],S, H is updated medication list for this problem includes: Diltiazem Hcl 300 Mg Capsule,extended Release 24hr (Diltiazem hcl) ..... Take 1 capsule by mouth once a day Amlodipine 10 Mg Tablet (Amlodipine) ..... Take 1 tablet by mouth every day Isosorbide Mononitrate 60 Mg Tablet Extended Release 24 Hr (Isosorbide mononitrate) ..... Take 1 tablet by mouth every evening Nitroglycerin 0.4 Mg Tablet, Sublingual (Nitroglycerin) ..... Dissolve 1 tablet under the tongue every 5 minutes for 3 total doses as needed for chest pain. if no relief after 3rd dose, go to er. Coreg 25 Mg Tablet (Carvedilol) ..... 1 tablet twice a day Kermit Gonzalez MD [id number],S, B P today: 132/80 P rior BP: 142/79 (02/01/2022) Labs Reviewed: C reat: 1.58 (03/31/2021) C hol: 188 (03/31/2021) HDL: 33 (03/31/2021) His updated medication list for this problem includes: Diltiazem Hcl 300 Mg Capsule,extended Release 24hr (Diltiazem hcl) ..... Take 1 capsule by mouth once a day Amlodipine 10 Mg Tablet (Amlodipine) ..... Take 1 tablet by mouth every day Coreg 25 Mg Tablet (Carvedilol) ..... 1 tablet twice a day Kermit Gonzalez MD [id number],C, He has elevated blood pressure, will provide him with an RPM. B P today: 142/79 P rior BP: 139/73 (08/03/2021) Labs Reviewed: C reat: 1.58 (03/31/2021) C hol: 188 (03/31/2021) HDL: 33 (03/31/2021) His updated medication list for this problem includes: Norvasc 10 Mg Tablet (Amlodipine) ..... Take 1 tablet by mouth once a day Coreg 25 Mg Tablet (Carvedilol) ..... 1 tablet twice a day Diltiazem Hcl 300 Mg Capsule,extended Release 24hr (Diltiazem hcl) ..... Take 1 capsule by mouth daily Kermit Gonzalez MD [id number],C, Pt complains of pain in his right upper thigh when he sits for long periods. We will check an arterial duplex of the lower extremities. Kermit Gonzalez MD [id number],C,O anabelle doing well, Pt denies SOB and chest pain. In addition, we will check AAA duplex due to hx of smoking and echo. Kermit Gonzalez MD [id number],C, H gb and iron within normal range Kermit Gonzalez MD [id number],S, W eight loss advised Kermit Gonzalez MD [id number],C, H is updated medication list for this problem includes: Ozempic 1 Mg/dose (4 Mg/3 Ml) Pen Injector (Semaglutide) Basaglar Kwikpen U-100 Insulin 100 Unit/ml (3 Ml) Insulin Pen (Insulin glargine) ..... 65 unit Glimepiride 2 Mg Tablet (Glimepiride) ..... Take 1 tablet by mouth once a day Metformin 500 Mg Tablet (Metformin) ..... Twice a day Ozempic 1 Mg/dose (2 Mg/1.5 Ml) Pen Injector (Semaglutide) Jardiance 25 Mg Tablet (Empagliflozin) ..... 1 tablet once a day Kermit Gonzalez MD [id number],C, H is updated medication list for this problem includes: Berlin-3 Acid Ethyl Esters 1 Gram Capsule (Berlin-3 acid ethyl esters) Simvastatin 20 Mg Tablet (Simvastatin) ..... Take 1 tablet by mouth daily Crestor 20 Mg Tablet (Rosuvastatin) ..... Take 1 tablet by mouth every night Fenofibrate Micronized 134 Mg Capsule (Fenofibrate micronized) ..... Take 1 capsule by mouth every day Kermit Gonzalez MD [id number],C, W eight loss advised Jennifer Chen [id number],C, H is updated medication list for this problem includes: Crestor 20 Mg Tablet (Rosuvastatin) ..... Take 1 tablet by mouth every night Fenofibrate Micronized 134 Mg Capsule (Fenofibrate micronized) ..... Take 1 capsule by mouth every day Jennifer Chen [id number],C, H is updated medication list for this problem includes: Basaglar Kwikpen U-100 Insulin 100 Unit/ml (3 Ml) Insulin Pen (Insulin glargine) ..... 65 unit Glimepiride 2 Mg Tablet (Glimepiride) ..... Take 1 tablet by mouth once a day Metformin 500 Mg Tablet (Metformin) ..... Twice a day Ozempic 1 Mg/dose (2 Mg/1.5 Ml) Pen Injector (Semaglutide) Jardiance 25 Mg Tablet (Empagliflozin) ..... 1 tablet once a day Jennifer Chen [id number],C, B P today: 139/73 P rior BP: 161/89 (06/22/2021) Labs Reviewed: C reat: 1.58 (03/31/2021) C hol: 188 (03/31/2021) HDL: 33 (03/31/2021) His updated medication list for this problem includes: Norvasc 10 Mg Tablet (Amlodipine) ..... Take 1 tablet by mouth once a day Coreg 25 Mg Tablet (Carvedilol) ..... 1 tablet twice a day Diltiazem Hcl 300 Mg Capsule,extended Release 24hr (Diltiazem hcl) ..... Take 1 capsule by mouth daily Jennifer Chen [id number],C, T he pt reports significant improvment of his sxs after receiving IV iron. Will check CBC and iron studies. Will also check CRP to see if he qualifies for the LOKE[facility] trial. H is updated medication list for this problem includes: Isosorbide Mononitrate 60 Mg Tablet Extended Release 24 Hr (Isosorbide mononitrate) ..... Take 1 tablet by mouth every evening Norvasc 10 Mg Tablet (Amlodipine) ..... Take 1 tablet by mouth once a day Nitroglycerin 0.4 Mg Tablet, Sublingual (Nitroglycerin) ..... Dissolve 1 tablet under the tongue every 5 minutes for 3 total doses as needed for chest pain. if no relief after 3rd dose, go to er. Coreg 25 Mg Tablet (Carvedilol) ..... 1 tablet twice a day Diltiazem Hcl 300 Mg Capsule,extended Release 24hr (Diltiazem hcl) ..... Take 1 capsule by mouth daily Jennifer Chen [id number],C, T he pt reports significant improvment of his sxs after receiving IV iron. Will check CBC and iron studies. W Jennifer Chen [id number],S, W eight loss advised Kermit Gonzalez MD [id number],C, H is updated medication list for this problem includes: Crestor 20 Mg Tablet (Rosuvastatin) ..... Take 1 tablet by mouth every night Fenofibrate Micronized 134 Mg Capsule (Fenofibrate micronized) ..... Take 1 capsule by mouth every day Kermit Gonzalez MD [id number],C, H is updated medication list for this problem includes: Basaglar Kwikpen U-100 Insulin 100 Unit/ml (3 Ml) Insulin Pen (Insulin glargine) ..... 65 unit Glimepiride 2 Mg Tablet (Glimepiride) ..... Take 1 tablet by mouth once a day Metformin 500 Mg Tablet (Metformin) ..... Twice a day Ozempic 1 Mg/dose (2 Mg/1.5 Ml) Pen Injector (Semaglutide) Jardiance 25 Mg Tablet (Empagliflozin) ..... 1 tablet once a day Kermit Gonzalez MD [id number],C,. He is unsure of his medication list, he will send it to us. We will need to increase BP control. I recommend using a diuretic. His hyperkalemia is addressed by Dr. Lora. ONce we have the medication list, we will review and give further recommendations. BP today: 161/89 P rior BP: 147/67 (04/27/2021) Labs Reviewed: C reat: 1.58 (03/31/2021) C hol: 188 (03/31/2021) HDL: 33 (03/31/2021) His updated medication list for this problem includes: Norvasc 10 Mg Tablet (Amlodipine) ..... Take 1 tablet by mouth once a day Coreg 25 Mg Tablet (Carvedilol) ..... 1 tablet twice a day Diltiazem Hcl 300 Mg Capsule,extended Release 24hr (Diltiazem hcl) ..... Take 1 capsule by mouth daily Kermit Gonzalez MD [id number],C,P t denies SOB and chest pain. His updated medication list for this problem includes: Norvasc 10 Mg Tablet (Amlodipine) ..... Take 1 tablet by mouth once a day Nitroglycerin 0.4 Mg Tablet, Sublingual (Nitroglycerin) ..... Dissolve 1 tablet under the tongue every 5 minutes for 3 total doses as needed for chest pain. if no relief after 3rd dose, go to er. Coreg 25 Mg Tablet (Carvedilol) ..... 1 tablet twice a day Diltiazem Hcl 300 Mg Capsule,extended Release 24hr (Diltiazem hcl) ..... Take 1 capsule by mouth daily Kermit Gonzalez MD [id number],C,T he pt said he had negative GI workup. Dr. Lora is treating him with IV iron for anemia. His hyperkalemia is addressed by Dr. Lora. Kermit Gonzalez MD [id number],S, W eight loss advised Jennifer Chen [id number],C, T he following medications were removed from the medication list: Simvastatin 20 Mg Tablet (Simvastatin) ..... Take 1 tablet by mouth once a day His updated medication list for this problem includes: Crestor 20 Mg Tablet (Rosuvastatin) ..... Take 1 tablet by mouth every night Fenofibrate Micronized 134 Mg Capsule (Fenofibrate micronized) ..... Take 1 capsule by mouth every day Jennifer Chen [id number],C, T he following medications were removed from the medication list: Lisinopril 20 Mg Tablet (Lisinopril) ..... Take 1 tablet by mouth once a day His updated medication list for this problem includes: Basaglar Stephen U-100 Insulin 100 Unit/ml (3 Ml) Insulin Pen (Insulin glargine) ..... 65 unit Glimepiride 2 Mg Tablet (Glimepiride) ..... Take 1 tablet by mouth once a day Metformin 500 Mg Tablet (Metformin) ..... Twice a day Ozempic 1 Mg/dose (2 Mg/1.5 Ml) Pen Injector (Semaglutide) Jardiance 25 Mg Tablet (Empagliflozin) ..... 1 tablet once a day Jennifer Chen [id number],C, B P today: 147/67 P rior BP: 172/77 (03/30/2021) Labs Reviewed: C reat: 1.58 (03/31/2021) C hol: 188 (03/31/2021) HDL: 33 (03/31/2021) The following medications were removed from the medication list: Lisinopril 20 Mg Tablet (Lisinopril) ..... Take 1 tablet by mouth once a day His updated medication list for this problem includes: Norvasc 10 Mg Tablet (Amlodipine) ..... Take 1 tablet by mouth once a day Coreg 25 Mg Tablet (Carvedilol) ..... 1 tablet twice a day Diltiazem Hcl 300 Mg Capsule,extended Release 24hr (Diltiazem hcl) ..... Take 1 capsule by mouth daily Jennifer Chen [id number],C,C ardiac cath did not reveal significant coronary stenosis. . Continues to have CP and SOB. Hgb down to 7.8, Cr 1.58. I recommend anemia workup. He will see PCP, endocrinology, and renal for further workup. May need a GI workuop. Jennifer Chen [id number],C,C ardiac cath did not reveal significant coronary stenosis. EF was normal. Continues to have CP and SOB.Will stop Lisinopril and start Norvasc 10 mg. Will hold Brilinta. He will see PCP, endocrinology, and renal for further workup. May need a GI workuop. T he following medications were removed from the medication list: Lisinopril 20 Mg Tablet (Lisinopril) ..... Take 1 tablet by mouth once a day Brilinta 90 Mg Tablet (Ticagrelor) ..... Take 1 tablet by mouth twice a day His updated medication list for this problem includes: Nitroglycerin 0.4 Mg Tablet, Sublingual (Nitroglycerin) ..... Dissolve 1 tablet under the tongue every 5 minutes for 3 total doses as needed for chest pain. if no relief after 3rd dose, go to er. Coreg 25 Mg Tablet (Carvedilol) ..... 1 tablet twice a day Lisinopril 20 Mg Tablet (Lisinopril) ..... Take 1 tablet by mouth once a day Brilinta 90 Mg Tablet (Ticagrelor) ..... Take 1 tablet by mouth twice a day Diltiazem Hcl 300 Mg Capsule,extended Release 24hr (Diltiazem hcl) ..... Take 1 capsule by mouth daily Jennifer Chen [id number],C,Weight loss a dvised Jennifer Chen [id number],C, T he following medications were removed from the medication list: Welchol 3.75 Gram Powder In Packet (Colesevelam) ..... Once a day His updated medication list for this problem includes: Simvastatin 20 Mg Tablet (Simvastatin) ..... Take 1 tablet by mouth once a day Fenofibrate Micronized 134 Mg Capsule (Fenofibrate micronized) ..... Take 1 capsule by mouth every day Jennifer Chen [id number],C, T he following medications were removed from the medication list: Alogliptin 25 Mg Tablet (Alogliptin) ..... Once a day His updated medication list for this problem includes: Arabella Mitchell U-100 Insulin 100 Unit/ml (3 Ml) Insulin Pen (Insulin glargine) ..... 65 unit Glimepiride 2 Mg Tablet (Glimepiride) ..... Take 1 tablet by mouth once a day Metformin 500 Mg Tablet (Metformin) ..... Twice a day Ozempic 1 Mg/dose (2 Mg/1.5 Ml) Pen Injector (Semaglutide) Jardiance 25 Mg Tablet (Empagliflozin) ..... 1 tablet once a day Lisinopril 20 Mg Tablet (Lisinopril) ..... Take 1 tablet by mouth once a day Jennifer Chen [id number],C, B P today: 172/77 P rior BP: 148/70 (10/01/2020) Labs Reviewed: C reat: 1.1 (02/28/2017) C hol: 144 (02/28/2017) HDL: 32 (02/28/2017) T (02/28/2017) His updated medication list for this problem includes: Coreg 25 Mg Tablet (Carvedilol) ..... 1 tablet twice a day Lisinopril 20 Mg Tablet (Lisinopril) ..... Take 1 tablet by mouth once a day Diltiazem Hcl 300 Mg Capsule,extended Release 24hr (Diltiazem hcl) ..... Take 1 capsule by mouth daily Jennifer Chen [id number],C,T he pt had an episode of severe SOB after minimal exertion, lasted about an hour and resolved with rest. Associated with CP. He was quite concerned aobut it. He is taking his medications. Will schedule him a cardiac cath. T he following medications were removed from the medication list: Ranolazine 500 Mg Tablet Extended Release 12 Hr (Ranolazine) ..... 1 tablet twice a day Isosorbide Mononitrate 60 Mg Tablet Extended Release 24 Hr (Isosorbide mononitrate) ..... Take 1 tablet every night His updated medication list for this problem includes: Coreg 25 Mg Tablet (Carvedilol) ..... 1 tablet twice a day Nitrostat 0.4 Mg Tablet, Sublingual (Nitroglycerin) ..... Tablet under tongue as needed Lisinopril 20 Mg Tablet (Lisinopril) ..... Take 1 tablet by mouth once a day Brilinta 90 Mg Tablet (Ticagrelor) ..... Take 1 tablet by mouth twice a day Diltiazem Hcl 300 Mg Capsule,extended Release 24hr (Diltiazem hcl) ..... Take 1 capsule by mouth daily Jennifer Chen [id number],C,T he pt had an episode of severe SOB after minimal exertion, lasted about an hour and resolved with rest. Associated with CP. He was quite concerned aobut it. He is taking his medications. Will schedule him a cardiac cath. T he following medications were removed from the medication list: Ranolazine 500 Mg Tablet Extended Release 12 Hr (Ranolazine) ..... 1 tablet twice a day Isosorbide Mononitrate 60 Mg Tablet Extended Release 24 Hr (Isosorbide mononitrate) ..... Take 1 tablet every night His updated medication list for this problem includes: Coreg 25 Mg Tablet (Carvedilol) ..... 1 tablet twice a day Nitrostat 0.4 Mg Tablet, Sublingual (Nitroglycerin) ..... Tablet under tongue as needed Lisinopril 20 Mg Tablet (Lisinopril) ..... Take 1 tablet by mouth once a day Brilinta 90 Mg Tablet (Ticagrelor) ..... Take 1 tablet by mouth twice a day Diltiazem Hcl 300 Mg Capsule,extended Release 24hr (Diltiazem hcl) ..... Take 1 capsule by mouth daily Jennifer Chen [id number],C,S table L abs Reviewed: C reat: 1.1 (02/28/2017) His updated medication list for this problem includes: Jardiance 25 Mg Oral Tablet (Empagliflozin) ..... One tab daily Glimepiride 1 Mg Oral Tablet (Glimepiride) ..... Take one tablet by mouth once daily Basaglar Kwikpen 100 Unit/ml Subcutaneous Solution Pen-injector (Insulin glargine) Alogliptin Benzoate 25 Mg Oral Tablet (Alogliptin benzoate) ..... Once daily Lisinopril 20mg Tablets (Lisinopril) ..... Take 1 tablet by mouth every day Aspirin 81 Mg Oral Tablet (Aspirin) ..... One tab. daily Metformin Hcl 1000 Mg Oral Tablet (Metformin hcl) ..... Twice daily Jennifer Chen [id number],C,C HOL: 144 (02/28/2017) HDL: 32 (02/28/2017) T (02/28/2017) His updated medication list for this problem includes: Fenofibrate 134mg Capsules (Fenofibrate micronized) ..... Take 1 capsule by mouth every day Welchol 3.75 Gm Oral Packet (Colesevelam hcl) ..... Daily Simvastatin 20mg Tablets (Simvastatin) ..... Take 1 tablet by mouth daily Jennifer Chen [id number],C, B P today: 148/70 P rior BP: 131/71 (04/05/2020) Labs Reviewed: C reat: 1.1 (02/28/2017) C hol: 144 (02/28/2017) HDL: 32 (02/28/2017) T (02/28/2017) His updated medication list for this problem includes: Diltiazem Cd 300mg Capsules (24 Hr) (Diltiazem hcl coated beads) ..... Take 1 capsule by mouth daily Coreg 25 Mg Oral Tablet (Carvedilol) ..... One tablet twice daily Lisinopril 20mg Tablets (Lisinopril) ..... Take 1 tablet by mouth every day Aspirin 81 Mg Oral Tablet (Aspirin) ..... One tab. daily Jennifer Chen [id number],C,P t states that once he started his meds, his angina has completely resolved. He has been completely pain free since Mar. This is why he canceled his cath. He is active and walking w/o symptoms. He is now a candidate for a dental extraction. There is no cardiac contraindication. He is allowed to hold aspirin/Brilinta for any duration as recommended by his dentist. H is updated medication list for this problem includes: Ranolazine Er 500 Mg Oral Tablet Extended Release 12 Hour (Ranolazine) ..... One tab. twice daily for chronic angina Isosorbide Mononitrate Er 60 Mg Oral Tablet Extended Release 24 Hour (Isosorbide mononitrate) ..... Take one tablet every evening Brilinta 90 Mg Tabs (Ticagrelor) ..... Take 1 tablet by mouth twice daily Diltiazem Cd 300mg Capsules (24 Hr) (Diltiazem hcl coated beads) ..... Take 1 capsule by mouth daily Coreg 25 Mg Oral Tablet (Carvedilol) ..... One tablet twice daily Lisinopril 20mg Tablets (Lisinopril) ..... Take 1 tablet by mouth every day Nitrostat 0.4 Mg Sublingual Tablet Sublingual (Nitroglycerin) ..... Apply one tab under tongue every 5 minutes for 3 total doses as needed for chest pain. if no relief after 3rd dose, go to er Aspirin 81 Mg Oral Tablet (Aspirin) ..... One tab. daily Jennifer Chen [id number],C,P t states that once he started his meds, his angina has completely resolved. He has been completely pain free since Mar. This is why he canceled his cath. He is active and walking w/o symptoms. He is now a candidate for a dental extraction. There is no cardiac contraindication. He is allowed to hold aspirin/Brilinta for any duration as recommended by his dentist. H is updated medication list for this problem includes: Ranolazine Er 500 Mg Oral Tablet Extended Release 12 Hour (Ranolazine) ..... One tab. twice daily for chronic angina Isosorbide Mononitrate Er 60 Mg Oral Tablet Extended Release 24 Hour (Isosorbide mononitrate) ..... Take one tablet every evening Brilinta 90 Mg Tabs (Ticagrelor) ..... Take 1 tablet by mouth twice daily Diltiazem Cd 300mg Capsules (24 Hr) (Diltiazem hcl coated beads) ..... Take 1 capsule by mouth daily Coreg 25 Mg Oral Tablet (Carvedilol) ..... One tablet twice daily Lisinopril 20mg Tablets (Lisinopril) ..... Take 1 tablet by mouth every day Nitrostat 0.4 Mg Sublingual Tablet Sublingual (Nitroglycerin) ..... Apply one tab under tongue every 5 minutes for 3 total doses as needed for chest pain. if no relief after 3rd dose, go to er Aspirin 81 Mg Oral Tablet (Aspirin) ..... One tab. daily Jennifer Gustavo Cardiology:Discussio n of benefits for remote patient monitoring took place. Patient gives consent for remote monitoring of physiologic parameters including, but not limited to, weight, blood pressure, pulse oximetry, respiratory flow rate. T his visit has been a part of the consistent, comprehensive, and ongoing management of the chronic medical condition(s) listed above for the patient. & #13;BP today: 143/79 P rior BP: 137/72 (02/19/2024) Labs Reviewed: C reat: 1.14 (02/12/2024) C hol: 104 (02/12/2024) HDL: 30 (02/12/2024) LDL: 44 (02/12/2024) T (02/12/2024) H is updated medication list for this problem includes: Diltiazem Hcl (cardizem Cd) 300 Mg Capsule,extended Release 24hr (Diltiazem hcl (cardizem cd)) ..... Take 1 capsule by mouth daily Losartan 100 Mg Tablet (Losartan) ..... Take 1 tablet by mouth once daily Coreg 25 Mg Tablet (Carvedilol) ..... 1 tablet twice a day Kermit Gonzalez MD Cardiology: C P improved His updated medication list for this problem includes: Diltiazem Hcl (cardizem Cd) 300 Mg Capsule,extended Release 24hr (Diltiazem hcl (cardizem cd)) ..... Take 1 capsule by mouth daily Nitroglycerin 0.4 Mg Tablet, Sublingual (Nitroglycerin) ..... Dissolve 1 tablet under the tongue every 5 minutes as needed for chest pain, max of 3 doses in 15 minutes Isosorbide Mononitrate 60 Mg Tablet Extended Release 24 Hr (Isosorbide mononitrate) ..... Take 1 tablet by mouth every evening Coreg 25 Mg Tablet (Carvedilol) ..... 1 tablet twice a day Kermit Gonzalez MD Cardiology: L DL 44 His updated medication list for this problem includes: Rosuvastatin 40 Mg Tablet (Rosuvastatin) ..... Take 1 tablet by mouth every day Fenofibrate Micronized 134 Mg Capsule (Fenofibrate micronized) ..... Take 1 capsule by mouth every day Berlin-3 Acid Ethyl Esters 1 Gram Capsule (Berlin-3 acid ethyl esters) ..... Twice a day Kermit Gonzalez MD Cardiology Kermit Gonzalez MD Cardiology:s/p cath: 02/15/24 patent stents, EF 55%. continues to have intermittent CP. will restart isorbide mononitrate 60mg daily. Mer Valentino NP Cardiology: B P today: 137/72 P rior BP: 170/80 (02/05/2024) Labs Reviewed: C reat: 1.14 (02/12/2024) C hol: 104 (02/12/2024) HDL: 30 (02/12/2024) LDL: 44 (02/12/2024) T (02/12/2024) The following medications were removed from the medication list: Amlodipine 10 Mg Tablet (Amlodipine) ..... Take 1 tablet by mouth once a day His updated medication list for this problem includes: Diltiazem Hcl (cardizem Cd) 300 Mg Capsule,extended Release 24hr (Diltiazem hcl (cardizem cd)) ..... Take 1 capsule by mouth daily Losartan 100 Mg Tablet (Losartan) ..... Take 1 tablet by mouth once daily Coreg 25 Mg Tablet (Carvedilol) ..... 1 tablet twice a day Mer Valentino NP Cardiology:CHOL: 104 (02/12/2024) LDL: 44 (02/12/2024) HDL: 30 (02/12/2024) T (02/12/2024) His updated medication list for this problem includes: Fenofibrate Micronized 134 Mg Capsule (Fenofibrate micronized) ..... Take 1 capsule by mouth once every day Crestor 40 Mg Tablet (Rosuvastatin) ..... Take 1 tablet by mouth once a day Berlin-3 Acid Ethyl Esters 1 Gram Capsule (Berlin-3 acid ethyl esters) ..... Twice a day Mer Valentino NP Cardiology:s/p cath: 02/15/24 patent stents, EF 55%. continues to have intermittent CP. will restart isorbide mononitrate 60mg daily. Mer Valentino NP Cardiology:typical s x W ill arrange for cath and intervention if indicated T his visit has been a part of the consistent, comprehensive, and ongoing management of the chronic medical condition(s) listed above for the patient. Mike Lutz Cardiology:weight lo ss encouraged Mike Lutz Cardiology: T he following medications were removed from the medication list: Berlin-3 Acid Ethyl Esters 1 Gram Capsule (Berlin-3 acid ethyl esters) Simvastatin 20 Mg Tablet (Simvastatin) ..... Take 1 tablet by mouth daily His updated medication list for this problem includes: Crestor 40 Mg Tablet (Rosuvastatin) ..... Take 1 tablet by mouth once a day Fenofibrate Micronized 134 Mg Capsule (Fenofibrate micronized) ..... Take 1 capsule by mouth once every day Mike Lutz Cardiology [facility] Cardiology:typical s x, will set up for a cath h /o may interventions to the cors Mike Lutz Cardiology:typical s x W ill arrange for cath and intervention if indicated Kermit Gonzalez MD Cardiology: H is updated medication list for this problem includes: Glimepiride 4 Mg Tablet (Glimepiride) ..... Take 1 tablet by mouth once a day Farxiga 10 Mg Tablet (Dapagliflozin propanediol) Ozempic 1 Mg/dose (4 Mg/3 Ml) Pen Injector (Semaglutide) Arabella Mitchell U-100 Insulin 100 Unit/ml (3 Ml) Insulin Pen (Insulin glargine) ..... 65 unit Kermit Gonzalez MD Cardiology: C ardiac cath revealed no significant coronary stenosis. Pt reports improvement in pain. Most recent LDL 92, currently on maximal dose of Crestor 40mg T rigs are high. Will enroll in [facility] clinical trial His updated medication list for this problem includes: Nitroglycerin 0.4 Mg Tablet, Sublingual (Nitroglycerin) ..... Dissolve 1 tab under tongue every 5 mins as needed for chest pain. max total of 3 doses in 15 mins Diltiazem Hcl (cardizem Cd) 300 Mg Capsule,extended Release 24hr (Diltiazem hcl (cardizem cd)) ..... Take 1 capsule by mouth daily Amlodipine 10 Mg Tablet (Amlodipine) ..... Take 1 tablet by mouth once a day take 1 tablet by mouth every day Isosorbide Mononitrate 60 Mg Tablet Extended Release 24 Hr (Isosorbide mononitrate) ..... Take 1 tablet by mouth every evening Coreg 25 Mg Tablet (Carvedilol) ..... 1 tablet twice a day This visit has been a part of the consistent, comprehensive, and ongoing management of the chronic medical condition(s) listed above for the patient. Kermit Gonzalez MD Cardiology: B P today: 148/88 P rior BP: 138/84 (06/04/2023) Labs Reviewed: C reat: 1.28 (05/06/2023) C hol: 182 (05/06/2023) HDL: 31 (05/06/2023) LDL: 92 (05/06/2023) T (05/06/2023) His updated medication list for this problem includes: Diltiazem Hcl (cardizem Cd) 300 Mg Capsule,extended Release 24hr (Diltiazem hcl (cardizem cd)) ..... Take 1 capsule by mouth daily Amlodipine 10 Mg Tablet (Amlodipine) ..... Take 1 tablet by mouth once a day take 1 tablet by mouth every day Coreg 25 Mg Tablet (Carvedilol) ..... 1 tablet twice a day Kermit Gonzalez MD Cardiology: H is updated medication list for this problem includes: Crestor 40 Mg Tablet (Rosuvastatin) ..... Take 1 tablet by mouth once a day Fenofibrate Micronized 134 Mg Capsule (Fenofibrate micronized) ..... Take 1 capsule by mouth once every day [place]-3 Acid Ethyl Esters 1 Gram Capsule (Berlin-3 acid ethyl esters) Simvastatin 20 Mg Tablet (Simvastatin) ..... Take 1 tablet by mouth daily Kermit Gonzalez MD Cardiology: C ardiac cath revealed no significant coronary stenosis. Pt reports improvement in pain. Most recent LDL 92, currently on maximal dose of Crestor 40mg His updated medication list for this problem includes: Nitroglycerin 0.4 Mg Tablet, Sublingual (Nitroglycerin) ..... Dissolve 1 tab under tongue every 5 mins as needed for chest pain. max total of 3 doses in 15 mins Diltiazem Hcl (cardizem Cd) 300 Mg Capsule,extended Release 24hr (Diltiazem hcl (cardizem cd)) ..... Take 1 capsule by mouth daily Amlodipine 10 Mg Tablet (Amlodipine) ..... Take 1 tablet by mouth once a day take 1 tablet by mouth every day Isosorbide Mononitrate 60 Mg Tablet Extended Release 24 Hr (Isosorbide mononitrate) ..... Take 1 tablet by mouth every evening Coreg 25 Mg Tablet (Carvedilol) ..... 1 tablet twice a day Kermit Gonzalez MD Cardiology Mohan Montelogno Cardiology: B P today: 138/84 P rior BP: 156/94 (04/17/2023) Labs Reviewed: C reat: 1.28 (05/06/2023) C hol: 182 (05/06/2023) HDL: 31 (05/06/2023) LDL: 92 (05/06/2023) T (05/06/2023) His updated medication list for this problem includes: Diltiazem Hcl 300 Mg Capsule,extended Release 24hr (Diltiazem hcl) ..... Take 1 capsule by mouth daily Amlodipine 10 Mg Tablet (Amlodipine) ..... Take 1 tablet by mouth once a day take 1 tablet by mouth every day Coreg 25 Mg Tablet (Carvedilol) ..... 1 tablet twice a day Mohan Montelongo Cardiology: H is updated medication list for this problem includes: Glimepiride 4 Mg Tablet (Glimepiride) ..... Take 1 tablet by mouth once a day Farxiga 10 Mg Tablet (Dapagliflozin propanediol) Ozempic 1 Mg/dose (4 Mg/3 Ml) Pen Injector (Semaglutide) Arabella Mitchell U-100 Insulin 100 Unit/ml (3 Ml) Insulin Pen (Insulin glargine) ..... 65 unit Mohan Montelongo Cardiology: H is updated medication list for this problem includes: Diltiazem Hcl 300 Mg Capsule,extended Release 24hr (Diltiazem hcl) ..... Take 1 capsule by mouth daily Nitroglycerin 0.4 Mg Tablet, Sublingual (Nitroglycerin) ..... Dissolve 1 tab under tongue every 5 mins as needed for chest pain. max total of 3 doses in 15 mins Amlodipine 10 Mg Tablet (Amlodipine) ..... Take 1 tablet by mouth once a day take 1 tablet by mouth every day Isosorbide Mononitrate 60 Mg Tablet Extended Release 24 Hr (Isosorbide mononitrate) ..... Take 1 tablet by mouth every evening Coreg 25 Mg Tablet (Carvedilol) ..... 1 tablet [facility] a [facility]:Most rece nt LDL 92, currently on maximal dose of Crestor 40mg, will schedule him for PREVAIL screening. H is updated medication list for this problem includes: Crestor 40 Mg Tablet (Rosuvastatin) ..... Take 1 tablet by mouth once a day Fenofibrate Micronized 134 Mg Capsule (Fenofibrate micronized) ..... Take 1 capsule by mouth once every day [place]-3 Acid Ethyl Esters 1 Gram Capsule (Berlin-3 acid ethyl esters) Simvastatin 20 Mg Tablet (Simvastatin) ..... Take 1 tablet by mouth daily [facility] Cardiology:Cardiac c ath revealed no significant coronary stenosis. Pt reports improvement in pain. Most recent LDL 92, currently on maximal dose of Crestor 40mg, will schedule him for [facility] screening. [facility] Cardiology: H is updated medication list for this problem includes: Rosuvastatin 20 Mg Tablet (Rosuvastatin) ..... Take 1 tablet by mouth every night Fenofibrate Micronized 134 Mg Capsule (Fenofibrate micronized) ..... Take 1 capsule by mouth once a day take 1 capsule by mouth every day [place]-3 Acid Ethyl Esters 1 Gram Capsule (Berlin-3 acid ethyl esters) Simvastatin 20 Mg Tablet (Simvastatin) ..... Take 1 tablet by mouth daily [facility] Cardiology: H is updated medication list for this problem includes: Farxiga 10 Mg Tablet (Dapagliflozin propanediol) Ozempic 1 Mg/dose (4 Mg/3 Ml) Pen Injector (Semaglutide) Arabella Mitchell U-100 Insulin 100 Unit/ml (3 Ml) Insulin Pen (Insulin glargine) ..... 65 unit Glimepiride 2 Mg Tablet (Glimepiride) ..... Take 1 tablet by mouth once a day Mohan Montelongo Cardiology:Pt cancel led his cardiac cath due to an infection, which is now treated. Continues to have episodes of chest discomfort. WIll reschedule his cardiac cath. H is updated medication list for this problem includes: Diltiazem Hcl 300 Mg Capsule,extended Release 24hr (Diltiazem hcl) ..... Take 1 capsule by mouth daily Nitroglycerin 0.4 Mg Tablet, Sublingual (Nitroglycerin) ..... Dissolve 1 tab under tongue every 5 mins as needed for chest pain. max total of 3 doses in 15 mins Amlodipine 10 Mg Tablet (Amlodipine) ..... Take 1 tablet by mouth once a day take 1 tablet by mouth every day Isosorbide Mononitrate 60 Mg Tablet Extended Release 24 Hr (Isosorbide mononitrate) ..... Take 1 tablet by mouth every evening Coreg 25 Mg Tablet (Carvedilol) ..... 1 tablet twice a day Mohan Montelongo Cardiology:Today in the office BP in left arm was 157/94. Right arm was 147/90. Will obtain arterial duplex of upper extremities. H is updated medication list for this problem includes: Diltiazem Hcl 300 Mg Capsule,extended Release 24hr (Diltiazem hcl) ..... Take 1 capsule by mouth daily Amlodipine 10 Mg Tablet (Amlodipine) ..... Take 1 tablet by mouth once a day take 1 tablet by mouth every day Coreg 25 Mg Tablet (Carvedilol) ..... 1 tablet twice a day Mohan Montelongo Cardiology:Pt cancel led his cardiac cath due to an infection, which is now treated. Continues to have episodes of chest discomfort. WIll reschedule his cardiac cath. H is updated medication list for this problem includes: Diltiazem Hcl 300 Mg Capsule,extended Release 24hr (Diltiazem hcl) ..... Take 1 capsule by mouth daily Nitroglycerin 0.4 Mg Tablet, Sublingual (Nitroglycerin) ..... Dissolve 1 tab under tongue every 5 mins as needed for chest pain. max total of 3 doses in 15 mins Amlodipine 10 Mg Tablet (Amlodipine) ..... Take 1 tablet by mouth once a day take 1 tablet by mouth every day Isosorbide Mononitrate 60 Mg Tablet Extended Release 24 Hr (Isosorbide mononitrate) ..... Take 1 tablet by mouth every evening Coreg 25 Mg Tablet (Carvedilol) ..... 1 tablet twice a day Mohan Jayda Cardiology: H is updated medication list for this problem includes: Rosuvastatin 20 Mg Tablet (Rosuvastatin) ..... Take 1 tablet by mouth every night Fenofibrate Micronized 134 Mg Capsule (Fenofibrate micronized) ..... Take 1 capsule by mouth once a day take 1 capsule by mouth every day Berlin-3 Acid Ethyl Esters 1 Gram Capsule (Berlin-3 acid ethyl esters) Simvastatin 20 Mg Tablet (Simvastatin) ..... Take 1 tablet by mouth daily Mohan Montelongo Cardiology: B P today: 146/85 P rior BP: 164/80 (01/12/2023) Labs Reviewed: C reat: 1.58 (03/31/2021) C hol: 188 (03/31/2021) HDL: 33 (03/31/2021) His updated medication list for this problem includes: Amlodipine 10 Mg Tablet (Amlodipine) ..... Take 1 tablet by mouth once a day take 1 tablet by mouth every day Diltiazem Hcl 300 Mg Capsule,extended Release 24hr (Diltiazem hcl) ..... Take 1 capsule by mouth once a day Coreg 25 Mg Tablet (Carvedilol) ..... 1 tablet twice a day Mohan Jayda Cardiology:Pt had an other episode of chest discomfort lasting about 4 minutes that resolved spontaneously. 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 In view of his continued sx, we will schedule him for a left heart cath H is updated medication list for this problem includes: Nitroglycerin 0.4 Mg Tablet, Sublingual (Nitroglycerin) ..... Dissolve 1 tab under tongue every 5 mins as needed for chest pain. max total of 3 doses in 15 mins Amlodipine 10 Mg Tablet (Amlodipine) ..... Take 1 tablet by mouth once a day take 1 tablet by mouth every day Diltiazem Hcl 300 Mg Capsule,extended Release 24hr (Diltiazem hcl) ..... Take 1 capsule by mouth once a day Isosorbide Mononitrate 60 Mg Tablet Extended Release 24 Hr (Isosorbide mononitrate) ..... Take 1 tablet by mouth every evening Coreg 25 Mg Tablet (Carvedilol) ..... 1 tablet twice a day Mohan Montelongo Cardiology:Pt had an other episode of chest discomfort lasting about 4 minutes that resolved spontaneously. 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 In view of his continued sx, we will schedule him for a left heart cath Mohan Dislainari Cardiology: H is updated medication list for this problem includes: Rosuvastatin 20 Mg Tablet (Rosuvastatin) ..... Take 1 tablet by mouth every night Fenofibrate Micronized 134 Mg Capsule (Fenofibrate micronized) ..... Take 1 capsule by mouth once a day take 1 capsule by mouth every day Berlin-3 Acid Ethyl Esters 1 Gram Capsule (Berlin-3 acid ethyl esters) Simvastatin 20 Mg Tablet (Simvastatin) ..... Take 1 tablet by mouth daily Halley Hensley NP Cardiology:Complain of an episode of chest pain associated with headache. No recurrence. had cath in 2020 shows the left main coronary artery is normal. There is 20% stenosis of the proximal LAD. The stents in the LAD are patent. The left circumflex is a large dominant vessel. The stent in the OM is patent. There is no significant stenosis. Halley Hensley NP Cardiology: His updated medication list for this problem includes: Farxiga 10 Mg Tablet (Dapagliflozin propanediol) Ozempic 1 Mg/dose (4 Mg/3 Ml) Pen Injector (Semaglutide) Arabella Mitchell U-100 Insulin 100 Unit/ml (3 Ml) Insulin Pen (Insulin glargine) ..... 65 unit Glimepiride 2 Mg Tablet (Glimepiride) ..... Take 1 tablet by mouth once a day Metformin 500 Mg Tablet (Metformin) ..... Twice a day Ozempic 1 Mg/dose (2 Mg/1.5 Ml) Pen Injector (Semaglutide) Halley Washingtonangi VALLE Cardiology: B P today: 164/80 P rior BP: 132/80 (08/23/2022) Doesn't check BP at home. Encouraged to check BP at home an dmonitor Halley Shellie VALLE Cardiology:had an ep iose of chets pain associted with headache 2 weeks ago. No recurrence. had cath in 2020 shows the left main coronary artery is normal. There is 20% stenosis of the proximal LAD. The stents in the LAD are patent. The left circumflex is a large dominant vessel. The stent in the OM is patent. There is no significant stenosis. Stopped taking isosorbide mononitrate, stopped by telephonic nurse case manager. will repeat stress test and echo Halley Hensley NP Cardiology: H is updated medication list for this problem includes: Diltiazem Hcl 300 Mg Capsule,extended Release 24hr (Diltiazem hcl) ..... Take 1 capsule by mouth once a day Amlodipine 10 Mg Tablet (Amlodipine) ..... Take 1 tablet by mouth every day Isosorbide Mononitrate 60 Mg Tablet Extended Release 24 Hr (Isosorbide mononitrate) ..... Take 1 tablet by mouth every evening Nitroglycerin 0.4 Mg Tablet, Sublingual (Nitroglycerin) ..... Dissolve 1 tablet under the tongue every 5 minutes for 3 total doses as needed for chest pain. if no relief after 3rd dose, go to er. Coreg 25 Mg Tablet (Carvedilol) ..... 1 tablet twice a day Kermit Gonzalez MD Cardiology: B P today: 132/80 P rior BP: 142/79 (02/01/2022) Labs Reviewed: C reat: 1.58 (03/31/2021) C hol: 188 (03/31/2021) HDL: 33 (03/31/2021) His updated medication list for this problem includes: Diltiazem Hcl 300 Mg Capsule,extended Release 24hr (Diltiazem hcl) ..... Take 1 capsule by mouth once a day Amlodipine 10 Mg Tablet (Amlodipine) ..... Take 1 tablet by mouth every day Coreg 25 Mg Tablet (Carvedilol) ..... 1 tablet twice a day Kermit Gonzalez MD Cardiology: He has e levated blood pressure, will provide him with an RPM. B P today: 142/79 P rior BP: 139/73 (08/03/2021) Labs Reviewed: C reat: 1.58 (03/31/2021) C hol: 188 (03/31/2021) HDL: 33 (03/31/2021) His updated medication list for this problem includes: Norvasc 10 Mg Tablet (Amlodipine) ..... Take 1 tablet by mouth once a day Coreg 25 Mg Tablet (Carvedilol) ..... 1 tablet twice a day Diltiazem Hcl 300 Mg Capsule,extended Release 24hr (Diltiazem hcl) ..... Take 1 capsule by mouth daily Kermit Gonzalez MD Cardiology: Pt compl ains of pain in his right upper thigh when he sits for long periods. We will check an arterial duplex of the lower extremities. Kermit Gonzalez MD Cardiology:Overall d oing well, Pt denies SOB and chest pain. In addition, we will check AAA duplex due to hx of smoking and echo. Kermit Gonzalez MD Cardiology: H gb and iron within normal range Kermit Gonzalez MD Cardiology: W eight loss advised Kermit Gonzalez MD Cardiology: H is updated medication list for this problem includes: Ozempic 1 Mg/dose (4 Mg/3 Ml) Pen Injector (Semaglutide) Arabella Mitchell U-100 Insulin 100 Unit/ml (3 Ml) Insulin Pen (Insulin glargine) ..... 65 unit Glimepiride 2 Mg Tablet (Glimepiride) ..... Take 1 tablet by mouth once a day Metformin 500 Mg Tablet (Metformin) ..... Twice a day Ozempic 1 Mg/dose (2 Mg/1.5 Ml) Pen Injector (Semaglutide) Jardiance 25 Mg Tablet (Empagliflozin) ..... 1 tablet once a day Kermit Gonzalez MD Cardiology: H is updated medication list for this problem includes: Berlin-3 Acid Ethyl Esters 1 Gram Capsule (Berlin-3 acid ethyl esters) Simvastatin 20 Mg Tablet (Simvastatin) ..... Take 1 tablet by mouth daily Crestor 20 Mg Tablet (Rosuvastatin) ..... Take 1 tablet by mouth every night Fenofibrate Micronized 134 Mg Capsule (Fenofibrate micronized) ..... Take 1 capsule by mouth every day Kermit Gonzalez MD Cardiology: W eight loss advised Jennifer Chen Cardiology: H is updated medication list for this problem includes: Crestor 20 Mg Tablet (Rosuvastatin) ..... Take 1 tablet by mouth every night Fenofibrate Micronized 134 Mg Capsule (Fenofibrate micronized) ..... Take 1 capsule by mouth every day Jennifer Chen Cardiology: H is updated medication list for this problem includes: Arabella Mitchell U-100 Insulin 100 Unit/ml (3 Ml) Insulin Pen (Insulin glargine) ..... 65 unit Glimepiride 2 Mg Tablet (Glimepiride) ..... Take 1 tablet by mouth once a day Metformin 500 Mg Tablet (Metformin) ..... Twice a day Ozempic 1 Mg/dose (2 Mg/1.5 Ml) Pen Injector (Semaglutide) Jardiance 25 Mg Tablet (Empagliflozin) ..... 1 tablet once a day Jennifer Chen Cardiology: B P today: 139/73 P rior BP: 161/89 (06/22/2021) Labs Reviewed: C reat: 1.58 (03/31/2021) C hol: 188 (03/31/2021) HDL: 33 (03/31/2021) His updated medication list for this problem includes: Norvasc 10 Mg Tablet (Amlodipine) ..... Take 1 tablet by mouth once a day Coreg 25 Mg Tablet (Carvedilol) ..... 1 tablet twice a day Diltiazem Hcl 300 Mg Capsule,extended Release 24hr (Diltiazem hcl) ..... Take 1 capsule by mouth daily Jennifer Gustavo Cardiology: T he pt reports significant improvment of his sxs after receiving IV iron. Will check CBC and iron studies. Will also check CRP to see if he qualifies for the LOKESH trial. H is updated medication list for this problem includes: Isosorbide Mononitrate 60 Mg Tablet Extended Release 24 Hr (Isosorbide mononitrate) ..... Take 1 tablet by mouth every evening Norvasc 10 Mg Tablet (Amlodipine) ..... Take 1 tablet by mouth once a day Nitroglycerin 0.4 Mg Tablet, Sublingual (Nitroglycerin) ..... Dissolve 1 tablet under the tongue every 5 minutes for 3 total doses as needed for chest pain. if no relief after 3rd dose, go to er. Coreg 25 Mg Tablet (Carvedilol) ..... 1 tablet twice a day Diltiazem Hcl 300 Mg Capsule,extended Release 24hr (Diltiazem hcl) ..... Take 1 capsule by mouth daily Jennifer Chen Cardiology: T he pt reports significant improvment of his sxs after receiving IV iron. Will check CBC and iron studies. W Jennifer Chen Cardiology: W eight loss advised Kermit Gonzalez MD Cardiology: H is updated medication list for this problem includes: Crestor 20 Mg Tablet (Rosuvastatin) ..... Take 1 tablet by mouth every night Fenofibrate Micronized 134 Mg Capsule (Fenofibrate micronized) ..... Take 1 capsule by mouth every day Kermit Gonzalez MD Cardiology: H is updated medication list for this problem includes: Arabella Mitchell U-100 Insulin 100 Unit/ml (3 Ml) Insulin Pen (Insulin glargine) ..... 65 unit Glimepiride 2 Mg Tablet (Glimepiride) ..... Take 1 tablet by mouth once a day Metformin 500 Mg Tablet (Metformin) ..... Twice a day Ozempic 1 Mg/dose (2 Mg/1.5 Ml) Pen Injector (Semaglutide) Jardiance 25 Mg Tablet (Empagliflozin) ..... 1 tablet once a day Kermit Gonzalez MD Cardiology:. He is u nsure of his medication list, he will send it to us. We will need to increase BP control. I recommend using a diuretic. His hyperkalemia is addressed by Dr. Lora. ONce we have the medication list, we will review and give further recommendations. BP today: 161/89 P rior BP: 147/67 (04/27/2021) Labs Reviewed: C reat: 1.58 (03/31/2021) C hol: 188 (03/31/2021) HDL: 33 (03/31/2021) His updated medication list for this problem includes: Norvasc 10 Mg Tablet (Amlodipine) ..... Take 1 tablet by mouth once a day Coreg 25 Mg Tablet (Carvedilol) ..... 1 tablet twice a day Diltiazem Hcl 300 Mg Capsule,extended Release 24hr (Diltiazem hcl) ..... Take 1 capsule by mouth daily Kermit Gonzalez MD Cardiology:Pt denies SOB and chest pain. His updated medication list for this problem includes: Norvasc 10 Mg Tablet (Amlodipine) ..... Take 1 tablet by mouth once a day Nitroglycerin 0.4 Mg Tablet, Sublingual (Nitroglycerin) ..... Dissolve 1 tablet under the tongue every 5 minutes for 3 total doses as needed for chest pain. if no relief after 3rd dose, go to er. Coreg 25 Mg Tablet (Carvedilol) ..... 1 tablet twice a day Diltiazem Hcl 300 Mg Capsule,extended Release 24hr (Diltiazem hcl) ..... Take 1 capsule by mouth daily Kermit Gonzalez MD Cardiology:The pt sa id he had negative GI workup. Dr. Lora is treating him with IV iron for anemia. His hyperkalemia is addressed by Dr. Lora. Kermit Gonzalez MD Cardiology: W eight loss advised Jennifer Chen Cardiology: T he following medications were removed from the medication list: Simvastatin 20 Mg Tablet (Simvastatin) ..... Take 1 tablet by mouth once a day His updated medication list for this problem includes: Crestor 20 Mg Tablet (Rosuvastatin) ..... Take 1 tablet by mouth every night Fenofibrate Micronized 134 Mg Capsule (Fenofibrate micronized) ..... Take 1 capsule by mouth every day Jennifer Chen Cardiology: T he following medications were removed from the medication list: Lisinopril 20 Mg Tablet (Lisinopril) ..... Take 1 tablet by mouth once a day His updated medication list for this problem includes: Basaglar Kwikpen U-100 Insulin 100 Unit/ml (3 Ml) Insulin Pen (Insulin glargine) ..... 65 unit Glimepiride 2 Mg Tablet (Glimepiride) ..... Take 1 tablet by mouth once a day Metformin 500 Mg Tablet (Metformin) ..... Twice a day Ozempic 1 Mg/dose (2 Mg/1.5 Ml) Pen Injector (Semaglutide) Jardiance 25 Mg Tablet (Empagliflozin) ..... 1 tablet once a day Jennifer Chen Cardiology: B P today: 147/67 P rior BP: 172/77 (03/30/2021) Labs Reviewed: C reat: 1.58 (03/31/2021) C hol: 188 (03/31/2021) HDL: 33 (03/31/2021) The following medications were removed from the medication list: Lisinopril 20 Mg Tablet (Lisinopril) ..... Take 1 tablet by mouth once a day His updated medication list for this problem includes: Norvasc 10 Mg Tablet (Amlodipine) ..... Take 1 tablet by mouth once a day Coreg 25 Mg Tablet (Carvedilol) ..... 1 tablet twice a day Diltiazem Hcl 300 Mg Capsule,extended Release 24hr (Diltiazem hcl) ..... Take 1 capsule by mouth daily Jennifer Chen Cardiology:Cardiac c ath did not reveal significant coronary stenosis. . Continues to have CP and SOB. Hgb down to 7.8, Cr 1.58. I recommend anemia workup. He will see PCP, endocrinology, and renal for further workup. May need a GI workuop. Jennifer Espositowilber Cardiology:Cardiac c ath did not reveal significant coronary stenosis. EF was normal. Continues to have CP and SOB.Will stop Lisinopril and start Norvasc 10 mg. Will hold Brilinta. He will see PCP, endocrinology, and renal for further workup. May need a GI workuop. T he following medications were removed from the medication list: Lisinopril 20 Mg Tablet (Lisinopril) ..... Take 1 tablet by mouth once a day Brilinta 90 Mg Tablet (Ticagrelor) ..... Take 1 tablet by mouth twice a day His updated medication list for this problem includes: Nitroglycerin 0.4 Mg Tablet, Sublingual (Nitroglycerin) ..... Dissolve 1 tablet under the tongue every 5 minutes for 3 total doses as needed for chest pain. if no relief after 3rd dose, go to er. Coreg 25 Mg Tablet (Carvedilol) ..... 1 tablet twice a day Lisinopril 20 Mg Tablet (Lisinopril) ..... Take 1 tablet by mouth once a day Brilinta 90 Mg Tablet (Ticagrelor) ..... Take 1 tablet by mouth twice a day Diltiazem Hcl 300 Mg Capsule,extended Release 24hr (Diltiazem hcl) ..... Take 1 capsule by mouth daily Jennifer Gustavo Cardiology:Weight loss advised B lora Chen Cardiology: T he following medications were removed from the medication list: Welchol 3.75 Gram Powder In Packet (Colesevelam) ..... Once a day His updated medication list for this problem includes: Simvastatin 20 Mg Tablet (Simvastatin) ..... Take 1 tablet by mouth once a day Fenofibrate Micronized 134 Mg Capsule (Fenofibrate micronized) ..... Take 1 capsule by mouth every day Jennifer Chen Cardiology: T he following medications were removed from the medication list: Alogliptin 25 Mg Tablet (Alogliptin) ..... Once a day His updated medication list for this problem includes: Basaglotto Mitchell U-100 Insulin 100 Unit/ml (3 Ml) Insulin Pen (Insulin glargine) ..... 65 unit Glimepiride 2 Mg Tablet (Glimepiride) ..... Take 1 tablet by mouth once a day Metformin 500 Mg Tablet (Metformin) ..... Twice a day Ozempic 1 Mg/dose (2 Mg/1.5 Ml) Pen Injector (Semaglutide) Jardiance 25 Mg Tablet (Empagliflozin) ..... 1 tablet once a day Lisinopril 20 Mg Tablet (Lisinopril) ..... Take 1 tablet by mouth once a day Jennifer Chen Cardiology: B P today: 172/77 P rior BP: 148/70 (10/01/2020) Labs Reviewed: C reat: 1.1 (02/28/2017) C hol: 144 (02/28/2017) HDL: 32 (02/28/2017) T (02/28/2017) His updated medication list for this problem includes: Coreg 25 Mg Tablet (Carvedilol) ..... 1 tablet twice a day Lisinopril 20 Mg Tablet (Lisinopril) ..... Take 1 tablet by mouth once a day Diltiazem Hcl 300 Mg Capsule,extended Release 24hr (Diltiazem hcl) ..... Take 1 capsule by mouth daily Jennifer Chen Cardiology:The pt smith d an episode of severe SOB after minimal exertion, lasted about an hour and resolved with rest. Associated with CP. He was quite concerned aobut it. He is taking his medications. Will schedule him a cardiac cath. T he following medications were removed from the medication list: Ranolazine 500 Mg Tablet Extended Release 12 Hr (Ranolazine) ..... 1 tablet twice a day Isosorbide Mononitrate 60 Mg Tablet Extended Release 24 Hr (Isosorbide mononitrate) ..... Take 1 tablet every night His updated medication list for this problem includes: Coreg 25 Mg Tablet (Carvedilol) ..... 1 tablet twice a day Nitrostat 0.4 Mg Tablet, Sublingual (Nitroglycerin) ..... Tablet under tongue as needed Lisinopril 20 Mg Tablet (Lisinopril) ..... Take 1 tablet by mouth once a day Brilinta 90 Mg Tablet (Ticagrelor) ..... Take 1 tablet by mouth twice a day Diltiazem Hcl 300 Mg Capsule,extended Release 24hr (Diltiazem hcl) ..... Take 1 capsule by mouth daily Jennifer Chen Cardiology:The pt smith d an episode of severe SOB after minimal exertion, lasted about an hour and resolved with rest. Associated with CP. He was quite concerned aobut it. He is taking his medications. Will schedule him a cardiac cath. T he following medications were removed from the medication list: Ranolazine 500 Mg Tablet Extended Release 12 Hr (Ranolazine) ..... 1 tablet twice a day Isosorbide Mononitrate 60 Mg Tablet Extended Release 24 Hr (Isosorbide mononitrate) ..... Take 1 tablet every night His updated medication list for this problem includes: Coreg 25 Mg Tablet (Carvedilol) ..... 1 tablet twice a day Nitrostat 0.4 Mg Tablet, Sublingual (Nitroglycerin) ..... Tablet under tongue as needed Lisinopril 20 Mg Tablet (Lisinopril) ..... Take 1 tablet by mouth once a day Brilinta 90 Mg Tablet (Ticagrelor) ..... Take 1 tablet by mouth twice a day Diltiazem Hcl 300 Mg Capsule,extended Release 24hr (Diltiazem hcl) ..... Take 1 capsule by mouth daily Jennifer Chen Cardiology:Stable L abs Reviewed: C reat: 1.1 (02/28/2017) His updated medication list for this problem includes: Jardiance 25 Mg Oral Tablet (Empagliflozin) ..... One tab daily Glimepiride 1 Mg Oral Tablet (Glimepiride) ..... Take one tablet by mouth once daily Basaglar Kwikpen 100 Unit/ml Subcutaneous Solution Pen-injector (Insulin glargine) Alogliptin Benzoate 25 Mg Oral Tablet (Alogliptin benzoate) ..... Once daily Lisinopril 20mg Tablets (Lisinopril) ..... Take 1 tablet by mouth every day Aspirin 81 Mg Oral Tablet (Aspirin) ..... One tab. daily Metformin Hcl 1000 Mg Oral Tablet (Metformin hcl) ..... Twice daily Jennifer Chen Cardiology:CHOL: 144 (02/28/2017) HDL: 32 (02/28/2017) T (02/28/2017) His updated medication list for this problem includes: Fenofibrate 134mg Capsules (Fenofibrate micronized) ..... Take 1 capsule by mouth every day Welchol 3.75 Gm Oral Packet (Colesevelam hcl) ..... Daily Simvastatin 20mg Tablets (Simvastatin) ..... Take 1 tablet by mouth daily Jennifer Chen Cardiology: B P today: 148/70 P rior BP: 131/71 (04/05/2020) Labs Reviewed: C reat: 1.1 (02/28/2017) C hol: 144 (02/28/2017) HDL: 32 (02/28/2017) T (02/28/2017) His updated medication list for this problem includes: Diltiazem Cd 300mg Capsules (24 Hr) (Diltiazem hcl coated beads) ..... Take 1 capsule by mouth daily Coreg 25 Mg Oral Tablet (Carvedilol) ..... One tablet twice daily Lisinopril 20mg Tablets (Lisinopril) ..... Take 1 tablet by mouth every day Aspirin 81 Mg Oral Tablet (Aspirin) ..... One tab. daily Jennifer Chen Cardiology:Pt states that once he started his meds, his angina has completely resolved. He has been completely pain free since Mar. This is why he canceled his cath. He is active and walking w/o symptoms. He is now a candidate for a dental extraction. There is no cardiac contraindication. He is allowed to hold aspirin/Brilinta for any duration as recommended by his dentist. H is updated medication list for this problem includes: Ranolazine Er 500 Mg Oral Tablet Extended Release 12 Hour (Ranolazine) ..... One tab. twice daily for chronic angina Isosorbide Mononitrate Er 60 Mg Oral Tablet Extended Release 24 Hour (Isosorbide mononitrate) ..... Take one tablet every evening Brilinta 90 Mg Tabs (Ticagrelor) ..... Take 1 tablet by mouth twice daily Diltiazem Cd 300mg Capsules (24 Hr) (Diltiazem hcl coated beads) ..... Take 1 capsule by mouth daily Coreg 25 Mg Oral Tablet (Carvedilol) ..... One tablet twice daily Lisinopril 20mg Tablets (Lisinopril) ..... Take 1 tablet by mouth every day Nitrostat 0.4 Mg Sublingual Tablet Sublingual (Nitroglycerin) ..... Apply one tab under tongue every 5 minutes for 3 total doses as needed for chest pain. if no relief after 3rd dose, go to er Aspirin 81 Mg Oral Tablet (Aspirin) ..... One tab. daily Jennifer Espositowilber Cardiology:Pt states that once he started his meds, his angina has completely resolved. He has been completely pain free since Mar. This is why he canceled his cath. He is active and walking w/o symptoms. He is now a candidate for a dental extraction. There is no cardiac contraindication. He is allowed to hold aspirin/Brilinta for any duration as recommended by his dentist. H is updated medication list for this problem includes: Ranolazine Er 500 Mg Oral Tablet Extended Release 12 Hour (Ranolazine) ..... One tab. twice daily for chronic angina Isosorbide Mononitrate Er 60 Mg Oral Tablet Extended Release 24 Hour (Isosorbide mononitrate) ..... Take one tablet every evening Brilinta 90 Mg Tabs (Ticagrelor) ..... Take 1 tablet by mouth twice daily Diltiazem Cd 300mg Capsules (24 Hr) (Diltiazem hcl coated beads) ..... Take 1 capsule by mouth daily Coreg 25 Mg Oral Tablet (Carvedilol) ..... One tablet twice daily Lisinopril 20mg Tablets (Lisinopril) ..... Take 1 tablet by mouth every day Nitrostat 0.4 Mg Sublingual Tablet Sublingual (Nitroglycerin) ..... Apply one tab under tongue every 5 minutes for 3 total doses as needed for chest pain. if no relief after 3rd dose, go to er Aspirin 81 Mg Oral Tablet (Aspirin) ..... One tab. daily Jennifer Espositowilber Cardiology follow up :CHOL: 144 (02/28/2017) HDL: 32 (02/28/2017) T (02/28/2017) LDL: 66 (02/28/2017) His updated medication list for this problem includes: Fenofibrate 134mg Capsules (Fenofibrate micronized) ..... Take 1 capsule by mouth every day Welchol 3.75 Gm Oral Packet (Colesevelam hcl) ..... Daily Simvastatin 20mg Tablets (Simvastatin) ..... Take 1 tablet by mouth daily [facility] Cardiology follow up :Pt complains of more frequent and severe episodes of angina, occasionally waking him up at night, responding to NTG. Will try Imdur and Ranexa and plan for cardiac cath. [facility] Cardiology follow up :His updated medication list for this problem includes: Jardiance 25 Mg Oral Tablet (Empagliflozin) ..... One tab daily Glimepiride 1 Mg Oral Tablet (Glimepiride) ..... Take one tablet by mouth once daily Basaglar Kwikpen 100 Unit/ml Subcutaneous Solution Pen-injector (Insulin glargine) Alogliptin Benzoate 25 Mg Oral Tablet (Alogliptin benzoate) ..... Once daily Lisinopril 20mg Tablets (Lisinopril) ..... Take 1 tablet by mouth every day Aspirin 81 Mg Oral Tablet (Aspirin) ..... One tab. daily Metformin Hcl 1000 Mg Oral Tablet (Metformin hcl) ..... Twice daily [facility] Cardiology follow up :BP today: 131/71 P rior BP: 128/70 (10/15/2019) His updated medication list for this problem includes: Diltiazem Cd 300mg Capsules (24 Hr) (Diltiazem hcl coated beads) ..... Take 1 capsule by mouth daily Coreg 25 Mg Oral Tablet (Carvedilol) ..... One tablet twice daily Lisinopril 20mg Tablets (Lisinopril) ..... Take 1 tablet by mouth every day [facility] Cardiology follow up :Pt complains of more frequent and severe episodes of angina, occasionally waking him up at night, responding to NTG. Will try Imdur and Ranexa and plan for cardiac cath. & #13;His updated medication list for this problem includes: Ranolazine Er 500 Mg Oral Tablet Extended Release 12 Hour (Ranolazine) ..... One tab. twice daily for chronic angina Isosorbide Mononitrate Er 60 Mg Oral Tablet Extended Release 24 Hour (Isosorbide mononitrate) ..... Take one tablet every evening Brilinta 90 Mg Tabs (Ticagrelor) ..... Take 1 tablet by mouth twice daily Diltiazem Cd 300mg Capsules (24 Hr) (Diltiazem hcl coated beads) ..... Take 1 capsule by mouth daily Coreg 25 Mg Oral Tablet (Carvedilol) ..... One tablet twice daily Lisinopril 20mg Tablets (Lisinopril) ..... Take 1 tablet by mouth every day Nitrostat 0.4 Mg Sublingual Tablet Sublingual (Nitroglycerin) ..... Apply one tab under tongue every 5 minutes for 3 total doses as needed for chest pain. if no relief after 3rd dose, go to er Aspirin 81 Mg Oral Tablet (Aspirin) ..... One tab. daily [facility] Cardiology follow up :Pt complains of more frequent and severe episodes of angina, occasionally waking him up at night, responding to NTG. Will try Imdur and Ranexa and plan for cardiac cath. [facility] Cardiology:Cardiac c ath did not show significant stenosis and stents were patent. However, patient has rare angina, usually following exertion. Sx occur approximately once a month. Patient prefers to monitor at this time rather than undergo testing due to the COVID-19 pandemic. Discussed proceeding with cardiac cath if pain worsens in severity/ frequency. [facility]:Cardiac c ath 02/2017 did not show significant stenosis and stents were patent. However, patient continues to complain of CP, usually following exertion. [facility]:Cardiac c ath did not show significant stenosis and stents were patent. However, patient continues to complain of CP, usually following exertion. Sx occur approximately once a month. Patient prefers to monitor at this time rather than undergo testing due to the COVID-19 pandemic. Discussed proceeding with cardiac cath if pain worsens in severity/ frequency. [facility]: B P today: 128/70 P rior BP: 120/60 (11/20/2018) Labs Reviewed: C reat: 1.1 (02/28/2017) C hol: 144 (02/28/2017) HDL: 32 (02/28/2017) T (02/28/2017) His updated medication list for this problem includes: Diltiazem Cd 300mg Capsules (24 Hr) (Diltiazem hcl coated beads) ..... Take 1 capsule by mouth daily Coreg 25 Mg Oral Tablet (Carvedilol) ..... One tablet twice daily Lisinopril 20 Mg Oral Tablet (Lisinopril) ..... One tab. daily Aspirin 81 Mg Oral Tablet (Aspirin) ..... One tab. daily [facility]: H is updated medication list for this problem includes: Jardiance 25 Mg Oral Tablet (Empagliflozin) ..... One tab daily Glimepiride 1 Mg Oral Tablet (Glimepiride) ..... Take one tablet by mouth once daily Basaglar Kwikpen 100 Unit/ml Subcutaneous Solution Pen-injector (Insulin glargine) Alogliptin Benzoate 25 Mg Oral Tablet (Alogliptin benzoate) ..... Once daily Lisinopril 20 Mg Oral Tablet (Lisinopril) ..... One tab. daily Aspirin 81 Mg Oral Tablet (Aspirin) ..... One tab. daily Metformin Hcl 1000 Mg Oral Tablet (Metformin hcl) ..... Twice daily [facility]:His diabe kristopher is now managed by Dr. Judi Cazares. The following medications were removed from the medication list: Levemir Flextouch 100 Unit/ml Subcutaneous Solution Pen-injector (Insulin detemir) ..... 55 units daily Novolog Flexpen 100 Unit/ml Subcutaneous Solution Pen-injector (Insulin aspart) ..... Per sliding scale His updated medication list for this problem includes: Glimepiride 1 Mg Oral Tablet (Glimepiride) ..... Take one tablet by mouth once daily Basaglar Kwikpen 100 Unit/ml Subcutaneous Solution Pen-injector (Insulin glargine) Alogliptin Benzoate 25 Mg Oral Tablet (Alogliptin benzoate) ..... Once daily Lisinopril 20 Mg Oral Tablet (Lisinopril) ..... One tab. daily Aspirin 81 Mg Oral Tablet (Aspirin) ..... One tab. daily Metformin Hcl 1000 Mg Oral Tablet (Metformin hcl) ..... Twice daily [facility]:BP today: 119/60 P rior BP: 110/70 (10/31/2017) His updated medication list for this problem includes: Diltiazem Cd 300mg Capsules (24 Hr) (Diltiazem hcl coated beads) ..... Take 1 capsule by mouth daily Coreg 25 Mg Oral Tablet (Carvedilol) ..... One tablet twice daily Lisinopril 20 Mg Oral Tablet (Lisinopril) ..... One tab. daily Reji [facility] Cardiology:Feeling w ell. Denies chest pain or SOB. His updated medication list for this problem includes: Brilinta 90 Mg Tabs (Ticagrelor) ..... Take 1 tablet by mouth twice daily Diltiazem Cd 300mg Capsules (24 Hr) (Diltiazem hcl coated beads) ..... Take 1 capsule by mouth daily Coreg 25 Mg Oral Tablet (Carvedilol) ..... One tablet twice daily Lisinopril 20 Mg Oral Tablet (Lisinopril) ..... One tab. daily Nitrostat 0.4 Mg Sublingual Tablet Sublingual (Nitroglycerin) ..... Apply one tab under tongue every 5 minutes for 3 total doses as needed for chest pain. if no relief after 3rd dose, go to er Aspirin 81 Mg Oral Tablet (Aspirin) ..... One tab. daily [facility] Follow up :His updated medication list for this problem includes: Cartia Xt 300 Mg Oral Capsule Extended Release 24 Hour (Diltiazem hcl coated beads) ..... One tab. daily Coreg 25 Mg Oral Tablet (Carvedilol) ..... One tablet twice daily Lisinopril 20 Mg Oral Tablet (Lisinopril) ..... One tab. daily Nitrostat 0.4 Mg Sublingual Tablet Sublingual (Nitroglycerin) ..... Apply one tab under tongue every 5 minutes for 3 total doses as needed for chest pain. if no relief after 3rd dose, go to er Aspirin 81 Mg Oral Tablet (Aspirin) ..... One tab. daily Brilinta 90 Mg Oral Tablet (Ticagrelor) ..... Take one tablet my mouth twice daily Kermit Gonzalez MD Cardiology:Weight loss advised. [facility]:Cardiac c ath did not show significant stenosis and stents were patent. However, pt continues to have episodes of angina. Will try ECP. [facility]:BP today: 155/79 P rior BP: 160/75 (02/28/2017) His updated medication list for this problem includes: Cartia Xt 300 Mg Oral Capsule Extended Release 24 Hour (Diltiazem hcl coated beads) ..... One tab. daily Coreg 25 Mg Oral Tablet (Carvedilol) ..... One tablet twice daily Lisinopril 20 Mg Oral Tablet (Lisinopril) ..... One tab. daily [facility]:Completed [place] study. Labs Reviewed: C reat: 1.1 (02/28/2017) Orders: U RINALYSIS, RANDOM, MICROALB/CREATININE ([id number]) His updated medication list for this problem includes: Alogliptin Benzoate 25 Mg Oral Tablet (Alogliptin benzoate) ..... Once daily Levemir Flextouch 100 Unit/ml Subcutaneous Solution Pen-injector (Insulin detemir) ..... 55 units daily Novolog Flexpen 100 Unit/ml Subcutaneous Solution Pen-injector (Insulin aspart) ..... Per sliding scale Lisinopril 20 Mg Oral Tablet (Lisinopril) ..... One tab. daily Aspirin 81 Mg Oral Tablet (Aspirin) ..... One tab. daily Metformin Hcl 1000 Mg Oral Tablet (Metformin hcl) ..... Twice daily Reji [facility] Cardiology:Cardiac c ath did not show significant stenosis and stents were patent. However, pt continues to have episodes of angina. Will try ECP. His updated medication list for this problem includes: Cartia Xt 300 Mg Oral Capsule Extended Release 24 Hour (Diltiazem hcl coated beads) ..... One tab. daily Coreg 25 Mg Oral Tablet (Carvedilol) ..... One tablet twice daily Lisinopril 20 Mg Oral Tablet (Lisinopril) ..... One tab. daily Nitrostat 0.4 Mg Sublingual Tablet Sublingual (Nitroglycerin) ..... One tab. under tongue as needed. may repeat twice in 10 minutes. Aspirin 81 Mg Oral Tablet (Aspirin) ..... One tab. daily Brilinta 90 Mg Oral Tablet (Ticagrelor) ..... Take one tablet my mouth twice daily Reji [facility] Cardiology:Cardiac c ath did not show significant stenosis and stents were patent. However, pt continues to have episodes of angina. Will try ECP. This patient has angina (defined as chest pain, chest discomfort, or pain in arms, neck, jaw, shoulder, or back, and may include symptoms of shortness of breath, fatigue, dizziness, nausea, or diaphoresis) of [place] Cardiovascular Society Class III (defined as symptoms with everyday living activities, i.e. moderate limitation) or [place] Cardiovascular Society Class IV (defined as inability to perform any activity without angina or angina at rest, i.e. severe limitation). T his patient?s angina is disabling and in my opinion is not readily amenable to surgical intervention by PTCA or cardiac bypass because the patient's coronary anatomy is not readily amenable to such procedures. [facility]:BP today: 160/75 P rior BP: 149/78 (01/31/2017) His updated medication list for this problem includes: Cartia Xt 300 Mg Oral Capsule Extended Release 24 Hour (Diltiazem hcl coated beads) ..... One tab. daily Coreg 25 Mg Oral Tablet (Carvedilol) ..... One tablet twice daily Lisinopril 20 Mg Oral Tablet (Lisinopril) ..... One tab. daily Kermit Gonzalez MD Cardiology:The pt co mplains of episodes of angina, roughly once a week. Some of them are at rest. Stress myoview showed a fixed inferior wall defect. Will increase Coreg to 25mg BID and schedule a cardiac cath. The following medications were removed from the medication list: Ranexa 500 Mg Oral Tablet Extended Release 12 Hour (Ranolazine) ..... One tab. twice daily for chronic angina H is updated medication list for this problem includes: Cartia Xt 300 Mg Oral Capsule Extended Release 24 Hour (Diltiazem hcl coated beads) ..... One tab. daily Coreg 25 Mg Oral Tablet (Carvedilol) ..... One tablet twice daily Lisinopril 20 Mg Oral Tablet (Lisinopril) ..... One tab. daily Nitrostat 0.4 Mg Sublingual Tablet Sublingual (Nitroglycerin) ..... One tab. under tongue as needed. may repeat twice in 10 minutes. Aspirin 81 Mg Oral Tablet (Aspirin) ..... One tab. daily Brilinta 90 Mg Oral Tablet (Ticagrelor) ..... Take one tablet my mouth twice daily Kermit Gonzalez MD Cardiology:The pt co mplains of episodes of angina, roughly once a week. Some of them are at rest. Stress myoview showed a fixed inferior wall defect. Will increase Coreg to 25mg BID and schedule a cardiac cath. Kermit Gonzalez MD Cardiology:The pt co mplains of episodes of angina, roughly once a week. Some of them are at rest. Stress myoview showed a fixed inferior wall defect. Will increase Coreg to 25mg BID and schedule a cardiac cath. Kermit Gonzalez MD Cardiology:Weight loss advised. [facility]:BP today: 149/78 P rior BP: 130/70 (08/02/2016) His updated medication list for this problem includes: Cartia Xt 300 Mg Cp24 (Diltiazem hcl coated beads) ..... One tab. daily Coreg 12.5 Mg Tabs (Carvedilol) ..... One tablet twice daily Lisinopril 20 Mg Tabs (Lisinopril) ..... One tab. daily [facility]:His SOB r esolves when he drinks coffee before taking Brilinta. [facility]:The pt ov amira is doing well but does complain of some episodes of discomfort. Will obtain stress myoview and echo. [facility]:The pt ov amira is doing well but does complain of some episodes of discomfort. His SOB resolves when he drinks coffee before taking Brilinta. Will obtain stress myoview and echo. His updated medication list for this problem includes: Cartia Xt 300 Mg Cp24 (Diltiazem hcl coated beads) ..... One tab. daily Coreg 12.5 Mg Tabs (Carvedilol) ..... One tablet twice daily Lisinopril 20 Mg Tabs (Lisinopril) ..... One tab. daily Ranexa 500 Mg Tb12 (Ranolazine) ..... One tab. twice daily for chronic angina Nitrostat 0.4 Mg Subl (Nitroglycerin) ..... One tab. under tongue as needed. may repeat twice in 10 minutes. Aspirin 81 Mg Tabs (Aspirin) ..... One tab. daily Brilinta 90 Mg Oral Tabs (Ticagrelor) ..... Take one tablet my mouth twice daily [facility] Follow up :His updated medication list for this problem includes: Levemir Flextouch 100 Unit/ml Sc Sopn (Insulin detemir) ..... 40 units daily Novolog Flexpen 100 Unit/ml Sc Sopn (Insulin aspart) ..... Per sliding scale Tradjenta 5 Mg Tabs (Linagliptin) ..... 1 tab daily Lisinopril 20 Mg Tabs (Lisinopril) ..... One tab. daily Aspirin 81 Mg Tabs (Aspirin) ..... One tab. daily Metformin Hcl 1000 Mg Tabs (Metformin hcl) ..... Twice daily [place] / Albiglutide / Placebo .... 1 injection weekly 30mg [facility] Follow up :BP today: 130/70 P rior BP: 148/78 (07/03/2016) The following medications were removed from the medication list: Cartia Xt 300 Mg Cp24 (Diltiazem hcl coated beads) ..... One tab. daily His updated medication list for this problem includes: Coreg 12.5 Mg Tabs (Carvedilol) ..... One tablet twice daily Lisinopril 20 Mg Tabs (Lisinopril) ..... One tab. daily Aspirin 81 Mg Tabs (Aspirin) ..... One tab. daily Reji [facility] Card[facility] Follow up :He complains of dizziness upon standing up. Will stop Cartia and switch to Coreg 12.5mg BID. Reji [facility] Card[facility] Follow up :S/P successful stenting of the OM. He complains of SOB which may be related to Brilinta. He will try to drink coffee when taking Brilinta. If no relief, will switch to Plavix (cannot get Effient due to insurance). [facility] Cardiology Follow up :S/P successful stenting of the OM. His updated medication list for this problem includes: Ranexa 500 Mg Tb12 (Ranolazine) ..... One tab. twice daily for chronic angina Nitrostat 0.4 Mg Subl (Nitroglycerin) ..... One tab. under tongue as needed. may repeat twice in 10 minutes. [facility] Follow up :S/P successful stenting of the OM. He complains of SOB which may be related to Brilinta. He will try to drink coffee when taking Brilinta. If no relief, will switch to Plavix (cannot get Effient due to insurance). The following medications were removed from the medication list: Cartia Xt 300 Mg Cp24 (Diltiazem hcl coated beads) ..... One tab. daily His updated medication list for this problem includes: Coreg 12.5 Mg Tabs (Carvedilol) ..... One tablet twice daily Lisinopril 20 Mg Tabs (Lisinopril) ..... One tab. daily Ranexa 500 Mg Tb12 (Ranolazine) ..... One tab. twice daily for chronic angina Nitrostat 0.4 Mg Subl (Nitroglycerin) ..... One tab. under tongue as needed. may repeat twice in 10 minutes. Aspirin 81 Mg Tabs (Aspirin) ..... One tab. daily Brilinta 90 Mg Oral Tabs (Ticagrelor) ..... Take one tablet my mouth twice daily [facility]:His [facility] medication list for this problem includes: Levemir Flextouch 100 Unit/ml Sc Sopn (Insulin detemir) ..... 40 units daily Novolog Flexpen 100 Unit/ml Sc Sopn (Insulin aspart) ..... Per sliding scale Tradjenta 5 Mg Tabs (Linagliptin) ..... 1 tab daily Lisinopril 20 Mg Tabs (Lisinopril) ..... One tab. daily Aspirin 81 Mg Tabs (Aspirin) ..... One tab. daily Metformin Hcl 1000 Mg Tabs (Metformin hcl) ..... Twice daily [place] / Albiglutide / Placebo .... 1 injection weekly 30mg [facility]:BP today: 148/78 P rior BP: 156/79 (04/24/2016) His updated medication list for this problem includes: Lisinopril 20 Mg Tabs (Lisinopril) ..... One tab. daily Cartia Xt 300 Mg Cp24 (Diltiazem hcl coated beads) ..... One tab. daily Aspirin 81 Mg Tabs (Aspirin) ..... One tab. daily [facility]:Orders: C arotid Duplex Bilateral (CPT-05546) Reji [facility] Cardiology:Orders: C ardiac Cath - Left - CNE (*) His updated medication list for this problem includes: Ranexa 500 Mg Tb12 (Ranolazine) ..... One tab. twice daily for chronic angina Nitrostat 0.4 Mg Subl (Nitroglycerin) ..... One tab. under tongue as needed. may repeat twice in 10 minutes [facility]:The pt de veloped unstable angina pectoris and had to take multiple doses of ntg. He was taken to the ER last week. AR was ruled out and he was released. Will schedule cardiac cath. & #13;His updated medication list for this problem includes: Lisinopril 20 Mg Tabs (Lisinopril) ..... One tab. daily Cartia Xt 300 Mg Cp24 (Diltiazem hcl coated beads) ..... One tab. daily Aspirin 81 Mg Tabs (Aspirin) ..... One tab. daily Effient 10 Mg Tabs (Prasugrel hcl) ..... One tablet daily [facility]:In the [place] irene study. Labs Reviewed: C reat: 1.06 (12/02/2013) His updated medication list for this problem includes: Levemir Flextouch 100 Unit/ml Sc Sopn (Insulin detemir) ..... 40 units daily Novolog Flexpen 100 Unit/ml Sc Sopn (Insulin aspart) ..... Per sliding scale Tradjenta 5 Mg Tabs (Linagliptin) ..... 1 tab daily Lisinopril 20 Mg Tabs (Lisinopril) ..... One tab. daily Aspirin 81 Mg Tabs (Aspirin) ..... One tab. daily Metformin Hcl 1000 Mg Tabs (Metformin hcl) ..... Twice daily Kermit Gonzalez MD Cardiology:BP today: 156/79 P rior BP: 133/769 (04/05/2015) His updated medication list for this problem includes: Lisinopril 20 Mg Tabs (Lisinopril) ..... One tab. daily Cartia Xt 300 Mg Cp24 (Diltiazem hcl coated beads) ..... One tab. daily Aspirin 81 Mg Tabs (Aspirin) ..... One tab. daily Kermit Gonzalez MD Cardiology:Orders: S NOMED-CT: [id number] Current Medications Documented ([id number]) E KG (CPT-33353) C omplete Echo (CPT-81181) S TR - Nuclear (CPT-20846) His updated medication list for this problem includes: Ranexa 500 Mg Tb12 (Ranolazine) ..... One tab. twice daily for chronic angina Nitrostat 0.4 Mg Subl (Nitroglycerin) ..... One tab. under tongue as needed. may repeat twice in 10 minutes. Kermit Gonzalez MD Cardiology:The pt smith s episodes of chest disomfort about once a month, lasting about 5 minutes at a time, which are not related to exertion. Will obtain myoview scan and echo. Kermit Gonzalez MD Cardiology:BP today: 133/769 P rior BP: 120/60 (10/05/2014) His updated medication list for this problem includes: Lisinopril 20 Mg Tabs (Lisinopril) ..... One tab. daily Cartia Xt 300 Mg Cp24 (Diltiazem hcl coated beads) ..... One tab. daily Aspirin 81 Mg Tabs (Aspirin) ..... One tab. daily Kermit Gonzalez MD Cardiology:He denies chest pain or SOB Kermit Gonzalez MD Cardiology:He denies chest pain or SOB Kermit Gonzalez MD Cardiology:He denies chest pain or SOB Kermit Gonzalez MD Cardiology:The pt smith d a recent admission due to uncontrolled diabetes. He would like to participate in the [place] trial. Kermit Gonzalez MD routine: H is updated medication list for this problem includes: Coreg 25 Mg Tabs (Carvedilol) ..... 1 tablet by mouth twice daily Lisinopril 40 Mg Tabs (Lisinopril) ..... One tab. daily Cartia Xt 300 Mg Cp24 (Diltiazem hcl coated beads) ..... One tab. daily Imdur 60 Mg Tb24 (Isosorbide mononitrate) ..... One tab. daily Plavix 75 Mg Tabs (Clopidogrel bisulfate) ..... One tab. daily Kermit Gonzalez MD routine: H is updated medication list for this problem includes: Plavix 75 Mg Tabs (Clopidogrel bisulfate) ..... One tab. daily Carotid Duplex Scan: n ormal: (06/14/2005) Echocardiogram: T echnically difficult study. The left ventricular chamber size is normal. Wall thickness is increased c onsistent with mild concentric left ventricular hypertrophy. Abnormal septal motion with normal left ventricular s ystolic function. LV EF is estimated at 55%. [facility] (06/09/2008) Kermit Gonzalez MD chest pain: H is updated medication list for this problem includes: Aspirin 325 Mg Tabs (Aspirin) ..... 1 tablet by mouth once daily Plavix 75 Mg Tabs (Clopidogrel bisulfate) ..... One tab. daily Carotid Duplex Scan: n ormal: (06/14/2005) Echocardiogram: L VH. Abnormal septal wall motion of the LV. EF 55%. Mild LAE at 4.0cm. MAC. Dilated aortic root at 4.3cm. The ascending aorta is 3.7cm which is at the upper limits of normal. (07/10/2006) Kermit Gonzalez MD chest pain: H is updated medication list for this problem includes: Lisinopril 40 Mg Tabs (Lisinopril) ..... One tab. daily Coreg 25 Mg Tabs (Carvedilol) ..... One tab. twice daily Ranexa 500 Mg Tb12 (Ranolazine) ..... One tab. twice daily Aspirin 325 Mg Tabs (Aspirin) ..... 1 tablet by mouth once daily Plavix 75 Mg Tabs (Clopidogrel bisulfate) ..... One tab. daily Cartia Xt 300 Mg Cp24 (Diltiazem hcl coated beads) ..... One tab. daily Imdur 60 Mg Tb24 (Isosorbide mononitrate) ..... One tab. daily Orders: E KG (CPT-17967) BP today: 151/86 Prior BP: / () N uclear Stress Findings: Small reversible apical wall defect. EF 51%. Resting EKG revealed normal sinus rhythm, rate 96bpm, complete RBBB, LVH by voltage criteria. No ST segment deprseisonin the inferior or the lateral leads to suggest ischemia. (07/10/2006) C ardiac Cath: EF - 60%. % LAD stenosis: proximal 80%. % Diagonal stenosis: 99%. N ormal LV systolic function. M Ildly elevated left heart filling pressures. (02/07/2008) C ardiac Cath Comments: Successful stenting of the proximal LAD and the diagonal branch with a Promus stent. (02/07/2008) C arotid Doppler/Duplex: normal: (06/14/2005) A rterial Doppler (leg): R/O pseudoaneurysm in right groin following cardiac cath. Normal arterial and venous flow in the right femoral and popliteal as well as right greater saphenous vein. No cystic structures seen in right gron; no evidence of pseuodaneurysm. (11/11/2002) H CT: 40.5 (02/05/2008) Platelets: 240 THOUSAND/UL (02/05/2008) RBC: 4.25 MILLION/UL (02/05/2008) BUN: 15 (02/05/2008) Creat: 1.01 (02/05/2008) Glucose: 95 (02/05/2008) N a+: 139 (02/05/2008) K+: 4.3 (02/05/2008) Cl: 103 (02/05/2008) Echocardiogram: LVH. Abnormal septal wall motion of the LV. EF 55%. Mild LAE at 4.0cm. MAC. Dilated aortic root at 4.3cm. The ascending aorta is 3.7cm which is at the upper limits of normal. (07/10/2006) Kermit Gonzalez MD ov: H is updated medication list for this problem includes: Avapro 300 Mg Tabs (Irbesartan) ..... Take one tablet by mouth daily Glyburide-metformin 5-500 Mg Tabs (Glyburide-metformin) ..... Take 2 tablets twice daily Avandia 4 Mg Tabs (Rosiglitazone maleate) ..... One tab. daily Januvia 100 Mg Tabs (Sitagliptin phosphate) ..... Take one tablet daily Aspirin 81 Mg Tabs (Aspirin) ..... One tab. daily Kermit Gonzalez MD ov: O rders: E KG (CPT-09669) Kermit Gonzalez MD ov: H is updated medication list for this problem includes: Avapro 300 Mg Tabs (Irbesartan) ..... Take one tablet by mouth daily Coreg Cr 80 Mg Cp24 (Carvedilol phosphate) ..... Take one capsule by mouth every day Aspirin 81 Mg Tabs (Aspirin) ..... One tab. daily Cartia Xt 300 Mg Cp24 (Diltiazem hcl coated beads) ..... One tab. daily Kermit Gonzalez MD Date Name RPM (remote patient monitoring) PROTHROMBIN TIME WIT H INR LIPID PANEL CBC (INCLUDES DIFF/P LT) BASIC METABOLIC PANE L W/EGFR HEPATIC FUNCTION MATOS EL LIPID PANEL BASIC METABOLIC PANE L W/EGFR CBC (INCLUDES DIFF/P LT) LIPID PANEL PROTHROMBIN TIME WIT H INR Arterial Duplex Uppe r Extremity Bilateral BASIC METABOLIC PANE L W/EGFR CBC (INCLUDES DIFF/P LT) LIPID PANEL PROTHROMBIN TIME WIT H INR Complete Echo Stress Exercise Card iolite RPM (remote patient monitoring) Microalb/Creatinine Urine, Random Lipoprotein (a) Complete Echo Monitor - Telemetry (Mobile Cardiac) Arterial Duplex Bi-L ower EX RPM (remote patient monitoring) Aorta Duplex Ultraso und Complete Echo PROBNP, N TERMINAL BASIC METABOLIC PANE L W/EGFR IRON AND TOTAL IRON BINDING CAPACITY FERRITIN CBC (INCLUDES DIFF/P LT) CRP, high sensitivit y PROTHROMBIN TIME WIT H INR LIPID PANEL CBC (INCLUDES DIFF/P LT) BASIC METABOLIC PANE L W/EGFR PROTHROMBIN TIME WIT H INR LIPID PANEL CBC (INCLUDES DIFF/P LT) BASIC METABOLIC PANE L W/EGFR Cardiac Cath - Left - [facility] COVID19 nasal swab ( LC) Covid Antibody Igg URINALYSIS, RANDOM, MICROALB/CREATININE ECP - Medicare LIPID PANEL PROTHROMBIN TIME WIT H INR CBC (INCLUDES DIFF/P LT) BASIC METABOLIC PANE L W/EGFR Cardiac Cath - Left - GC STR - Nuclear Complete Echo Cardiac Cath - Left - CNE Carotid Duplex Bilat eral STR - Nuclear Complete Echo ECP Commercial Cardiac Cath - Left - DPH CT, Other: Carotid Duplex Bilat eral Cardiopulmonary Stre ss Test Complete Echo Cardiac Cath - PCL Sleep Study ECP Commercial Stress Test - Nuclea r Complete Echo HEPATIC FUNCTION MATOS EL LIPID PANEL CBC (H/H, RBC, INDIC ES, WBC, PLT) BASIC METABOLIC PANE L W/EGFR [facility] - PCL HISTORY OF PROCEDURES Procedure Date Procedure Name Provider Procedure Notes S tatus Complex e/m visit add on Kermit Gonzalez MD completed ECP COMMERCIAL Kermit Gonzalez MD comple rebecca Complex e/m visit add on Kermit Gonzalez MD completed Complex e/m visit add on Kermit Gonzalez MD completed EKG Kermit Gonzalez MD completed EKG Kermit Gonzalez MD completed EKG Kermit Gonzalez MD completed EKG Kermit Gonzalez MD completed EKG Kermit Gonzalez MD completed EKG Kermit Gonzalez MD completed SNOMED-CT: 65208971 Physical Exam, Performed: Pulse Exam of Foot Kermit Gonzalez MD completed SNOMED-CT: 373785301 679902 Current Medications Documented Kermit Gonzalez MD completed SNOMED-CT: 36457544 Physical Exam, Performed: Pulse Exam of Foot Kermit Gonzalez MD completed SNOMED-CT: 290682265 284160 Current Medications Documented Kermit Gonzalez MD completed Stress EKG Maxwell Torrez MD complete d Cardiolite, 2 units Kermit Gonzalez MD c ompleted SPECT Images Layc Segal MD complet ed SNOMED-CT: 31270033 Physical Exam, Performed: Pulse Exam of Foot Kermit Gonzalez MD completed SNOMED-CT: 413534766 589626 Current Medications Documented Kermit Gonzalez MD completed SNOMED-CT: 32333813 Physical Exam, Performed: Pulse Exam of Foot Kermit Gonzalez MD completed SNOMED-CT: 966543754 550656 Current Medications Documented Kermit Gonzalez MD completed SNOMED-CT: 51955085 Physical Exam, Performed: Pulse Exam of Foot Kermit Gonzalez MD completed SNOMED-CT: 875532892 239785 Current Medications Documented Kermit Gonzalez MD completed SNOMED-CT: 31686574 Physical Exam, Performed: Pulse Exam of Foot Kermit Gonzalez MD completed EKG Kermit Gonzalez MD completed SNOMED-CT: 661111175 051656 Current Medications Documented Kermit Gonzalez MD completed SNOMED-CT: 408747843 Smoking Cessation Counseling Kermit Gonzalez MD completed SNOMED-CT: 13676547 Physical Exam, Performed: Pulse Exam of Foot Kermit Gonzalez MD completed SNOMED-CT: 929543380 614846 Current Medications Documented Kermit Gonzalez MD completed EKG Kermit Gonzalez MD completed EKG Aneatrhaider Burr completed EKG Kermit Gonzalez MD completed EKG Kermit Gonzalez MD completed EKG Michelle Wagner MD complet ed EKG Kermit oGnzalez MD completed EKG Kermit Gonzalez MD completed EKG Joey Villa RN completed
--- OUTSIDE RECORDS SUMMARY | 2024-08-02 12:16 | XMS_ITS | Encounter Summary ---
Author Organization [facility] Health Address [address] [place] [address] Care Team Providers Care Data Architect Manager Name Role Phone Baldo Fischer MD Primary Care Provider Encounter Details Date Type Department Care Team (Late Contact Info) Description 07/13/2022 Telephone [facility] [address] [place] [address] Ruby Birch M, DO [address] [place] [phone] Social History Tobacco Use Types Packs/Day Years Used Date Smoking Tobacco: Never Assessed Sex and Gender Information Value Date Recorded Sex Assigned at Not on file Legal Sex 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 Health Imaging Services - CT Scan [address], [address] [place] [address] 10/30/2024 11:00 AM CDT Office Visit [facility] - Urology [address] [place] [address] Ruby Birch M, DO [address] [place] [address] documented as of this encounter Visit Diagnoses Not on filedocumented in this encounter Care Teams Data Architect Manager Relationship Specialty Start Date End Date Badlo Fischer MD [address] [phone] PCP - General 07/04/22 documented as of this encounter
--- OUTSIDE RECORDS SUMMARY | 2024-08-02 12:16 | XMS_ITS | Data Portability ---
Author Organization [facility], Main Office Address [address] [place] [address] Care Team Providers Care Manager Hotel Name Role Phone KAN BARNHART Casino Floorperson JOSE ANTONIO IRENE JR Recycling Assistant RALPH FISCHER Primary Care Provider [phone] KERMIT GONZALEZ Housing Assistant Property Manager Assessment Encounter Date Assessment Date Assessment LastModified by Organization Details LastModified Time 10/01/2023 10/01/2023 05/30/2022: A1C 9.7 TSH/FT4: WNL [...] care and counselled on diet Not available 10/01/2023 14:40:18 11/05/2023 11/05/2023 05/30/2022: [...] 7.9 TG 192 Urine micro alb 49.1 Not available 05/12/2024 14:10:39 06/10/2024 06/10/2024 05/30/2022: A1C 9.7 TSH/FT4: WNL [...] 7.9 TG 192 Urine micro alb 49.1 Not available 06/10/2024 10:41:15 06/23/2024 06/23/2024 05/30/2022: A1C 9.7 TSH/FT4: WNL Urine micro [...] 7.9 TG 192 Urine micro alb 49.1 [email or web address] Not available 06/23/2024 14:51:21 Plan of Treatment Reminders Order Date Submit Date Provider Last Modified By Organization Details Last Modified Time Details Appointments Any 15 2024 08:45A Caroline conley MD Not available Not available Not available Lab glycohemo globin, total, blood 2024 025 [facility] (Lab), [address] [place], [address], 06/24/2024 08:56:17 microalbu min, urine 2024 025 [facility] (Lab), [address] [place], [address], 06/24/2024 08:56:17 lipid panel, serum - Please add to blood draw from 08/14/222024 025 [facility] (Lab), [address] [place], [address], 06/24/2024 08:56:17 TSH, serum or plasma - Please add to blood draw from 08/14/222024 025 [facility] (Lab), [address] [place], [address], 06/24/2024 08:56:17 CBC w/ auto diff - Please add to blood draw from 08/14/222024 025 ATHENAFAX [facility] (Lab), [address] [place], [address], 06/24/2024 08:56:17 glycohemo globin, total, blood [address] (Lab), [address] [place], [address], 06/10/2024 10:45:50 microalbu min, urine [address] (Lab), [address] [place], [address], 06/10/2024 10:45:50 lipid panel, serum - Please add to blood draw from 08/14/22[address] (Lab), [address] [place], [address], 06/10/2024 10:45:49 TSH, serum or plasma - Please add to blood draw from 08/14/22[address] [place] [address] (Lab), [address] [place], [address], 06/10/2024 10:45:49 CBC w/ auto diff - Please add to blood draw from 08/14/22[address] [place] [address] (Lab), [address] [place], [address], 06/10/2024 10:45:49 glycohemo globin, total, blood [address] (Lab), [address] [place], [address], 04/28/2024 18:46:33 microalbu min, urine [address] (Lab), [address] [place], [address], 04/28/2024 18:46:34 lipid panel, serum - Please add to blood draw from 08/14/22[address] (Lab), [address] [place], [address], 04/28/2024 18:46:32 TSH, serum or plasma - Please add to blood draw from 08/14/22[address] (Lab), [address] [place], [address], 04/28/2024 18:46:33 CBC w/ auto diff - Please add to blood draw from 08/14/22[address] (Lab), [address] [place], [address], 04/28/2024 18:46:33 glycohemo globin, total, blood 2023 024 [facility] (Lab), [address] [place], [address], 04/21/2024 14:53:44 microalbu min, urine 2023 024 [facility] (Lab), [address] [place], [address], 04/21/2024 10:32:04 lipid panel, serum - Please add to blood draw from 08/14/222023 024 [facility] (Lab), [address] [place], [address], 04/21/2024 10:46:14 TSH, serum or plasma - Please add to blood draw from 08/14/222023 024 [facility] (Lab), [address] [place], [address], 04/21/2024 11:11:27 CBC w/ auto diff - Please add to blood draw from 08/14/222023 024 [facility] (Lab), [address] [place], [address], 02/12/2024 08:08:37 glycohemo globin, total, blood [address] (Lab), [address] [place], [address], 03/31/2024 10:00:13 microalbu min, urine [address] (Lab), [address] [place], [address], 03/31/2024 10:00:13 lipid panel, serum - Please add to blood draw from 08/14/222023 024 [facility] (Lab), [address] [place], [address], 10/23/2023 12:31:34 TSH, serum or plasma - Please add to blood draw from 08/14/22[address] (Lab), [address] [place], [address], 03/31/2024 10:00:12 CBC w/ auto diff - Please add to blood draw from 08/14/222023 024 [facility] ([facility]), [address], [place], [address], 10/23/2023 12:24:16 Referral nephrolog ist referral - Please call patient to schedule an appointme nt. Thank you 2024 025 [place], [address] [address], [address], [place], [address], 07/22/2024 08:42:46 urologist referral - Please call patient to schedule an appointme nt. Thank you. 2024 025 alexia Birch DO, [address], [address], [place], [address], 07/22/2024 08:44:13 podiatris t referral - Please call patient to schedule an appointme nt. Thank you. 2024 025 alexia Munoz DPM, [address] [facility], [address], [place], [address], 07/22/2024 08:43:39 hematolog ist referral - Please call patient to schedule an appointme nt. Thank you. 2024 025 alexia Person MD, [address], [place], [address], 07/22/2024 08:43:54 cardiolog ist referral - Please call patient to schedule an appointme nt. Thank you. 2024 025 [place], [address] [address], [address], [place], [address], 07/22/2024 08:41:43 nephrolog ist referral - Please call patient to schedule an appointme nt. Thank you 2024 025 [place], [address] [address], [address], [place], [address], 06/13/2024 18:06:39 urologist referral - Please call patient to schedule an appointme nt. Thank you. 2024 025 CANDACE Nelsonardzoya LIRA, [address], [address], [place], [address], 06/13/2024 18:25:30 podiatris t referral - Please call patient to schedule an appointme nt. Thank you. 2024 025 MILLY Munoz DPM, [address] [facility], [address], [place], [address], 06/16/2024 08:38:26 hematolog ist referral - Please call patient to schedule an appointme nt. Thank you. 2024 025 CANDACE Person MD, [address], [place], [address], 06/13/2024 18:46:06 cardiolog ist referral - Please call patient to schedule an appointme n. Thank you. 2024 025 [place], [address] [address], [address], [place], [address], 06/13/2024 18:28:29 nephrolog ist referral 2024 025 [place], [address] [address], [address], [place], [address], 04/29/2024 17:20:04 urologist referral - Please call patient to schedule. 2024 025 Jayme Arce, [address] [facility], [address], [place], [address], 06/05/2024 11:30:56 podiatris t referral 2024 025 [email or web address] David Munoz DPM, [address], [address], [place], [address], 04/29/2024 17:20:06 endocrino logy referral - Please call patient to schedule. 2024 025 CANDACE Mckeon MD, [address], [place], [address], 06/05/2024 12:20:35 hematolog ist referral - Please call patient to schedule an appointme nt. Thank you. 2024 025 [email or web address] London Person MD, [address], [place], [address], 06/06/2024 15:31:38 cardiolog ist referral 2024 025 [email or web address] [place], [address], [address], [place], [address], 04/29/2024 17:20:05 nephrolog ist referral 2023 024 [email or web address] [place], [address], [place], [address], 12/05/2023 08:48:25 urologist referral 2023 024 [email or web address] Ruby Birch DO, [address], [address], [place], [address], 12/05/2023 08:48:27 podiatris t referral 2023 024 [email or web address] David Munoz DPM, [address] [facility], [address], [place], [address], 05/05/2024 08:42:40 hematolog ist referral 2023 024 London Person MD, [address], [place], [address], 04/29/2024 17:20:37 cardiolog ist referral 2023 024 [email or web address] [place], [address], [address], [place], [address], 05/05/2024 08:42:40 nephrolog ist referral 2023 024 [email or web address] [place], [address], [address], [place], [address], 06/02/2024 09:13:57 urologist referral 2023 024 [email or web address] Ruby Birch DO, [address], [address], [place], [address], 06/02/2024 09:13:58 podiatris t referral 2023 024 [email or web address] Jose Antonio Irene Jr DPM, [address], [address], [place], [address], 03/31/2024 12:09:55 endocrino logy referral 2023 024 Abraham Mckeon MD, [address], [place], [address], 03/31/2024 12:09:58 hematolog ist referral 2023 024 London Person MD, [address], [place], [address], 03/31/2024 12:09:56 cardiolog ist referral 2023 024 [place], [address] [address], [address], [place], [address], 03/31/2024 12:09:54 Procedures None recorded. Surgeries None recorded. Imaging XR, wrist + hand 2024 025 [facility] ([facility]), [address] [place], [address], 06/10/2024 15:20:02 XR, ribs, bilateral , w/ PA chest 2024 025 [facility] ([facility]), [address] [place], [address], 06/10/2024 15:21:27 Medication Orders Farxiga 10 mg tablet 2024 025 [facility], [address] [facility], [place], [address], 06/23/2024 15:00:12 Patient TargetsNo targets recorded. Patient Instructions Encounter Date Encounter Id Patient Instructions Last Modified By Organization Details Last Modified Time 04/28/2024 [id number] diabetic eye exam* [email or web address] Not available 04/28/2024 18:46:34 06/10/2024 [id number] diabetic eye exam* [email or web address] Not available 06/10/2024 10:46:10 06/23/2024 [id number] diabetic eye exam* [email or web address] Not available 06/24/2024 08:30:49 Reason for Referral Casino Floorperson Referral for Ch ronic kidney disease Referring Physician: Ralph Fischer [facility], Encounter Date: 10/01/2023 Housing Assistant Property Manager Referral for Co ronary arteriosclerosis Referring Physician: Ralph Fischer [facility], Encounter Date: 10/01/2023 Recycling Assistant Referral for Type 2 diabetes mellitus without complication Referring Physician: Ralph Fischer [facility], Encounter Date: 10/01/2023 Referring Physician: Ralph [facility], Encounter Date: 10/01/2023 Endocrinology Referral for T ype 2 diabetes mellitus without complication Referring Physician: Ralph Fischer [facility], Encounter Date: 10/01/2023 Urologist Referral for Kidne y lesion Referring Physician: Sung Tubbs Medicine, Encounter Date: 10/01/2023 Casino Floorperson Referral for Ch ronic kidney disease Referring Physician: Sung Tubbs, Encounter Date: 11/05/2023 Housing Assistant Property Manager Referral for Co ronary arteriosclerosis Referring Physician: Sung Tubbs Medicine, Encounter Date: 11/05/2023 Recycling Assistant Referral for Type 2 diabetes mellitus without complication Referring Physician: Sung Tubbs, Encounter Date: 11/05/2023 Referring Physician: Sung Tubbs, Encounter Date: 11/05/2023 Urologist Referral for Kidne y lesion Referring Physician: Sung Tubbs, Encounter Date: 11/05/2023 Casino Floorperson Referral for Ch ronic kidney disease Referring Physician: Sung Tubbs, Encounter Date: 04/28/2024 Housing Assistant Property Manager Referral for Co ronary arteriosclerosis Referring Physician: Sung Tubbs, Encounter Date: 04/28/2024 Recycling Assistant Referral for Type 2 diabetes mellitus without complication Referring Physician: Sung Tubbs, Encounter Date: 04/28/2024 Please call patient to sched ule an appointment. Thank you. Referring Physician: Sung Tubbs, Encounter Date: 04/28/2024 Urologist Referral for Kidne y lesion Please call patient to schedule. Referring Physician: Sung Tubbs, Encounter Date: 04/28/2024 Endocrinology Referral for T ype 2 diabetes mellitus without complication Please call patient to schedule. Referring Physician: Sung Tubbs, Encounter Date: 04/28/2024 Casino Floorperson Referral for Ch ronic kidney disease Please call patient to schedule an appointment. Thank you Referring Physician: Ralph [facility], Encounter Date: 06/10/2024 Housing Assistant Property Manager Referral for Co ronary arteriosclerosis Please call patient to schedule an appointmen. Thank you. Referring Physician: Ralph Fischer [facility], Encounter Date: 06/10/2024 Recycling Assistant Referral for Type 2 diabetes mellitus without complication Please call patient to schedule an appointment. Thank you. Referring Physician: Ralph Fischer [facility], Encounter Date: 06/10/2024 Please call patient to sched ule an appointment. Thank you. Referring Physician: Sung Tubbs Medicine, Encounter Date: 06/10/2024 Urologist Referral for Kidne y lesion Please call patient to schedule an appointment. Thank you. Referring Physician: Ralph Fischer [facility], Encounter Date: 06/10/2024 Casino Floorperson Referral for Ch ronic kidney disease Please call patient to schedule an appointment. Thank you Referring Physician: Sung Tubbs Medicine, Encounter Date: 06/23/2024 Housing Assistant Property Manager Referral for Co ronary arteriosclerosis Please call patient to schedule an appointment. Thank you. Referring Physician: Sung Tubbs Medicine, Encounter Date: 06/23/2024 Recycling Assistant Referral for Type 2 diabetes mellitus without complication Please call patient to schedule an appointment. Thank you. Referring Physician: Ralph Fischer [facility], Encounter Date: 06/23/2024 Please call patient to sched ule an appointment. Thank you. Referring Physician: Sung Tubbs Medicine, Encounter Date: 06/23/2024 Urologist Referral for Kidne y lesion Please call patient to schedule an appointment. Thank you. Referring Physician: uSng Tubbs, Encounter Date: 06/23/2024 Results Created Date Observation Date Name Description Value Unit Range Abnormal Flag Note LastModifiedBy Organization Detail LastModifiedTime 04/21/19 25 04/21/2024 CBC/C OMPLE TE BLD COUNT W/DIF F white blood cells 9.0 x10'3 /uL 4.2-10 .8 Not Available [facility] (Lab) [address] [place], [address], 04/21/2024 09:48:42 04/21/19 25 04/21/2024 CBC/C OMPLE TE BLD COUNT W/DIF F red blood cells 4.70 x10'6 /uL 4.10-5 .80 Not Available [facility] (Lab) [address] [place], [address], 04/21/2024 09:48:42 04/21/1904/21/2024 CBC/C OMPLE TE BLD COUNT W/DIF F hemoglobin 14.7 g/dL 13.2-1 7.0 Not Available [facility] (Lab) [address] [place], [address], 04/21/2024 09:48:42 04/21/19 25 04/21/2024 CBC/C OMPLE TE BLD COUNT W/DIF F hematocrit 44.1 % 39.3-5 0.0 Not Available [facility] (Lab) [address] [place], [address], 04/21/2024 09:48:42 04/21/19 25 04/21/2024 CBC/C OMPLE TE BLD COUNT W/DIF F mean red cell volume 93.8 fL 80.0-9 7.0 Not Available [facility] (Lab) [address] [place], [address], 04/21/2024 09:48:42 04/21/19 25 04/21/2024 CBC/C OMPLE TE BLD COUNT W/DIF F mean red cell hemoglobin 31.3 pg 27.0-3 3.0 Not Available [facility] (Lab) [address] [place], [address], 04/21/2024 09:48:42 04/21/19 25 04/21/2024 CBC/C OMPLE TE BLD COUNT W/DIF F mean RBC HGB concentratio n 33.3 g/dL 31.0-3 6.0 Not Available [facility] (Lab) [address] [place], [address], 04/21/2024 09:48:42 04/21/1904/21/2024 CBC/C OMPLE TE BLD COUNT W/DIF F red cell distribution width 12.5 % 11.8-1 5.5 Not Available [facility] (Lab) [address] [place], [address], 04/21/2024 09:48:42 04/21/19 25 04/21/2024 CBC/C OMPLE TE BLD COUNT W/DIF F platelets 223 x10'3 /uL 150-40 0 Not Available [facility] (Lab) [address] [place], [address], 04/21/2024 09:48:42 04/21/19 25 04/21/2024 CBC/C OMPLE TE BLD COUNT W/DIF F mean platelet volume 10.6 fL 9.0-12 .4 Not Available [facility] (Lab) [address] [place], [address], 04/21/2024 09:48:42 04/21/19 25 04/21/2024 CBC/C OMPLE TE BLD COUNT W/DIF F neutrophils 54.7 % 39.0-7 2.0 Not Available [facility] (Lab) [address] [place], [address], 04/21/2024 09:48:42 01/06/04/21/2024 CBC/C OMPLE TE BLD COUNT W/DIF F lymphocytes 26.6 % 16.0-4 7.0 Not Available [facility] (Lab) [address] [place], [address], 04/21/2024 09:48:42 04/21/19 25 04/21/2024 CBC/C OMPLE TE BLD COUNT W/DIF F monocytes 9.9 % 5.0-12 .0 Not Available [facility] (Lab) [address] [place], [address], 04/21/2024 09:48:42 04/21/1904/21/2024 CBC/C OMPLE TE BLD COUNT W/DIF F eosinophils 6.8 % 1.0-7. 0 Not Available [facility] (Lab) [address] [place], [address], 04/21/2024 09:48:42 04/21/1904/21/2024 CBC/C OMPLE TE BLD COUNT W/DIF F basophils 1.3 % 0.0-2. 0 Not Available [facility] (Lab) [address] [place], [address], 04/21/2024 09:48:42 04/21/1904/21/2024 CBC/C OMPLE TE BLD COUNT W/DIF F immature granulocytes 0.7 % 0.00-0 .50 high Not Available [facility] (Lab) [address] [place], [address], 04/21/2024 09:48:42 04/21/19 25 04/21/2024 CBC/C OMPLE TE BLD COUNT W/DIF F neutrophils, absolute count 4.90 x10'3 /uL 1.5-8. 0 Not Available [facility] (Lab) [address] [place], [address], 04/21/2024 09:48:42 0104/21/2024 CBC/C OMPLE TE BLD COUNT W/DIF F lymphocytes, absolute count 2.38 x10'3 /uL 1.07-3 .43 Not Available [facility] (Lab) [address] [place], [address], 04/21/2024 09:48:42 04/21/19 25 04/21/2024 CBC/C OMPLE TE BLD COUNT W/DIF F monocytes, absolute count 0.89 x10'3 /uL 0.29-0 .99 Not Available [facility] (Lab) [address] [place], [address], 04/21/2024 09:48:42 04/21/1904/21/2024 CBC/C OMPLE TE BLD COUNT W/DIF F eosinophils, absolute count 0.61 x10'3 /uL 0.02-0 .53 high Not Available [facility] (Lab) [address] [place], [address], 04/21/2024 09:48:42 04/21/19 25 04/21/2024 CBC/C OMPLE TE BLD COUNT W/DIF F basophils, absolute count 0.12 x10'3 /uL 0.01-0 .08 high Not Available [facility] (Lab) [address] [place], [address], 04/21/2024 09:48:42 04/21/1904/21/2024 CBC/C OMPLE TE BLD COUNT W/DIF F immature granulocytes ,absolute 0.06 x10'3 /uL 0.00-0 .05 high Not Available [facility] (Lab) [address] [place], [address], 04/21/2024 09:48:42 04/21/19 25 04/21/2024 CBC/C OMPLE TE BLD COUNT W/DIF F nucleated red blood cells 0.0 % -0 Not Available [facility] (Lab) [address] [place], [address], 04/21/2024 09:48:42 04/21/19 25 04/21/2024 CBC/C OMPLE TE BLD COUNT W/DIF F NRBC# 0.00 x10'3 /uL Not Available [facility] (Lab) [address] [place], [address], 04/21/2024 09:48:42 04/21/19 25 04/21/2024 MICRO ALBUM IN RANDO M URINE microalbumin , urine 49.1 mg/L 0.0-16 .6 high Not Available [facility] (Lab) [address] [place], [address], 04/21/2024 10:32:04 04/21/19 25 04/21/2024 LIPID PANEL cholesterol 127 mg/dL 140-19 9 low NIH SREE NSUS RECOM MENDA TION FOR JACKI STERO L: ADULT CHILD LOW RISK: <200 <170 BORDE RLINE : <200- 239 ----- HIGH RISK: >240 >200 Not Available [facility] (Lab) [address] [place], [address], 04/21/2024 10:46:14 04/21/19 25 04/21/2024 LIPID PANEL triglyceride s 192 mg/dL 0-150 high NIH SREE NSUS REPOR T RECOM MENDA TION FOR TRIGL YCERI VERONICA: ADULT CHILD LOW RISK: <150 ----- BODER LINE: 150-1 99 ----- HIGH RISK: >200 ----- Not Available [facility] (Lab) [address] [place], [address], 04/21/2024 10:46:14 04/21/19 25 04/21/2024 LIPID PANEL HDL cholesterol 34 mg/dL 40- low Not Available [facility] (Lab) [address] [place], [address], 04/21/2024 10:46:14 04/21/19 25 04/21/2024 LIPID PANEL [...] WILL NOT BE REPOR RADHA. Not Available [facility] (Lab) [address] [place], [address], 04/21/2024 10:46:14 04/21/19 25 04/21/2024 TSH W/REF DIANE FT4 TSH with reflex free T4 1.080 uIU/m L 0.465- 4.680 Not Available [facility] (Lab) [address] [place], [address], 04/21/2024 11:11:27 04/21/19 25 04/21/2024 HEMOG LOBIN A1C HA1C 7.9 % 4.0-6. 0 high Diabe kristopher Scree gavi Crite di: <5.7% Consi stent with absen ce of diabe kristopher 5.7-6 .4% Consi stent with incre ased risk for diabe kristopher (pred iabet es) >OR=6 .5% Consi stent with diabe kristopher REFER ENCE: Diabe kristopher Care 2016, 39(Matthew ppl.1 ):s13 -s22 Not Available [facility] (Lab) [address] [place], [address], 04/21/2024 14:53:44 06/05/19 25 06/05/2024 imagi ng/di agnos tic resul t No observ ation record ed. [facility] [address], [place], [address], 06/05/2024 11:47:34 06/05/19 25 06/05/2024 imagi ng/di agnos tic resul t No observ ation record ed. [address], [place], [address], 06/05/2024 12:48:23 06/10/1906/10/2024 XR, wrist + hand No observ ation record ed. [address], [place], [address], 07/31/2024 13:55:09 06/10/1906/10/2024 XR, ribs, bilat eral, w/ PA chest No observ ation record ed. [address], [place], [address], 07/31/2024 13:55:10 06/10/1906/10/2024 XR, wrist + hand No observ ation record ed. [address], [place], [address], 07/31/2024 13:55:11 Result Notes None recorded. Problems Name Problem SNOMED Code Status Onset Date Resolution Date Notes Provider Name and Address Organization Details Recorded Time Acute sinusitis 48417530 Active 2021 Not Available [facility] 3 22:36:11 Mixed hyperlipid emia 439772512 Active 2021 Not Available [facility] 3 22:36:11 Hypertensi ve disorder 15867129 Active 2018 Not Available [facility] 3 22:36:12 Acute urinary tract infection 158088114 Active 2021 Not Available [facility] 3 22:36:12 Uncontroll ed type 2 diabetes mellitus 033211055 Active 2021 Not Available [facility] 3 22:36:12 Hyperlipid emia 96641993 Active 2018 Not Available [facility] 3 22:36:12 Essential hypertensi on 14257255 Active 2021 Not Available [facility] 3 22:36:12 Diabetes mellitus 72188402 Active 2018 Not Available [facility] 3 22:36:12 Hyperglyce azra 46369488 Active 2021 Not Available [facility] 3 22:36:12 COVID-19 248450733 Active 2021 Not Available [facility] 3 22:36:12 Onychomyco sis of toenails 684871056 Active 2022 Not Available [facility] 3 22:36:12 Tinea pedis 6783475 Active 2022 Not Available [facility] 3 22:36:12 Type 2 diabetes mellitus without complicati on 981229275 Active 2022 Not Available [facility] 3 22:36:12 Gastroesop hageal reflux disease without esophagiti s 441926565 Active 2022 Not Available [facility] 3 22:36:11 Malignant tumor of testis 736570450 Active 2022 Not Available [facility] 3 22:36:12 Chronic kidney disease 807884170 Active 2022 Not Available [facility] 3 22:36:12 Coronary arterioscl erosis 22354959 Active 2022 Not Available [facility] 3 22:36:12 Pain of right shoulder joint 1182283750134 9100 Active 2022 Not Available [facility] 3 22:36:11 Anemia 051176477 Active 2022 Not Available [facility] 3 22:36:12 Urinary incontinen ce 009379195 Active 2022 Not Available [facility] 3 22:36:11 Open wound of left lower leg 5669524838455 9106 Active 2022 Not Available [facility] 3 22:36:11 Kidney lesion 5146904701712 0 Active 2022 Not Available [facility] 3 22:36:12 Dyslipidem ia 754031654 Active 2022 Not Available [facility] 3 22:36:12 Open wound of lower leg 410172714 Active 2022 Not Available [facility] 3 22:36:11 Vitamin D deficiency 63780774 Active 2022 Ralph lopez MD [address], [facility] [address], [place], [address] , [facility] 3 16:46:02 Low back pain 608154731 Active 2022 Marimar Pagan null, [facility] 3 15:29:32 Arthritis 8441851 Active 2022 Marimar Pagan null, [facility] 3 14:50:08 Pain in right hand 0113720911420 09 Active 2024 Darlene Serrano MA null, [facility] [facility] 5 15:24:57 Problem Notes None recorded. Procedures Surgical History Date Name Laterality Status Provider Name and Address Organization Details Recorded Time 11/09/19 23 excision of lesion of kidney completed AMINA Pena [facility] 11/16/2022 14:36:33 09/27/19 23 Wound Care-Podiatry completed Margareth Sharp RN [facility] [facility] 09/26/2022 17:25:47 09/13/19 23 Wound Care-Podiatry completed Herminia Mcleod RN [facility] [facility] 09/12/2022 16:52:31 09/06/19 23 Wound Care-Podiatry completed Margareth Sharp RN [facility] 09/05/2022 17:17:06 08/01/19 23 Nail Debridement completed David Munoz DPM [address], [facility] [address], [place], [address], [facility] 07/31/2022 10:48:11 04/11/20 21 cardiac catheterization completed Not Available [facility] 06/14/2022 09:13:48 Cardiac Stent Placement completed AMINA Pena [facility] 08/14/2022 16:43:59 Cataract Surgery completed AMINA Pena - [facility] 10/01/2023 10:07:51 Imaging Results Imaging Date Name Status LastModified by Organiz ation Details LastModified Time 06/05/2024 imaging/diag nostic result active [address] [place] [address], [address], 06/05/2024 11:47:34 06/05/2024 imaging/diag nostic result active [address] [place] [address], [address], 06/05/2024 12:48:23 06/10/2024 XR, wrist + hand completed [address], [address], 07/31/2024 13:55:09 06/10/2024 XR, ribs, bilateral, w/ PA chest completed [address] [place] [address], [address], 07/31/2024 13:55:10 06/10/2024 XR, wrist + hand completed [address] [place] [address], [address], 07/31/2024 13:55:11 Procedure Notes None recorded. Medical Equipment None Reported. Allergies Allergen ID Allergen Name Allergen Category Reaction Reaction Severity Criticality Documentation Date Start Date Code Code System Note Provider Name and Address Organization Details Recorded Time 33016 adhesive environme nt,medica tion rash Not available Not available 02/26/2023 64217 UNK AMINA Pena [place], [place] - [employer] 10:00:00 Medications Name Sig Start Date Stop [...] with needle 1 mL 29 gauge x 16 01/20 completed Not Available Not Available Not [...] release TAKE 1 CAPSULE BY MOUTH DAILY NEEDED 2024 active Not Available Not Available Not Avai lable aspirin 81 mg tablet,de layed release Take [...] administ ered by the provider 05/23 completed [facility]: [id number] 4- Not Available Not Available Not Available dexametha [...] administ ered by the provider 05/23 completed [facility]: 0409-427 09-30 Not Available Not Available [...] BY MOUTH EVERY DAY IN THE MORNING 2024 active Not Available Not Available Not Avai lable Jardiance 25 mg tablet Take 1 tablet [...] Available Not Available Not Available Flucelvax Quad [id number] (PF) 60 mcg (15 mcg x 4)/0.5 [...] Available Not Available Not Available Afluria Quad 6386-4789 60 mcg (15 mcg x 4)/0.5 mL [...] Not Available Not Available No t Available [employer] Ju[employer] 3 Plus Sensor device CHANGE EVERY 15 DAYS active Not Available Not Available No t Available Vitals Date Recorded Body height Body mass index (BMI) Body weight Body temperature Heart rate Systolic blood pressure Diastolic blood pressure Provider Name and Address Organization Details Last Updated DateTime 4 185.42 cm 29.9 kg/m2 975528. 47 g 97.7 [degF] 72 /min 120 mm[Hg] 64 mm[Hg] AMINA Pena [facility] Scan•Jour 4 10:09:22 Date Recorded Body height Body mass index (BMI) Body weight Body temperature Heart rate Systolic blood pressure Diastolic blood pressure Provider Name and Address Organization Details Last Updated DateTime 4 185.42 cm 29.8 kg/m2 777652. 88 g 97.9 [degF] 72 /min 132 mm[Hg] 70 mm[Hg] AMINA Pena [facility] 4 11:45:21 Date Recorded Body height Body mass index (BMI) Body weight Body temperature Heart rate Systolic blood pressure Diastolic blood pressure Provider Name and Address Organization Details Last Updated DateTime 5 185.42 cm 31.1 kg/m2 749679. 8 g 97.7 [degF] 72 /min 136 mm[Hg] 70 mm[Hg] AMINA Pena [facility] Scan•Jour 5 18:25:46 Date Recorded Body height Body mass index (BMI) Body weight Body temperature Heart rate Systolic blood pressure Diastolic blood pressure Provider Name and Address Organization Details Last Updated DateTime 5 185.42 cm 32.2 kg/m2 843703. 54 g 97.5 [degF] 78 /min 140 mm[Hg] 64 mm[Hg] AMINA Pena [place] [facility] 5 10:21:41 Date Recorded Body height Body mass index (BMI) Body weight Body temperature Oxygen saturation Oxygen saturation in Arterial blood by Pulse oximetry Systolic blood pressure Diastolic blood pressure Provider Name and Address Organization Details Last Updated DateTime 5 185.42 cm 31.9 kg/m2 200850. 35 g 97.8 [degF] 96 % 96 % 140 mm[Hg] 60 mm[Hg] AMINA Croft [place] [facility] 5 14:40:41 Social History Question Answer Notes LastModified by Organizat ion Details LastModified Time Tobacco Smoking Status Former Smoker Not Available [facility] 06/14/2022 09:13:31 Do You Have An Advance Directive? Yes MIGRATION.74566 50057 Information not available 06/14/2022 What Is Your Level Of Alcohol Consumption? Occasional MIGRATION.12353 41744 Information not available 06/14/2022 What Is Your Level Of Caffeine Consumption? Moderate MIGRATION.31485 59192 Information not available 06/14/2022 In The 14 Days Before Symptom Onset, Have You Had Close Contact With A Laboratory-confi rmed COVID-19 While That Case Was Ill? No MIGRATION.56720 52100 Information not available 06/14/2022 In The 14 Days Before Symptom Onset, Have You Had Close Contact With A Person Who Is Under Investigation For COVID-19 While That Person Was Ill? No MIGRATION.30918 05653 Information not available 06/14/2022 Are You Currently Employed? Yes Information not available 08/14/2022 What Type Of Diet Are You Following? REGULAR MIGRATION. 75894 Information not available 06/14/2022 What Is The Highest Grade Or Level Of School You Have Completed Or The Highest Degree You Have Received? [id number] MIGRATION. 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 38727 Information not available 06/14/2022 Have There Been Any Changes To Your Family Or Social Situation? No MIGRATION.28224 86250 Information not available 06/14/2022 What Is The Fluoride Status Of Your Home? Unknown MIGRATION. 25575 Information not available 06/14/2022 When Did You Quit Smoking? 16+yearssincelrafaelmegan jett MIGRATION.58359 65677 Information not available 06/14/2022 Are There Any Guns Present In Your Home? Yes MIGRATION.05349 70329 Information not available 06/14/2022 Do You Use Insect Repellent Routinely? No MIGRATION.24308 10997 Information not available 06/14/2022 Where Do You Live? [place]House MIGRATION.18868 41369 Information not available 06/14/2022 Do You Have A Medical Power Of Inshore Undersea Warfare Officer? Yes MIGRATION.54499 22053 Information not available 06/14/2022 What Was The Date Of Your Most Recent Tobacco Screening? 06/10/2024 Information not available 06/10/2024 Do You Have Any Pets? Yes MIGRATION.07962 55204 Information not available 06/14/2022 What Is Your Relationship Status? MIGRATION.28929 54801 Information not available 06/14/2022 Do You Use Your Seat Belt Or Car Seat Routinely? Yes MIGRATION.87687 22625 Information not available 06/14/2022 Do You Have Smoke And Carbon Monoxide Detectors In Your Home? Yes MIGRATION.90801 28928 Information not available 06/14/2022 Are You Passively Exposed To Smoke? No MIGRATION.56349 78432 Information not available 06/14/2022 Are There Any Smokers In Your House? No MIGRATION.56213 60927 Information not available 06/14/2022 Do You Feel Stressed (tense, Restless, Nervous, Or Anxious, Or Unable To Sleep At Night)? [id number] MIGRATION.59009 33310 Information not available 06/14/2022 Do You Use Any Illicit Or Recreational Drugs? No MIGRATION.42794 89790 Information not available 06/14/2022 Do You Use Sunscreen Routinely? Yes MIGRATION.44307 11654 Information not available 06/14/2022 How Many Years Have You Smoked Tobacco? 30 MIGRATION.82896 00367 Information not available 06/14/2022 Have You Recently Traveled Abroad? No MIGRATION.69832 56379 Information not available 06/14/2022 Do You Have Any Dietary Restrictions? No MIGRATION.49405 37976 Information not available 06/14/2022 Do You Or Have You Ever Used Any Other Forms Of Tobacco Or Nicotine? No Information not available 08/14/2022 Sex: Male Functional Status None recorded. Mental Status None recorded. Family History Relationship Description Onset Age of this Age Resolved Age Notes LastModified by Organization Details LastModified Time Father Diabetes mellitus MIGRATION.778 [id number] Not available 06/14/2022 09:13:51 Father Hypertensive disorder MIGRATION.363 [id number] Not available 06/14/2022 09:13:51 Father Heart disease MIGRATION.428 [id number] Not available 06/14/2022 09:13:51 Medical History Condition Response BLINDNESS N RHEUMATIC FEVER N MRSA N INFECTIOUS DISEASE N HEART ARRHYTHMIA N LUNG DISEASE/DISORDER N HISTORY OF DRUG ABUSE N INSOMNIA N COPD N RADIATION / CHEMOTHERAPY N HIGH CHOLESTEROL / HYPERLIPIDEMIA Y HYPERTHYROIDISM N EYE PROBLEMS N BLOOD DISEASES N SURGERY N EDEMA [...] Time zoster recombinant 3 completed AMINA Pena, [employer] 02/26/2023 10:03:30 Pneumococcal conjugate PCV20, polysaccharide [id number] conjugate, adjuvant, PF 3 completed AMINA Pena, [employer] 02/26/2023 10:03:48 Influenza, split virus, quadrivalent, PF 3 completed AMINA Pena, [employer] 02/26/2023 10:05:08 Tdap 2 completed Not Available [facility] 01/29/2023 22:36:12 Influenza, split virus, quadrivalent, preservative 2 completed Not Available [facility] 01/29/2023 22:36:12 COVID-19, mRNA, LNP-S, PF, 3 mcg/0.2 mL dose, rufsu-sucrose 2 completed Not Available [facility] 01/29/2023 22:36:12 Influenza, split virus, quadrivalent, preservative 1 completed Not Available [facility] 01/29/2023 22:36:12 COVID-19, mRNA, LNP-S, PF, 30 mcg/0.3 mL dose 1 completed Not Available [facility] 01/29/2023 22:36:12 COVID-19, mRNA, LNP-S, PF, 30 mcg/0.3 mL dose 1 completed Not Available [facility] 01/29/2023 22:36:12 Past Encounters Encounter ID Performer Location Encounter Start Date Encounter Closed Date Diagnosis/Indication Diagnosis SNOMED-CT Code Diagnosis ICD10 Code Diagnosis Note [id number] [facility] [address] [place] [address] 01/25/2021 00:00:00 01/25/2021 10:05:28 [id number] [facility] [address] [place] [address] 05/02/2021 00:00:00 05/02/2021 15:38:43 [id number] [facility] Internal [facility] [place] gutierrez [address] [place] [address] [address] 05/23/2021 00:00:00 05/27/2021 12:43:10 [id number] [facility] [address] [place] [address] 05/27/2021 00:00:00 05/27/2021 11:31:20 [id number] [facility] Internal [facility] [place] [address] [address] [address] 06/20/2021 00:00:00 06/20/2021 15:36:02 [id number] [facility] [address] [place] [address] 06/30/2021 00:00:00 07/04/2021 09:01:38 [id number] _ATHENA_M IGRATION_ DEFAULT_1 _1 , 07/28/2021 00:00:00 07/28/2021 13:50:31 [id number] [facility] Endo Hiram German [address] [place] [address] 08/08/2021 00:00:00 08/08/2021 13:52:50 [id number] [facility] Internal Med [address] , [place] [address] 09/21/2021 00:00:00 10/14/2021 09:51:12 [id number] [facility] Internal Med [address] , [place] [address] 01/30/2022 00:00:00 03/17/2022 11:06:55 [id number] [facility] Internal Med [address] , [place] [address] 06/05/2022 00:00:00 06/05/2022 11:12:15 [id number] David Munoz DPM [facility] Podiatry [place] German [address] [facility] [address] [place] [address] 07/31/2022 10:04:26 07/31/2022 11:50:38 Uncontrolled type 2 diabetes mellitus 097411418 E11.65 Patient educated on neuropathy , diabetes, diabetic diet, and daily foot exams. Patient is to check feet daily for new wounds, blisters, redness to prevent infection and ulceration s to the feet. Patient will return to clinic in 3 months for diabetic foot workup. Onychomyco sis of toenails 175966413 B35.1 left 4th toenailDeb rided without incidentFi le toenail to reduce thickness and allow medication topically to workfollow -up in 3 months Tinea pedis 7438551 B35. 3 bilateral feetRx ketoconazo lefollow-u p in 2 weeks if not resolved [id number] Ralph lopez MD [facility] Internal Med [place] [facility] [address] [facility] [address] [place] [address] 08/14/2022 16:09:01 08/14/2022 17:28:57 Screening - NAD [id number] Z13.9 C-scope: As per Dr Lora nephrologi st 05/23/2021 OV his EGD and C-scope were negative Get yearly flu shotDid get Td from the laceration on the forehead s/p fall on 06[facility]11[facility]21 [facility] COVID 19Can do shingrix RTC in 4 monthsDo labsER if worseHe did verbalize his understand ing of the above Essential hypertension 47528679 I10 Not on ASA On amlodipine 10mg dailyOn coreg 25mg bidOn diltiazem CD 300mg dailyOn iso sorbide ER 60mg dailyNot on lisinopril , stopped by Dr Rudd losartan 100mg dailyOn NTG Sees Dr Gonzalez Hyperlipidemia 60604866 E78.5 On rosuvastat in 20mg daily, not take the simvastati nOn fenofibrat e 134mg daily Not on omega 3 2 caps bid not filled since 03/13/2022 , confirmed with his pharmacyGe t labs 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 854410985 E11.9 On basaglarOn farxigaOn glimepirid e renewed 06/05/2022 Not on jardiance 10mg daily, Dr Raquel diaz Sees Dr Cazares 08/21/2022 Dr Munoz 07/31/2022 , next 10/30/2022 As per his history did see Dr Bowie eye Get labs Gastroesop hageal reflux disease without esophagitis 290016455 K21.9 On omeprazole Does wellHas had an EGD in [facility] Malignant tumor of testis 649220047 C62.[address] Chapman 07/11/2022 Chronic ki dney disease 249643630 N18.[address] Reeves sees Dr Barnhart, last 11/15/2021 , f/u in 6 months Coronary arteriosclerosis 91840702 I25.10 S/p stents Dr Gonzalez 02/02/2022 F/u in 6 months Pain of ri ght shoulder joint 1427544090 1824377 M25.[address] Dos Santos and Dr Malloy Anemia 516583360 D64.[address] Person 02/20/2022 , f/u yearly Urinary incontinence 165 941916 R32 On finasterid eDoes well Open wound of left lower leg 6544264371 3976392 S81.802A See case 08/14/2022 Get on keflexKeep clean and dry, if not better, will see wound clinic Kidney lesion 3850355983 9100 N28.9 Is to get surgery on 09/19/2022 , at [facility] with Dr Payton Birch [id number] Judi Cazares MD [facility] [address] [place] [address] 08/21/2022 09:22:03 08/21/2022 10:25:40 Uncontrolled type 2 diabetes mellitus 263971937 E11.65 A1C of 8.3% up from 6.8%- [...] going in September for potential surgery at [facility]. He will reach out to clinic if needs any advise for insulin/me dication changes- he is aware to hold medication s if not eating and take 50% of insulin if NPO. Dyslipidemia 525975639 E 78.5 Continue statin therapy and monitor [...] he chooses to go outside of the [facility] to obtain labwork he was [...] in his case. He voiced understand ing. [id number] Ralph lopez MD [facility] Internal Med [place] gutierrez [address] [facility] [address] [facility] [place] [address] 08/21/2022 14:27:07 08/21/2022 15:30:55 Open wound of left lower leg 1997700259 5424076 S81.802A See case 08/14/2022 Get on keflexKeep clean and dry, if not better, will see wound clinic OV 08/21/2022 :Finish the keflex, will now see Dr Fowler tomorrow at 9.45am at [facility] Coronary arteriosclerosis 83015383 I25.10 S/p stents Dr Gonzalez 02/02/2022 F/u in 6 months EKG 08/21/2022 : Sinus with PVCs notedNo symptoms, no chest pain or SOB, no palpitatio ns or presyncope or syncopeWil l see Dr Gonzalez 08/23/2022 at 9.00am, ER if any symptoms, he is agreeable to this plan of care [id number] Jorgito heaton MD [facility] General Surgery [address] [facility] [place] [address] 08/22/2022 10:21:11 08/22/2022 11:19:41 Open wound of left lower leg 6458839413 4149757 S81.802A [id number] GUILLE Solorio [facility] [address] [place] [address] 09/05/2022 16:36:56 09/05/2022 18:58:16 Open wound of left lower leg 7992042499 2491853 S81.802A Open wound of lower leg 469690686 S81.812A L anterior leg wound. Covered with dry eschar. Recommend betadine dressing daily, avoid overlying dressing d/t skin irritation . Will f/u in one week. [id number] GUILLE Solorio [facility] [address] [place] [address] 09/12/2022 16:50:12 09/12/2022 17:30:17 Open wound of left lower leg 1864287083 3019944 S81.802A Open wound of lower leg 721609455 S81.802D L anterior leg wound. Covered with dry eschar. Recommend betadine dressing daily, avoid overlying dressing d/t skin irritation . Will f/u in 2weeks, contact the office sooner if concerns arise. [id number] GUILLE Solorio [facility] [address] [place] [address] 09/26/2022 16:45:49 09/27/2022 14:49:48 Open wound of left lower leg 3403178361 9720875 S81.802D Fully healed. Recommend f/u PRN if future concerns arise. [id number] David Munoz DPM [facility] Podiatry [place] [address] [place] [address] 11/06/2022 12:35:31 11/06/2022 14:09:19 Onychomycosis of toenails 734408783 B35.1 Ketoconazo le apply to affected toenailsDe brided without incidentFi le toenail to reduce thickness and allow medication topically to workfollow -up in 3 months [id number] Ralph lopez MD [facility] Internal Med [facility] [address] [facility] [place] [address] 11/16/2022 14:24:45 11/16/2022 15:03:05 Screening - NAD 426318950 Z13.9 C-scope: As per Dr Lora nephrologi st 05/23/2021 OV his EGD and C-scope were negative Get yearly flu shotDid get Td from the laceration on the forehead s/p fall on 06/11[facility]2021 [facility] on COVID 19Can do shingrix RTC in 4 monthsDo labsER if worseHe did verbalize his understand ing of the above Essential hypertension 04591977 I10 On ASAOn amlodipine 10mg dailyOn coreg 25mg bidOn diltiazem CD 300mg dailyOn iso sorbide ER 60mg dailyNot on lisinopril , stopped by Dr Rudd losartan 100mg dailyOn NTG Sees Dr Gonzalez Hyperlipidemia 78351797 E78.5 On rosuvastat in 20mg daily, not take the simvastati nOn fenofibrat e 134mg daily Not on omega 3 2 caps bid not filled since 03/13/2022 , confirmed with his pharmacyGe t labsS/p surgery for his kidney wants to diet and exercise more 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 996082531 E11.9 On basaglarOn farxigaOn glimepirid e renewed 06/05/2022 Not on jardiance 10mg daily, Dr Raquel diaz Sees Dr Cazares 08/21/2022 Dr Munoz 07/31/2022 , next 10/30/2022 As per his history did see Dr Bowie eye Get labs Gastroesop hageal reflux disease without esophagitis 703468598 K21.9 On omeprazole Does Meme had an EGD in [facility] Malignant tumor of testis 889501433 C62.[address] Chapman 07/11/2022 Chronic ki dney disease 805705783 N18.[address] Reeves sees Dr Barnhart, last 11/15/2021 , f/u in 6 months Coronary arteriosclerosis 87484859 I25.10 S/p stents Dr Gonzalez Pain of ri ght shoulder joint 1776701843 3487875 M25.[address] Dos Santos and Dr Malloy Anemia 012328956 D64.[address] Person 02/20/2022 , f/u yearly Urinary incontinence 165 465758 R32 On finasterid eDoes well Open wound of left lower leg 6702659505 9407964 S81.802A See case 08/14/2022 Get on keflexKeep clean and dry, if not better, will see wound clinic Kidney lesion 6285690357 9100 N28.9 S/p surgery 09/19/2022 , at [facility] with Dr Payton Birch, now will see her again, is doing well, did sign TRAVIS to get the reports today 11/16/2022 [id number] Judi Cazares MD [facility] [address] [place] [address] 11/23/2022 14:13:45 11/23/2022 15:11:05 Uncontrolled type 2 diabetes mellitus 244490350 E11.65 A1C of 8.4% up from 8.3%-patie [...] Recommende d patient to utilize the diabetesfo Dyynob.lensgen from the ADA website to help with food preparatio n as this presents ideal carb content per meal so this will make carb counting much easier for patient. Recommende d he incorporat e natural insulin fishing accessories maker s such as pears, apples, cinnamon, saskia and sweet potatoes to help mobilize his endogenous insulin. Recommende d up to 150 minutes of moderate level activity/e xercise weekly. Dyslipidemia 320700720 E 78.5 Continue statin therapy. Spent up [...] answered and refills necessary at visit today. [id number] Ralph lopez MD [facility] Internal Med [place] [address] [place] [address] y [address] [place] [address] 02/26/2023 09:50:02 02/26/2023 10:48:11 Screening - NAD 972886483 Z13.9 C-scope: As per Dr Lora nephrologi st 05/23/2021 OV his EGD and C-scope were negative Get yearly flu shotDid get Td from the laceration on the forehead s/p fall on 06/11/2021 at the [facility] on COVID 19Can do shingrixGe t RSV vaccine RTC in 4 monthsDo labsER if worseHe did verbalize his understand ing of the above Essential hypertension 77126231 I10 On ASAOn amlodipine 10mg dailyOn coreg 25mg bidOn diltiazem CD 300mg dailyOn iso sorbide ER 60mg dailyNot on lisinopril , stopped by Dr Rudd losartan 100mg dailyOn NTG Sees Dr Gonzalez, is to now get LHC as per Dr Gonzalez and his history 02/26/2023 Hyperlipidemia 99223242 E78.5 On rosuvastat in 20mg daily, not take the simvastati nOn fenofibrat e 134mg daily Not on omega 3 2 caps bid not filled since 03/13/2022 , confirmed with his pharmacyGe t labsS/p surgery for his kidney wants to diet and exercise more 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 483419921 E11.9 On basaglarOn farxigaOn glimepirid e renewed 06/05/2022 Not on jardiance 10mg daily, Dr Raquel diaz Sees Dr Cazares 08/21/2022 Dr Munoz 07/31/2022 , next 10/30/2022 As per his history did see Dr Bowie eye Get labs Gastroesop hageal reflux disease without esophagitis 867781376 K21.9 On omeprazole Does wellHas had an EGD in [facility] Malignant tumor of testis 657152330 C62.[address] Chapman 07/11/2022 Chronic ki dney disease 987696192 N18.[address] Reeves sees Dr Barnhart, last 11/15/2021 , f/u in [address] Barnhart 01/16/2023 , f/u in 6 months Coronary arteriosclerosis 64659780 I25.10 S/p stents Dr Gonzalez 02/07/2023 Pain of ri ght shoulder joint 4280907266 4699890 M25.[address] Dos Santos and Dr Malloy Anemia 851237160 D64.[address] Person 02/20/2022 , f/u yearly Urinary incontinence 165 366971 R32 On finasterid eDoes well Kidney lesion 0154177595 9100 N28.9 S/p surgery 09/19/2022 , [facility] with [facility] Payton Birch, now will see her again, is doing well, did sign TRAVIS to get the reports today 11/16/2022 [id number] Ralph lopez MD [facility] Internal Med [place] gutierrez [address] [facility] [place] [address] 07/02/2023 10:05:34 07/02/2023 10:55:12 Screening - NAD [id number] Z13.9 C-scope: As per Dr Lora nephrologi st 05/23/2021 OV his EGD and C-scope were negative Get yearly flu shotDid get Td from the laceration on the forehead s/p fall on 06/11/2021 at the [facility] on COVID 19Can do shingrixGe t RSV vaccine RTC in 4 monthsDo labsER if worseHe did verbalize his understand ing of the above Essential hypertension 32472420 I10 On ASAOn amlodipine 10mg dailyOn coreg 25mg bidOn diltiazem CD 300mg dailyOn iso sorbide ER 60mg dailyNot on lisinopril , stopped by Dr Rudd losartan 100mg dailyOn NTG Sees Dr Gonzalez Hyperlipidemia 66823188 E78.5 Should not be on rosuvastat in 20mg daily, but on 40mg daily, given by Dr Gonzalez, not to take the simvastati nOn fenofibrat e 134mg daily Not on omega 3 2 caps bid not filled since 03/13/2022 , confirmed with his pharmacyGe t labsS/p surgery for his kidney wants to diet and exercise more 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 787831552 E11.9 On basaglarOn farxigaOn glimepirid e 2mg [...] labs Gastroesop hageal reflux disease without esophagitis 978312178 K21.9 On omeprazole Eun Valentine had an EGD in [facility] Malignant tumor of testis [id number] C62.[address] Chapman 07/11/2022 Chronic ki dney disease 962191898 N18.[address] Reeves sees Dr Barnhart, last 11/15/2021 , f/u in [address] Barnhart 01/16/2023 , f/u in 6 months Coronary arteriosclerosis 22783482 I25.10 S/p stents Dr Gonzalez 02/07/2023 Pain of ri ght shoulder joint [id number] 1796343 M25.[address] Dos Santos and Dr Malloy Anemia 416532694 D64.[address] Person 02/20/2022 , f/u yearly Urinary incontinence 165 676666 R32 On finasterid eDoes well Kidney lesion 7957215891 9100 N28.9 S/p surgery 09/19/2022 , at [facility] with Dr Payton Birch, now will see her again, is doing well, did sign TRAVIS to get the reports today 11/16/2022 [id number] Ralph lopez MD [facility] [place] [address] [facility] [place] [address] 10/01/2023 09:54:07 10/01/2023 10:31:19 Screening - NAD [id number] Z13.9 C-scope: As per Dr Lora nephrologi st 05/23/2021 OV his EGD and C-scope were negative Get yearly flu shotDid get Td from the laceration on the forehead s/p fall on 06/11/2021 at the [facility] on COVID 19Can do shingrixGe t RSV vaccine RTC in 4 monthsDo labsER if worseHe did verbalize his understand ing of the above Essential hypertension 71055271 I10 On ASAOn amlodipine 10mg dailyOn coreg 25mg bidOn diltiazem CD 300mg dailyOn iso sorbide ER 60mg dailyNot on lisinopril , stopped by Dr Rudd losartan 100mg dailyOn NTG Sees Dr Gonzalez Hyperlipidemia 13755256 E78.5 On rosuvastat in 20mg daily, given by Dr Stanton fenofibrat e 134mg daily, given by Dr Gonzalez Not on omega 3 2 caps bid not filled since 03/13/2022 , confirmed with his pharmacyGe t labsS/p surgery for his kidney wants to diet and exercise more 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 057412035 E11.9 On basaglarOn farxigaOn glimepirid e 2mg [...] Rivas per his history did see Dr Jamir coffey MD Get labs Gastroesop hageal reflux disease without esophagitis 531459678 K21.9 On omeprazole Does wellHas had an EGD in [facility] Malignant tumor of testis 217789701 C62.[address] Chapman 07/11/2022 Chronic ki dney disease 742329446 N18.9 On Vit D weekly Has seen Dr Reeves sees Dr Barnhart, last 11/15/2021 , f/u in [address] Barnhart 01/16/2023 , f/u in 6 monthsDr Barnhart 07/24/2023 Coronary arteriosclerosis 33105832 I25.10 S/p stents Dr Gonzalez 02/07/2023 Pain of ri ght shoulder joint 0906543803 2718020 M25.[address] Dos Santos and Dr Malloy Anemia 627898127 D64.[address] Person 02/20/2022 , f/u yearly Urinary incontinence 165 461497 R32 On finasterid eDoes well Kidney lesion 3822999108 9100 N28.9 S/p surgery 09/19/2022 , [facility] with [facility] Payton Birch, now will see her again, is doing well, did sign TRAVIS to get the reports today 11/16/2022 [id number] Ralph lopez MD [facility] [place] [address] [facility] [place] [address] 11/05/2023 11:36:30 11/05/2023 12:39:30 Essential hypertension 02423320 I10 On ASANot on amlodipine 10mg dailyOn coreg 25mg bidOn diltiazem CD 300mg dailyNot on iso sorbide ER 60mg dailyNot on lisinopril , stopped by Dr Rudd losartan 100mg dailyOn NTG Sees Dr Gonzalez Screening - NAD [id number] 3 Z13.9 C-scope: As per Dr Lora nephrologi st 05/23/2021 OV his EGD and C-scope were negative Get yearly flu shotDid get Td from the laceration on the forehead s/p fall on 06/11/2021 at the [facility] on COVID 19Can do shingrixGe t RSV vaccine RTC in 4 monthsDo labsER if worseHe did verbalize his understand ing of the above Hyperlipidemia 25830350 E78.5 On rosuvastat in 20mg daily, given by Dr Stanton fenofibrat e 134mg daily, given by Dr oGnzalez On omega 3 2 caps bidGet labsS/p surgery for his kidney wants to diet and exercise more 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 143026199 E11.9 On basaglarOn farxigaNot on glimepirid e 2mg bidNot on jardiance 10mg daily, Dr García ozempic 2mg weeklyOn metformin ER 500mg bidOn baqsimi (glucagon) Get on humolog, refused today 07/02/[address] Mckeon endocrine More diet and exercise is needed Seen Dr Cazares 08/21/2022 Dr Rivas per his history did see Dr Bowie eye Get labs Gastroesop hageal reflux disease without esophagitis 258812424 K21.9 On omeprazole Does Meme had an EGD in [facility] Malignant tumor of testis 355437399 C62.[address] Chapman 07/11/2022 Chronic ki dney disease 633235591 N18.9 On Vit D weekly Has seen Dr Reeves sees Dr Barnhart, last 11/15/2021 , f/u in [address] Barnhart 01/16/2023 , f/u in 6 monthsDr Barnhart 07/24/2023 Coronary arteriosclerosis 44307963 I25.10 S/p stents Dr Gonzalez 02/07/2023 Pain of ri ght shoulder joint 6958729025 1127398 M25.[address] Dos Santos and Dr Malloy Anemia 641818198 D64.[address] Person 02/20/2022 , f/u yearly Urinary incontinence 165 776578 R32 On finasterid eDoes well Kidney lesion 6856093023 9100 N28.9 S/p surgery 09/19/2022 , at [facility] with Dr Payton Birch, now will see her again, is doing well, did sign TRAVIS to get the reports today 11/16/2022 [id number] Ralph lopez MD [facility] [place] gutierrez [address] [facility] [address] [place] [address] 04/28/2024 16:50:15 04/28/2024 18:48:47 Essential hypertension 68064147 I10 On ASANot on amlodipine 10mg dailyOn coreg 25mg bidOn diltiazem CD 300mg dailyNot on iso sorbide ER 60mg dailyNot on lisinopril , stopped by Dr Rudd losartan 100mg dailyOn NTG Sees Dr Gonzalez Screening - NAD [id number] 3 Z13.9 C-scope: As per Dr Lora nephrologi st 05/23/2021 OV his EGD and C-scope were negative Get yearly flu shotDid get Td from the laceration on the forehead s/p fall on 06/11/2021 at the [facility] on COVID 19Can do shingrixGe t RSV vaccine RTC in 4 monthsDo labsROMANA if worseHe did verbalize his understand ing of the above Hyperlipidemia 48740206 E78.5 On rosuvastat in 20mg daily, given by Dr Stanton fenofibrat e 134mg daily, given by Dr Gonzalez On omega 3 2 caps bidGet labsS/p surgery for his kidney wants to diet and exercise more 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 581387336 E11.9 On basaglarOn farxigaNot on glimepirid e 2mg bidNot on jardiance 10mg daily, Dr García ozempic 2mg weeklyOn metformin ER 500mg bidOn baqsimi (glucagon) Get on humolog, refused today 07/02/[address] Mckeon endocrine More diet and exercise is needed Seen Dr Cazares 08/21/2022 Dr Rivas per his history did see Dr Bowei eye MD Get labs Gastroesop hageal reflux disease without esophagitis 771463227 K21.9 On omeprazole Does wellHas had an EGD in [facility] Malignant tumor of testis 996041679 C62.[address] Chapman 07/11/2022 Chronic ki dney disease 995780259 N18.9 On Vit D weekly Has seen Dr Reeves sees Dr Barnhart, last 11/15/2021 , f/u in [address] Barnhart 01/16/2023 , f/u in 6 monthsDr Barnhart 07/24/2023 Coronary arteriosclerosis 07703643 I25.10 S/p stents Dr Gonzalez 02/07/2023 Pain of ri ght shoulder joint 3522479052 3138288 M25.[address] Dos Santos and Dr Malloy Anemia 723433038 D64.[address] Person 02/20/2022 , f/u yearly Urinary incontinence 165 002419 R32 On finasterid eDoes well Kidney lesion 1242161473 9100 N28.9 S/p surgery 09/19/2022 , at [facility] with Dr Payton Birch, now will see her again, is doing well, did sign TRAVIS to get the reports today 11/16/2022 [id number] Ralph lopez MD [facility] [address] [facility] [address] [place] [address] 06/10/2024 10:09:01 06/10/2024 10:47:30 Essential hypertension 84059917 I10 On ASANot on amlodipine 10mg dailyOn coreg 25mg bidOn diltiazem CD 300mg dailyNot on iso sorbide ER 60mg dailyNot on lisinopril , stopped by Dr Rudd losartan 100mg dailyOn NTG Sees Dr Gonzalez Screening - NAD [id number] 3 Z13.9 C-scope: As per Dr Lora [...] his understand ing of the above Hyperlipidemia 92942508 E78.5 On rosuvastat in 20mg daily, given by Dr Stanton fenofibrat e 134mg daily, given by Dr Gonzalez On omega 3 2 caps bidGet labsS/p surgery for his kidney wants to diet and exercise more 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 454809274 E11.9 On basaglarOn farxigaNot on glimepirid e 2mg bidNot on jardiance 10mg dailyOn ozempic 2mg weekly filled Dr Mckeon 05/17/2024 On metformin ER 500mg bidOn baqsimi (glucagon) Get on humolog, refused today 07/02/[address] Mckeon endocrine More diet and exercise is needed Seen Dr Cazares 08/21/2022 Dr Rivas per his history did see Dr Jamir coffey MD Get labs Gastroesop hageal reflux disease without esophagitis 478783616 K21.9 On omeprazole Does Juventinosenia had an EGD in [facility] Malignant tumor of testis 073185720 C62.[address] Chapman 07/11/2022 Chronic ki dney disease 723302045 N18.9 On Vit D weekly Has seen Dr Reeves sees Dr Barnhart, last 11/15/2021 , f/u in [address] Barnhart 01/16/2023 , f/u in 6 monthsDr Barnhart 07/24/2023 Coronary arteriosclerosis 37858279 I25.10 S/p stents Dr Gonzalez 02/07/2023 Pain of ri ght shoulder joint 6352580841 9634616 M25.[address] Dos Santos and Dr Malloy Anemia 807804795 D64.[address] Person 02/20/2022 , f/u yearlyRefe rred 06/10/2024 Urinary incontinence 165 350516 R32 On finasterid eDoes well Kidney lesion 5172249510 9100 N28.9 S/p surgery 09/19/2022 , at [...] weeks to RTWER if any symptoms worsen [id number] Ralph lopez MD [facility] Primary Care [facility] [address] [facility] [address] [place] [address] 06/23/2024 13:53:34 06/23/2024 15:14:15 Essential hypertension 01538536 I10 On ASANot on amlodipine 10mg dailyOn coreg 25mg bidOn diltiazem CD 300mg dailyOn iso sorbide ER 60mg dailyNot on lisinopril , stopped by Dr Rudd losartan 100mg dailyOn NTG Sees Dr Gonzalez Screening - NAD [id number] 3 Z13.9 C-scope: As per Dr Lora [...] his understand ing of the above Hyperlipidemia 94547595 E78.5 On rosuvastat in 20mg daily, given by Dr Stanton fenofibrat e 134mg daily, given by Dr Gonzalez On omega 3 2 caps bidGet labsS/p surgery for his kidney wants to diet and exercise more 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 016162862 E11.9 On basaglarOn farxiga renewed 06/23/2024 Not on glimepirid e 2mg bidNot on jardiance 10mg dailyOn ozempic 2mg weekly filled Dr Mckeon 05/17/2024 On metformin ER 500mg bidOn baqsimi (glucagon) Get on humolog, refused today 07/02/[address] Mckeon endocrine More diet and exercise is needed Seen Dr Cazares 08/21/2022 Dr Rivas per his history did see Dr Bowie eye Get labs Gastroesop hageal reflux disease without esophagitis 412886134 K21.9 On omeprazole Does wellHas had an EGD in [facility] Malignant tumor of testis 369732363 C62.[address] Chapman 07/11/2022 Chronic ki dney disease 912748442 N18.9 On Vit D weekly Has seen Dr Reeves sees Dr Barnhart, last 11/15/2021 , f/u in [address] Barnhart 01/16/2023 , f/u in 6 monthsDr Barnhart 07/24/2023 Coronary arteriosclerosis 42019652 I25.10 S/p stents Dr Gonzalez 02/07/2023 Pain of ri ght shoulder joint 5944898082 2516495 M25.[address] Dos Santos and Dr Malloy Anemia 195975809 D64.[address] Person 02/20/2022 , f/u yearlyRefe rred 06/10/2024 Urinary incontinence 165 243836 R32 On finasterid eDoes well Kidney lesion 6822944277 9100 N28.9 S/p surgery 09/19/2022 , at [facility] with Dr Payton Birch, now will [...] weeks to RTWER if any symptoms worsen OV 06/23/2024 :Xray wrist/hand /ribs 06/10/2024 : NegDoes well Health Concerns Section Related Observation LastModified by Organization Detai ls LastModified Time None Recorded Concern Status LastModified by Organization Details LastModified Time None Recorded Advance Directives Directive Y: Payers Encounter Date Sequence Insurance Name Policy Number Policy Mendez Covered Member ID Mendez Member ID Guarantor Name 10/01/2023 1 [employer] (PPO) [id number] Jared F Barrios [id number] Jared F Barrios 11/05/2023 1 [employer] (PPO) [id number] Jared F Barrios [id number] Jared F Barrios 04/28/2024 1 [employer] (PPO) [id number] Jared F Barrios [id number] Jared F Barrios 04/28/2024 2 [place] Jared F Barrios [id number] Jared F Barrios 06/10/2024 1 [employer] (PPO) [id number] Jared F Barrios [id number] Jared F Barrios 06/10/2024 2 [place] Jared Barrios [id number] Jared Barrios 06/23/2024 1 [employer] ([place]) [id number] Jared Barrios [id number] Jared Barrios 06/23/2024 2 [place] Jared Barrios [id number] Jared Barrios Notes Date Note Type Note Provider Name and Address Organization Details Recorded Time 10/01/2023 text/html OV 05/23/2021:Here to establish carePast [...] 08/21/2022:ACV:Th e wound is not cleared up, cloth washer back tender, not draining, redness is better, no [...] has seen Dr Quinn Fischer MD [address] [facility], [facility] [address], [place], [address], [facility] 10/01/2023 14:40:31 11/05/2023 text/html OV 05/23/2021:Here to [...] 08/21/2022:ACV:Th e wound is not cleared up, cloth washer back tender, not draining, redness is better, no [...] labs on 10/22/2023 Ralph Fischer MD [address] [facility], [address], [place], [address], [facility] Scan•Jour 11/05/2023 12:43:40 04/28/2024 text/html OV 05/23/2021:Here to [...] 08/21/2022:ACV:Th e wound is not cleared up, cloth washer back tender, not draining, redness is better, no [...] doing well today Ralph Fischer MD [address] [facility], [facility] [address], [place], [address], [facility] 05/12/2024 14:10:45 06/10/2024 text/html OV 05/23/2021:Here to establish carePast [...] 08/21/2022:ACV:Th e wound is not cleared up, cloth washer back tender, not draining, redness is better, no [...] doing well today, he has seen Dr Branhart OV 11/05/2023: Here for his routine apt, he feels well, he did do the labs on 10/22/2023 04/28/2024: Here for his f/u apt, he is doing well today OV 06/10/2024: Here for his f/u apt, he is s/p ER visit for a fall, now has pain in the R wrist and R lateral ribs Ralph Fischer MD [address] [facility], [address], [place], [address], [place] [facility] Scan•Jour 06/10/2024 10:48:29 06/23/2024 text/html OV 05/23/2021:Here to establish carePast Hx:[id number] [...] 08/21/2022:ACV:Th e wound is not cleared up, cloth washer back tender, not draining, redness is better, no [...] the R wrist and R lateral ribs OV 06/23/2024: Here for his f/u apt, he feels well today, here as he would like a letter for RTW, he still c/o the rib pain and 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
--- OUTSIDE RECORDS SUMMARY | 2024-08-02 12:16 | XMS_ITS | Clinical Summary ---
Author Organization [facility] Jada conn Ary Address [address] [place] [address] Care Team Providers Care Photographic Specialist Name Role Phone Baldo Fischer MD Primary [...] rosuvastatin 20 mg tablet 2 Active Insulin [place], Disposable, (BD Ultra-Fine Short Pen Needle) 31 [...] te) 07/28/2021 History of testicular cancer 07/28/2021 Encounters Date Type Department Care Team Description 07/04/2024 Abstract 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 Gender Identity Not on file Sexual Orientation Not on file Last Filed Vital Signs Vital Sign Reading Time Taken Comments Blood Pressure 143/78 02/28/2023 9:20 AM UX VISUAL DESIGNER Pulse 68 02/28/2023 9:17 AM UX VISUAL DESIGNER Temperature 36.7 C (98.1 F) 02/28/2023 9:17 AM UX VISUAL DESIGNER Respiratory Rate 18 02/28/2023 9:17 AM UX VISUAL DESIGNER Oxygen Saturation 97% 02/28/2023 9:17 AM UX VISUAL DESIGNER Inhaled Oxygen Concentration - - Weight 102.7 kg (226 lb 6.4 oz) 02/28/2023 9:17 AM UX VISUAL DESIGNER Height 185.4 cm (6' 1 ) 08/22/2021 2:08 PM CDT Body Mass Index 29.87 08/22/2021 2:08 PM CDT Plan of Treatment Health Maintenance Due Date Last Done Comments DIABETES ANNUAL FOOT EXAM 1976 DIABETES ANNUAL RETINAL EXAM 1976 DIABETES MICROALBUMIN ANNUAL SCREEN 1976 LDL CHOLESTEROL ANNUAL 1976 PNEUMOCOCCAL VACCINE 50+ YEA RS (1 of 2 - PCV) 1977 05/16/2019 COLORECTAL SCREENING 10/09/2003 Colorectal Cancer Screening 10/09/2003 FIT-DNA Q 3 years 10/09/2003 FIT/FOBT Q 1 year 10/09/2003 Flex Sig/CT Colonography Q 5 years 10/09/2003 ZOSTER VACCINE (1 of 2) 2008 RSV VACCINE (60+ or ) (1 - Risk 60-74 years 1-dose series) 2018 INFLUENZA VACCINE (#1) 2023 2, 01/28/2021, 01/14/2021, Additional history exists DIABETES HBA1C Q 6 MONTHS 11/28/2024 05/31/2024, 08/2023 DTAP/TDAP/TD VACCINES (2 - T d or Tdap) 06/11/2031 06/11/2021 Insurance Care Teams Photographic Specialist Relationship Specialty Start Date End Date Baldo Fischer MD PCP - General Internal Medicine 07/28/21
== END 2024-08-02 12:11 | disposition home or self-care (01) ==
PROVIDERS: PCP Internal Medicine; Visit Provider Physician Assistant Surgical
DX: M19.041 Primary osteoarthritis, right hand (principal)
CPT/HCPCS: 73218

== ENCOUNTER 2024-10-23 11:00 | Outpatient (RCR) | payer OTHER, MEDICARE, SELFPAY ==
--- NOTE | 2024-08-15 10:56 | OTOPEVAL1 ---
Assessment and note entered by Jonel Nieves, TU/Kay, CHT OT Evaluation Information 08/15/24 Assessment Status Evaluation Diagnosis S60.221A Contusion of right hand ICD-10 Condition Codes (OT) Pain in right hand M79.641 Subjective Information Patient reports slipping on ice and landing on his right hand followed by his chin hitting the dorsum of his hand. This occurred on 05/26/24. He reports since then he has been having pain, fluctuating swelling, and intermittent tingling. Hand x-rays were negative for fracture. Hand MRI negative for any abnormalities. 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 Particular activities that bother his hand: brushing teeth, cutting meat, gripping and opening a jar. He reports he would be unable to use a hammer or tolerate any sort of impact through his hand like this. He reports writing is painful also. Reported Pain Level Pain Score 5/10 at rest 9/10 with ADL Assessment OT Clinical Summary Patient referred to OT with dx of right hand contusion. He presents with dorsal hand pain that affects his ability to use his dominant hand for ADLs and work tasks. Patient has point tenderness on the dorsum of the hand over metacarpals III-V. Increased pain when extensor tendons are stretched with active and passive wrist ROM. Tinel's of the radial nerve was negative. Upper limb tension test for the radial nerve was negative. Patient responded well to paraffin/heat, soft tissue mobilization, and ROM/stretching. Issued HEP. Continued follow up indicated for HEP progression, strengthening, manual therapy, and continued use of modalities to facilitate improved functional hand use and facilitate return to work. Plan of Care Interventions Therapeutic Exercise,Manual Therapy,Therapeutic Activities,Ultrasound,Paraffin OT Services Indicated Yes Treatment Frequency and 2x/week for 6 visits Duration These treatments will address the objective and functional deficits as defined above. The patient will be advanced safely and appropriately in order for the patient to progress towards his/her prior level of function. Additional exercises will be introduced and as well as a comprehensive home exercise program upon discharge, if needed, ?to ensure carryover of functional gains achieved in the clinic. This treatment plan has been reviewed and agreement upon by the patient.
--- NOTE | 2024-08-15 10:57 | OPREHPOC ---
Outpatient Therapy Plan of Care This is a Multidisciplinary Plan of Care that may contain components documented by all disciplines (PT, OT, and ST.) OT Problem 1 OT Problem #1 Knowledge Deficit OT Goal 1 Goal / Goal Update Patient to be independent with instructed materials. Target Visit 6 OT Problem 2 OT Problem #2 Pain OT Goal 1 Goal / Goal Update Patient to report reduced (R) hand pain when brushing teeth and using a knife to 2/10 or less. Target Visit 6 OT Problem 3 OT Problem #3 Impaired Strength OT Goal 1 Goal / Goal Update Patient to be able to progress functional (R) forearm and wrist strengthening to 3 lb. free weight x20 reps without pain. 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 Target Visit 6
--- NOTE | 2024-09-05 14:08 | OTOPPROG ---
Assessment and note entered by Jonel Nieves, TU/Kay, CHT OT Progress Update 09/05/24 Diagnosis S60.221A Contusion of right hand ICD-10 Condition Codes (OT) Pain in right hand M79.641 Subjective Information Patient reports progress in therapy this past month. He reports experiencing relief from his pain after a therapy session, typically leaving therapy in 2/10 pain. He reports the pain relief will last for the rest of the day typically, but then it increases with hand use around the house or with work, reports with use it gets up to 7/10. Functionally he has noticed a little bit of progress with ADLs, he reports continued pain with holding/using a toothbrush and with handwriting. He has sharp, shocking pain with gripping and using a knife to cut meat and trying to open a jar . He reports he would be unable to use a hammer. 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 He is wearing a wrist immobilizer at work. Mostly continues to favor the left hand at work due to pain. Quickdash improved from 68.2% to 50% Assessment OT Clinical Summary Patient referred to OT with dx of right hand contusion. He presents with dorsal hand pain that affects his ability to use his dominant hand for ADLs and work tasks. He has been working with therapy x3 weeks. 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 He is reporting relief for the day after a therapy session, however with hand use his pain continues to increase to 7-9/10. Patient responds well to paraffin/heat, soft tissue mobilization, and ROM/ stretching. He has been tolerating gentle and slow progressive resistive training. Continued follow up indicated for HEP progression, strengthening, manual therapy, and continued use of modalities to facilitate improved functional hand use and facilitate return to work. Plan of Care Interventions Therapeutic Exercise,Manual Therapy,Therapeutic Activities,Ultrasound,Paraffin OT Services Indicated Yes Treatment Frequency and 2x/week for 6 visits Duration These treatments will address the objective and functional deficits as defined above. The patient will be advanced safely and appropriately in order for the patient to progress towards his/her prior level of function. Additional exercises will be introduced and as well as a comprehensive home exercise program upon discharge, if needed, ?to ensure carryover of functional gains achieved in the clinic. This treatment plan has been reviewed and agreement upon by the patient.
--- NOTE | 2024-09-05 14:08 | OPREHPOC ---
Outpatient Therapy Plan of Care This is a Multidisciplinary Plan of Care that may contain components documented by all disciplines (PT, OT, and ST.) OT Problem 1 OT Problem #1 Knowledge Deficit OT Goal 1 Goal / Goal Update Patient to be independent with instructed materials. ---OT POC UPDATE--- Met, continue as HEP is progressed Target Visit 12 OT Problem 2 OT Problem #2 Pain OT Goal 1 Goal / Goal Update Patient to report reduced (R) hand pain when brushing teeth and using a knife to 2/10 or less. ---OT POC UPDATE--- Progressing, but not met, continue Target Visit 12 OT Problem 3 OT Problem #3 Impaired Strength OT Goal 1 Goal / Goal Update 1. Patient to be able to progress functional (R) forearm and wrist strengthening to 3 lb. free weight x20 reps without pain. 2. 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 ---OT POC UPDATE--- 1. Progressing, but not met, continue 2. 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 Target Visit 6
--- NOTE | 2024-09-29 10:07 | OTOPPROG ---
Assessment and note entered by TU Bella/Kay, GISELLT OT Progress Update 09/29/24 Assessment Status Progress Diagnosis S60.221A Contusion of right hand ICD-10 Condition Codes (OT) Pain in right hand M79.641 Subjective Information Patient reports progress in therapy this past month, reporting times of 0/10 pain. However, he continues to report experiencing 8/10 regularly. He reports he continues to be unable to use the right hand to use a screw dedicated driver, hammer, or drill . He has sharp, shocking pain with gripping and using a knife to cut meat and trying to open a jar . The pain shoots up the dorsal forearm toward the lateral epicondyle. He continues to be on light duty at work. Continues to wear a wrist immobilizer at work. Mostly continues to favor the left hand at work due to pain. He continues to use heat and ice for pain control. He is compliant with HEP. Assessment OT Clinical Summary Patient referred to OT with dx of right hand contusion. He presents with dorsal hand pain that affects his ability to use his dominant hand for ADLs and work tasks. He has been working with therapy x6 weeks. He has progressed to experiencing times of 0/10 pain, however he continues to experience 8/10 pain with hand use. The pain appears to be nerve pain as he describes it as lightning pain with intermittent paresthesia. He is completing radial and ulnar nerve glides. Patient continues to respond well to paraffin/heat, soft tissue mobilization, and ROM/ stretching. He has been tolerating gentle and slow progressive resistive training. Continued follow up indicated for HEP progression, strengthening, manual therapy, and continued use of modalities to facilitate improved functional hand use and facilitate return to work. Plan of Care Interventions Therapeutic Exercise,Manual Therapy,Therapeutic Activities,Hot Pack/Cold Pack,Ultrasound,Paraffin OT Services Indicated Yes Treatment Frequency and 2x/week for 6 visits Duration These treatments will address the objective and functional deficits as defined above. The patient will be advanced safely and appropriately in order for the patient to progress towards his/her prior level of function. Additional exercises will be introduced and as well as a comprehensive home exercise program upon discharge, if needed, ?to ensure carryover of functional gains achieved in the clinic. This treatment plan has been reviewed and agreement upon by the patient.
--- NOTE | 2024-09-29 10:08 | OPREHPOC ---
Outpatient Therapy Plan of Care This is a Multidisciplinary Plan of Care that may contain components documented by all disciplines (PT, OT, and ST.) OT Problem 1 OT Problem #1 Knowledge Deficit OT Goal 1 Goal / Goal Update Patient to be independent with instructed materials. ---OT POC UPDATE--- Met, continue as HEP is progressed ----OT POC UPDATE 09/29/24--- Met, continue as HEP is progressed Target Visit 18 OT Problem 2 OT Problem #2 Pain OT Goal 1 Goal / Goal Update Patient to report reduced (R) hand pain when brushing teeth and using a knife to 2/10 or less. ---OT POC UPDATE--- Progressing, but not met, continue ----OT POC UPDATE 09/29/24--- Not met, continue to treat pain Target Visit 18 OT Problem 3 OT Problem #3 Impaired Strength OT Goal 1 Goal / Goal Update 1. Patient to be able to progress functional (R) forearm and wrist strengthening to 3 lb. free weight x20 reps without pain. 2. 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 ---OT POC UPDATE--- 1. Progressing, but not met, continue 2. Progressing, but not met, continue ----OT POC UPDATE 09/29/24--- 1. Progressing, but not met, continue 2. 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 Target Visit 6
--- NOTE | 2024-10-23 12:02 | OTOPPROG ---
Assessment and note entered by Jonel Nieves, TU/Kay, GISELLT OT Progress Report and Therapy HOLD Notification 10/23/24 Diagnosis S60.221A Contusion of right hand ICD-10 Condition Codes (OT) Pain in right hand M79.641 Subjective Information HPI: Patient injured the dorsum of his right hand May 2024. He slipped on ice, laded on his right hand, followed by his chin hitting the dorsum of his right hand. Patient has been participating in OT since August 15, 2024. Patient reports experiencing times of 0/10 pain if he's rested his hand. With hand use, however, he continues to experience sharp, shooting onset of pain. He notes he continues to be unable to use a knife to cut food, open a jar, or use a hammer. 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 He continues to be on light duty at work. Continues to wear a wrist immobilizer at work. Mostly continues to favor the left hand at work due to pain. He continues to use heat and ice for pain control. He is compliant with HEP, which includes radial nerve glides, tendon glides, and gentle strengthening. Assessment OT Clinical Summary Patient referred to OT with dx of right hand contusion. He presents with dorsal hand pain that affects his ability to use his dominant hand for ADLs and work tasks. He has been working with therapy x10 weeks. He has progressed to experiencing times of 0/10 pain, however he continues to experience 8/10 pain with hand use. The pain appears to be radial nerve pain as he describes it as lightning pain with intermittent paresthesia. He is completing radial nerve glides and tendon glides. He receives temporary relief from paraffin/heat, soft tissue mobilization, and ROM/stretching. The most relief the patient gets is from immobilization and rest. Progressive strengthening is limited due to pain. At this time patient is reaching a progress plateau. Patient follows up with MD tomorrow to discuss possible other tests (EMG?). Plan to place the patient on a therapy HOLD at this time. Plan of Care OT Services Indicated No Treatment Frequency and Therapy hold at this time. Patient to follow up Duration with MD tomorrow. These treatments will address the objective and functional deficits as defined above. The patient will be advanced safely and appropriately in order for the patient to progress towards his/her prior level of function. Additional exercises will be introduced and as well as a comprehensive home exercise program upon discharge, if needed, ?to ensure carryover of functional gains achieved in the clinic. This treatment plan has been reviewed and agreement upon by the patient.
--- NOTE | 2024-10-23 12:02 | OPREHPOC ---
Outpatient Therapy Plan of Care This is a Multidisciplinary Plan of Care that may contain components documented by all disciplines (PT, OT, and ST.) OT Problem 1 OT Problem #1 Knowledge Deficit OT Goal 1 Goal / Goal Update Patient to be independent with instructed materials. ---OT POC UPDATE--- Met, continue as HEP is progressed ----OT POC UPDATE 09/29/24--- Met, continue as HEP is progressed ---OT RE-EVAL AND HOLD 10/23/24--- Met, hold until after MD follow up Target Visit 18 OT Problem 2 OT Problem #2 Pain OT Goal 1 Goal / Goal Update Patient to report reduced (R) hand pain when brushing teeth and using a knife to 2/10 or less. ---OT POC UPDATE--- Progressing, but not met, continue ----OT POC UPDATE 09/29/24--- Not met, continue to treat pain ---OT RE-EVAL AND HOLD 10/23/24--- Not met Target Visit 18 OT Problem 3 OT Problem #3 Impaired Strength OT Goal 1 Goal / Goal Update 1. Patient to be able to progress functional (R) forearm and wrist strengthening to 3 lb. free weight x20 reps without pain. 2. 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 ---OT POC UPDATE--- 1. Progressing, but not met, continue 2. Progressing, but not met, continue ----OT POC UPDATE 09/29/24--- 1. Progressing, but not met, continue 2. Progressing, but not met, continue ---OT RE-EVAL AND HOLD 10/23/24--- 1. Not met 2. 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 Target Visit 6
--- NOTE | 2024-12-29 10:25 | OTOPDC ---
Assessment and note entered by Jonel Nieves, OTR/L, CHT OT D/C Notification 12/29/24 Please refer to OT note, dated 10/23/24, for most recent progress summary. 10/23/24: Patient was placed on a therapy HOLD due to a progress plateau. 11/05/24: Referring provider referring patient to a specialist at [facility]. Discharging OT at this time. Thank you.
== END 2024-11-13 23:59 | disposition home or self-care (01) ==
LOC: ANHOT 11:00
PROVIDERS: PCP Internal Medicine; Visit Provider Orthopaedic Surgery
DX: S60.221A Contusion of right hand, initial encounter (principal)
CPT/HCPCS: 97018; 97035; 97110; 97140; 97165